=== PATIENT | female | born 1950 | race Caucasian/White ===

== ENCOUNTER 2023-09-23 13:13 | Outpatient (REF) | payer MEDICARE, SELFPAY ==
--- NOTE | ~2023-09-23 | US_ITS ---
EXAMINATION: US EXTRACRANIAL CAROTID DUPLEX, BILATERAL CLINICAL INFORMATION: Dizziness. COMPARISON: None available. TECHNIQUE: Real-time ultrasound and Doppler techniques (integrating B-mode 2-D vascular images, Doppler spectral analysis and color-flow Doppler imaging) were utilized to interrogate the extracranial carotid arteries, the vertebral arteries and proximal subclavian arteries bilaterally. The degree of stenosis is determined by criteria similar to NASCET. FINDINGS: Right Side: 1. There is mild atherosclerotic plaque seen in the bifurcation/proximal ICA region. 2. The common carotid artery PSV proximally is 594 cm/s and distally 7 cm/s. 3. The proximal internal carotid artery velocities are 35 cm/s systolic and 12 cm/s diastolic. 4. The proximal external carotid artery PSV is 71 cm/s. 5. The vertebral artery shows antegrade flow. 6. The subclavian artery waveforms are normal. Left Side: 1. There is mild atherosclerotic plaque seen in the bifurcation/proximal ICA region. 2. The common carotid artery PSV proximally is 57 cm/s and distally 49 cm/s. 3. The proximal internal carotid artery velocities are 36 cm/s systolic and 11 cm/s diastolic. 4. The proximal external carotid artery PSV is 47 cm/s. 5. The vertebral artery shows antegrade flow. 6. The subclavian artery waveforms are normal. US/US carotid duplex BI IMPRESSION: 1. RIGHT: Minimal, non-hemodynamically significant stenosis of the proximal right internal carotid artery corresponding to a 0-49% stenosis by velocity criteria. 2. LEFT: Minimal, non-hemodynamically significant stenosis of the proximal left internal carotid artery corresponding to a 0-49% stenosis by velocity criteria.
== END 2023-09-23 13:14 | disposition home or self-care (01) ==
LOC: HO.US 13:13
PROVIDERS: Visit Provider Psychiatry & Neurology Neurology
DX: R42 Dizziness and giddiness (principal)
CPT/HCPCS: 93880

== ENCOUNTER 2025-05-16 13:17 | Outpatient (AMB) | payer MEDICARE, SELFPAY ==
--- OUTSIDE RECORDS SUMMARY | 2024-12-14 09:00 | XMS_ITS ---
Author Organization [facility] Address [address] [facility] [place] [address] Care Team Providers Care Cleaning Machine Operator Name Role Phone Akil MERCHANT, Mena Primary Care Provider Unavailabl e Black, Thea Unavailable [phone] Medications Medication SIG (Take, Route, Frequency, Duration) Notes Start Date End Date Status hydroCHLOROthiazide Not-Taking Benadryl Not-Taking FLUoxetine HCl Not-T aking Melatonin Not-Taking ZyPREXA Not-Taking [place] Carbonate No t-Taking Flonase 50 MCG/ACT 1 [...] Unknown Encounters [facility] [address] [facility]14[facility] Thea Carr Plan Of Treatment No Information Progress Notes * Sera CHEEKdyanDOB:[birth year] (75 yo F)Acc No.[id number]:12/14/2024 Progress Note Patient: Anita TIAN Provider: Dyan Carr DPM :1950 A ge:74 Y S ex:Female Date:12/14/2024 Address:[address] [place], [place] [id number] Pcp:Monalisa Barnard MD Subjective: * Chief Complaints: [...] Not-Taking/PRN Vraylar , Not-Taking/PRN LaMICtal , Not-Taking/PRN [place] Carbonate , Not-Taking/PRN Xanax 0.25 MG Tablet [...] 0 12/14/2024 Generated for Amelia aguilar/Gerda/Manuel on: 05/16/2025 05:11 PM EDT
--- NOTE | 2025-05-16 13:23 | A.OFFVIS_ITS ---
Intake Visit Reasons: f/u to discuss MRI results Allergies acetaminophen (From Percocet) Allergy (Unknown, Verified 05/16/25 13:48) Unknown oxycodone (From Percocet) Allergy (Unknown, Verified 05/16/25 13:48) Unknown Medication List - Last Reconciled 05/16/25 by Elodia Blackburn CNP adalimumab (Humira Pen) 40 mg subcut QWEEK aspirin 81 mg PO DAILY atorvastatin 20 mg PO DAILY cholecalciferol (vitamin D3) 50 mcg PO DAILY metformin 500 mg PO DAILY methenamine hippurate 1 g PO BID mirtazapine 30 mg PO BEDTIME mirtazapine 7.5 mg PO DAILY qqrfyoch-gxkwlcg-sukw-lutein tabs PO oxybutynin chloride ER 10 mg PO DAILY vortioxetine (Trintellix) 20 mg PO DAILY HPI Comments Details: 75-year-old woman with a long history of psychiatric disorder including depression, anxiety, and bipolar disorder, Crohn's disease, and hyperlipidemia who was initially seen for dizziness and was found to have orthostatic hypotension, with symptoms improving after losartan was stopped. She returns after about 17 months to review MRI results. She reports being admitted to [facility] in [facility] in early 03/2025 where she was found to have UTI after sliding off her recliner chair. She had follow up with her PCP afterward where brain MRI with and without contrast was ordered and completed at [facility]. She was unsure why MRI was ordered, according to report indication was dizziness and memory loss. She reports also being referred to cardiology for MRI results and has appointment next month. She was here alone and denies any problems with memory. She admits to some confusion and fogginess around time of UTI, which improved with treatment of UTI. She was following with urology. She was having some dizziness. She apparently had appointment with ENT a few weeks ago where she was diagnosed with migraine and recommended to start some vitamins which she has not done yet. She denies any significant headaches. She was walking with cane or walker, no recent falls. She was taking mirtazapine 37.5mg, but sleep was still not so good. [facility] Medical History (Updated 05/16/25 @ 14:33 by Elodia Blackburn CNP) Bipolar disorder Hyperlipidemia Crohn's disease Anxiety Depression Family History (Updated 05/16/25 @ 14:34 by Elodia Blackburn CNP) Mother Stroke Review of Systems Const Denies chills, Denies daytime sleepiness, Reports difficulty sleeping, Denies f atigue, Denies fever(s), Denies frequent falls, Denies headache(s), Denies increased appetite, Denies poor appetite, Denies snoring, Denies weakness, Denies weight gain and Denies weight loss Eyes Denies loss of vision ENT Denies vertigo, Reports dizziness, Denies headache(s) and Denies neck pain Card Denies chest pain at rest, Denies chest pain with activity, Denies syncope, Denies leg edema, Denies palpitations, Denies dyspnea and Denies dyspnea on exertion Resp Denies cough, Denies dyspnea, Denies dyspnea on exertion and Denies snoring GI Denies abdominal pain, Denies constipation, Denies heartburn, Denies diarrhea and Denies nausea Denies urinary frequency, Denies urinary incontinence and Denies urinary urgency Musc Denies abnormal gait, Denies back pain, Denies myalgias, Denies arthralgias, Denies neck pain, Denies numbness and Denies tingling Neuro Denies abnormal gait, Denies vertigo, Reports dizziness, Denies syncope, Denies frequent falls, Denies headache(s), Denies lack of coordination, Denies loss of vision, Denies memory loss, Denies numbness, Denies Other visual disturbances, Denies restless legs, Denies seizure-like activity, Denies tingling, Denies paresthesias, Denies tremor(s) and Denies weakness Psych Reports anxiety, Denies depression, Denies auditory hallucinations, Denies memory loss and Denies visual hallucinations Endo Denies fatigue and Denies palpitations Physical Exam Const Other: General Appearance:? normal, in no acute distress. Heart:? S1, S2 normal, no murmurs. Lungs:? clear anteriorly and posteriorly. Musculoskeletal:? normal. Extremities:? no edema. Psych:? alert, oriented, cognitive function intact, cooperative with exam. Neuro Other: Abnormal Neurological Findings:?Walking with cane. ? Mental Status: alert and oriented X 3. Normal attention, orientation, memory, and affect. Cranial Nerves: Pupils are equal, round, and reactive to light. External ocular muscles are intact. Visual marrero are full, no ptosis. Face is symmetrical, no facial weakness or droop. Facial sensations are normal. Tongue protrudes in midline. Palate elevates symmetrically. Shoulder shrugging is normal Motor Examination: Normal muscle tone, bulk and strength. No atrophy or fasciculations. No drift of the extended upper extremities. DTR 2+. Plantars are flexor. Sensory Exam: Normal light touch, temperature, pinprick, vibration, and joint- position sensations. Rhomberg sign is absent. Coordination: No ataxia. No titubation. Zhgvnm-og-tlri, jsnd-eytn-fogy test, and rapid alternating movements were normal. Gait Exam: With cane. Cerebellar Signs: Ksgjwx-bn-ysan and hyba-gq-taec is normal. No dysdia dochokinesia. Extrapyramidal System: No tremor, rigidity with normal facial expressions. No bradykinesia. No bradyphrenia. Normal arm swing and posture. No propulsion or retropulsion. Speech: Normal. No dysphasia or dysarthria. Results Reviewed Results Reviewed: Brain MRI W & WO Contrast at [facility]: 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 No hemorrhage or mass effect upon adjacent structures. No other abnormal intracranial enhancement. Frontal lobe predominant cerebral volume loss, similar comparaed to 202. Moderate chronic small vessel ischemic changes throughout the supratentorial and pontine white matter, similar compared to 2022. (reported). 09/21/23 EEG- WNL 09/23/23 Carotid US: Minimal, non-hemodynamically significant stenosis of the proximal right and left internal carotid artery corresponding to a 0-49% stenosis by velocity criteria. Assessment & Plan Assessment & Plan (1) Cerebral microvascular disease: Code(s): I67.89 - Other cerebrovascular disease Category: Medical Plan: MRI results reviewed. She was referred to cardiology and has appointment next month. 7-day holter monitor ordered. CTA head/neck ordered. Continue low dose aspirin and statin. (2) Dizziness: Code(s): R42 - Dizziness and giddiness Category: Medical (3) History of stroke: Code(s): Z86.73 - Personal history of transient ischemic attack (TIA), and cerebral infarction without residual deficits Category: Medical Plan . Orders: Orders ECG 7 day holter monitor Today I67.89 - Other cerebrovascular disease, R42 - Dizziness and giddiness, Z86.73 - Personal history of transient ischemic attack (TIA), and cerebral infarction without residual deficits CT angio head neck Today I67.89 - Other cerebrovascular disease, R42 - Dizziness and giddiness, Z86.73 - Personal history of transient ischemic attack (TIA), and cerebral infarction without residual deficits Coding Level of Care Code Est Pt Level 4 (81138) Diagnoses Cerebral microvascular disease I67.89 Dizziness R42 History of stroke Z86.73
--- OUTSIDE RECORDS SUMMARY | 2025-05-16 17:12 | XMS_ITS | Patient Health Record ---
Author Organization [facility] Address [address] [place] [address] Care Team Providers Care Search Marketing Analyst Name Role Phone Akil MERCHANT, [facility] Primary Care Provider UnavailThea Mccrary Unavailable [phone] Allergies Allergen (clinical drug ingredient) Drug/Non Drug Allergy documented on EMR Reaction Allergy Type Onset Date Status ibuprofen Advil Unknown Drug Allergy Active Aleve Unknown Drug Allergy Active Motrin Unknown Drug Allergy Active acetaminophen / oxycodone Percocet Unknown Drug Allergy Active lurasidone Latuda Unknown Drug Allergy Active Results Component Value Reference Range Notes HEMOGLOBIN A1C (GLYCOHEMOGLO BIN) Reviewed date:09/23/2024 01:32:29 PM Interpretation: Performing Lab: Notes/Report: HEMOGLOBIN A1C % (HH) 6.0 Reason For Referral No Information Medications Medication SIG (Take, Route, Frequency, Duration) Notes Start Date End Date Status Ziprasidone HCl Not- Taking hydroCHLOROthiazide Not-Taking Ammonium Lactate 12 % 1 application Externally Twice a day; Duration: 30 days Active Benadryl Not-Taking Linzess Not-Taking Ammonium Lactate Not -Taking ALPRAZolam Not-Takin g Doxazosin Mesylate N ot-Taking FLUoxetine HCl Not-T aking Trintellix Active Melatonin Not-Taking ZyPREXA Not-Taking Valsartan-hydroCHLOROthiazi de Not-Taking Cephalexin 500 MG 1 tablet Orally Twic e a day; Duration: 10 day(s) Not-Taking Extra-Depth Diabetic Shoes with 3 Pair Custom heat-molded multi-density innersoles . for 1 year . Dx:dayne 02/23/2015 Unknown Metoprolol Succinate ER Not-Taking Lunesta Unknown metFORMIN HCl Not-Ta jhony Delzicol Not-Taking Simvastatin Unknown Vraylar Not-Taking PROzac Not-Taking oxyBUTYnin Chloride ER 10 MG 1 tablet Orally Once a day Active Brazos Carbonate No t-Taking metFORMIN HCl Active LaMICtal Not-Taking Eszopiclone Not-Taki ng glipiZIDE ER Not-Ramy ing Extra Depth Orthopedic Shoes (1 Pair) with Customized Heat Molded Multidensity Innersoles (3 Pair) as directed Dx: NIDDM/Polyneuropathy (E11.42), Hammertoe Foot Deformity (M20.41,M20.42), Preulcerative Skin Lesion(s) (L85.1 03/11/2016 Active Atorvastatin Calcium 10 MG 1 tablet Oral ly Once a day Active Mirtazapine 30 MG 1 tablet at bedtime Orally Once a day Active Flonase 50 MCG/ACT 1 spray in each nostril Nasally Once a day Not-Taking traZODone HCl 100 MG 1 tablet at bedtime Orally Once a day Active Xanax 0.25 MG 1 tablet Orally Thre e times a day Not-Taking Humira Pen Active lamoTRIgine Not-Taki ng Meclizine HCl Active OLANZapine 2.5 MG 1 tablet Orally Once a day Not-Taking Immunizations Vaccine Route Administration Date Status Comme nts Influenza Unknown 07/18/2016 Administered Influenza Unknown 08/04/2017 Administered Influenza Unknown 07/28/2018 Administered Influenza Unknown 06/30/2019 Administered Influenza Unknown 07/06/2020 Administered Influenza Unknown 08/21/2020 Refused Influenza Unknown 02/18/2022 Refused Influenza Unknown 05/14/2023 Administered COVID-19 Moderna Vaccine Unknown 12/13/2020 Administered 1st vaccine 10/29 04/20 Social History Tobacco use other than smoking: Question Answer Notes Are you an other tobacco user? No AUDIT-C (Standard) Question Answer Notes Did you have a drink containing alcohol in the p ast year? No Points 0 Interpretation Negative Problems Problem Type SNOMED Code ICD Code Onset Dates Problem Status W/U Status Risk Notes Problem Non-pressure chronic ulcer of other part of left foot limited to breakdown of skin (L97.521) Active confirmed Problem Polyneuropathy due to type 2 diabetes mellitus (784625398) Type 2 diabetes mellitus with diabetic polyneuropathy (E11.42) Active confirmed Problem Ulcer of toe of right foot (disorder) (686661634700278 01) Skin ulcer of toe of right foot, limited to breakdown of skin (L97.511) Active confirmed Problem Ulcer of toe of left foot (disorder) (053941517449984 02) Skin ulcer of toe of left foot, limited to breakdown of skin (L97.521) Active confirmed Nonapplicable Vital Signs Blood pressure diastolic 65 mm Hg 09/23/2024 Height 5ft 8in in 09/23/2024 Blood pressure systolic 117 mm Hg 09/23/2024 Weight 185 lbs 09/23/2024 BMI 28.13 kg/m2 09/23/2024 Procedures Procedure Date Ordered Date Performed Result Body Sit e 16965-DVQQFNG NAIL, 6 OR MORE 06/17/2024 N/A 90601-Jzqpywid Plate 06/17/2024 N/A 30918-XOVM SKIN LESIONS, OVER 4 06/17/2024 N/A 45910-OAYNFWE NAIL, 6 OR MORE 09/23/2024 N/A 74165-EVUO SKIN LESIONS, OVER 4 09/23/2024 N/A Encounters Encounter Location Date Provider Diagnosis [address] [address] 06/17/2024 Thea Carr Type 2 diabetes shoshana itus with diabetic polyneuropathy E11.42 ; Onychomycosis B35.1 and Ingrown nail L60.[address] [address] 09/23/2024 Thea Carr Type 2 diabetes shoshana itus with diabetic polyneuropathy E11.42 and Onychomycosis B35.[address] [address] 11/21/2024 Thea Carr [address] [address] 12/14/2024 Thea Carr Assessments Encounter Date Diagnosis (ICD Code) Assessment Notes Treatment Notes Treatment Clinical Notes Section Notes 06/17/2024 Type 2 diabetes mellitus with diabetic polyneuropathy (ICD-10 - E11.42) 09/23/2024 Type 2 diabetes mellitus with diabetic polyneuropathy (ICD-10 - E11.42) 09/23/2024 Onychomycosis (ICD-10 - B35.1) 06/17/2024 Onychomycosis (ICD-10 - B35.1) 06/17/2024 Ingrown nail (ICD-10 - L60.0) Plan Of Treatment Pending Test Test Name Order Date *Wound Culture 03/08/2018 51464-YHGKOIH NAIL, 6 OR MORE 05/26/2023 27132-UGKUHQQ NAIL, 6 OR MORE 09/04/2023 14069-YKRZIVR NAIL, 6 OR MORE 12/04/2023 97980-OTHSWOR NAIL, 6 OR MORE 03/18/2024 15822-LSBXMZF NAIL, 6 OR MORE 06/17/2024 95531-LKTWNMV NAIL, OR MORE 09/23/2024 95394-Eytmxcdl Plate 06/17/2024 22305-Mostqrcb Plate 02/24/2023 48484-Ojvryhnm Plate 06/14/2019 95247-Wpubiset Plate 02/18/2022 92869-Ymjvxxrp Plate 03/08/2018 90415-Cqunfpky Plate 01/21/2017 59788-Pcijasdz Plate 09/30/2017 16739-Yegiddnr Plate 04/27/2015 78423-Moqjbwap Plate 07/29/2016 64048-Uvscyzns Plate 05/05/2013 26853-Rlpbkslz Plate 07/19/2013 42654-Vaatpjjy Plate 09/27/2013 66861-Seosihkf Plate 12/06/2013 75144-Omecbijf Plate 03/16/2014 70117-Qpibqqmw Plate 05/23/2014 10007-Esumesos Plate 08/08/2014 27703-Vzuoetxz Plate 12/15/2014 81228-Beujslzp Plate 02/23/2015 54726-Xwtavroh Plate Each Additional 62169-Vrnntgoa Plate Each Additional 15062-Qrppxtgy Plate Each Additional 05/2014 45066-Dzeaqqks Plate Each Additional 52135-Gwcpsmxn Plate Each Additional 28219-Frewvzjj Plate Each Additional 58537-Bzidiqjy Plate Each Additional 18604-Iimlhlyl Plate Each Additional 31152- Debride <25 sq cm 12/04/2023 22277- Debride <25 sq cm 04/29/2017 21628- Debride <25 sq cm 03/31/2018 15254- Debride <25 sq cm 04/28/2018 28150- Debride <25 sq cm 07/09/2018 64771 I&D ABSCESS- SIMPLE,SINGLE 023 74470 I&D ABSCESS- SIMPLE,SINGLE 018 67869-EUIZ SKIN LESIONS, OVER 4 09/17/19 19 70309-MTBP SKIN LESIONS, OVER 4 12/11/19 31418-QUFU SKIN LESIONS, OVER 4 03/15/20 78447-SWHF SKIN LESIONS, OVER 4 10/26/19 54839-EANS SKIN LESIONS, OVER 4 06/14/20 53715-MGWH SKIN LESIONS, OVER 4 02/17/20 84351-ZPAT SKIN LESIONS, OVER 4 05/22/20 03189-TSAE SKIN LESIONS, OVER 4 05/20/20 96206-AYHB SKIN LESIONS, OVER 4 08/19/20 64593-FCIO SKIN LESIONS, OVER 4 11/16/19 57972-HHEQ SKIN LESIONS, OVER 4 02/19/20 57834-PCSL SKIN LESIONS, OVER 4 08/21/20 19768-FNKR SKIN LESIONS, OVER 4 12/20/19 91821-OSAU SKIN LESIONS, OVER 4 03/26/20 21 43588-KYTJ SKIN LESIONS, OVER 4 08/02/20 41832-EWEG SKIN LESIONS, OVER 4 11/26/19 23 15348-NMYK SKIN LESIONS, OVER 4 02/25/20 70408-BEAM SKIN LESIONS, OVER 4 09/04/19 24 97427-HOAV SKIN LESIONS, OVER 4 12/04/19 24 67247-ZZNO SKIN LESIONS, OVER 4 03/18/20 24 60465-DJYS SKIN LESIONS, OVER 4 09/23/19 25 97146-TLCV SKIN LESIONS, OVER 4 06/17/20 76905-WVPK SKIN LESIONS, OVER 4 05/26/20 23 62510-FBPF SKIN LESIONS, OVER 4 07/09/20 18 92023-SWXC SKIN LESIONS, OVER 4 03/31/20 18 83525-BDJO SKIN LESIONS, OVER 4 07/21/20 05711-USNM SKIN LESIONS, OVER 4 04/29/20 22367-CAYE SKIN LESIONS, OVER 4 12/31/19 18 12665-JDJR SKIN LESIONS, OVER 4 09/30/19 18 02311-FPBD SKIN LESIONS, OVER 4 04/27/20 15 66138-GGFS SKIN LESIONS, OVER 4 08/02/20 15 32402-BWAI SKIN LESIONS, OVER 4 11/01/19 16 18746-VNXH SKIN LESIONS, OVER 4 01/22/20 17 41495-CQNR SKIN LESIONS, OVER 4 07/29/20 16 12809-GIEZ SKIN LESIONS, OVER 4 03/11/20 16 15970-JBLG SKIN LESIONS, OVER 4 05/20/20 16 05420-TFLU SKIN LESIONS, OVER 4 09/27/19 14 08538-CWLO SKIN LESIONS, OVER 4 03/16/20 14 20400-MWSF SKIN LESIONS, OVER 4 12/07/19 14 72346-YUGY SKIN LESIONS, OVER 4 07/19/20 13 38137-ABXR SKIN LESIONS, OVER 4 05/23/20 14 97651-ARUS SKIN LESIONS, OVER 4 08/08/20 14 63131-BYDL SKIN LESIONS, OVER 4 12/16/19 15 81786-VNHU SKIN LESIONS, OVER 4 02/24/20 15 34970-FNMS SKIN LESIONS, 2 TO 4 05/05/20 13 K6003-ZZHFOEZY DYSTROPHIC NAILS ANY # O6673-EHUJEJMC DYSTROPHIC NAILS ANY # H8143-DCQRUKTO DYSTROPHIC NAILS ANY # Q7730-VPEBDYHC DYSTROPHIC NAILS ANY # K1629-KMSBUWNF DYSTROPHIC NAILS ANY # E3726-MNSDCNQF DYSTROPHIC NAILS ANY # A2763-BRDBVLNC DYSTROPHIC NAILS ANY # C4832-CVKLFMTB DYSTROPHIC NAILS ANY # W9508-GWCRIAEE DYSTROPHIC NAILS ANY # S3630-LAZIXZIR DYSTROPHIC NAILS ANY # V9239-IMGTBUPF DYSTROPHIC NAILS ANY # Y9227-GKHBITFR DYSTROPHIC NAILS ANY # F9352-SAVAOSGP DYSTROPHIC NAILS ANY # C0076-HXNQXCCD DYSTROPHIC NAILS ANY # J9357-YKQNEHUF DYSTROPHIC NAILS ANY # T3212-VCXFMDQW DYSTROPHIC NAILS ANY # X8826-HLVAXOEJ DYSTROPHIC NAILS ANY # A3716-KMEYDSYN DYSTROPHIC NAILS ANY # O4423-JMYAATIC DYSTROPHIC NAILS ANY # I0905-WRKGRCJJ DYSTROPHIC NAILS ANY # U0335-RTDPRGES DYSTROPHIC NAILS ANY # N9933-LQYLOPYQ DYSTROPHIC NAILS ANY # I1797-JRNTJIWN DYSTROPHIC NAILS ANY # H7646-MBNPNHTS DYSTROPHIC NAILS ANY # C4494-NDUFTFJK DYSTROPHIC NAILS ANY # Q9427-WAGZESPJ DYSTROPHIC NAILS ANY # H4403-WEOZUYOR DYSTROPHIC NAILS ANY # H8664-JHPBWPFI DYSTROPHIC NAILS ANY # P0037-IUXPUEXG DYSTROPHIC NAILS ANY # Q7796-LYHVJRKT DYSTROPHIC NAILS ANY # H4839-GPBRZEEB DYSTROPHIC NAILS ANY # N9580-CQINMGML DYSTROPHIC NAILS ANY # B2173-GSDMMGWN DYSTROPHIC NAILS ANY # O3168-XXQSOISD DYSTROPHIC NAILS ANY # L3031-KWQQCVJF DYSTROPHIC NAILS ANY # Z5396-SVXWIVHH DYSTROPHIC NAILS ANY # T1482-JUWJDZRC DYSTROPHIC NAILS ANY # W4149-YJMUFXYE DYSTROPHIC NAILS ANY # Z6997-WAWQDXMN DYSTROPHIC NAILS ANY # Insurance Providers Payer Name Payer Address Payer Phone Subscriber Number Group Number Insured Name Patient Relationship to Insured Coverage Start Date Coverage End Date [employer] [place] Medicare Advantage [address] [facility] [place] [id number] Anita Cheek Self - patient is the insured Medical (General) History Medical History History ICD Code cholesterol crohns disease depression type II diabetes diverticulosis high blood pressure measles mumps chicken pox Surgical History Surgery Date(Month/Year) gall bladder adrenalectomy Disk L4-5 S1 hysterectomy 2020 face surgery for cancer 08/16/2024
--- OUTSIDE RECORDS SUMMARY | 2025-05-16 17:12 | XMS_ITS ---
Author Name [facility] Organization [facility] Care Team Organization Name Specialty Phone Email Start Date End Da te [facility] 03/17/2024 04/06/2024 [facility] 09/08/2022 04/18/2024
--- OUTSIDE RECORDS SUMMARY | 2025-05-16 17:12 | XMS_ITS | Patient Health Record ---
Author Organization [facility] Address [address] [place] [address] Care Team Providers Care Broadcast Designer Name Role Phone Pino MERCHANT, Hetal Primary Care Provider Ravi pérez Reason For Referral No Information Plan Of Treatment No Information Insurance Providers Payer Name Payer Address Payer Phone Subscriber Number Group Number Insured Name Patient Relationship to Insured Coverage Start Date Coverage End Date [employer] MEDICARE ADVANTAGE [address] [facility] [address] [place] [address] [phone] CLINT TRAVIS Self - patient is the insured
--- OUTSIDE RECORDS SUMMARY | 2025-05-16 17:12 | XMS_ITS | Encounter Summary ---
Author Organization [facility] Address [address] [place] [address] Care Team Providers Care Marine Engineering Professor Name Role Phone Errol Moody SANTIAGO Primary Care Provider [phone] Encounter Details Date Type Department Care Team (Late Contact Info) Description 02/10/2025 Lab Requisition [facility] - Main Lab [address] [facility] [place] [phone] Ankita Hoover MD [address] [facility] [address] [place] [address] Urinary tract infection, site not specified Social History Tobacco Use Types Packs/Day Years Used Date Smoking Tobacco: Former Smokeless Tobacco: Never Alcohol Use Standard Drinks/Week Comments Not Currently 0 (1 standard drink = 0.6 oz pur e alcohol) Comments Unknown Sex and Gender Information Value Date Recorded Sex Assigned at Female 03/16/2025 11:39 AM EDT Legal Sex Female 11:33 PM EST Gender Identity Female 03/16/2025 11:39 AM EDT Sexual Orientation Straight 03/16/2025 11 :41 AM EDT documented as of this encounter Plan of Treatment Upcoming Encounters Date Type Department Care Team (Late st Contact Info) Description 06/05/2025 2:00 PM EDT Office Visit [facility] [address] [place] [phone] Terry Vincent MD [address] [place] [address] [address] [place] [phone] documented as of this encounter Procedures Procedure Name Priority Date/Time Associated Diagnosis Comments BACTERIAL IDENTIFICATION AND SUSCEPTIBILITY, AEROBIC Routine 02/09/2025 12:00 AM EDT Urinary tract infection, site not specified documented in this encounter Results * Bacterial identification and susceptibility, aerobic (02/09/2025 12:00 AM EDT) Culture, Bacterial ID and Sensitivity Light Normal Urogenital ibrahima. 02/11/2025 9:32 AM EDT [facility] Other Urine specimen from urethra / Unknown 02/09/2025 02/10/2025 10:23 AM EDT us Ankita Hoover MD LAB MICROBIOLOGY - G ENERAL ORDERABLES Final Result [facility] [address] [place] [address], documented in this encounter Visit Diagnoses Diagnosis Urinary tract infection, site not specified documented in this encounter Care Teams Marine Engineering Professor Relationship Specialty Start Date End Date Moody Norton PA [address] [place] [address] PCP - General Physician Director Career Services 03/27/25 documented as of this encounter
--- OUTSIDE RECORDS SUMMARY | 2025-05-16 17:12 | XMS_ITS | Clinical Summary ---
Author Organization [facility] [address] [facility] Address [address] [place] [address] Phone Care Team Providers Care Validation Software Facilitator Name Role Phone Moody Norton Primary Care Provider [phone] Allergies Active Allergy Reactions Criticality Noted Date Comments Lisinopril 01/12/2025 Other Reaction(s): cough/sinus inflamation cough Lurasidone 01/12/2025 Other Reaction(s): high anxiety Oxycodone-Acetaminophen 09/21/2024 Medications ALPRAZolam (XANAX) 0.5 mg tablet Take 1 Tablet by mouth 3 times daily as needed. Active UNABLE TO FIND Apoaequorin 10 MG Cap Take 1 Capsule by mouth daily Active aspirin 81 mg EC tablet Take 1 Tablet by mouth daily. Active atorvastatin (LIPITOR) 10 mg tablet Take 1 Tablet by mouth daily. Active cholecalciferol (VITAMIN D-3) 50 mcg (2,000 unit) tablet Take 1 Tablet by mouth daily. Active ketoconazole (NIZORAL) 2 % shampoo Apply topically every other day. Active meclizine (ANTIVERT) 12.5 mg tablet Take 1 Tablet by mouth every 12 hours as needed. Active oxyBUTYnin XL (DITROPAN-XL) 10 mg 24 hr tablet Take 1 Tablet by mouth daily. Active traZODone (DESYREL) 50 mg tablet Take 1 Tablet by mouth at bedtime. Active multivit-min/iro n/FA/vit K/lut (CENTRUM SILVER WOMEN ORAL) Multiple Vitamins-Minera ls (Centrum Silver 50+Women) Tab Take 1 Tablet by mouth daily Active metFORMIN (GLUCOPHAGE) 500 mg tablet TAKE 1 TABLET BY MOUTH EVERY DAY WITH A MEAL FOR 90 DAYS 4 Active mirtazapine (REMERON) 30 mg tablet Take 1 tablet (30 mg total) by mouth at bedtime. 4 Active mirtazapine (REMERON) 7.5 mg tablet Take 1 tablet (7.5 mg total) by mouth 1 (one) time each day. 5 Active hydrOXYzine HCL (ATARAX) 50 mg tablet 1 tablet (50 mg total) 2 (two) times a day. 5 Active adalimumab (Humira,CF,) 40 mg/0.4 mL syringeIndicatio ns:Crohn's disease of colon without complication ([facility] V24, [facility] V28) Inject 0.4 mL (40 mg total) under the skin every 7 (seven) days. 12 each 3 5 09/26/19 26 Active vortioxetine (Trintellix) 10 mg tablet Take 1 tablet (10 mg total) by mouth. 1 Active fluticasone propionate (FLONASE) 50 mcg/actuation nasal spray Administer 1 spray into each nostril 1 (one) time each day. 4 Active amLODIPine (NORVASC) 5 mg tablet Take 1 tablet (5 mg total) by mouth. 5 Active Active Problems Problem Noted Date Diagnosed Date Adnexal mass 01/05/2025 Allergic rhinitis 01/05/2025 Migraine headache 01/05/2025 Obesity 01/05/2025 Basal cell carcinoma (BCC) of skin of face 09/21 ADD (attention deficit disorder) without hyperac tivity 09/21/2024 Asthma, well controlled 09/21/2024 Bipolar disorder ([facility] V24, [facility] V28) 09/01 Overview (09/21/2024): psych Dr Morrison Cataract 09/21/2024 Cervical dysplasia 09/21/2024 Crohn's disease ([facility] V24, [facility] V28) 09/21 Overview (09/21/2024): GI Dr Alford Diabetes mellitus, type 2 ([facility] V24, [facility] V28) 09/21/2024 Hyperlipidemia 09/21/2024 Hypertension 09/21/2024 Nephrolithiasis 09/21/2024 Osteopenia 09/21/2024 Dizziness 03/30/2023 Overview (09/15/2024): Last Assessment & Plan: Patient is still having dizziness however she is not orthostatic. Blood pressure today is quite reasonable with a reading of 124/80. She has had tilt table testing in the past no abnormalities. She continues on meclizine as needed for dizziness.No further testing at this time Aortic dilatation ([facility] V24) 03/30/2023 Overview (09/15/2024): Last Assessment & Plan: Patient's echocardiogram did not reveal any changes to her ascending aorta. Will continue to monitor this with periodic echocardiograms. Heart murmur 10/04/2013 Overview (01/05/2025): echo-. Ascending aorta is very mildly dilated. Normal is up to 3.7. ( her 3.8) Suggest repeat echo in 2-3 years. Pheochromocytoma 07/07/2004 Overview (01/05/2025): path unclear- cortical adenoma vs pheo lap right adrenalectomy Encounters Date Type Department Care Team Description 04/29/2025 10:52 AM EDT - 04/29/2025 11:59 PM EDT Hospital Encounter [address] [address] Dizziness; Memory loss Discharge Disposition: Home or Self Care 03/27/2025 2:51 PM EDT - 03/27/2025 11:59 PM EDT Hospital Encounter [facility] [address] [phone] Screening for malignant neoplasm of skin Discharge Disposition: Home or Self Care from Last 3 Months Surgical History Surgery Date Site/Laterality Comments CHOLECYSTECTOMY COLONOSCOPY 02/14/2022 recall 01/2025 COLONOSCOPY 02/10/2018 COLONOSCOPY 11/02/2014 Family History Medical History Relation Name Comments Colon cancer Neg Hx Social History Tobacco Use Types Packs/Day Years Used Date Smoking Tobacco: Former Smokeless Tobacco: Never Alcohol Use Standard Drinks/Week Comments Not Currently 0 (1 standard drink = 0.6 oz pur e alcohol) Comments No Sex and Gender Information Value Date Recorded Sex Assigned at Female 03/16/2025 11:39 AM EDT Legal Sex Female 11:33 PM EST Gender Identity Female 03/16/2025 11:39 AM EDT Sexual Orientation Straight 03/16/2025 11 :41 AM EDT Obstetrics History Last Filed Vital Signs Vital Sign Reading Time Taken Comments Blood Pressure 124/80 05/31/2024 2:28 PM EDT Sit ting L Arm Pulse 90 05/31/2024 2:28 PM EDT Temperature 36.6 C (97.9 F) 01/12/2025 10:06 AM EDT Respiratory Rate - - Oxygen Saturation - - Inhaled Oxygen Concentration - - Weight 95.3 kg (210 lb) 03/27/2025 3:07 PM EDT Height 172.7 cm (5' 8 ) 03/27/2025 3:07 PM EDT Body Mass Index 31.93 03/27/2025 3:07 PM EDT Plan of Treatment Upcoming Encounters Date Type Department Care Team (Late st Contact Info) Description 06/05/2025 2:00 PM EDT Office Visit [facility] [address] [place] [address] Dr Rodriguez [address] [place] [phone] Terry Vincent MD [address] [place] [address] Dr Baker [address] [place] [phone] Health Maintenance Due Date Last Done Comments Diabetes: Annual Foot Exam 1961 Diabetes: Annual Retina Eye Exam 1961 Zoster Vaccines (1 of 2) 1970 RSV Immunization Adult Patients (1 - Risk 60-74 years 1-dose series) 2011 DTaP,Tdap,and Td Vaccines (2 - Td or Tdap) 09/10/2016 09/10/2006 Cholesterol Screening (Lipid Panel) 08/03/2022 Falls Risk Assessment 08/03/2022 Hepatitis C Screening 08/03/2022 Medicare Annual Wellness Visit 08/03/2022 Osteoporosis Screening (Bone Density Screening) 08/03/2022 Social Influencers of Health Screening 08/03/2022 Pneumococcal Vaccine: 50+ Years (2 of 2 - PCV) 06/26/2023 06/26/2022 Depression Screening 08/31/2024 Diabetes: Annual Urine Albumin-Creatinine Ratio (uACR) 09/21/2024 Diabetes: Blood Sugar Control Test (HGBA1C) 09/21/2024 COVID-19 Vaccine ( season) 2025 05/29/2022, 07/22/2021, 12/13/2020, Additional history exists Influenza Vaccine (#1) 2025 , 07/26/2013, 09/03/2012 Diabetes: Annual GFR (Glomerular Filtration Rate) 09/21/2025 09/21/2024 Hypertension/CHF/CAD Annual BMP Blood Test 09/21/2025 09/21/2024 Breast Cancer Screening 03/27/2027 03/27/2025 Colorectal Cancer Screening: Colonoscopy 09/23/2034 09/23/2024 HIB Vaccines Aged Out No longer eligi ble based on patient's age to complete this topic HPV Vaccines Aged Out No longer eligi ble based on patient's age to complete this topic Hepatitis A Vaccines Aged Out No long er eligible based on patient's age to complete this topic Hepatitis B Vaccines Aged Out No long er eligible based on patient's age to complete this topic IPV Vaccines Aged Out No longer eligi ble based on patient's age to complete this topic MMR Vaccines Aged Out No longer eligi ble based on patient's age to complete this topic Meningococcal ACWY Vaccine Aged Out N o longer eligible based on patient's age to complete this topic Meningococcal B Vaccine Aged Out No l onger eligible based on patient's age to complete this topic RSV Immunization Patients Under 20 months Aged Out No longer eligible based on patient's age to complete this topic Varicella Vaccines Aged Out No longer eligible based on patient's age to complete this topic Procedures Procedure Name Priority Date/Time Associated Diagnosis Comments MR BRAIN WO AND W CONTRAST Routine 04/29/2025 11:56 AM EDT Dizziness Memory loss MG MAMMO DIGITAL SCREENING W NOLAN BILAT Routine 03/27/2025 3:20 PM EDT Screening for malignant neoplasm of skin COLONOSCOPY Routine 09/23/2024 10:06 AM EST COMPREHENSIVE METABOLIC PANEL Routine 09/21/2024 3:26 PM EST Crohn's disease of colon without complication (CMS/HCC V24, CMS/HCC V28) from Last 3 Months or Most Recently Relevant to Health Maintenance Results * MR Brain wo and w Contrast (04/29/2025 11:56 AM EDT) Anatomical Region Laterality Modality Head and Neck Magnetic Resonan ce 05/02/2025 8:38 PM EDT Impressions 05/02/2025 8:53 PM EDT 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 No hemorrhage or mass effect upon adjacent structures. No other abnormal intracranial enhancement. Frontal lobe predominant cerebral volume loss, similar compared to 2022. Moderate chronic small vessel ischemic changes throughout the supratentorial and pontine white matter, similar compared to 2022. -------- FINAL REPORT -------- Dictated By: AMI SERRANO Dictated Date: 05/02/2025 20:38 ET Assigned Physician: AMI SERRANO Reviewed and Electronically Signed By: AMI SERRANO Signed Date: 05/02/2025 20:53 ET Workstation ID: [id number] Transcribed By: Self Edit Transcribed Date: 05/02/2025 20:38 ET Narrative 05/02/2025 8:53 PM EDT PROCEDURE: Brain MRI INDICATION: Dizziness, memory loss TECHNIQUE: Multiplanar, multisequence MRI of the brain without and with contrast. 20 mL Dotarem injected intravenously without complication from a 20 mL vial. COMPARISON: 11/26/2022. FINDINGS: Several small cortical and subcortical foci of increased diffusion-weighted signal throughout the left frontal and parietal lobes do not have a low ADC signal correlate and demonstrate enhancement. There is associated T2 hyperintensity. No mass effect upon adjacent structures or hemorrhage. No other abnormal intracranial enhancement. Moderate chronic small vessel ischemic change seen throughout the supratentorial and pontine white matter. Diffuse cerebral volume loss with frontal lobe predominance. No hydrocephalus. Sella and foramen magnum are within normal limits. Pituitary gland is within normal limits. Major intracranial arterial flow voids are within normal limits. Major dural venous sinuses enhance normally with contrast. Atelectatic left maxillary sinus. Scattered mucosal thickening seen throughout the sinuses. Mastoid air cells are clear. Bilateral lens implants. Orbits and skull base soft tissues are normal. Calvarium is normal. Procedure Note Ami Serrano MD - 05/02/2025 PROCEDURE: Brain MRI INDICATION: Dizziness, memory loss TECHNIQUE: Multiplanar, multisequence MRI of the brain without and withcontrast. 20 mL Dotarem injected intravenously without complication froma 20 mL vial. COMPARISON: 11/26/2022. FINDINGS: Several small cortical and subcortical foci of increaseddiffusion-weighted signal throughout the left frontal and parietal lobesdo not have a low ADC signal correlate and demonstrate enhancement. Thereis associated T2 hyperintensity. No mass effect upon adjacent structuresor hemorrhage. No other abnormal intracranial enhancement. Moderate chronic small vesselischemic change seen throughout the supratentorial and pontine whitematter. Diffuse cerebral volume loss with frontal lobe predominance. Nohydrocephalus. Sella and foramen magnum are within normal limits. Pituitary gland iswithin normal limits. Major intracranial arterial flow voids are within normal limits. Majordural venous sinuses enhance normally with contrast. Atelectatic left maxillary sinus. Scattered mucosal thickening seenthroughout the sinuses. Mastoid air cells are clear. Bilateral lens implants. Orbits and skull base soft tissues are normal. Calvarium is normal. IMPRESSION: Multiple small late subacute infarcts with postinfarct enhancementthroughout the left frontal and parietal lobes. No hemorrhage or masseffect upon adjacent structures. No other abnormal intracranial enhancement. Frontal lobe predominant cerebral volume loss, similar compared to 2022. Moderate chronic small vessel ischemic changes throughout thesupratentorial and pontine white matter, similar compared to 2022. -------- FINAL REPORT -------- Dictated By: AMI SERRANO Dictated Date: 05/02/2025 20:38 ET Assigned Physician: AMI SERRANO Reviewed and Electronically Signed By: AMI SERRANO Signed Date: 05/02/2025 20:53 ET Workstation ID: [id number] Transcribed By: Self Edit Transcribed Date: 05/02/2025 20:38 ET Moody SANTIAGO IMG MRI PROCEDURES Final R esult * MG Mammo Digital Screening w Nolan bilat (03/27/2025 3:20 PM EDT) Anatomical Region Laterality Modality Breast Bilateral Mammography 03/30/2025 8:59 AM EDT Impressions 03/30/2025 9:06 AM EDT No mammographic evidence of malignancy. No suspicious interval change. A negative mammogram in the presence of a clinically suspicious palpable abnormality does not preclude the possibility of malignancy or alter the indications for biopsy. ASSESSMENT: BI-RADS 1: NEGATIVE RECOMMENDATION(S): 1: Routine screening mammogram BILATERAL in 1 year. [facility]amm[facility] location: [facility] [address], [address] -------- FINAL REPORT -------- Dictated By: Kristian Baez Dictated Date: 03/30/2025 08:59 ET Assigned Physician: Kristian Baez Reviewed and Electronically Signed By: Kristian Baez Signed Date: 03/30/2025 09:06 ET Workstation ID: [id number] Transcribed By: Self Edit Transcribed Date: 03/30/2025 08:59 ET Narrative 03/30/2025 9:06 AM EDT EXAM: SCREENING MAMMOGRAPHY, BILATERAL HISTORY: SCREENING. No additional history. COMPARISON: 10/01/17 TECHNIQUE: Synthesized CC and MLO projections of each breast. Tomosynthesis of each breast in the CC and MLO projections. ADDITIONAL IMAGING: None Computer-aided detection was employed with the [employer] AI 3-D. TISSUE DENSITY: The breasts are almost entirely fatty. (BI-RADS Category A) FINDINGS: RIGHT BREAST: No suspicious mass. No suspicious calcification. No distortion. No additional suspicious right breast findings LEFT BREAST: No suspicious mass. No suspicious calcification. No distortion. No additional suspicious left breast findings Procedure Note Kristian Baez MD - 03/30/2025 EXAM: SCREENING MAMMOGRAPHY, BILATERAL HISTORY: SCREENING. No additional history. COMPARISON: 10/01/17 TECHNIQUE: Synthesized CC and MLO projections of each breast.Tomosynthesis of each breast in the CC and MLO projections. ADDITIONAL IMAGING: None Computer-aided detection was employed with the [employer] AI 3-D. TISSUE DENSITY: The breasts are almost entirely fatty. (BI-RADS CategoryA) FINDINGS: RIGHT BREAST: No suspicious mass. No suspicious calcification. No distortion. Noadditional suspicious right breast findings LEFT BREAST: No suspicious mass. No suspicious calcification. No distortion. Noadditional suspicious left breast findings IMPRESSION: No mammographic evidence of malignancy. No suspicious interval change. A negative mammogram in the presence of a clinically suspicious palpableabnormality does not preclude the possibility of malignancy or alter theindications for biopsy. ASSESSMENT: BI-RADS 1: NEGATIVE RECOMMENDATION(S): 1: Routine screening mammogram BILATERAL in 1 year. [facility]amm[facility] location: [facility] at [address], [address] -------- FINAL REPORT -------- Dictated By: Kristian Baez Dictated Date: 03/30/2025 08:59 ET Assigned Physician: Kristian Baez Reviewed and Electronically Signed By: Kristian Baez Signed Date: 03/30/2025 09:06 ET Workstation ID: [id number] Transcribed By: Self Edit Transcribed Date: 03/30/2025 08:59 ET Moody SANTIAGO IMG BI PROCEDURES Final Re sult * COLONOSCOPY (09/23/2024 10:06 AM EST) Anatomical Region Laterality Modality Endoscopy Historical Provider GI~PROCEDURE ORDERABLES F inal Result * (ABNORMAL) Comprehensive metabolic panel (09/21/2024 3:26 PM EST) Sodium 140 133 - 145 mmol/L LAB CHEMISTRY METHOD 09/21/2024 6:02 PM EST [facility] Potassium 4.3 3.5 - 5.5 mmol/L LAB CHEMISTRY METHOD 09/21/2024 6:02 PM EST [facility] Chloride 109 96 - 110 mmol/L LAB CHEMISTRY METHOD 09/21/2024 6:02 PM [facility] CO2 26 21 - 32 mmol/L LAB CHEMISTRY METHOD 09/21/2024 6:02 PM [facility] Anion Gap 5 3 - 11 LAB CHEMISTRY METHOD 09/21/2024 6:02 PM [facility] Glucose 132(H) 70 - 100 mg/dL LAB CHEMISTRY METHOD 09/21/2024 6:02 PM [facility] BUN 10 5 - 25 mg/dL LAB CHEMISTRY METHOD 09/21/2024 6:02 PM [facility] Creatinine 0.85 0.50 - 1.10 mg/dL LAB CHEMISTRY METHOD 09/21/2024 6:02 PM [facility] eGFR 72 >=60 mL/min/1. 73m2 LAB CHEMISTRY METHOD 09/21/2024 6:02 PM [facility] Comment:Calculation based on the Chronic Kidney Disease Epidemiology Collaboration (CKD-EPI) equation refit without adjustment for race. BUN/Creatinine Ratio 11.8 LAB CHEMISTRY METHOD 09/21/2024 6:02 PM [facility] Calcium 9.9 8.5 - 10.5 mg/dL LAB CHEMISTRY METHOD 09/21/2024 6:02 PM [facility] AST (SGOT) 21 10 - 42 unit/L LAB CHEMISTRY METHOD 09/21/2024 6:02 PM [facility] ALT (SGPT) 15 10 - 60 unit/L LAB CHEMISTRY METHOD 09/21/2024 6:02 PM [facility] Alkaline Phosphatase 108 42 - 121 unit/L LAB CHEMISTRY METHOD 09/21/2024 6:02 PM [facility] Total Protein 7.7 6.0 - 8.0 g/dL LAB CHEMISTRY METHOD 09/21/2024 6:02 PM [facility] Albumin 3.7 3.2 - 5.0 g/dL LAB CHEMISTRY METHOD 09/21/2024 6:02 PM [facility] Total Bilirubin 0.8 0.0 - 1.4 mg/dL LAB CHEMISTRY METHOD 09/21/2024 6:02 PM EST [facility] Blood Venous blood specimen / Unknown Venipuncture / Unknown 09/21/2024 3:26 PM EST 09/21/2024 4:05 PM EST us Jenny SANTIAGO LAB BLOOD ORDERABLES Final Resu lt [facility] [address] [place] [address], from Last 3 Months or Most Recently Relevant to Health Maintenance Insurance [employer] Care Teams Validation Software Facilitator Relationship Specialty Start Date End Date Moody Norton PA [address] [place] [id number] PCP - General Physician [employer] Associate 03/27/25
--- OUTSIDE RECORDS SUMMARY | 2025-05-16 17:13 | XMS_ITS | Patient Health Record ---
[facility] [address] Address [address] [place] [address] Care Team Providers Care Beam Doffer Name Role Phone KURTIS SHIELDS Unavailable [phone] SARITHAKILEY Garcia Unavailable [phone] Svrcek Chelsi Unavailable [phone] SAJI GÓMEZ Unavailable [phone] Normoyle, Chikis Unavailable [phone] Allergies No Known Allergies Results Component Value Reference Range Notes PPC Urine Dip Reviewed date:02/01/2025 01:53:58 PM Interpretation:Abnormal Performing Lab: Notes/Report: Abnormal MR BRAIN WO AND W CONTRAST Reviewed date:05/03/2025 04:19:42 PM Interpretation: Performing Lab: Notes/Report: Note See Note [facility], a member of [employer] Patient Name: CLINT CHEEK Date of : 1950 Reason for Exam: Dizziness, memory loss Exam Date: 04/29/2025 [id number] EST Report Status: Final Ordering Provider: KURTIS SHIELDS PCP: KURTIS SHIELDS PROCEDURE: Brain MRI INDICATION: Dizzines s, memory loss TECHNIQUE: Multiplan ar, multisequence MRI of the brain without and with contrast. 20 mL Dotarem injected intravenously without complication from a 20 mL vial. COMPARISON: 11/26/2022. FINDINGS: Several small cortic al and subcortical foci of increased diffusion-weighted signal throughout the left frontal and parietal lobes do not have a low ADC signal correlate and demonstrate enhancement. There is associated T2 hyperintensity. No mass effect upon adjacent structures or hemorrhage. No other abnormal intracranial enhancement. Moderate chronic small vessel ischemic change seen throughout the supratentorial and pontine white matter. Diffuse cerebral vol ume loss with frontal lobe predominance. No hydrocephalus. [...] loss, similar compared to 2022. Moderate chronic sma ll vessel ischemic changes throughout the supratentorial and pontine white matter, similar compared to 2022. -------- FINAL REPOR T -------- Dictated By: AMI SERRANO Dictated Date: 05/02/2025 20:38 ET Assigned Physician: AMI SERRANO Reviewed and Electronically Signed By: AMI SERRANO Signed Date: 025 20:53 ET Workstation ID: [id number] Transcribed By: Self Edit Transcribed Date: 05/02/2025 20:38 ET EXTRA URINE SPECIMEN Reviewed date:01/19/2025 12:41:12 PM Interpretation: Performing Lab:NL2, [employer] [facility] [id number] Blas Marcos Notes/Report: FASTING: UNKNOWN COMMENT AN EXTRA SPECIMEN WAS RECEIVED WITH NO TEST REQUESTED. THE SPECIMEN WILL BE MAINTAINED IN STORAGE IN CASE ADDITIONAL TESTING IS NEEDED. PLEASE CALL THE CLIENT SERVICE DEPARTMENT FOR FURTHER ASSISTANCE. UA/M w/rflx Culture, Routine -[id number] Reviewed date:08/11/2024 08:02:40 AM Interpretation: Performing Lab:[facility], [address] [facility], [place], Phone - [phone], Director - Carlos Alberto Notes/Report: Specific Wellington 1.025 1.005-1.030 pH 5.5 5.0-7.5 Urine-Color Yellow Yellow Appearance Turbid Clear WBC Esterase 2+ Negative Protein 3+ Negative/Trace Glucose Negative Negative Ketones Negative Negative Occult Blood 2+ Negative Bilirubin Negative Negative Urobilinogen,Semi-Qn 0.2 0.2-1.0 mg/dL Nitrite, Urine Negative Negative Microscopic Examination See below: Micr oscopic was indicated and was performed. Urinalysis Reflex This speci men has reflexed to a Urine Culture. WBC >30 0 - 5 /hpf RBC >30 0 - 2 /hpf Epithelial Cells (non renal) 0-10 0 - 10 /hpf Casts Present None seen /lpf Cast Type Hyaline casts N/A Bacteria None seen None seen/Few Urine Culture, Routine Final report Result 1 Mixed urogenital ibrahima 50,000-100,000 colony forming units per mL VITAMIN D 1,25 DIHYDROXY Reviewed date:09/30/2024 08:56:16 AM Interpretation: Performing Lab: Notes/Report: Vitamin D, 1, 25-Dihydroxy 46 20-79 pg/mL Vitamin D 1, 25 dihydroxy levels should be primarily used to assess Vitamin D status in patients with renal disease and hypercalcemia. Vitamin D 1,25-dihydroxy levels are generally less than 5 pg/mL in end stage renal disease patients. The preferred initial test for assessing Vitamin D status in the general population is Vitamin D 25-hydroxy (VITD). Test performed at [facility], [facility] [place] [address] Cortney Rodriguez MD, PhD - Pneumatic Tube Fitter Basic Metabolic Panel ([id number] Reviewed date:03/15/2025 09:20:22 AM Interpretation: Performing Lab:[facility], [address] [place] [address], Phone - [phone], Director - Carlos Alberto Notes/Report: Glucose 139 70-99 mg/dL BUN 13 8-27 mg/dL Creatinine 0.59 0.57-1.00 mg/dL eGFR 95 >59 mL/min/1.73 BUN/Creatinine Ratio 22 12-28 Sodium 140 134-144 mmol/L Potassium 4.8 3.5-5.2 mmol/L Chloride 101 96-106 mmol/L Carbon Dioxide, Total 22 20-29 mmol/L Calcium 9.5 8.7-10.3 mg/dL Comp. Metabolic Panel (14)-3 [id number] Reviewed date:08/08/2024 11:42:08 AM Interpretation: Performing Lab:[facility], [address] [facility], Phone - [phone], Director - Carlos Alberto Notes/Report: Glucose 125 70-99 mg/dL BUN 16 8-27 mg/dL Creatinine 0.75 0.57-1.00 mg/dL eGFR 84 >59 mL/min/1.73 BUN/Creatinine Ratio 21 12-28 Sodium 140 134-144 mmol/L Potassium 4.4 3.5-5.2 mmol/L Chloride 99 96-106 mmol/L Carbon Dioxide, Total 23 20-29 mmol/L Calcium 9.6 8.7-10.3 mg/dL Protein, Total 7.3 6.0-8.5 g/dL Albumin 4.0 3.8-4.8 g/dL Globulin, Total 3.3 1.5-4.5 g/dL Bilirubin, Total 0.8 0.0-1.2 mg/dL Alkaline Phosphatase 135 44-121 IU/L AST (SGOT) 16 0-40 IU/L ALT (SGPT) 8 0-32 IU/L Lipid Panel-[id number] Reviewed date:08/08/2024 07:56:08 AM Interpretation: Performing Lab:[facility], [address] [facility], Phone - [phone], Director - Carlos Alberto Notes/Report: Cholesterol, Total 144 100-199 mg/dL Triglycerides 85 0-149 mg/dL HDL Cholesterol 72 >39 mg/dL VLDL Cholesterol Tate 16 5-40 mg/dL LDL Chol Calc (NIH) 56 0-99 mg/dL Vitamin D, [id number] Reviewed date:08/08/2024 07:56:08 AM Interpretation: Performing Lab:[facility], [address] [facility], [place], Phone - [phone], Director - Carlos Alberto Notes/Report: Vitamin D, 25-Hydroxy 41.6 30.0-100.0 ng/mL Vitamin D deficiency has been defined by the [place] of Medicine and an Endocrine Society practice guideline as a level of serum 25-OH vitamin D less than 20 ng/mL (1,2). The Endocrine Society went on to further define vitamin D insufficiency as a level between 21 and 29 ng/mL (2). 1. IOM ([place] of Medicine). 2010. Dietary reference intakes for calcium and D. [place]: The National Academies Press. 2. Angel MF, Rohith NC, Moriah BEE, et al. Evaluation, treatment, and prevention of vitamin D deficiency: an Endocrine Society clinical practice guideline. JCEM. 2010; 96(7):1911-30. CBC With Differential/Platel et-[id number] Reviewed date:08/08/2024 11:42:16 AM Interpretation: Performing Lab:[facility], [address] [place] [address], Phone - [phone], Director - MDMilagrodry Notes/Report: WBC 7.6 3.4-10.8 x10E3/uL RBC 4.52 3.77-5.28 x10E6/uL Hemoglobin 14.0 11.1-15.9 g/dL Hematocrit 42.7 34.0-46.6 % MCV 95 79-97 fL MCH 31.0 26.6-33.0 pg MCHC 32.8 31.5-35.7 g/dL RDW 11.6 11.7-15.4 % Platelets 276 150-450 x10E3/uL Neutrophils 56 Not Estab. % Lymphs 34 Not Estab. % Monocytes 7 Not Estab. % Eos 3 Not Estab. % Basos 0 Not Estab. % Neutrophils (Absolute) 4.2 1.4-7.0 x10E3/uL Lymphs (Absolute) 2.6 0.7-3.1 x10E3/uL Monocytes(Absolute) 0.5 0.1-0.9 x10E3/uL Eos (Absolute) 0.2 0.0-0.4 x10E3/uL Baso (Absolute) 0.0 0.0-0.2 x10E3/uL Immature Granulocytes 0 Not Estab. % Immature Grans (Abs) 0.0 0.0-0.1 x10E3/uL TSH-[id number] Reviewed date:08/08/2024 07:56:08 AM Interpretation: Performing Lab:[facility] [address], Phone - [phone], Director - Crisdry Notes/Report: TSH 1.100 0.450-4.500 uIU/mL Urinalysis, Complete-[id number] Reviewed date:08/08/2024 11:42:00 AM Interpretation: Performing Lab:[facility] [address], Phone - [phone], Director - Jodry Notes/Report: Specific [place] 1.028 1.005-1.030 pH 5.5 5.0-7.5 Urine-Color Yellow Yellow Appearance Clear Clear WBC Esterase 1+ Negative Protein 2+ Negative/Trace Glucose Negative Negative Ketones Negative Negative Occult Blood 3+ Negative Bilirubin Negative Negative Urobilinogen,Semi-Qn 0.2 0.2-1.0 mg/dL Nitrite, Urine Positive Negative Microscopic Examination See below: Micr oscopic was indicated and was performed. WBC >30 0 - 5 /hpf RBC 11-30 0 - 2 /hpf Epithelial Cells (non renal) >10 0 - 10 /hpf Casts None seen None seen /lpf Bacteria Few None seen/Few Hemoglobin [id number] Reviewed date:08/08/2024 11:41:54 AM Interpretation: Performing Lab:[facility] [place], [address] [place] [address] Avenue, [place], Phone - [phone], Director - Carlos Alberto Notes/Report: Hemoglobin A1c 6.1 4.8-5.6 % . Prediabetes: 5.7 - 6.4 Diabetes: >6.4 Glycemic control for adults with diabetes: <7.0 CULTURE, URINE, ROUTINE Reviewed date:01/19/2025 12:41:07 PM Interpretation: Performing Lab:NL2, [facility] [id number] [facility] Blas Marcos Notes/Report: FASTING: UNKNOWN CULTURE, URINE, ROUTINE SEE NOTE CULTURE, URINE, ROUTINE Micro Number: [id number] Test Status: Final Specimen Source: Urine Specimen Quality: Inadequate Result: Test not performed. Submitted urine tube is incorrectly filled. MG MAMMO DIGITAL SCREENING W JAVIER BILAT Reviewed date:03/30/2025 10:29:23 AM Interpretation: Performing Lab: Notes/Report: Note See Note [facility], a member of [employer] Patient Name: CLINT CHEEK Date of : 1950 Reason for Exam: screening mammogram Exam Date: 03/27/2025 [id number] EST Report Status: Final Ordering Provider: KURTIS SHIELDS PCP: KURTIS SHIELDS EXAM: SCREENING MAMMOGRAPHY, BILATERAL HISTORY: SCREENING. No additional history. COMPARISON: 10/01/17 TECHNIQUE: Synthesiz ed CC and MLO projections of each breast. Tomosynthesis of each breast in the CC and MLO projections. ADDITIONAL IMAGING: None Computer-aided detection was employed with the [employer] AI 3-D. TISSUE DENSITY: The breasts are almost entirely fatty. (BI-RADS Category A) FINDINGS: RIGHT BREAST: No suspicious mass. No suspicious calcification. No distortion. No additional suspicious right breast findings LEFT BREAST: No suspicious mass. No suspicious calcification. No distortion. No additional suspicious left breast findings IMPRESSION: No mammographic evidence of malignancy. No suspicious interv al change. A negative mammogram in the presence of a clinically suspicious palpable abnormality does not preclude the possibility of malignancy or alter the indications for biopsy. ASSESSMENT: BI-RADS 1: NEGATIVE RECOMMENDATION(S): 1: Routine screening mammogram BILATERAL in 1 year. [facility] [address], [address] -------- FINAL REPOR T -------- Dictated By: Kritsian Wright Dictated Date: 03/30/2025 08:59 ET Assigned Physician: Kristian Baez Reviewed and Electronically Signed By: Kristian Baez Signed Date: 025 09:06 ET Workstation ID: [id number] Transcribed By: Self Edit Transcribed Date: 03/30/2025 08:59 ET VITAMIN B12 AND FOLATE Reviewed date:09/30/2024 08:56:16 AM Interpretation: Performing Lab: Notes/Report: Vitamin B-12 672 250-900 pcg/mL Folate 5.2 2.8-17.0 ng/ml BACTERIAL IDENTIFICATION AND SUSCEPTIBILITY, AEROBIC Reviewed date:02/14/2025 08:47:47 AM Interpretation: Performing Lab: Notes/Report: Culture, Bacterial ID and Sensitivity Light Normal Urogenital ibrahima. C-REACTIVE PROTEIN Reviewed date:09/30/2024 08:56:16 AM Interpretation: Performing Lab: Notes/Report: C-Reactive Protein <0.29 <=0.50 mg/dL COMPREHENSIVE METABOLIC PANE L Reviewed date:10/07/2024 08:31:25 AM Interpretation: Performing Lab: Notes/Report: Sodium 140 133-145 mmol/L Potassium 4.3 3.5-5.5 mmol/L Chloride 109 96-110 mmol/L CO2 26 21-32 mmol/L Anion Gap 5 3-11 Glucose 132 70-100 mg/dL BUN 10 5-25 mg/dL Creatinine 0.85 0.50-1.10 mg/dL eGFR 72 >=60 mL/min/1.73m2 Calculati on based on the?Chronic Kidney Disease Epidemiology Collaboration (CKD-EPI) equation refit?without adjustment for race. BUN/Creatinine Ratio 11.8 Calcium 9.9 8.5-10.5 mg/dL AST (SGOT) 21 10-42 unit/L ALT (SGPT) 15 10-60 unit/L Alkaline Phosphatase 108 42-121 unit/L Total Protein 7.7 6.0-8.0 g/dL Albumin 3.7 3.2-5.0 g/dL Total Bilirubin 0.8 0.0-1.4 mg/dL CBC WITH AUTO DIFFERENTIAL Reviewed date:09/30/2024 09:24:30 AM Interpretation: Performing Lab: Notes/Report: WBC 6.3 4.8-10.8 K/mcL RBC 4.90 3.80-4.80 M/mcL Hemoglobin 14.1 11.5-16.0 g/dL Hematocrit 45.1 35.0-47.0 % MCV 91.3 79.0-98.0 FL MCH 28.5 27.0-32.0 pcg MCHC 31.3 32.0-37.0 g/dL RDW 12.4 11.0-15.0 % Platelets 308 130-400 K/mcL MPV 10.6 7.0-11.0 FL NRBC 0.0 <1.0 % NRBC Absolute 0.00 <0.10 K/mcL Neutrophils Relative 43.8 Lymphocytes Relative 44.7 Monocytes Relative 7.6 Eosinophils Relative 3.3 Basophils Relative 0.3 Immature Granulocytes Relative 0.3 Neutrophils Absolute 2.77 1.50-7.00 K/mcL Lymphocytes Absolute 2.83 1.00-5.00 K/mcL Monocytes Absolute 0.48 0.20-1.00 K/mcL Eosinophils Absolute 0.21 0.00-0.50 K/mcL Basophils Absolute 0.02 0.00-0.20 K/mcL Immature Granulocytes Absolute 0.02 0.00-0.03 K/mcL Comp. Metabolic Panel ([id number] Reviewed date:10/28/2024 10:48:43 AM Interpretation: Performing Lab:[facility], [address], [place], Phone - [phone], Director - Carlos Alberto Notes/Report: Glucose 139 70-99 mg/dL BUN 13 8-27 mg/dL Creatinine 0.61 0.57-1.00 mg/dL eGFR 94 >59 mL/min/1.73 BUN/Creatinine Ratio 21 12-28 Sodium 140 134-144 mmol/L Potassium 4.6 3.5-5.2 mmol/L Chloride 101 96-106 mmol/L Carbon Dioxide, Total 20 20-29 mmol/L Calcium 9.5 8.7-10.3 mg/dL Protein, Total 7.1 6.0-8.5 g/dL Albumin 4.0 3.8-4.8 g/dL Globulin, Total 3.1 1.5-4.5 g/dL Bilirubin, Total 0.7 0.0-1.2 mg/dL Alkaline Phosphatase 115 44-121 IU/L AST (SGOT) 15 0-40 IU/L ALT (SGPT) 7 0-32 IU/L CBC With Differential/Platel et-[id number] Reviewed date:10/28/2024 10:48:52 AM Interpretation: Performing Lab:[facility], [address] [place] [address], [place], Phone - [phone], Director - Carlos Alberto Notes/Report: WBC 7.2 3.4-10.8 x10E3/uL RBC 4.50 3.77-5.28 x10E6/uL Hemoglobin 13.1 11.1-15.9 g/dL Hematocrit 41.7 34.0-46.6 % MCV 93 79-97 fL MCH 29.1 26.6-33.0 pg MCHC 31.4 31.5-35.7 g/dL RDW 13.1 11.7-15.4 % Platelets 314 150-450 x10E3/uL Neutrophils 36 Not Estab. % Lymphs 51 Not Estab. % Monocytes 7 Not Estab. % Eos 6 Not Estab. % Basos 0 Not Estab. % Neutrophils (Absolute) 2.6 1.4-7.0 x10E3/uL Lymphs (Absolute) 3.7 0.7-3.1 x10E3/uL Monocytes(Absolute) 0.5 0.1-0.9 x10E3/uL Eos (Absolute) 0.4 0.0-0.4 x10E3/uL Baso (Absolute) 0.0 0.0-0.2 x10E3/uL Immature Granulocytes 0 Not Estab. % Immature Grans (Abs) 0.0 0.0-0.1 x10E3/uL Hemoglobin [id number]-[id number] Reviewed date:10/28/2024 10:48:17 AM Interpretation: Performing Lab:[facility], [address], [place], Phone - [phone], Director - Carlos Alberto Notes/Report: Hemoglobin A1c 5.8 4.8-5.6 % . Prediabetes: 5.7 - 6.4 Diabetes: >6.4 Glycemic control for adults with diabetes: <7.0 Reason For Referral Reason s/p hospitalization sepsis from UTI. evaluate & treat Diagnosis 1 Chronic UTI (N39.0) Referral Organization [facility] Referring Provider First Name GÓMEZ Referring Provider Last Name SAJI Referring Provider Speciality Internal edicine Referred Provider Specialty Urology Clinical Notes Tonie Messina 12/30 04:26:06 PM > faxed pt info to [facility]rology of [facility]. p) [phone] f) [phone], Jose Alberto Sotelo 02/09/2025 02:20:59 PM > Spoke with Tonya, was seen today February 09 Referral Priority Routine Reason Evaluate & Treat Diagnosis 1 Anxiety (F41.9) Diagnosis 2 Bipolar disorder wit h depression (F31.9) Diagnosis 3 Polypharmacy (Z79.89 9) Referral Organization [facility] Referring Provider First Name KURTIS Referring Provider Last Name ALYSON Referring Provider [facility] Referred Provider Specialty Psychiatry General Notes Angeli Car 2024 01:47:14 PM > Family care con, [phone], [phone] Clinical Notes Angeli Car 2024 03:10:39 PM > patient has packet will call us if referral is needed Referral Priority Routine Medications Medication SIG (Take, Route, Frequency, Duration) Notes Start Date End Date Status traZODone HCl 100 MG TAKE 1 TABLET BY MOUTH EVERY DAY AT BEDTIME NEEDED FOR 30 DAYS 90 DAYS; Duration: 90 Active Meclizine HCl 12.5 MG TAKE 1 TABLET BY MOUTH EVERY 12 HOURS NEEDED; Duration: 30 Active Trintellix 20 MG TAKE 1 TABLET BY MOUTH EVERY DAY FOR 90 DAYS; Duration: 90 Active Methenamine Hippurate 1 GM TAKE 1 TABLET BY MOUTH TWICE A DAY TAKE WITH VITAMIN C OR CRANBERRY PILL Oral; Duration: 90 Days Active Ciprofloxacin HCl 250 MG 1 tablet Orally every 12 hrs; Duration: 5 days 01/17/2025 Not-Taking oxyBUTYnin Chloride ER 10 MG 1 tablet Orally Once a day Active Pyridium 100 MG one tab Orally Three times a day; Duration: 2 days 01/17/2025 Not-Taking Humira 40 mg SC Active Macrobid 100 MG 1 capsule with food Orally every 12 hrs; Duration: 5 days 01/18/2025 Not-Taking Acetaminophen 500 MG 1 capsule as needed Orally every 6 hrs prn Active Mirtazapine 30 MG TAKE 1 TABLET BY MOUTH EVERY NIGHT AT BEDTIME.; Duration: Active metFORMIN HCl 500 MG TAKE 1 TABLET BY MOUTH EVERY DAY WITH A MEAL FOR 90 DAYS; Duration: Active amLODIPine Besylate 5 MG TAKE 1 TABLET B Y MOUTH EVERY DAY; Duration: 90 Active Atorvastatin Calcium 20 MG 1 tablet Orally Once a day; Duration: 90 days Active Social History Tobacco Use: Social History Observation Description Date Details (start date - stop date) Former Smoker NA - NA Tobacco Use/Smoking Question Answer Notes Are you a former smoker Alcohol Screen (Audit-C) Question Answer Notes Did you have a drink containing alcohol in the p ast year? 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 HPI quit smoking 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 quit smoking 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 quit smoking 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 quit smoking 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 quit smoking 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 see HPI ETOH Use: declines Tob Use: declines Drug Use: declines Caffeine Use: coffee Smoke detectors in home: Yes Seatbelt use: Yes quit smoking 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 quit smoking 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 quit smoking 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 quit smoking 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 Problems Problem Type SNOMED Code ICD Code Onset Dates Problem Status W/U Status Risk Notes Problem Vitamin D deficiency (79700167) Vitamin D deficiency, unspecified (E55.9) Active confirmed Problem Metabolic encephalopathy (03192918) Metabolic encephalopathy (G93.41) Active confirmed Problem Essential hypertension (09838005) Essential (primary) hypertension (I10) Active confirmed Problem Shortness of breath (217103121) Shortness of breath (R06.02) Active confirmed Problem Dysuria (65521056) Dysuria (R30.0) Active confirmed Problem Transient alteration of awareness (6506725373) Transient alteration of awareness (R40.4) Active confirmed Problem Diabetes mellitus screening (548818355) Encounter for screening for diabetes mellitus (Z13.1) Active confirmed Problem Lipid screening (197547380) Encounter for screening for lipoid disorders (Z13.220) Active confirmed Problem Endocrine/metabol ic screening (064555981) Encounter for screening for other suspected endocrine disorder (Z13.29) Active confirmed Problem Prediabetes (850839070) Prediabetes (R73.03) Active confirmed Problem Unsteady gait (10997676) Unsteady gait (R26.81) Active confirmed Problem Acquired hypothyroidism (082251284) Acquired hypothyroidism (E03.9) Active confirmed Problem Anxiety (15409207) Anxiety (F41.9) Active confirmed Problem Adult health examination (223991572) Adult general medical exam (Z00.00) Active confirmed Problem Dizziness (956490253) Dizziness (R42) Active confirmed Problem Annual health maintenance examination (17012530) Annual physical exam (Z00.00) Active confirmed Problem Vitamin D deficiency (54567920) Vitamin D deficiency (E55.9) Active confirmed Problem Chronic sinusitis (90480054) Chronic sinusitis, unspecified location (J32.9) Active confirmed Problem Alkaline phosphatase raised (203183617) Elevated alkaline phosphatase level (R74.8) Active confirmed Problem Body mass index 30.00 to 34.99 (111006538512088) BMI 34.0-34.9,adult (Z68.34) Active confirmed Problem Basal cell carcinoma of face (605732122) Basal cell carcinoma (BCC) of skin of other part of face (C44.319) Active confirmed Problem Deviated nasal septum (176727142) Deviated septum (J34.2) Active confirmed Problem Chronic cough (73951613) Chronic cough (R05.3) Active confirmed Problem Abnormal gait (93742492) Balance disorder (R26.89) Active confirmed Problem Bipolar disorder (74918980) Bipolar disorder with depression (F31.9) Active confirmed Problem Amnesia (90669069) Memory changes (R41.3) Active confirmed Problem MRI Scan Abnormal (039494796) Abnormal MRI (R93.89) Active confirmed Problem Dilatation of Aorta (67679969) Aortic dilatation (I77.819) Active confirmed Problem Lesion of skin of face (125926905667) Lesion of skin of face (L98.9) Active confirmed Problem Word finding difficulty (973571825) Word finding difficulty (R47.89) Active confirmed Problem Urinary tract infectious disease (17205649) Chronic UTI (N39.0) Active confirmed Problem Ectasia of thoracic aorta (019058603073482) Aortic root dilation (I77.810) Active confirmed Problem Chronic insomnia (839227923) Chronic insomnia (F51.04) Active confirmed Vital Signs Heart Rate 88 /min 03/15/2025 Temperature 98.6 degrees Fahrenheit 01/17/2025 Oximetry 96 % 03/15/2025 Blood pressure diastolic 82 mm Hg 03/15/2025 Height 67 in 03/15/2025 Blood pressure systolic 124 mm Hg 03/15/2025 Weight 221 lbs 03/15/2025 BMI 34.61 kg/m2 03/15/2025 Encounters Encounter Location Date Provider Diagnosis [facility] [address] [place] [address] 06/09/2024 KURTIS ALVAREZNER Anxiety F41.9 ; Basa l cell carcinoma (BCC) of skin of other part of face C44.319 ; Aortic root dilation I77.810 ; Seborrhea capitis L21.0 and Sinus congestion R09.[address] [place] [address] 08/09/2024 KURTIS SHIELDS Anxiety F41.9 ; Basa l cell carcinoma (BCC) of skin of other part of face C44.319 ; Aortic root dilation I77.810 ; Seborrhea capitis L21.0 ; Sinus congestion R09.81 ; Dysuria R30.0 ; Prediabetes R73.03 and Elevated alkaline phosphatase level R74.8 [facility] [address] [place] [address] 11/02/2024 KURTIS SHIELDS Anxiety F41.9 ; Basa l cell carcinoma (BCC) of skin of other part of face C44.319 ; Aortic root dilation I77.810 ; Seborrhea capitis L21.0 ; Sinus congestion R09.81 ; Dysuria R30.0 ; Prediabetes R73.03 and Elevated alkaline phosphatase level R74.8 [facility] [address] [place] [address] 01/11/2025 KURTIS SHIELDS Basal cell carcinoma (BCC) of skin of other part of face C44.319 ; Metabolic encephalopathy G93.41 ; Anxiety F41.9 ; Aortic root dilation I77.810 ; Seborrhea capitis L21.0 ; Sinus congestion R09.81 ; Dysuria R30.0 ; Prediabetes R73.03 ; Elevated alkaline phosphatase level R74.8 and Encounter for examination of blood pressure without abnormal findings Z01.30 [facility] [address] [place], [place] 01/17/2025 GÓMEZ SAJI Urinary frequency R3 5.0 ; Chills R68.83 ; Acute UTI N39.0 and Encounter for examination of blood pressure without abnormal findings Z01.[address] 02/01/2025 Chikis Normoyle Incontinence in fema le R32 ; Recurrent UTI (urinary tract infection) N39.0 ; Encounter for examination of blood pressure without abnormal findings Z01.30 and Chronic insomnia F51.04 [facility] [address] [place] [address] 03/15/2025 KURTIS SHIELDS Basal cell carcinoma (BCC) of skin of other part of face C44.319 ; Adult general medical exam Z00.00 ; Aortic root dilation I77.810 ; Encounter for examination of blood pressure without abnormal findings Z01.30 ; Encounter for screening for depression Z13.31 ; Encounter for screening for other disorder Z13.89 ; Other specified counseling Z71.89 ; Dizziness R42 ; Memory changes R41.3 and BMI 34.0-34.9,adult Z68.34 [facility] [address] [place] [address] 07/06/2024 KURTIS SHIELDS [facility] [address] [place] [address] 08/12/2024 KURTIS SHIELDS [facility] [address] [place] [address] 01/05/2025 KURTIS SHIELDS [facility] [address] [place] [address] 01/10/2025 KURTIS SHIELDS [facility] [address] [place] [address] 01/16/2025 KURTIS SHIELDS [facility] [address] [place] [address] 01/17/2025 GÓMEZ SAJI Dysuria R30.[address] [place] [address] 01/17/2025 KURTIS SHIELDS Dysuria R30.[address] [place] [address] 01/18/2025 GÓMEZ SAJI [facility] [address] [place] [address] 01/31/2025 UKRTIS SHIELDS [facility] [address] [place] [address] 02/02/2025 Chikis Normoyle [facility] [address] [facility] [address] [place] [address] 02/03/2025 KURTIS SHIELDS [facility] [address] [place] [address] 02/13/2025 KURTIS SHIELDS [facility] [address] [place] [address] 02/21/2025 KURTIS SHIELDS [facility] [address] [place] [address] 03/08/2025 KURTIS SHIELDS [facility] [address] [place] [address] 03/23/2025 Chelsi Svrcek [facility] [address] [place] [address] 03/23/2025 KURTIS SHIELDS [facility] [address] [place] [address] 03/30/2025 KURTIS SHIELDS [facility] [address] [place] [address] 04/11/2025 KURTIS SHIELDS [facility] [address] [place] [address] 04/27/2025 KURTIS SHIELDS [facility] [address] [place] [address] 05/03/2025 KURTIS SHIELDS [facility] [address] [place] [address] 08/12/2024 KILEY MELARA Assessments Encounter Date Diagnosis (ICD Code) Assessment Notes Treatment Notes Treatment Clinical Notes Section Notes 06/09/2024 Anxiety (ICD-10 - F41.9) # Patient was under dermatology for lesion on face, tested positive for basal cell carcinoma. Getting surgery on September 28October 12, and final surgery not scheduled get with plastic surgeon Dr. Barrios. # Chronic cough/Chronic congestion: Obtained chest x-ray, within normal limits overall. Failed Augmentin, and doxycycline, continue Flonase. Still having chronic congestion as well. Use albuterol as needed,Continuing Trelegy with improvement. CT of the maxillofacial sinuses without contrast showing mucosal thickening. Sending to ENT, referral still pending. Patient does have deviated septum.Patient has a follow-up with ENT on November 17, 2024. # Dizziness: Much better since discontinuing losartan/Benzodiazep ine. Blood pressure stable. Heart murmur heard on exam. Previous echocardiogram showed normal output with some dilation of the aortic root. MRI 10/2022 demonstrated small vessel ischemia, patient currently on statin therpay and aspirin. Has tried vestibular therapy, however no longer following. Meclizine does not provide adequate releif per patient. Reported she liked physical therapy for gait instability, however has not been going. Has been using cane, feels steady. Declines recent falls. Educated on the importance of hydration. Discussed at home safety to include getting up slowing from a lying/seated postion and using a shower chair. Saw cardiology 04/06/23, Reviewed note, they discontinue losartan and dizziness has improved. Work with new psychiatrist, and working with neurologist as well. Cardiology states that echocardiogram results are unchanged. # Sees neurology every 4 months.. Most recent MRI showing small vessel ischemia, and moderate diffuse brain atrophy and T2 hyperintensity in the white matter. Patient does have some difficulty word finding, and has some silent spells. Had EEG which was negative, following with neurology , Declines any recent falls. Dizziness has improved. # Heart murmur: Echocardiogram demonstrates dilation of the aortic root, otherwise normal output. Lower extremities are without edema or rubor. Recent echocardiogram 2023 showing unchanged results. 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 Blood pressure stable. # Bipolar: Recently seen by DO China Kaiser at [facility]. Increase mirtazapine to 30 mg. Patient was currently taking 50 mg +7.5 mg tablets. Discontinued alprazolam. Discussed psychotherapy.Trial increasing trazodone for sleep to 100 mg but patient did not tolerate well. Will discontinue trazodone and trial hydroxyzine. Avoid alprazolam secondary to beers list. # Anxiety: Patient suffers from agoraphobia. Rx for alprazolam PRN provided by Dr. Сергей Morrison,Provider retired, , Medication has been discontinued secondary to it being on the beers list, and risk outweighing benefit. Patient has been last fatigued, and memory has been better.Continue mirtazapine # Hx of DM II: Reports went away with weight loss. Hemoglobin A-1 C without concern.Repeating values prior to next visit. Follow-up in 2 months for repeat blood work, sooner as needed, Also assess efficacy/compliance of hydroxyzine All quetsions answered to patients satisfaction. Patient verbalized understanding of diagnosis and treatments explained. To call sooner prior to next visit it any questions/concerns arise. Case discussed with collaborating physician Tiffanie Barnard who reviewed the assessment and plan. Chart, medications, labs, vital signs reviewed. Dictation was accomplished with the use of [employer] voice recognition software, prone to medical misidentifications and grammatical errors. This is unintentional and the practitioner does try to identify and correct these, but some could still be present. Please do not hesitate to contact practitioner for clarification. 06/09/2024 Basal cell carcinoma (BCC) of skin of other part of face (ICD-10 - C44.319) # Patient was under dermatology for lesion on face, tested positive for basal cell carcinoma. Getting surgery on September 28, October 12, and final surgery not scheduled get with plastic surgeon Dr. Barrios. # Chronic cough/Chronic congestion: Obtained chest x-ray, within normal limits overall. Failed Augmentin, and doxycycline, continue Flonase. Still having chronic congestion as well. Use albuterol as needed,Continuing Trelegy with improvement. CT of the maxillofacial sinuses without contrast showing mucosal thickening. Sending to ENT, referral still pending. Patient does have deviated septum.Patient has a follow-up with ENT on November 17, 2024. # Dizziness: Much better since discontinuing losartan/Benzodiazep ine. Blood pressure stable. Heart murmur heard on exam. Previous echocardiogram showed normal output with some dilation of the aortic root. MRI 10/2022 demonstrated small vessel ischemia, patient currently on statin therpay and aspirin. Has tried vestibular therapy, however no longer following. Meclizine does not provide adequate releif per patient. Reported she liked physical therapy for gait instability, however has not been going. Has been using cane, feels steady. Declines recent falls. Educated on the importance of hydration. Discussed at home safety to include getting up slowing from a lying/seated postion and using a shower chair. Saw cardiology 04/06/23, Reviewed note, they discontinue losartan and dizziness has improved. Work with new psychiatrist, and working with neurologist as well. Cardiology states that echocardiogram results are unchanged. # Sees neurology every 4 months.. Most recent MRI showing small vessel ischemia, and moderate diffuse brain atrophy and T2 hyperintensity in the white matter. Patient does have some difficulty word finding, and has some silent spells. Had EEG which was negative, following with neurology , Declines any recent falls. Dizziness has improved. # Heart murmur: Echocardiogram demonstrates dilation of the aortic root, otherwise normal output. Lower extremities are without edema or rubor. Recent echocardiogram 2023 showing unchanged results. 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 Blood pressure stable. # Bipolar: Recently seen by DO China Kaiser at [facility]. Increase mirtazapine to 30 mg. Patient was currently taking 50 mg +7.5 mg tablets. Discontinued alprazolam. Discussed psychotherapy.Trial increasing trazodone for sleep to 100 mg but patient did not tolerate well. Will discontinue trazodone and trial hydroxyzine. Avoid alprazolam secondary to beers list. # Anxiety: Patient suffers from agoraphobia. Rx for alprazolam PRN provided by Dr. Сергей Morrison,Provider retired, , Medication has been discontinued secondary to it being on the beers list, and risk outweighing benefit. Patient has been last fatigued, and memory has been better.Continue mirtazapine # Hx of DM II: Reports went away with weight loss. Hemoglobin A-1 C without concern.Repeating values prior to next visit. Follow-up in 2 months for repeat blood work, sooner as needed, Also assess efficacy/compliance of hydroxyzine All quetsions answered to patients satisfaction. Patient verbalized understanding of diagnosis and treatments explained. To call sooner prior to next visit it any questions/concerns arise. Case discussed with collaborating physician Tiffanie Barnard who reviewed the assessment and plan. Chart, medications, labs, vital signs reviewed. Dictation was accomplished with the use of [employer] voice recognition software, prone to medical misidentifications and grammatical errors. This is unintentional and the practitioner does try to identify and correct these, but some could still be present. Please do not hesitate to contact practitioner for clarification. 08/09/2024 Anxiety (ICD-10 - F41.9) # Abnormal urine. Patient states that she does have occasional burning. Will repeat urine plus culture and treat accordingly.Edgardo the importance of hydration. # Prediabetes: Hemoglobin A1c 6.1. Based on patient's age, will treat conservatively with lifestyle, , And metformin 500 mg daily. Patient has taken this in the past and tolerated fine. # Alkaline phosphatase mildly elevated at 135. Previous CMP alkaline phosphatase within normal limits. Could be secondary to inflammation relation to basal cell carcinoma. Liver enzymes reassuring, otherwise CBC reassuring.Repeat value in 3 months # Patient was under dermatology for lesion on face, tested positive for basal cell carcinoma. Scheduled for surgery August 15, with plastic surgery August 16. Also having 2 Mohs procedures 1 September 28, and the second in October. Discontinued Humira for 2 weeks prior to the surgery, and 2 weeks after. Also discontinuing aspirin prior to the surgery. Following with Dr. Barrios. # Chronic cough/Chronic congestion: Obtained chest x-ray, within normal limits overall. Failed Augmentin, and doxycycline, continue Flonase. Still having chronic congestion as well. Use albuterol as needed,Continuing Trelegy with improvement. CT of the maxillofacial sinuses without contrast showing mucosal thickening. Sending to ENT, referral still pending. Patient does have deviated septum.Patient has a follow-up with ENT on November 17, 2024. # Dizziness: Much better since discontinuing losartan/Benzodiazep ine. Blood pressure stable. Heart murmur heard on exam. Previous echocardiogram showed normal output with some dilation of the aortic root. MRI 10/2022 demonstrated small vessel ischemia, patient currently on statin therpay and aspirin. Has tried vestibular therapy, however no longer following. Meclizine does not provide adequate releif per patient. Reported she liked physical therapy for gait instability, however has not been going. Has been using cane, feels steady. Declines recent falls. Educated on the importance of hydration. Discussed at home safety to include getting up slowing from a lying/seated postion and using a shower chair. Saw cardiology 04/06/23, Reviewed note, they discontinue losartan and dizziness has improved. Work with new psychiatrist, and working with neurologist as well. Cardiology states that echocardiogram results are unchanged. # Sees neurology every 4 months.. Most recent MRI showing small vessel ischemia, and moderate diffuse brain atrophy and T2 hyperintensity in the white matter. Patient does have some difficulty word finding, and has some silent spells. Had EEG which was negative, following with neurology , Declines any recent falls. Dizziness has improved. # Heart murmur: Echocardiogram demonstrates dilation of the aortic root, otherwise normal output. Lower extremities are without edema or rubor. Recent echocardiogram 2023 showing unchanged results. 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 Blood pressure stable. # Bipolar: Recently seen by DO China Kaiser at [facility]. Going to increase mirtazapine to 30 mg +7.5 mg tablets for a total of 37.5 mg. Discontinued alprazolam. Discussed psychotherapy.Trial increasing trazodone for sleep to 100 mg but patient did not tolerate well. Will discontinue trazodone and Trialed hydroxyzine 50 mg with some improvement, will increase to 50 to 100 mg as needed.. Avoid alprazolam secondary to beers list.Refer to psychiatrist at [facility]. Provided with phone number. # Anxiety: Patient suffers from agoraphobia. Rx for alprazolam PRN provided by Dr. Сергей Morrison,Provider retired, , Medication has been discontinued secondary to it being on the beers list, and risk outweighing benefit. Patient has been last fatigued, and memory has been better.Continue mirtazapine, Increase to 37.5 mg Follow-up in 2 to 3 months for repeat blood work, follow-up with dermatology/plastic surgery in the meantime. All quetsions answered to patients satisfaction. Patient verbalized understanding of diagnosis and treatments explained. To call sooner prior to next visit it any questions/concerns arise. Case discussed with collaborating physician Tiffanie Barnard who reviewed the assessment and plan. Chart, medications, labs, vital signs reviewed. Dictation was accomplished with the use of [employer] voice recognition software, prone to medical misidentifications and grammatical errors. This is unintentional and the practitioner does try to identify and correct these, but some could still be present. Please do not hesitate to contact practitioner for clarification. 11/02/2024 Anxiety (ICD-10 - F41.9) # Abnormal urine. Patient states that she does have occasional burning. Culture in July which did not grow any bacteria. Discussed hydration. Offered urogynecology referral, patient declines. Offered to repeat urine, patient declines # Prediabetes: Hemoglobin A1c 6.1. Based on patient's age, will treat conservatively with lifestyle, Continue metformin 500 mg daily. A1c has improved November 17-5.8, glucose 138 # Alkaline phosphatase mildly elevated at 135. Previous CMP alkaline phosphatase within normal limits. Could be secondary to inflammation relation to basal cell carcinoma. Liver enzymes reassuring, otherwise CBC reassuring. Repeat CBC within normal limits October 2024 aside from mildly elevated glucose # Patient was under dermatology for lesion on face, tested positive for basal cell carcinoma. Scheduled for surgery August 15, with plastic surgery August 16. Also having 2 Mohs procedures 1 September 28, and the second in October. Discontinued Humira for 2 weeks prior to the surgery, and 2 weeks after. Also discontinuing aspirin prior to the surgery. Following with Dr. Barrios.Doing well per surgery, pleased with progress # Chronic cough/Chronic congestion: Obtained chest x-ray, within normal limits overall. Failed Augmentin, and doxycycline, continue Flonase. Still having chronic congestion as well. Use albuterol as needed,Continuing Trelegy with improvement. CT of the maxillofacial sinuses without contrast showing mucosal thickening. Sending to ENT, referral still pending. Patient does have deviated septum.Patient has a follow-up with ENT on November 17, 2024.But this was just rescheduled to March. Going to contact office as this referral was sent in December 2023. Patient expresses frustration # Dizziness: Much better since discontinuing losartan/Benzodiazep ine. Blood pressure stable. Heart murmur heard on exam. Previous echocardiogram showed normal output with some dilation of the aortic root. MRI 10/2022 demonstrated small vessel ischemia, patient currently on statin therpay and aspirin. Has tried vestibular therapy, however no longer following. Meclizine does not provide adequate releif per patient. Reported she liked physical therapy for gait instability, however has not been going. Has been using cane, feels steady. Declines recent falls. Educated on the importance of hydration. Discussed at home safety to include getting up slowing from a lying/seated postion and using a shower chair. Saw cardiology 04/06/23, Reviewed note, they discontinue losartan and dizziness has improved. Work with new psychiatrist, and working with neurologist as well. Cardiology states that echocardiogram results are unchanged. # Sees neurology every 4 months.. Most recent MRI showing small vessel ischemia, and moderate diffuse brain atrophy and T2 hyperintensity in the white matter. Patient does have some difficulty word finding, and has some silent spells. Had EEG which was negative, following with neurology , Declines any recent falls. Dizziness has improved. # Heart murmur: Echocardiogram demonstrates dilation of the aortic root, otherwise normal output. Lower extremities are without edema or rubor. Recent echocardiogram 2023 showing unchanged results. 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 Blood pressure stable. # Bipolar: Recently seen by DO China Kaiser at [facility]. Going to increase mirtazapine to 30 mg +7.5 mg tablets for a total of 37.5 mg. Discontinued alprazolam. Discussed psychotherapy.Trial increasing trazodone for sleep to 100 mg but patient did not tolerate well. Will discontinue trazodone and Trialed hydroxyzine 50 mg with some improvement, will increase to 50 to 100 mg as needed.. Avoid alprazolam secondary to beers list.Refer to psychiatrist at [facility]. Provided with phone number.Patient states that she will call. # Anxiety: Patient suffers from agoraphobia. Rx for alprazolam PRN provided by Dr. Сергей Morrison,Provider retired, , Medication has been discontinued secondary to it being on the beers list, and risk outweighing benefit. Patient has been last fatigued, and memory has been better.Continue mirtazapine 37.5, Patient is going to contact psychiatry and therapy. # Weight gain: Focusing on nutrition, and exercise. Also admits to some leg pain, but she just got a bicycle for her lower extremities, and thinks exercise will be helpful. Will call the office with worsening symptoms. Follow-up in 3 months, sooner as needed. Contact ENT in the meantime. Patient to follow-up with psychiatry in the meantime. Call if she changes her mind in regards to lower extremity pain workup, or dysuria workup Discussed emergency department criteria/criteria to call the office All quetsions answered to patients satisfaction. Patient verbalized understanding of diagnosis and treatments explained. To call sooner prior to next visit it any questions/concerns arise. Case discussed with collaborating physician Tiffanie Barnard who reviewed the assessment and plan. Chart, medications, labs, vital signs reviewed. Dictation was accomplished with the use of [employer] voice recognition software, prone to medical misidentifications and grammatical errors. This is unintentional and the practitioner does try to identify and correct these, but some could still be present. Please do not hesitate to contact practitioner for clarification. 01/11/2025 Metabolic encephalopathy (ICD-10 - G93.41) # Hospitalized at [facility] in [place] January 01, 2025 discharged January 05, 2025. This was secondary to sepsis secondary to UTI, and acute metabolic encephalopathy. Patient was initially treated with ceftriaxone, and discharged on cefpodoxime 200 mg twice daily for 5 days, patient states that symptoms have completely resolved, and cognition is back to baseline. She states she does not remember the incident, but has been doing well since. Encouraged to continue with water intake. Encephalopathy resolved with UTI treatment. # Incidental finding of hypertension, systolic 170. Started on amlodipine 5 mg daily, blood pressure stable today 126/84 therefore we will continue amlodipine 5 mg at this time. Does have a blood pressure machine at home for which she checks regularly # Prediabetes: Repeat A1c in hospital December 2024 A1c 5.8. Patient pleased. Continue metformin 500 mg once daily # Alkaline phosphatase mildly elevated at 135. Previous CMP alkaline phosphatase within normal limits. Could be secondary to inflammation relation to basal cell carcinoma. Liver enzymes reassuring, otherwise CBC reassuring. Repeat CBC within normal limits October 2024 aside from mildly elevated glucose # Patient was under dermatology for lesion on face, tested positive for basal cell carcinoma. Scheduled for surgery August 15, with plastic surgery August 16. Also having 2 Mohs procedures 1 September 28, and the second in October. Discontinued Humira for 2 weeks prior to the surgery, and 2 weeks after. Also discontinuing aspirin prior to the surgery. Following with Dr. Barrios.Doing well per surgery, pleased with progress, Healing well # Chronic cough/Chronic congestion: Obtained chest x-ray, within normal limits overall. Failed Augmentin, and doxycycline, continue Flonase. Still having chronic congestion as well. Use albuterol as needed,Continuing Trelegy with improvement. CT of the maxillofacial sinuses without contrast showing mucosal thickening. Sending to ENT, referral still pending. Patient does have deviated septum.Patient has a follow-up with ENT on November 17, 2024.But this was just rescheduled to March. Tried contacting office, but they have no sooner availability. # Dizziness: Much better since discontinuing losartan/Benzodiazep ine. Blood pressure stable. Heart murmur heard on exam. Previous echocardiogram showed normal output with some dilation of the aortic root. MRI 10/2022 demonstrated small vessel ischemia, patient currently on statin therpay and aspirin. Has tried vestibular therapy, however no longer following. Meclizine does not provide adequate releif per patient. Patient was discharged with [facility] home PT[facility]OT, and [facility], and home health aide. Continuing to use a cane. Feels steady. Educated on the importance of hydration. Discussed at home safety to include getting up slowing from a lying/seated postion and using a shower chair. Saw cardiology 04/06/23, Reviewed note, they discontinue losartan and dizziness has improved. Work with new psychiatrist, and working with neurologist as well. Cardiology states that echocardiogram results are unchanged.Incidental finding of elevated blood pressure in the hospital for which amlodipine 5 mg was started. Patient will monitor blood pressure if blood pressure declines, will discontinue medication. # Sees neurology every 4 months.. Most recent MRI showing small vessel ischemia, and moderate diffuse brain atrophy and T2 hyperintensity in the white matter. Patient does have some difficulty word finding, and has some silent spells. Had EEG which was negative, following with neurology , Declines any recent falls. Dizziness has improved.Patient is going to contact neurology to get back on their schedule. # Heart murmur: Echocardiogram demonstrates dilation of the aortic root, otherwise normal output. Lower extremities are without edema or rubor. Recent echocardiogram 2023 showing unchanged results. # Bipolar: Recently seen by DO China Kaiser at [facility]. Going to increase mirtazapine to 30 mg +7.5 mg tablets for a total of 37.5 mg. Discontinued alprazolam. Discussed psychotherapy.Trial increasing trazodone for sleep to 100 mg but patient did not tolerate well. Will discontinue trazodone and Trialed hydroxyzine 50 mg with some improvement, will increase to 50 to 100 mg as needed.. Avoid alprazolam secondary to beers list.Refer to psychiatrist at [facility]. Provided with phone number.Patient states that she will call. # Anxiety: Patient suffers from agoraphobia. Rx for alprazolam PRN provided by Dr. Сергей Morrison,Provider retired, , Medication has been discontinued secondary to it being on the beers list, and risk outweighing benefit. Patient has been last fatigued, and memory has been better.Continue mirtazapine 30, Patient is going to contact psychiatry and therapy. # Weight gain: Focusing on nutrition, and exercise. Also admits to some leg pain, but she just got a bicycle for her lower extremities, and thinks exercise will be helpful. Will call the office with worsening symptoms. Follow-up in 2 to 3 months for Medicare wellness visit. Follow-up with neurology and psychiatry in the meantime. Discussed emergency department criteria/criteria to call the office. All quetsions answered to patients satisfaction. Patient verbalized understanding of diagnosis and treatments explained. To call sooner prior to next visit it any questions/concerns arise. Case discussed with collaborating physician Tiffanie Barnard who reviewed the assessment and plan. Chart, medications, labs, vital signs reviewed. Dictation was accomplished with the use of [employer] voice recognition software, prone to medical misidentifications and grammatical errors. This is unintentional and the practitioner does try to identify and correct these, but some could still be present. Please do not hesitate to contact practitioner for clarification. 01/11/2025 Basal cell carcinoma (BCC) of skin of other part of face (ICD-10 - C44.319) # Hospitalized at [facility] in [place] January 01, 2025 discharged January 05, 2025. This was secondary to sepsis secondary to UTI, and acute metabolic encephalopathy. Patient was initially treated with ceftriaxone, and discharged on cefpodoxime 200 mg twice daily for 5 days, patient states that symptoms have completely resolved, and cognition is back to baseline. She states she does not remember the incident, but has been doing well since. Encouraged to continue with water intake. Encephalopathy resolved with UTI treatment. # Incidental finding of hypertension, systolic 170. Started on amlodipine 5 mg daily, blood pressure stable today 126/84 therefore we will continue amlodipine 5 mg at this time. Does have a blood pressure machine at home for which she checks regularly # Prediabetes: Repeat A1c in hospital December 2024 A1c 5.8. Patient pleased. Continue metformin 500 mg once daily # Alkaline phosphatase mildly elevated at 135. Previous CMP alkaline phosphatase within normal limits. Could be secondary to inflammation relation to basal cell carcinoma. Liver enzymes reassuring, otherwise CBC reassuring. Repeat CBC within normal limits October 2024 aside from mildly elevated glucose # Patient was under dermatology for lesion on face, tested positive for basal cell carcinoma. Scheduled for surgery August 15, with plastic surgery August 16. Also having 2 Mohs procedures 1 September 28, and the second in October. Discontinued Humira for 2 weeks prior to the surgery, and 2 weeks after. Also discontinuing aspirin prior to the surgery. Following with Dr. Barrios.Doing well per surgery, pleased with progress, Healing well # Chronic cough/Chronic congestion: Obtained chest x-ray, within normal limits overall. Failed Augmentin, and doxycycline, continue Flonase. Still having chronic congestion as well. Use albuterol as needed,Continuing Trelegy with improvement. CT of the maxillofacial sinuses without contrast showing mucosal thickening. Sending to ENT, referral still pending. Patient does have deviated septum.Patient has a follow-up with ENT on November 17, 2024.But this was just rescheduled to March. Tried contacting office, but they have no sooner availability. # Dizziness: Much better since discontinuing losartan/Benzodiazep ine. Blood pressure stable. Heart murmur heard on exam. Previous echocardiogram showed normal output with some dilation of the aortic root. MRI 10/2022 demonstrated small vessel ischemia, patient currently on statin therpay and aspirin. Has tried vestibular therapy, however no longer following. Meclizine does not provide adequate releif per patient. Patient was discharged with at home PT/OT, and [facility], and home health aide. Continuing to use a cane. Feels steady. Educated on the importance of hydration. Discussed at home safety to include getting up slowing from a lying/seated postion and using a shower chair. Saw cardiology 04/06/23, Reviewed note, they discontinue losartan and dizziness has improved. Work with new psychiatrist, and working with neurologist as well. Cardiology states that echocardiogram results are unchanged.Incidental finding of elevated blood pressure in the hospital for which amlodipine 5 mg was started. Patient will monitor blood pressure if blood pressure declines, will discontinue medication. # Sees neurology every 4 months.. Most recent MRI showing small vessel ischemia, and moderate diffuse brain atrophy and T2 hyperintensity in the white matter. Patient does have some difficulty word finding, and has some silent spells. Had EEG which was negative, following with neurology , Declines any recent falls. Dizziness has improved.Patient is going to contact neurology to get back on their schedule. # Heart murmur: Echocardiogram demonstrates dilation of the aortic root, otherwise normal output. Lower extremities are without edema or rubor. Recent echocardiogram 2023 showing unchanged results. # Bipolar: Recently seen by DO China Kaiser at [facility]. Going to increase mirtazapine to 30 mg +7.5 mg tablets for a total of 37.5 mg. Discontinued alprazolam. Discussed psychotherapy.Trial increasing trazodone for sleep to 100 mg but patient did not tolerate well. Will discontinue trazodone and Trialed hydroxyzine 50 mg with some improvement, will increase to 50 to 100 mg as needed.. Avoid alprazolam secondary to beers list.Refer to psychiatrist at [facility]. Provided with phone number.Patient states that she will call. # Anxiety: Patient suffers from agoraphobia. Rx for alprazolam PRN provided by Dr. Сергей Morrison,Provider retired, , Medication has been discontinued secondary to it being on the beers list, and risk outweighing benefit. Patient has been last fatigued, and memory has been better.Continue mirtazapine 30, Patient is going to contact psychiatry and therapy. # Weight gain: Focusing on nutrition, and exercise. Also admits to some leg pain, but she just got a bicycle for her lower extremities, and thinks exercise will be helpful. Will call the office with worsening symptoms. Follow-up in 2 to 3 months for Medicare wellness visit. Follow-up with neurology and psychiatry in the meantime. Discussed emergency department criteria/criteria to call the office. All quetsions answered to patients satisfaction. Patient verbalized understanding of diagnosis and treatments explained. To call sooner prior to next visit it any questions/concerns arise. Case discussed with collaborating physician Tiffanie Barnard who reviewed the assessment and plan. Chart, medications, labs, vital signs reviewed. Dictation was accomplished with the use of [employer] voice recognition software, prone to medical misidentifications and grammatical errors. This is unintentional and the practitioner does try to identify and correct these, but some could still be present. Please do not hesitate to contact practitioner for clarification. 01/17/2025 Urinary frequency (ICD-10 - R35.0) Clint is a 74-year-old female with a complex past medical history who presents to the office today for an urgent visit. Patient states that she has been having mild abdominal pain, constant burning, frequent urination. Patient recently was admitted to [facility] for concern of sepsis secondary to UTI, acute metabolic encephalopathy. She was admitted from January 01 to January 05. Patient finished her entire course of cefpodoxime 200 mg twice daily x 5 days, and she is still experiencing symptoms. At this time patient's urine dip in office is notable for UTI. She has protein, nitrates and moderate blood in the urine. Will be treating with ciprofloxacin and Pyridium. Placing urology referral for further evaluation. At first patient was hesitant, however is now compliant with this plan at this time. Patient educated that Pyridium may make her urine orange, she is to drink plenty of fluids to hydrate her urinary tract at this time. All questions have been answered to patient's satisfaction. Patient verbalized understanding of diagnosis and treatments explained. Advised to call sooner prior to next visit it any questions/concerns arise. Case discussed with Caryl MERCHANT who reviewed the assessment and plan. Chart, medications, labs, vital signs reviewed. Dictation was accomplished with the use of [employer] voice recognition software, which is prone to medical misidentifications and grammatical errors. This are unintentional and the practitioner does try to identify and correct these, but some could still be present. Please do not hesitate to contact practitioner for clarification. 01/17/2025 Chills (ICD-10 - R68.83) Clint is a 74-year-old female with a complex past medical history who presents to the office today for an urgent visit. Patient states that she has been having mild abdominal pain, constant burning, frequent urination. Patient recently was admitted to [facility] for concern of sepsis secondary to UTI, acute metabolic encephalopathy. She was admitted from January 01 to January 05. Patient finished her entire course of cefpodoxime 200 mg twice daily x 5 days, and she is still experiencing symptoms. At this time patient's urine dip in office is notable for UTI. She has protein, nitrates and moderate blood in the urine. Will be treating with ciprofloxacin and Pyridium. Placing urology referral for further evaluation. At first patient was hesitant, however is now compliant with this plan at this time. Patient educated that Pyridium may make her urine orange, she is to drink plenty of fluids to hydrate her urinary tract at this time. All questions have been answered to patient's satisfaction. Patient verbalized understanding of diagnosis and treatments explained. Advised to call sooner prior to next visit it any questions/concerns arise. Case discussed with Caryl MERCHANT who reviewed the assessment and plan. Chart, medications, labs, vital signs reviewed. Dictation was accomplished with the use of [employer] voice recognition software, which is prone to medical misidentifications and grammatical errors. This are unintentional and the practitioner does try to identify and correct these, but some could still be present. Please do not hesitate to contact practitioner for clarification. 02/01/2025 Incontinence in female (ICD-10 - R32) Kristin is a 74-year-old female who presents due to ongoing urinary symptoms. #Urinary tract infection: Urine dipstick today shows leukocytes 3+, nitrates positive, blood 3+. Urine culture previously sent from prior visit unable to be evaluated due to inadequate sample. She initially was seen in the hospital 01/01/2025 to 01/05/2025 for sepsis secondary to UTI and was treated with ceftriaxone followed by cefpodoxime 200 mg twice daily for 5 days. On 01/17/2025, she was evaluated here due to ongoing symptoms and was given Macrobid and Pyridium. Today, patient reports ongoing symptoms. Negative CVA tenderness. Urine culture sent today. BMP sent today to evaluate for any kidney involvement. Bladder and renal ultrasound ordered today. Urology appointment scheduled February 09. Plan for Augmentin 875 mg BID x10 days. Plan for Pyridium for symptomatic relief. Patient educated on side effects of both medications including GI upset, diarrhea, orange urine. #Insomnia: Current regimen is trazodone 100 mg at bedtime, mirtazapine 30 mg at bedtime, hydroxyzine 50 mg at bedtime. Patient reports despite these medications, she is having no relief in his reporting difficulty sleeping. Patient encouraged to trial melatonin and magnesium. She reports understanding. All questions have been answered to patient's satisfaction. Patient verbalized understanding of diagnosis and treatments explained. Advised to call sooner prior to next visit it any questions/concerns arise. Case discussed with collaborating physician Tiffanie Barnard who reviewed the assessment and plan. Chart, medications, labs, vital signs reviewed. Dictation was accomplished with the use of [employer] voice recognition software, which is prone to medical misidentifications and grammatical errors. This are unintentional and the practitioner does try to identify and correct these, but some could still be present. Please do not hesitate to contact practitioner for clarification. 02/01/2025 Recurrent UTI (urinary tract infection) (ICD-10 - N39.0) Kristin is a 74-year-old female who presents due to ongoing urinary symptoms. #Urinary tract infection: Urine dipstick today shows leukocytes 3+, nitrates positive, blood 3+. Urine culture previously sent from prior visit unable to be evaluated due to inadequate sample. She initially was seen in the hospital 01/01/2025 to 01/05/2025 for sepsis secondary to UTI and was treated with ceftriaxone followed by cefpodoxime 200 mg twice daily for 5 days. On 01/17/2025, she was evaluated here due to ongoing symptoms and was given Macrobid and Pyridium. Today, patient reports ongoing symptoms. Negative CVA tenderness. Urine culture sent today. BMP sent today to evaluate for any kidney involvement. Bladder and renal ultrasound ordered today. Urology appointment scheduled February 09. Plan for Augmentin 875 mg BID x10 days. Plan for Pyridium for symptomatic relief. Patient educated on side effects of both medications including GI upset, diarrhea, orange urine. #Insomnia: Current regimen is trazodone 100 mg at bedtime, mirtazapine 30 mg at bedtime, hydroxyzine 50 mg at bedtime. Patient reports despite these medications, she is having no relief in his reporting difficulty sleeping. Patient encouraged to trial melatonin and magnesium. She reports understanding. All questions have been answered to patient's satisfaction. Patient verbalized understanding of diagnosis and treatments explained. Advised to call sooner prior to next visit it any questions/concerns arise. Case discussed with collaborating physician Tiffanie Barnard who reviewed the assessment and plan. Chart, medications, labs, vital signs reviewed. Dictation was accomplished with the use of [employer] voice recognition software, which is prone to medical misidentifications and grammatical errors. This are unintentional and the practitioner does try to identify and correct these, but some could still be present. Please do not hesitate to contact practitioner for clarification. 01/17/2025 Dysuria (ICD-10 - R30.0) 01/17/2025 Dysuria (ICD-10 - R30.0) 03/15/2025 Adult general medical exam (ICD-10 - Z00.00) # Hospitalized at [facility] in [place] January 01, 2025 discharged January 05, 2025. This was secondary to sepsis secondary to UTI, and acute metabolic encephalopathy. Patient was initially treated with ceftriaxone, and discharged on cefpodoxime 200 mg twice daily for 5 days, patient states that symptoms have completely resolved, and cognition is back to baseline. She states she does not remember the incident, but has been doing well since. Encouraged to continue with water intake. Encephalopathy resolved with UTI treatment. # Medicare wellness paperwork reviewed. # PHQ-9 with a total score of 5, going to try to establish with psychiatry. Medications discussed # Audit negative # Discussed healthcare proxy and MOLST form. # Experiencing frequent UTIs so went to neurology, they started patient on methenamine, and patient has been doing really well with complete resolution of symptoms. # Follows with Dr. Adams for gastroenterology, will obtain colonoscopy record # Due for mammogram ordered today March 15, 2025 # Declined all other routine screenings and vaccines # Using a cane/walker at home, discussed fall prevention. # Hypertension: Stable on amlodipine 5 mg # Prediabetes: Repeat A1c in hospital December 2024 A1c 5.8. Patient pleased. Continue metformin 500 mg once daily, Recheck A1c at next visit in 2 to 3 months. # Alkaline phosphatase mildly elevated at 135. Previous CMP alkaline phosphatase within normal limits. Could be secondary to inflammation relation to basal cell carcinoma. Liver enzymes reassuring, otherwise CBC reassuring. Repeat CBC within normal limits October 2024 aside from mildly elevated glucose. Rechecking visit in 2 to 3 months. # Patient was under dermatology for lesion on face, tested positive for basal cell carcinoma. Scheduled for surgery August 15, with plastic surgery August 16. Also having 2 Mohs procedures 1 September 28, and the second in October. Discontinued Humira for 2 weeks prior to the surgery, and 2 weeks after. Also discontinuing aspirin prior to the surgery. Following with Dr. Barrios.Doing well per surgery, pleased with progress, Healing wellPatient has been doing really well. # Chronic cough/Chronic congestion: Obtained chest x-ray, within normal limits overall. Failed Augmentin, and doxycycline, continue Flonase. Still having chronic congestion as well. Use albuterol as needed,Continuing Trelegy with improvement. CT of the maxillofacial sinuses without contrast showing mucosal thickening.As of March 15, 2025, patient states that symptoms have overall resolved, but she does have a visit with ENT in March. # Dizziness: Much better since discontinuing losartan/Benzodiazep ine. Blood pressure stable. Heart murmur heard on exam. Previous echocardiogram showed normal output with some dilation of the aortic root. MRI 10/2022 demonstrated small vessel ischemia, patient currently on statin therpay and aspirin. Has tried vestibular therapy, however no longer following. Meclizine does not provide adequate releif per patient. Patient was discharged with at home PT/OT, and [facility], and home health aide. Continuing to use a cane. . Educated on the importance of hydration. Discussed at home safety to include getting up slowing from a lying/seated postion and using a shower chair. Saw cardiology 04/06/23, Reviewed note, they discontinue losartan and dizziness has improved. Work with new psychiatrist, and working with neurologist as well. Cardiology states that echocardiogram results are unchanged.Admit to a dizziness episode yesterday. Blood pressure stable on amlodipine 5 mg. Ordering MRI with and without contrast of the head secondary to fatigue, dizziness, occasional difficulty with word finding. # Sees neurology every 4 months.. History of MRI showing small vessel ischemia, and moderate diffuse brain atrophy and T2 hyperintensity in the white matter. No recent MRI of note. Patient does have some difficulty word finding, and has some silent spells. Had EEG which was negative, following with neurology , Declines any recent falls. Patient is going to contact neurology to get back on their schedule. # Heart murmur: Echocardiogram demonstrates dilation of the aortic root, otherwise normal output. Lower extremities are without edema or rubor. Recent echocardiogram 2023 showing unchanged results. # Bipolar: Recently seen by DO China Kaiser at [facility]. Going to increase mirtazapine to 30 mg +7.5 mg tablets for a total of 37.5 mg. Discontinued alprazolam. Discussed psychotherapy.Trial increasing trazodone for sleep to 100 mg but patient did not tolerate well. Will discontinue trazodone and Trialed hydroxyzine 50 mg with some improvement, will increase to 50 to 100 mg as needed.. Avoid alprazolam secondary to beers list.Refer to psychiatrist at [facility]. Provided with phone number.Patient states that she will call.Referral to psych today. # Anxiety: Patient suffers from agoraphobia. Rx for alprazolam PRN provided by Dr. Сергей Morrison,Provider retired, , Medication has been discontinued secondary to it being on the beers list, and risk outweighing benefit. Patient has been last fatigued, and memory has been better.Continue mirtazapine 30, Patient is going to contact psychiatry and therapy. # Weight gain: Focusing on nutrition, and exercise. Also admits to some leg pain, but she just got a bicycle for her lower extremities, and thinks exercise will be helpful. Will call the office with worsening symptoms.Discussed senior center, patient declines. Follow-up in 2 to 3 months, labs prior. Psych evaluation prior, and MRI of the brain.Also ordering mammogram. Patient seen and examined. Comprehensive discussion was done on the following. 1. Nutrition: It is important to follow a healthy diet based on lots of vegetables and legumes and good fat. Avoid processed food and processed carbohydrates. Prepare your own meals. Read labels and avoid high fructose corn syrup, processed chemicals added to increase shelf life and preprepared meals. Avoid fast foods. Eat slowly and plan meals for a week. Try to count calories and be mindful off daily calorie intake. Get into the habit of keeping an eye on your weight by using an appropriate scale. Learn to log exercise and discussed fitness Apps like [employer] which can help keep log off calories taken versus calories burned. Local food should be preferred. Discussed Dirty Dozen Versus Clean Fifteen. Discussed healthy supplements like fish oil, Tumeric, Curcumin, Melatonin, Resveratrol, Probiotics, Vitamin-D, Alpha-Lipoic acid, Vitamin-D and coconut oil. 2. It is important to exercise regularly. Is a good habit to walk at least 30 minutes a day. Gentle weightlifting with standard precautions to protect the back. Finding activity like cycling or hiking and get into the habit of engaging in it. Stretching before and after the exercises important. It is also important to contact me if there are any problems like shortness of breath, chest pain, back pain and joint or muscle pain associated with the exercise. 3. Discussed age appropriate screening guidelines. Colonoscopy needs to start at age 50 with stool for occult blood as appropriate. There is a new test that can test for genetic abnormalities in the stool sample, Cologuard. This would not replace a colonoscopy but could be used as a screening tool for patients who do not want a colonoscopy. We discussed the importance of early detection of colon cancer. 4. Discussed current guidelines with respect to breast examination, mammogram and pap smear for early detection of breast and cervical cancer. Patient advised to follow up with these appointments. 5. Discussed safe driving and no use of smart phone while driving 6. Age-appropriate immunizations were discussed. A tetanus booster is needed every 10 years. Flu vaccine is recommended every year just before the start of the flu season. Shingles vaccine is recommended after age 50 but not all insurances cover it. Pneumonia vaccine is given after age 65 unless there are certain comorbidities for which it is started earlier. 7. Diagnostic labs were discussed. These could include/not limited to CBC CMP and lipids with fasting blood glucose and insulin levels. Vitamin D and hemoglobin A1c testing might be appropriate. All quetsions answered to patients satisfaction. Patient verbalized understanding of diagnosis and treatments explained. To call sooner prior to next visit it any questions/concerns arise. Case discussed with collaborating physician Tiffanie Barnard who reviewed the assessment and plan. Chart, medications, labs, vital signs reviewed. Dictation was accomplished with the use of [employer] voice recognition software, prone to medical misidentifications and grammatical errors. This is unintentional and the practitioner does try to identify and correct these, but some could still be present. Please do not hesitate to contact practitioner for clarification. 03/15/2025 Basal cell carcinoma (BCC) of skin of other part of face (ICD-10 - C44.319) # Hospitalized at [facility] in [place] January 01, 2025 discharged January 05, 2025. This was secondary to sepsis secondary to UTI, and acute metabolic encephalopathy. Patient was initially treated with ceftriaxone, and discharged on cefpodoxime 200 mg twice daily for 5 days, patient states that symptoms have completely resolved, and cognition is back to baseline. She states she does not remember the incident, but has been doing well since. Encouraged to continue with water intake. Encephalopathy resolved with UTI treatment. # Medicare wellness paperwork reviewed. # PHQ-9 with a total score of 5, going to try to establish with psychiatry. Medications discussed # Audit negative # Discussed healthcare proxy and MOLST form. # Experiencing frequent UTIs so went to neurology, they started patient on methenamine, and patient has been doing really well with complete resolution of symptoms. # Follows with Dr. Adams for gastroenterology, will obtain colonoscopy record # Due for mammogram ordered today March 15, 2025 # Declined all other routine screenings and vaccines # Using a cane/walker at home, discussed fall prevention. # Hypertension: Stable on amlodipine 5 mg # Prediabetes: Repeat A1c in hospital December 2024 A1c 5.8. Patient pleased. Continue metformin 500 mg once daily, Recheck A1c at next visit in 2 to 3 months. # Alkaline phosphatase mildly elevated at 135. Previous CMP alkaline phosphatase within normal limits. Could be secondary to inflammation relation to basal cell carcinoma. Liver enzymes reassuring, otherwise CBC reassuring. Repeat CBC within normal limits October 2024 aside from mildly elevated glucose. Rechecking visit in 2 to 3 months. # Patient was under dermatology for lesion on face, tested positive for basal cell carcinoma. Scheduled for surgery August 15, with plastic surgery August 16. Also having 2 Mohs procedures 1 September 28, and the second in October. Discontinued Humira for 2 weeks prior to the surgery, and 2 weeks after. Also discontinuing aspirin prior to the surgery. Following with Dr. Barrios.Doing well per surgery, pleased with progress, Healing wellPatient has been doing really well. # Chronic cough/Chronic congestion: Obtained chest x-ray, within normal limits overall. Failed Augmentin, and doxycycline, continue Flonase. Still having chronic congestion as well. Use albuterol as needed,Continuing Trelegy with improvement. CT of the maxillofacial sinuses without contrast showing mucosal thickening.As of March 15, 2025, patient states that symptoms have overall resolved, but she does have a visit with ENT in March. # Dizziness: Much better since discontinuing losartan/Benzodiazep ine. Blood pressure stable. Heart murmur heard on exam. Previous echocardiogram showed normal output with some dilation of the aortic root. MRI 10/2022 demonstrated small vessel ischemia, patient currently on statin therpay and aspirin. Has tried vestibular therapy, however no longer following. Meclizine does not provide adequate releif per patient. Patient was discharged with at home PT/OT, and [facility], and home health aide. Continuing to use a cane. . Educated on the importance of hydration. Discussed at home safety to include getting up slowing from a lying/seated postion and using a shower chair. Saw cardiology 04/06/23, Reviewed note, they discontinue losartan and dizziness has improved. Work with new psychiatrist, and working with neurologist as well. Cardiology states that echocardiogram results are unchanged.Admit to a dizziness episode yesterday. Blood pressure stable on amlodipine 5 mg. Ordering MRI with and without contrast of the head secondary to fatigue, dizziness, occasional difficulty with word finding. # Sees neurology every 4 months.. History of MRI showing small vessel ischemia, and moderate diffuse brain atrophy and T2 hyperintensity in the white matter. No recent MRI of note. Patient does have some difficulty word finding, and has some silent spells. Had EEG which was negative, following with neurology , Declines any recent falls. Patient is going to contact neurology to get back on their schedule. # Heart murmur: Echocardiogram demonstrates dilation of the aortic root, otherwise normal output. Lower extremities are without edema or rubor. Recent echocardiogram 2023 showing unchanged results. # Bipolar: Recently seen by DO China Kaiser at [facility]. Going to increase mirtazapine to 30 mg +7.5 mg tablets for a total of 37.5 mg. Discontinued alprazolam. Discussed psychotherapy.Trial increasing trazodone for sleep to 100 mg but patient did not tolerate well. Will discontinue trazodone and Trialed hydroxyzine 50 mg with some improvement, will increase to 50 to 100 mg as needed.. Avoid alprazolam secondary to beers list.Refer to psychiatrist at [facility]. Provided with phone number.Patient states that she will call.Referral to psych today. # Anxiety: Patient suffers from agoraphobia. Rx for alprazolam PRN provided by Dr. Сергей Morrison,Provider retired, , Medication has been discontinued secondary to it being on the beers list, and risk outweighing benefit. Patient has been last fatigued, and memory has been better.Continue mirtazapine 30, Patient is going to contact psychiatry and therapy. # Weight gain: Focusing on nutrition, and exercise. Also admits to some leg pain, but she just got a bicycle for her lower extremities, and thinks exercise will be helpful. Will call the office with worsening symptoms.Discussed senior center, patient declines. Follow-up in 2 to 3 months, labs prior. Psych evaluation prior, and MRI of the brain.Also ordering mammogram. Patient seen and examined. Comprehensive discussion was done on the following. 1. Nutrition: It is important to follow a healthy diet based on lots of vegetables and legumes and good fat. Avoid processed food and processed carbohydrates. Prepare your own meals. Read labels and avoid high fructose corn syrup, processed chemicals added to increase shelf life and preprepared meals. Avoid fast foods. Eat slowly and plan meals for a week. Try to count calories and be mindful off daily calorie intake. Get into the habit of keeping an eye on your weight by using an appropriate scale. Learn to log exercise and discussed fitness Apps like [employer] which can help keep log off calories taken versus calories burned. Local food should be preferred. Discussed [employer] Fifteen. Discussed healthy supplements like fish oil, Tumeric, Curcumin, Melatonin, Resveratrol, Probiotics, Vitamin-D, Alpha-Lipoic acid, Vitamin-D and coconut oil. 2. It is important to exercise regularly. Is a good habit to walk at least 30 minutes a day. Gentle weightlifting with standard precautions to protect the back. Finding activity like cycling or hiking and get into the habit of engaging in it. Stretching before and after the exercises important. It is also important to contact me if there are any problems like shortness of breath, chest pain, back pain and joint or muscle pain associated with the exercise. 3. Discussed age appropriate screening guidelines. Colonoscopy needs to start at age 50 with stool for occult blood as appropriate. There is a new test that can test for genetic abnormalities in the stool sample, Cologuard. This would not replace a colonoscopy but could be used as a screening tool for patients who do not want a colonoscopy. We discussed the importance of early detection of colon cancer. 4. Discussed current guidelines with respect to breast examination, mammogram and pap smear for early detection of breast and cervical cancer. Patient advised to follow up with these appointments. 5. Discussed safe driving and no use of smart phone while driving 6. Age-appropriate immunizations were discussed. A tetanus booster is needed every 10 years. Flu vaccine is recommended every year just before the start of the flu season. Shingles vaccine is recommended after age 50 but not all insurances cover it. Pneumonia vaccine is given after age 65 unless there are certain comorbidities for which it is started earlier. 7. Diagnostic labs were discussed. These could include/not limited to CBC CMP and lipids with fasting blood glucose and insulin levels. Vitamin D and hemoglobin A1c testing might be appropriate. All quetsions answered to patients satisfaction. Patient verbalized understanding of diagnosis and treatments explained. To call sooner prior to next visit it any questions/concerns arise. Case discussed with collaborating physician Tiffanie Barnard who reviewed the assessment and plan. Chart, medications, labs, vital signs reviewed. Dictation was accomplished with the use of [employer] voice recognition software, prone to medical misidentifications and grammatical errors. This is unintentional and the practitioner does try to identify and correct these, but some could still be present. Please do not hesitate to contact practitioner for clarification. 03/15/2025 Aortic root dilation (ICD-10 - I77.810) # Hospitalized at [facility] in [place] January 01, 2025 discharged January 05, 2025. This was secondary to sepsis secondary to UTI, and acute metabolic encephalopathy. Patient was initially treated with ceftriaxone, and discharged on cefpodoxime 200 mg twice daily for 5 days, patient states that symptoms have completely resolved, and cognition is back to baseline. She states she does not remember the incident, but has been doing well since. Encouraged to continue with water intake. Encephalopathy resolved with UTI treatment. # Medicare wellness paperwork reviewed. # PHQ-9 with a total score of 5, going to try to establish with psychiatry. Medications discussed # Audit negative # Discussed healthcare proxy and MOLST form. # Experiencing frequent UTIs so went to neurology, they started patient on methenamine, and patient has been doing really well with complete resolution of symptoms. # Follows with Dr. Adams for gastroenterology, will obtain colonoscopy record # Due for mammogram ordered today March 15, 2025 # Declined all other routine screenings and vaccines # Using a cane/walker at home, discussed fall prevention. # Hypertension: Stable on amlodipine 5 mg # Prediabetes: Repeat A1c in hospital December 2024 A1c 5.8. Patient pleased. Continue metformin 500 mg once daily, Recheck A1c at next visit in 2 to 3 months. # Alkaline phosphatase mildly elevated at 135. Previous CMP alkaline phosphatase within normal limits. Could be secondary to inflammation relation to basal cell carcinoma. Liver enzymes reassuring, otherwise CBC reassuring. Repeat CBC within normal limits October 2024 aside from mildly elevated glucose. Rechecking visit in 2 to 3 months. # Patient was under dermatology for lesion on face, tested positive for basal cell carcinoma. Scheduled for surgery August 15, with plastic surgery August 16. Also having 2 Mohs procedures 1 September 28, and the second in October. Discontinued Humira for 2 weeks prior to the surgery, and 2 weeks after. Also discontinuing aspirin prior to the surgery. Following with Dr. Barrios.Doing well per surgery, pleased with progress, Healing wellPatient has been doing really well. # Chronic cough/Chronic congestion: Obtained chest x-ray, within normal limits overall. Failed Augmentin, and doxycycline, continue Flonase. Still having chronic congestion as well. Use albuterol as needed,Continuing Trelegy with improvement. CT of the maxillofacial sinuses without contrast showing mucosal thickening.As of March 15, 2025, patient states that symptoms have overall resolved, but she does have a visit with ENT in March. # Dizziness: Much better since discontinuing losartan/Benzodiazep ine. Blood pressure stable. Heart murmur heard on exam. Previous echocardiogram showed normal output with some dilation of the aortic root. MRI 10/2022 demonstrated small vessel ischemia, patient currently on statin therpay and aspirin. Has tried vestibular therapy, however no longer following. Meclizine does not provide adequate releif per patient. Patient was discharged with at home PT/OT, and [facility], and home health aide. Continuing to use a cane. . Educated on the importance of hydration. Discussed at home safety to include getting up slowing from a lying/seated postion and using a shower chair. Saw cardiology 04/06/23, Reviewed note, they discontinue losartan and dizziness has improved. Work with new psychiatrist, and working with neurologist as well. Cardiology states that echocardiogram results are unchanged.Admit to a dizziness episode yesterday. Blood pressure stable on amlodipine 5 mg. Ordering MRI with and without contrast of the head secondary to fatigue, dizziness, occasional difficulty with word finding. # Sees neurology every 4 months.. History of MRI showing small vessel ischemia, and moderate diffuse brain atrophy and T2 hyperintensity in the white matter. No recent MRI of note. Patient does have some difficulty word finding, and has some silent spells. Had EEG which was negative, following with neurology , Declines any recent falls. Patient is going to contact neurology to get back on their schedule. # Heart murmur: Echocardiogram demonstrates dilation of the aortic root, otherwise normal output. Lower extremities are without edema or rubor. Recent echocardiogram 2023 showing unchanged results. # Bipolar: Recently seen by DO China Kaiser at [facility]. Going to increase mirtazapine to 30 mg +7.5 mg tablets for a total of 37.5 mg. Discontinued alprazolam. Discussed psychotherapy.Trial increasing trazodone for sleep to 100 mg but patient did not tolerate well. Will discontinue trazodone and Trialed hydroxyzine 50 mg with some improvement, will increase to 50 to 100 mg as needed.. Avoid alprazolam secondary to beers list.Refer to psychiatrist at [facility]. Provided with phone number.Patient states that she will call.Referral to psych today. # Anxiety: Patient suffers from agoraphobia. Rx for alprazolam PRN provided by Dr. Сергей Morrison,Provider retired, , Medication has been discontinued secondary to it being on the beers list, and risk outweighing benefit. Patient has been last fatigued, and memory has been better.Continue mirtazapine 30, Patient is going to contact psychiatry and therapy. # Weight gain: Focusing on nutrition, and exercise. Also admits to some leg pain, but she just got a bicycle for her lower extremities, and thinks exercise will be helpful. Will call the office with worsening symptoms.Discussed senior center, patient declines. Follow-up in 2 to 3 months, labs prior. Psych evaluation prior, and MRI of the brain.Also ordering mammogram. Patient seen and examined. Comprehensive discussion was done on the following. 1. Nutrition: It is important to follow a healthy diet based on lots of vegetables and legumes and good fat. Avoid processed food and processed carbohydrates. Prepare your own meals. Read labels and avoid high fructose corn syrup, processed chemicals added to increase shelf life and preprepared meals. Avoid fast foods. Eat slowly and plan meals for a week. Try to count calories and be mindful off daily calorie intake. Get into the habit of keeping an eye on your weight by using an appropriate scale. Learn to log exercise and discussed fitness Apps like [employer] which can help keep log off calories taken versus calories burned. Local food should be preferred. Discussed [employer] Vers[employer]. Discussed healthy supplements like fish oil, Tumeric, Curcumin, Melatonin, Resveratrol, Probiotics, Vitamin-D, Alpha-Lipoic acid, Vitamin-D and coconut oil. 2. It is important to exercise regularly. Is a good habit to walk at least 30 minutes a day. Gentle weightlifting with standard precautions to protect the back. Finding activity like cycling or hiking and get into the habit of engaging in it. Stretching before and after the exercises important. It is also important to contact me if there are any problems like shortness of breath, chest pain, back pain and joint or muscle pain associated with the exercise. 3. Discussed age appropriate screening guidelines. Colonoscopy needs to start at age 50 with stool for occult blood as appropriate. There is a new test that can test for genetic abnormalities in the stool sample, Cologuard. This would not replace a colonoscopy but could be used as a screening tool for patients who do not want a colonoscopy. We discussed the importance of early detection of colon cancer. 4. Discussed current guidelines with respect to breast examination, mammogram and pap smear for early detection of breast and cervical cancer. Patient advised to follow up with these appointments. 5. Discussed safe driving and no use of smart phone while driving 6. Age-appropriate immunizations were discussed. A tetanus booster is needed every 10 years. Flu vaccine is recommended every year just before the start of the flu season. Shingles vaccine is recommended after age 50 but not all insurances cover it. Pneumonia vaccine is given after age 65 unless there are certain comorbidities for which it is started earlier. 7. Diagnostic labs were discussed. These could include/not limited to CBC CMP and lipids with fasting blood glucose and insulin levels. Vitamin D and hemoglobin A1c testing might be appropriate. All quetsions answered to patients satisfaction. Patient verbalized understanding of diagnosis and treatments explained. To call sooner prior to next visit it any questions/concerns arise. Case discussed with collaborating physician Tiffanie Barnard who reviewed the assessment and plan. Chart, medications, labs, vital signs reviewed. Dictation was accomplished with the use of [employer] voice recognition software, prone to medical misidentifications and grammatical errors. This is unintentional and the practitioner does try to identify and correct these, but some could still be present. Please do not hesitate to contact practitioner for clarification. 02/01/2025 Encounter for examination of blood pressure without abnormal findings (ICD-10 - Z01.30) Kristin is a 74-year-old female who presents due to ongoing urinary symptoms. #Urinary tract infection: Urine dipstick today shows leukocytes 3+, nitrates positive, blood 3+. Urine culture previously sent from prior visit unable to be evaluated due to inadequate sample. She initially was seen in the hospital 01/01/2025 to 01/05/2025 for sepsis secondary to UTI and was treated with ceftriaxone followed by cefpodoxime 200 mg twice daily for 5 days. On 01/17/2025, she was evaluated here due to ongoing symptoms and was given Macrobid and Pyridium. Today, patient reports ongoing symptoms. Negative CVA tenderness. Urine culture sent today. BMP sent today to evaluate for any kidney involvement. Bladder and renal ultrasound ordered today. Urology appointment scheduled February 09. Plan for Augmentin 875 mg BID x10 days. Plan for Pyridium for symptomatic relief. Patient educated on side effects of both medications including GI upset, diarrhea, orange urine. #Insomnia: Current regimen is trazodone 100 mg at bedtime, mirtazapine 30 mg at bedtime, hydroxyzine 50 mg at bedtime. Patient reports despite these medications, she is having no relief in his reporting difficulty sleeping. Patient encouraged to trial melatonin and magnesium. She reports understanding. All questions have been answered to patient's satisfaction. Patient verbalized understanding of diagnosis and treatments explained. Advised to call sooner prior to next visit it any questions/concerns arise. Case discussed with collaborating physician Tiffanie Barnard who reviewed the assessment and plan. Chart, medications, labs, vital signs reviewed. Dictation was accomplished with the use of [employer] voice recognition software, which is prone to medical misidentifications and grammatical errors. This are unintentional and the practitioner does try to identify and correct these, but some could still be present. Please do not hesitate to contact practitioner for clarification. 01/17/2025 Acute UTI (ICD-10 - N39.0) Clint is a 74-year-old female with a complex past medical history who presents to the office today for an urgent visit. Patient states that she has been having mild abdominal pain, constant burning, frequent urination. Patient recently was admitted to [facility] for concern of sepsis secondary to UTI, acute metabolic encephalopathy. She was admitted from January 01 to January 05. Patient finished her entire course of cefpodoxime 200 mg twice daily x 5 days, and she is still experiencing symptoms. At this time patient's urine dip in office is notable for UTI. She has protein, nitrates and moderate blood in the urine. Will be treating with ciprofloxacin and Pyridium. Placing urology referral for further evaluation. At first patient was hesitant, however is now compliant with this plan at this time. Patient educated that Pyridium may make her urine orange, she is to drink plenty of fluids to hydrate her urinary tract at this time. All questions have been answered to patient's satisfaction. Patient verbalized understanding of diagnosis and treatments explained. Advised to call sooner prior to next visit it any questions/concerns arise. Case discussed with Caryl MERCHANT who reviewed the assessment and plan. Chart, medications, labs, vital signs reviewed. Dictation was accomplished with the use of [employer] voice recognition software, which is prone to medical misidentifications and grammatical errors. This are unintentional and the practitioner does try to identify and correct these, but some could still be present. Please do not hesitate to contact practitioner for clarification. 01/11/2025 Anxiety (ICD-10 - F41.9) # Hospitalized at [facility] in [place] January 01, 2025 discharged January 05, 2025. This was secondary to sepsis secondary to UTI, and acute metabolic encephalopathy. Patient was initially treated with ceftriaxone, and discharged on cefpodoxime 200 mg twice daily for 5 days, patient states that symptoms have completely resolved, and cognition is back to baseline. She states she does not remember the incident, but has been doing well since. Encouraged to continue with water intake. Encephalopathy resolved with UTI treatment. # Incidental finding of hypertension, systolic 170. Started on amlodipine 5 mg daily, blood pressure stable today 126/84 therefore we will continue amlodipine 5 mg at this time. Does have a blood pressure machine at home for which she checks regularly # Prediabetes: Repeat A1c in hospital December 2024 A1c 5.8. Patient pleased. Continue metformin 500 mg once daily # Alkaline phosphatase mildly elevated at 135. Previous CMP alkaline phosphatase within normal limits. Could be secondary to inflammation relation to basal cell carcinoma. Liver enzymes reassuring, otherwise CBC reassuring. Repeat CBC within normal limits October 2024 aside from mildly elevated glucose # Patient was under dermatology for lesion on face, tested positive for basal cell carcinoma. Scheduled for surgery August 15, with plastic surgery August 16. Also having 2 Mohs procedures 1 September 28, and the second in October. Discontinued Humira for 2 weeks prior to the surgery, and 2 weeks after. Also discontinuing aspirin prior to the surgery. Following with Dr. Barrios.Doing well per surgery, pleased with progress, Healing well # Chronic cough/Chronic congestion: Obtained chest x-ray, within normal limits overall. Failed Augmentin, and doxycycline, continue Flonase. Still having chronic congestion as well. Use albuterol as needed,Continuing Trelegy with improvement. CT of the maxillofacial sinuses without contrast showing mucosal thickening. Sending to ENT, referral still pending. Patient does have deviated septum.Patient has a follow-up with ENT on November 17, 2024.But this was just rescheduled to March. Tried contacting office, but they have no sooner availability. # Dizziness: Much better since discontinuing losartan/Benzodiazep ine. Blood pressure stable. Heart murmur heard on exam. Previous echocardiogram showed normal output with some dilation of the aortic root. MRI 10/2022 demonstrated small vessel ischemia, patient currently on statin therpay and aspirin. Has tried vestibular therapy, however no longer following. Meclizine does not provide adequate releif per patient. Patient was discharged with at home PT/OT, and [facility], and home health aide. Continuing to use a cane. Feels steady. Educated on the importance of hydration. Discussed at home safety to include getting up slowing from a lying/seated postion and using a shower chair. Saw cardiology 04/06/23, Reviewed note, they discontinue losartan and dizziness has improved. Work with new psychiatrist, and working with neurologist as well. Cardiology states that echocardiogram results are unchanged.Incidental finding of elevated blood pressure in the hospital for which amlodipine 5 mg was started. Patient will monitor blood pressure if blood pressure declines, will discontinue medication. # Sees neurology every 4 months.. Most recent MRI showing small vessel ischemia, and moderate diffuse brain atrophy and T2 hyperintensity in the white matter. Patient does have some difficulty word finding, and has some silent spells. Had EEG which was negative, following with neurology , Declines any recent falls. Dizziness has improved.Patient is going to contact neurology to get back on their schedule. # Heart murmur: Echocardiogram demonstrates dilation of the aortic root, otherwise normal output. Lower extremities are without edema or rubor. Recent echocardiogram 2023 showing unchanged results. # Bipolar: Recently seen by DO China Kaiser at [facility]. Going to increase mirtazapine to 30 mg +7.5 mg tablets for a total of 37.5 mg. Discontinued alprazolam. Discussed psychotherapy.Trial increasing trazodone for sleep to 100 mg but patient did not tolerate well. Will discontinue trazodone and Trialed hydroxyzine 50 mg with some improvement, will increase to 50 to 100 mg as needed.. Avoid alprazolam secondary to beers list.Refer to psychiatrist at [facility] counseling [facility]. Provided with phone number.Patient states that she will call. # Anxiety: Patient suffers from agoraphobia. Rx for alprazolam PRN provided by Dr. Сергей Morrison,Provider retired, , Medication has been discontinued secondary to it being on the beers list, and risk outweighing benefit. Patient has been last fatigued, and memory has been better.Continue mirtazapine 30, Patient is going to contact psychiatry and therapy. # Weight gain: Focusing on nutrition, and exercise. Also admits to some leg pain, but she just got a bicycle for her lower extremities, and thinks exercise will be helpful. Will call the office with worsening symptoms. Follow-up in 2 to 3 months for Medicare wellness visit. Follow-up with neurology and psychiatry in the meantime. Discussed emergency department criteria/criteria to call the office. All quetsions answered to patients satisfaction. Patient verbalized understanding of diagnosis and treatments explained. To call sooner prior to next visit it any questions/concerns arise. Case discussed with collaborating physician Tiffanie Barnard who reviewed the assessment and plan. Chart, medications, labs, vital signs reviewed. Dictation was accomplished with the use of [employer] voice recognition software, prone to medical misidentifications and grammatical errors. This is unintentional and the practitioner does try to identify and correct these, but some could still be present. Please do not hesitate to contact practitioner for clarification. 11/02/2024 Basal cell carcinoma (BCC) of skin of other part of face (ICD-10 - C44.319) # Abnormal urine. Patient states that she does have occasional burning. Culture in July which did not grow any bacteria. Discussed hydration. Offered urogynecology referral, patient declines. Offered to repeat urine, patient declines # Prediabetes: Hemoglobin A1c 6.1. Based on patient's age, will treat conservatively with lifestyle, Continue metformin 500 mg daily. A1c has improved November 17-5.8, glucose 138 # Alkaline phosphatase mildly elevated at 135. Previous CMP alkaline phosphatase within normal limits. Could be secondary to inflammation relation to basal cell carcinoma. Liver enzymes reassuring, otherwise CBC reassuring. Repeat CBC within normal limits October 2024 aside from mildly elevated glucose # Patient was under dermatology for lesion on face, tested positive for basal cell carcinoma. Scheduled for surgery August 15, with plastic surgery August 16. Also having 2 Mohs procedures 1 September 28, and the second in October. Discontinued Humira for 2 weeks prior to the surgery, and 2 weeks after. Also discontinuing aspirin prior to the surgery. Following with Dr. Barrios.Doing well per surgery, pleased with progress # Chronic cough/Chronic congestion: Obtained chest x-ray, within normal limits overall. Failed Augmentin, and doxycycline, continue Flonase. Still having chronic congestion as well. Use albuterol as needed,Continuing Trelegy with improvement. CT of the maxillofacial sinuses without contrast showing mucosal thickening. Sending to ENT, referral still pending. Patient does have deviated septum.Patient has a follow-up with ENT on November 17, 2024.But this was just rescheduled to March. Going to contact office as this referral was sent in December 2023. Patient expresses frustration # Dizziness: Much better since discontinuing losartan/Benzodiazep ine. Blood pressure stable. Heart murmur heard on exam. Previous echocardiogram showed normal output with some dilation of the aortic root. MRI 10/2022 demonstrated small vessel ischemia, patient currently on statin therpay and aspirin. Has tried vestibular therapy, however no longer following. Meclizine does not provide adequate releif per patient. Reported she liked physical therapy for gait instability, however has not been going. Has been using cane, feels steady. Declines recent falls. Educated on the importance of hydration. Discussed at home safety to include getting up slowing from a lying/seated postion and using a shower chair. Saw cardiology 04/06/23, Reviewed note, they discontinue losartan and dizziness has improved. Work with new psychiatrist, and working with neurologist as well. Cardiology states that echocardiogram results are unchanged. # Sees neurology every 4 months.. Most recent MRI showing small vessel ischemia, and moderate diffuse brain atrophy and T2 hyperintensity in the white matter. Patient does have some difficulty word finding, and has some silent spells. Had EEG which was negative, following with neurology , Declines any recent falls. Dizziness has improved. # Heart murmur: Echocardiogram demonstrates dilation of the aortic root, otherwise normal output. Lower extremities are without edema or rubor. Recent echocardiogram 2023 showing unchanged results. 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 Blood pressure stable. # Bipolar: Recently seen by DO China Kaiser at [facility]. Going to increase mirtazapine to 30 mg +7.5 mg tablets for a total of 37.5 mg. Discontinued alprazolam. Discussed psychotherapy.Trial increasing trazodone for sleep to 100 mg but patient did not tolerate well. Will discontinue trazodone and Trialed hydroxyzine 50 mg with some improvement, will increase to 50 to 100 mg as needed.. Avoid alprazolam secondary to beers list.Refer to psychiatrist at [facility]. Provided with phone number.Patient states that she will call. # Anxiety: Patient suffers from agoraphobia. Rx for alprazolam PRN provided by Dr. Сергей Morrison,Provider retired, , Medication has been discontinued secondary to it being on the beers list, and risk outweighing benefit. Patient has been last fatigued, and memory has been better.Continue mirtazapine 37.5, Patient is going to contact psychiatry and therapy. # Weight gain: Focusing on nutrition, and exercise. Also admits to some leg pain, but she just got a bicycle for her lower extremities, and thinks exercise will be helpful. Will call the office with worsening symptoms. Follow-up in 3 months, sooner as needed. Contact ENT in the meantime. Patient to follow-up with psychiatry in the meantime. Call if she changes her mind in regards to lower extremity pain workup, or dysuria workup Discussed emergency department criteria/criteria to call the office All quetsions answered to patients satisfaction. Patient verbalized understanding of diagnosis and treatments explained. To call sooner prior to next visit it any questions/concerns arise. Case discussed with collaborating physician Tiffanie Barnard who reviewed the assessment and plan. Chart, medications, labs, vital signs reviewed. Dictation was accomplished with the use of [employer] voice recognition software, prone to medical misidentifications and grammatical errors. This is unintentional and the practitioner does try to identify and correct these, but some could still be present. Please do not hesitate to contact practitioner for clarification. 08/09/2024 Basal cell carcinoma (BCC) of skin of other part of face (ICD-10 - C44.319) # Abnormal urine. Patient states that she does have occasional burning. Will repeat urine plus culture and treat accordingly.Edgardo the importance of hydration. # Prediabetes: Hemoglobin A1c 6.1. Based on patient's age, will treat conservatively with lifestyle, , And metformin 500 mg daily. Patient has taken this in the past and tolerated fine. # Alkaline phosphatase mildly elevated at 135. Previous CMP alkaline phosphatase within normal limits. Could be secondary to inflammation relation to basal cell carcinoma. Liver enzymes reassuring, otherwise CBC reassuring.Repeat value in 3 months # Patient was under dermatology for lesion on face, tested positive for basal cell carcinoma. Scheduled for surgery August 15, with plastic surgery August 16. Also having 2 Mohs procedures 1 September 28, and the second in October. Discontinued Humira for 2 weeks prior to the surgery, and 2 weeks after. Also discontinuing aspirin prior to the surgery. Following with Dr. Barrios. # Chronic cough/Chronic congestion: Obtained chest x-ray, within normal limits overall. Failed Augmentin, and doxycycline, continue Flonase. Still having chronic congestion as well. Use albuterol as needed,Continuing Trelegy with improvement. CT of the maxillofacial sinuses without contrast showing mucosal thickening. Sending to ENT, referral still pending. Patient does have deviated septum.Patient has a follow-up with ENT on November 17, 2024. # Dizziness: Much better since discontinuing losartan/Benzodiazep ine. Blood pressure stable. Heart murmur heard on exam. Previous echocardiogram showed normal output with some dilation of the aortic root. MRI 10/2022 demonstrated small vessel ischemia, patient currently on statin therpay and aspirin. Has tried vestibular therapy, however no longer following. Meclizine does not provide adequate releif per patient. Reported she liked physical therapy for gait instability, however has not been going. Has been using cane, feels steady. Declines recent falls. Educated on the importance of hydration. Discussed at home safety to include getting up slowing from a lying/seated postion and using a shower chair. Saw cardiology 04/06/23, Reviewed note, they discontinue losartan and dizziness has improved. Work with new psychiatrist, and working with neurologist as well. Cardiology states that echocardiogram results are unchanged. # Sees neurology every 4 months.. Most recent MRI showing small vessel ischemia, and moderate diffuse brain atrophy and T2 hyperintensity in the white matter. Patient does have some difficulty word finding, and has some silent spells. Had EEG which was negative, following with neurology , Declines any recent falls. Dizziness has improved. # Heart murmur: Echocardiogram demonstrates dilation of the aortic root, otherwise normal output. Lower extremities are without edema or rubor. Recent echocardiogram 2023 showing unchanged results. 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 Blood pressure stable. # Bipolar: Recently seen by DO China Kaiser at [facility]. Going to increase mirtazapine to 30 mg +7.5 mg tablets for a total of 37.5 mg. Discontinued alprazolam. Discussed psychotherapy.Trial increasing trazodone for sleep to 100 mg but patient did not tolerate well. Will discontinue trazodone and Trialed hydroxyzine 50 mg with some improvement, will increase to 50 to 100 mg as needed.. Avoid alprazolam secondary to beers list.Refer to psychiatrist at [facility]. Provided with phone number. # Anxiety: Patient suffers from agoraphobia. Rx for alprazolam PRN provided by Dr. Сергей Morrison,Provider retired, , Medication has been discontinued secondary to it being on the beers list, and risk outweighing benefit. Patient has been last fatigued, and memory has been better.Continue mirtazapine, Increase to 37.5 mg Follow-up in 2 to 3 months for repeat blood work, follow-up with dermatology/plastic surgery in the meantime. All quetsions answered to patients satisfaction. Patient verbalized understanding of diagnosis and treatments explained. To call sooner prior to next visit it any questions/concerns arise. Case discussed with collaborating physician Tiffanie Barnard who reviewed the assessment and plan. Chart, medications, labs, vital signs reviewed. Dictation was accomplished with the use of [employer] voice recognition software, prone to medical misidentifications and grammatical errors. This is unintentional and the practitioner does try to identify and correct these, but some could still be present. Please do not hesitate to contact practitioner for clarification. 08/09/2024 Aortic root dilation (ICD-10 - I77.810) # Abnormal urine. Patient states that she does have occasional burning. Will repeat urine plus culture and treat accordingly.Edgardo the importance of hydration. # Prediabetes: Hemoglobin A1c 6.1. Based on patient's age, will treat conservatively with lifestyle, , And metformin 500 mg daily. Patient has taken this in the past and tolerated fine. # Alkaline phosphatase mildly elevated at 135. Previous CMP alkaline phosphatase within normal limits. Could be secondary to inflammation relation to basal cell carcinoma. Liver enzymes reassuring, otherwise CBC reassuring.Repeat value in 3 months # Patient was under dermatology for lesion on face, tested positive for basal cell carcinoma. Scheduled for surgery August 15, with plastic surgery August 16. Also having 2 Mohs procedures 1 September 28, and the second in October. Discontinued Humira for 2 weeks prior to the surgery, and 2 weeks after. Also discontinuing aspirin prior to the surgery. Following with Dr. Barrios. # Chronic cough/Chronic congestion: Obtained chest x-ray, within normal limits overall. Failed Augmentin, and doxycycline, continue Flonase. Still having chronic congestion as well. Use albuterol as needed,Continuing Trelegy with improvement. CT of the maxillofacial sinuses without contrast showing mucosal thickening. Sending to ENT, referral still pending. Patient does have deviated septum.Patient has a follow-up with ENT on November 17, 2024. # Dizziness: Much better since discontinuing losartan/Benzodiazep ine. Blood pressure stable. Heart murmur heard on exam. Previous echocardiogram showed normal output with some dilation of the aortic root. MRI 10/2022 demonstrated small vessel ischemia, patient currently on statin therpay and aspirin. Has tried vestibular therapy, however no longer following. Meclizine does not provide adequate releif per patient. Reported she liked physical therapy for gait instability, however has not been going. Has been using cane, feels steady. Declines recent falls. Educated on the importance of hydration. Discussed at home safety to include getting up slowing from a lying/seated postion and using a shower chair. Saw cardiology 04/06/23, Reviewed note, they discontinue losartan and dizziness has improved. Work with new psychiatrist, and working with neurologist as well. Cardiology states that echocardiogram results are unchanged. # Sees neurology every 4 months.. Most recent MRI showing small vessel ischemia, and moderate diffuse brain atrophy and T2 hyperintensity in the white matter. Patient does have some difficulty word finding, and has some silent spells. Had EEG which was negative, following with neurology , Declines any recent falls. Dizziness has improved. # Heart murmur: Echocardiogram demonstrates dilation of the aortic root, otherwise normal output. Lower extremities are without edema or rubor. Recent echocardiogram 2023 showing unchanged results. 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 Blood pressure stable. # Bipolar: Recently seen by DO China Kaiser at [facility]. Going to increase mirtazapine to 30 mg +7.5 mg tablets for a total of 37.5 mg. Discontinued alprazolam. Discussed psychotherapy.Trial increasing trazodone for sleep to 100 mg but patient did not tolerate well. Will discontinue trazodone and Trialed hydroxyzine 50 mg with some improvement, will increase to 50 to 100 mg as needed.. Avoid alprazolam secondary to beers list.Refer to psychiatrist at [facility]. Provided with phone number. # Anxiety: Patient suffers from agoraphobia. Rx for alprazolam PRN provided by Dr. Сергей Morrison,Provider retired, , Medication has been discontinued secondary to it being on the beers list, and risk outweighing benefit. Patient has been last fatigued, and memory has been better.Continue mirtazapine, Increase to 37.5 mg Follow-up in 2 to 3 months for repeat blood work, follow-up with dermatology/plastic surgery in the meantime. All quetsions answered to patients satisfaction. Patient verbalized understanding of diagnosis and treatments explained. To call sooner prior to next visit it any questions/concerns arise. Case discussed with collaborating physician Tiffanie Barnard who reviewed the assessment and plan. Chart, medications, labs, vital signs reviewed. Dictation was accomplished with the use of [employer] voice recognition software, prone to medical misidentifications and grammatical errors. This is unintentional and the practitioner does try to identify and correct these, but some could still be present. Please do not hesitate to contact practitioner for clarification. 06/09/2024 Aortic root dilation (ICD-10 - I77.810) # Patient was under dermatology for lesion on face, tested positive for basal cell carcinoma. Getting surgery on September 28October 12, and final surgery not scheduled get with plastic surgeon Dr. Barrios. # Chronic cough/Chronic congestion: Obtained chest x-ray, within normal limits overall. Failed Augmentin, and doxycycline, continue Flonase. Still having chronic congestion as well. Use albuterol as needed,Continuing Trelegy with improvement. CT of the maxillofacial sinuses without contrast showing mucosal thickening. Sending to ENT, referral still pending. Patient does have deviated septum.Patient has a follow-up with ENT on November 17, 2024. # Dizziness: Much better since discontinuing losartan/Benzodiazep ine. Blood pressure stable. Heart murmur heard on exam. Previous echocardiogram showed normal output with some dilation of the aortic root. MRI 10/2022 demonstrated small vessel ischemia, patient currently on statin therpay and aspirin. Has tried vestibular therapy, however no longer following. Meclizine does not provide adequate releif per patient. Reported she liked physical therapy for gait instability, however has not been going. Has been using cane, feels steady. Declines recent falls. Educated on the importance of hydration. Discussed at home safety to include getting up slowing from a lying/seated postion and using a shower chair. Saw cardiology 04/06/23, Reviewed note, they discontinue losartan and dizziness has improved. Work with new psychiatrist, and working with neurologist as well. Cardiology states that echocardiogram results are unchanged. # Sees neurology every 4 months.. Most recent MRI showing small vessel ischemia, and moderate diffuse brain atrophy and T2 hyperintensity in the white matter. Patient does have some difficulty word finding, and has some silent spells. Had EEG which was negative, following with neurology , Declines any recent falls. Dizziness has improved. # Heart murmur: Echocardiogram demonstrates dilation of the aortic root, otherwise normal output. Lower extremities are without edema or rubor. Recent echocardiogram 2023 showing unchanged results. 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 Blood pressure stable. # Bipolar: Recently seen by DO China Kaiser at [facility]. Increase mirtazapine to 30 mg. Patient was currently taking 50 mg +7.5 mg tablets. Discontinued alprazolam. Discussed psychotherapy.Trial increasing trazodone for sleep to 100 mg but patient did not tolerate well. Will discontinue trazodone and trial hydroxyzine. Avoid alprazolam secondary to beers list. # Anxiety: Patient suffers from agoraphobia. Rx for alprazolam PRN provided by Dr. Сергей Morrison,Provider retired, , Medication has been discontinued secondary to it being on the beers list, and risk outweighing benefit. Patient has been last fatigued, and memory has been better.Continue mirtazapine # Hx of DM II: Reports went away with weight loss. Hemoglobin A-1 C without concern.Repeating values prior to next visit. Follow-up in 2 months for repeat blood work, sooner as needed, Also assess efficacy/compliance of hydroxyzine All quetsions answered to patients satisfaction. Patient verbalized understanding of diagnosis and treatments explained. To call sooner prior to next visit it any questions/concerns arise. Case discussed with collaborating physician Tiffanie Barnard who reviewed the assessment and plan. Chart, medications, labs, vital signs reviewed. Dictation was accomplished with the use of [employer] voice recognition software, prone to medical misidentifications and grammatical errors. This is unintentional and the practitioner does try to identify and correct these, but some could still be present. Please do not hesitate to contact practitioner for clarification. 06/09/2024 Seborrhea capitis (ICD-10 - L21.0) # Patient was under dermatology for lesion on face, tested positive for basal cell carcinoma. Getting surgery on September 28October 12, and final surgery not scheduled get with plastic surgeon Dr. Barrios. # Chronic cough/Chronic congestion: Obtained chest x-ray, within normal limits overall. Failed Augmentin, and doxycycline, continue Flonase. Still having chronic congestion as well. Use albuterol as needed,Continuing Trelegy with improvement. CT of the maxillofacial sinuses without contrast showing mucosal thickening. Sending to ENT, referral still pending. Patient does have deviated septum.Patient has a follow-up with ENT on November 17, 2024. # Dizziness: Much better since discontinuing losartan/Benzodiazep ine. Blood pressure stable. Heart murmur heard on exam. Previous echocardiogram showed normal output with some dilation of the aortic root. MRI 10/2022 demonstrated small vessel ischemia, patient currently on statin therpay and aspirin. Has tried vestibular therapy, however no longer following. Meclizine does not provide adequate releif per patient. Reported she liked physical therapy for gait instability, however has not been going. Has been using cane, feels steady. Declines recent falls. Educated on the importance of hydration. Discussed at home safety to include getting up slowing from a lying/seated postion and using a shower chair. Saw cardiology 04/06/23, Reviewed note, they discontinue losartan and dizziness has improved. Work with new psychiatrist, and working with neurologist as well. Cardiology states that echocardiogram results are unchanged. # Sees neurology every 4 months.. Most recent MRI showing small vessel ischemia, and moderate diffuse brain atrophy and T2 hyperintensity in the white matter. Patient does have some difficulty word finding, and has some silent spells. Had EEG which was negative, following with neurology , Declines any recent falls. Dizziness has improved. # Heart murmur: Echocardiogram demonstrates dilation of the aortic root, otherwise normal output. Lower extremities are without edema or rubor. Recent echocardiogram 2023 showing unchanged results. 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 Blood pressure stable. # Bipolar: Recently seen by DO China Kaiser at [facility]. Increase mirtazapine to 30 mg. Patient was currently taking 50 mg +7.5 mg tablets. Discontinued alprazolam. Discussed psychotherapy.Trial increasing trazodone for sleep to 100 mg but patient did not tolerate well. Will discontinue trazodone and trial hydroxyzine. Avoid alprazolam secondary to beers list. # Anxiety: Patient suffers from agoraphobia. Rx for alprazolam PRN provided by Dr. Сергей Morrison,Provider retired, , Medication has been discontinued secondary to it being on the beers list, and risk outweighing benefit. Patient has been last fatigued, and memory has been better.Continue mirtazapine # Hx of DM II: Reports went away with weight loss. Hemoglobin A-1 C without concern.Repeating values prior to next visit. Follow-up in 2 months for repeat blood work, sooner as needed, Also assess efficacy/compliance of hydroxyzine All quetsions answered to patients satisfaction. Patient verbalized understanding of diagnosis and treatments explained. To call sooner prior to next visit it any questions/concerns arise. Case discussed with collaborating physician Tiffanie Barnard who reviewed the assessment and plan. Chart, medications, labs, vital signs reviewed. Dictation was accomplished with the use of [employer] voice recognition software, prone to medical misidentifications and grammatical errors. This is unintentional and the practitioner does try to identify and correct these, but some could still be present. Please do not hesitate to contact practitioner for clarification. 08/09/2024 Seborrhea capitis (ICD-10 - L21.0) # Abnormal urine. Patient states that she does have occasional burning. Will repeat urine plus culture and treat accordingly.Edgardo the importance of hydration. # Prediabetes: Hemoglobin A1c 6.1. Based on patient's age, will treat conservatively with lifestyle, , And metformin 500 mg daily. Patient has taken this in the past and tolerated fine. # Alkaline phosphatase mildly elevated at 135. Previous CMP alkaline phosphatase within normal limits. Could be secondary to inflammation relation to basal cell carcinoma. Liver enzymes reassuring, otherwise CBC reassuring.Repeat value in 3 months # Patient was under dermatology for lesion on face, tested positive for basal cell carcinoma. Scheduled for surgery August 15, with plastic surgery August 16. Also having 2 Mohs procedures 1 September 28, and the second in October. Discontinued Humira for 2 weeks prior to the surgery, and 2 weeks after. Also discontinuing aspirin prior to the surgery. Following with Dr. Barrios. # Chronic cough/Chronic congestion: Obtained chest x-ray, within normal limits overall. Failed Augmentin, and doxycycline, continue Flonase. Still having chronic congestion as well. Use albuterol as needed,Continuing Trelegy with improvement. CT of the maxillofacial sinuses without contrast showing mucosal thickening. Sending to ENT, referral still pending. Patient does have deviated septum.Patient has a follow-up with ENT on November 17, 2024. # Dizziness: Much better since discontinuing losartan/Benzodiazep ine. Blood pressure stable. Heart murmur heard on exam. Previous echocardiogram showed normal output with some dilation of the aortic root. MRI 10/2022 demonstrated small vessel ischemia, patient currently on statin therpay and aspirin. Has tried vestibular therapy, however no longer following. Meclizine does not provide adequate releif per patient. Reported she liked physical therapy for gait instability, however has not been going. Has been using cane, feels steady. Declines recent falls. Educated on the importance of hydration. Discussed at home safety to include getting up slowing from a lying/seated postion and using a shower chair. Saw cardiology 04/06/23, Reviewed note, they discontinue losartan and dizziness has improved. Work with new psychiatrist, and working with neurologist as well. Cardiology states that echocardiogram results are unchanged. # Sees neurology every 4 months.. Most recent MRI showing small vessel ischemia, and moderate diffuse brain atrophy and T2 hyperintensity in the white matter. Patient does have some difficulty word finding, and has some silent spells. Had EEG which was negative, following with neurology , Declines any recent falls. Dizziness has improved. # Heart murmur: Echocardiogram demonstrates dilation of the aortic root, otherwise normal output. Lower extremities are without edema or rubor. Recent echocardiogram 2023 showing unchanged results. 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 Blood pressure stable. # Bipolar: Recently seen by DO China Kaiser at [facility]. Going to increase mirtazapine to 30 mg +7.5 mg tablets for a total of 37.5 mg. Discontinued alprazolam. Discussed psychotherapy.Trial increasing trazodone for sleep to 100 mg but patient did not tolerate well. Will discontinue trazodone and Trialed hydroxyzine 50 mg with some improvement, will increase to 50 to 100 mg as needed.. Avoid alprazolam secondary to beers list.Refer to psychiatrist at [facility]. Provided with phone number. # Anxiety: Patient suffers from agoraphobia. Rx for alprazolam PRN provided by Dr. Сергей Morrison,Provider retired, , Medication has been discontinued secondary to it being on the beers list, and risk outweighing benefit. Patient has been last fatigued, and memory has been better.Continue mirtazapine, Increase to 37.5 mg Follow-up in 2 to 3 months for repeat blood work, follow-up with dermatology/plastic surgery in the meantime. All quetsions answered to patients satisfaction. Patient verbalized understanding of diagnosis and treatments explained. To call sooner prior to next visit it any questions/concerns arise. Case discussed with collaborating physician Tiffanie Barnard who reviewed the assessment and plan. Chart, medications, labs, vital signs reviewed. Dictation was accomplished with the use of [employer] voice recognition software, prone to medical misidentifications and grammatical errors. This is unintentional and the practitioner does try to identify and correct these, but some could still be present. Please do not hesitate to contact practitioner for clarification. 11/02/2024 Aortic root dilation (ICD-10 - I77.810) # Abnormal urine. Patient states that she does have occasional burning. Culture in July which did not grow any bacteria. Discussed hydration. Offered urogynecology referral, patient declines. Offered to repeat urine, patient declines # Prediabetes: Hemoglobin A1c 6.1. Based on patient's age, will treat conservatively with lifestyle, Continue metformin 500 mg daily. A1c has improved November 17-5.8, glucose 138 # Alkaline phosphatase mildly elevated at 135. Previous CMP alkaline phosphatase within normal limits. Could be secondary to inflammation relation to basal cell carcinoma. Liver enzymes reassuring, otherwise CBC reassuring. Repeat CBC within normal limits October 2024 aside from mildly elevated glucose # Patient was under dermatology for lesion on face, tested positive for basal cell carcinoma. Scheduled for surgery August 15, with plastic surgery August 16. Also having 2 Mohs procedures 1 September 28, and the second in October. Discontinued Humira for 2 weeks prior to the surgery, and 2 weeks after. Also discontinuing aspirin prior to the surgery. Following with Dr. Barrios.Doing well per surgery, pleased with progress # Chronic cough/Chronic congestion: Obtained chest x-ray, within normal limits overall. Failed Augmentin, and doxycycline, continue Flonase. Still having chronic congestion as well. Use albuterol as needed,Continuing Trelegy with improvement. CT of the maxillofacial sinuses without contrast showing mucosal thickening. Sending to ENT, referral still pending. Patient does have deviated septum.Patient has a follow-up with ENT on November 17, 2024.But this was just rescheduled to March. Going to contact office as this referral was sent in December 2023. Patient expresses frustration # Dizziness: Much better since discontinuing losartan/Benzodiazep ine. Blood pressure stable. Heart murmur heard on exam. Previous echocardiogram showed normal output with some dilation of the aortic root. MRI 10/2022 demonstrated small vessel ischemia, patient currently on statin therpay and aspirin. Has tried vestibular therapy, however no longer following. Meclizine does not provide adequate releif per patient. Reported she liked physical therapy for gait instability, however has not been going. Has been using cane, feels steady. Declines recent falls. Educated on the importance of hydration. Discussed at home safety to include getting up slowing from a lying/seated postion and using a shower chair. Saw cardiology 04/06/23, Reviewed note, they discontinue losartan and dizziness has improved. Work with new psychiatrist, and working with neurologist as well. Cardiology states that echocardiogram results are unchanged. # Sees neurology every 4 months.. Most recent MRI showing small vessel ischemia, and moderate diffuse brain atrophy and T2 hyperintensity in the white matter. Patient does have some difficulty word finding, and has some silent spells. Had EEG which was negative, following with neurology , Declines any recent falls. Dizziness has improved. # Heart murmur: Echocardiogram demonstrates dilation of the aortic root, otherwise normal output. Lower extremities are without edema or rubor. Recent echocardiogram 2023 showing unchanged results. 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 Blood pressure stable. # Bipolar: Recently seen by DO China Kaiser at [facility]. Going to increase mirtazapine to 30 mg +7.5 mg tablets for a total of 37.5 mg. Discontinued alprazolam. Discussed psychotherapy.Trial increasing trazodone for sleep to 100 mg but patient did not tolerate well. Will discontinue trazodone and Trialed hydroxyzine 50 mg with some improvement, will increase to 50 to 100 mg as needed.. Avoid alprazolam secondary to beers list.Refer to psychiatrist at [facility]. Provided with phone number.Patient states that she will call. # Anxiety: Patient suffers from agoraphobia. Rx for alprazolam PRN provided by Dr. Сергей Morrison,Provider retired, , Medication has been discontinued secondary to it being on the beers list, and risk outweighing benefit. Patient has been last fatigued, and memory has been better.Continue mirtazapine 37.5, Patient is going to contact psychiatry and therapy. # Weight gain: Focusing on nutrition, and exercise. Also admits to some leg pain, but she just got a bicycle for her lower extremities, and thinks exercise will be helpful. Will call the office with worsening symptoms. Follow-up in 3 months, sooner as needed. Contact ENT in the meantime. Patient to follow-up with psychiatry in the meantime. Call if she changes her mind in regards to lower extremity pain workup, or dysuria workup Discussed emergency department criteria/criteria to call the office All quetsions answered to patients satisfaction. Patient verbalized understanding of diagnosis and treatments explained. To call sooner prior to next visit it any questions/concerns arise. Case discussed with collaborating physician Tiffanie Barnard who reviewed the assessment and plan. Chart, medications, labs, vital signs reviewed. Dictation was accomplished with the use of [employer] voice recognition software, prone to medical misidentifications and grammatical errors. This is unintentional and the practitioner does try to identify and correct these, but some could still be present. Please do not hesitate to contact practitioner for clarification. 01/11/2025 Aortic root dilation (ICD-10 - I77.810) # Hospitalized at [facility] in [place] January 01, 2025 discharged January 05, 2025. This was secondary to sepsis secondary to UTI, and acute metabolic encephalopathy. Patient was initially treated with ceftriaxone, and discharged on cefpodoxime 200 mg twice daily for 5 days, patient states that symptoms have completely resolved, and cognition is back to baseline. She states she does not remember the incident, but has been doing well since. Encouraged to continue with water intake. Encephalopathy resolved with UTI treatment. # Incidental finding of hypertension, systolic 170. Started on amlodipine 5 mg daily, blood pressure stable today 126/84 therefore we will continue amlodipine 5 mg at this time. Does have a blood pressure machine at home for which she checks regularly # Prediabetes: Repeat A1c in hospital December 2024 A1c 5.8. Patient pleased. Continue metformin 500 mg once daily # Alkaline phosphatase mildly elevated at 135. Previous CMP alkaline phosphatase within normal limits. Could be secondary to inflammation relation to basal cell carcinoma. Liver enzymes reassuring, otherwise CBC reassuring. Repeat CBC within normal limits October 2024 aside from mildly elevated glucose # Patient was under dermatology for lesion on face, tested positive for basal cell carcinoma. Scheduled for surgery August 15, with plastic surgery August 16. Also having 2 Mohs procedures 1 September 28, and the second in October. Discontinued Humira for 2 weeks prior to the surgery, and 2 weeks after. Also discontinuing aspirin prior to the surgery. Following with Dr. Barrios.Doing well per surgery, pleased with progress, Healing well # Chronic cough/Chronic congestion: Obtained chest x-ray, within normal limits overall. Failed Augmentin, and doxycycline, continue Flonase. Still having chronic congestion as well. Use albuterol as needed,Continuing Trelegy with improvement. CT of the maxillofacial sinuses without contrast showing mucosal thickening. Sending to ENT, referral still pending. Patient does have deviated septum.Patient has a follow-up with ENT on November 17, 2024.But this was just rescheduled to March. Tried contacting office, but they have no sooner availability. # Dizziness: Much better since discontinuing losartan/Benzodiazep ine. Blood pressure stable. Heart murmur heard on exam. Previous echocardiogram showed normal output with some dilation of the aortic root. MRI 10/2022 demonstrated small vessel ischemia, patient currently on statin therpay and aspirin. Has tried vestibular therapy, however no longer following. Meclizine does not provide adequate releif per patient. Patient was discharged with at home PT/OT, and [facility], and home health aide. Continuing to use a cane. Feels steady. Educated on the importance of hydration. Discussed at home safety to include getting up slowing from a lying/seated postion and using a shower chair. Saw cardiology 04/06/23, Reviewed note, they discontinue losartan and dizziness has improved. Work with new psychiatrist, and working with neurologist as well. Cardiology states that echocardiogram results are unchanged.Incidental finding of elevated blood pressure in the hospital for which amlodipine 5 mg was started. Patient will monitor blood pressure if blood pressure declines, will discontinue medication. # Sees neurology every 4 months.. Most recent MRI showing small vessel ischemia, and moderate diffuse brain atrophy and T2 hyperintensity in the white matter. Patient does have some difficulty word finding, and has some silent spells. Had EEG which was negative, following with neurology , Declines any recent falls. Dizziness has improved.Patient is going to contact neurology to get back on their schedule. # Heart murmur: Echocardiogram demonstrates dilation of the aortic root, otherwise normal output. Lower extremities are without edema or rubor. Recent echocardiogram 2023 showing unchanged results. # Bipolar: Recently seen by DO China Kaiser at [facility]. Going to increase mirtazapine to 30 mg +7.5 mg tablets for a total of 37.5 mg. Discontinued alprazolam. Discussed psychotherapy.Trial increasing trazodone for sleep to 100 mg but patient did not tolerate well. Will discontinue trazodone and Trialed hydroxyzine 50 mg with some improvement, will increase to 50 to 100 mg as needed.. Avoid alprazolam secondary to beers list.Refer to psychiatrist at [facility]. Provided with phone number.Patient states that she will call. # Anxiety: Patient suffers from agoraphobia. Rx for alprazolam PRN provided by Dr. Сергей Morrison,Provider retired, , Medication has been discontinued secondary to it being on the beers list, and risk outweighing benefit. Patient has been last fatigued, and memory has been better.Continue mirtazapine 30, Patient is going to contact psychiatry and therapy. # Weight gain: Focusing on nutrition, and exercise. Also admits to some leg pain, but she just got a bicycle for her lower extremities, and thinks exercise will be helpful. Will call the office with worsening symptoms. Follow-up in 2 to 3 months for Medicare wellness visit. Follow-up with neurology and psychiatry in the meantime. Discussed emergency department criteria/criteria to call the office. All quetsions answered to patients satisfaction. Patient verbalized understanding of diagnosis and treatments explained. To call sooner prior to next visit it any questions/concerns arise. Case discussed with collaborating physician Tiffanie Barnard who reviewed the assessment and plan. Chart, medications, labs, vital signs reviewed. Dictation was accomplished with the use of [employer] voice recognition software, prone to medical misidentifications and grammatical errors. This is unintentional and the practitioner does try to identify and correct these, but some could still be present. Please do not hesitate to contact practitioner for clarification. 01/17/2025 Encounter for examination of blood pressure without abnormal findings (ICD-10 - Z01.30) Clint is a 74-year-old female with a complex past medical history who presents to the office today for an urgent visit. Patient states that she has been having mild abdominal pain, constant burning, frequent urination. Patient recently was admitted to [facility] for concern of sepsis secondary to UTI, acute metabolic encephalopathy. She was admitted from January 01 to January 05. Patient finished her entire course of cefpodoxime 200 mg twice daily x 5 days, and she is still experiencing symptoms. At this time patient's urine dip in office is notable for UTI. She has protein, nitrates and moderate blood in the urine. Will be treating with ciprofloxacin and Pyridium. Placing urology referral for further evaluation. At first patient was hesitant, however is now compliant with this plan at this time. Patient educated that Pyridium may make her urine orange, she is to drink plenty of fluids to hydrate her urinary tract at this time. All questions have been answered to patient's satisfaction. Patient verbalized understanding of diagnosis and treatments explained. Advised to call sooner prior to next visit it any questions/concerns arise. Case discussed with Caryl MERCHANT who reviewed the assessment and plan. Chart, medications, labs, vital signs reviewed. Dictation was accomplished with the use of [employer] voice recognition software, which is prone to medical misidentifications and grammatical errors. This are unintentional and the practitioner does try to identify and correct these, but some could still be present. Please do not hesitate to contact practitioner for clarification. 02/01/2025 Chronic insomnia (ICD-10 - F51.04) Kristin is a 74-year-old female who presents due to ongoing urinary symptoms. #Urinary tract infection: Urine dipstick today shows leukocytes 3+, nitrates positive, blood 3+. Urine culture previously sent from prior visit unable to be evaluated due to inadequate sample. She initially was seen in the hospital 01/01/2025 to 01/05/2025 for sepsis secondary to UTI and was treated with ceftriaxone followed by cefpodoxime 200 mg twice daily for 5 days. On 01/17/2025, she was evaluated here due to ongoing symptoms and was given Macrobid and Pyridium. Today, patient reports ongoing symptoms. Negative CVA tenderness. Urine culture sent today. BMP sent today to evaluate for any kidney involvement. Bladder and renal ultrasound ordered today. Urology appointment scheduled February 09. Plan for Augmentin 875 mg BID x10 days. Plan for Pyridium for symptomatic relief. Patient educated on side effects of both medications including GI upset, diarrhea, orange urine. #Insomnia: Current regimen is trazodone 100 mg at bedtime, mirtazapine 30 mg at bedtime, hydroxyzine 50 mg at bedtime. Patient reports despite these medications, she is having no relief in his reporting difficulty sleeping. Patient encouraged to trial melatonin and magnesium. She reports understanding. All questions have been answered to patient's satisfaction. Patient verbalized understanding of diagnosis and treatments explained. Advised to call sooner prior to next visit it any questions/concerns arise. Case discussed with collaborating physician Tiffanie Barnard who reviewed the assessment and plan. Chart, medications, labs, vital signs reviewed. Dictation was accomplished with the use of [employer] voice recognition software, which is prone to medical misidentifications and grammatical errors. This are unintentional and the practitioner does try to identify and correct these, but some could still be present. Please do not hesitate to contact practitioner for clarification. 03/15/2025 Encounter for examination of blood pressure without abnormal findings (ICD-10 - Z01.30) # Hospitalized at [facility] in [place] January 01, 2025 discharged January 05, 2025. This was secondary to sepsis secondary to UTI, and acute metabolic encephalopathy. Patient was initially treated with ceftriaxone, and discharged on cefpodoxime 200 mg twice daily for 5 days, patient states that symptoms have completely resolved, and cognition is back to baseline. She states she does not remember the incident, but has been doing well since. Encouraged to continue with water intake. Encephalopathy resolved with UTI treatment. # Medicare wellness paperwork reviewed. # PHQ-9 with a total score of 5, going to try to establish with psychiatry. Medications discussed # Audit negative # Discussed healthcare proxy and MOLST form. # Experiencing frequent UTIs so went to neurology, they started patient on methenamine, and patient has been doing really well with complete resolution of symptoms. # Follows with Dr. Adams for gastroenterology, will obtain colonoscopy record # Due for mammogram ordered today March 15, 2025 # Declined all other routine screenings and vaccines # Using a cane/walker at home, discussed fall prevention. # Hypertension: Stable on amlodipine 5 mg # Prediabetes: Repeat A1c in hospital December 2024 A1c 5.8. Patient pleased. Continue metformin 500 mg once daily, Recheck A1c at next visit in 2 to 3 months. # Alkaline phosphatase mildly elevated at 135. Previous CMP alkaline phosphatase within normal limits. Could be secondary to inflammation relation to basal cell carcinoma. Liver enzymes reassuring, otherwise CBC reassuring. Repeat CBC within normal limits October 2024 aside from mildly elevated glucose. Rechecking visit in 2 to 3 months. # Patient was under dermatology for lesion on face, tested positive for basal cell carcinoma. Scheduled for surgery August 15, with plastic surgery August 16. Also having 2 Mohs procedures 1 September 28, and the second in October. Discontinued Humira for 2 weeks prior to the surgery, and 2 weeks after. Also discontinuing aspirin prior to the surgery. Following with Dr. Barrios.Doing well per surgery, pleased with progress, Healing wellPatient has been doing really well. # Chronic cough/Chronic congestion: Obtained chest x-ray, within normal limits overall. Failed Augmentin, and doxycycline, continue Flonase. Still having chronic congestion as well. Use albuterol as needed,Continuing Trelegy with improvement. CT of the maxillofacial sinuses without contrast showing mucosal thickening.As of March 15, 2025, patient states that symptoms have overall resolved, but she does have a visit with ENT in March. # Dizziness: Much better since discontinuing losartan/Benzodiazep ine. Blood pressure stable. Heart murmur heard on exam. Previous echocardiogram showed normal output with some dilation of the aortic root. MRI 10/2022 demonstrated small vessel ischemia, patient currently on statin therpay and aspirin. Has tried vestibular therapy, however no longer following. Meclizine does not provide adequate releif per patient. Patient was discharged with at home PT/OT, and [facility], and home health aide. Continuing to use a cane. . Educated on the importance of hydration. Discussed at home safety to include getting up slowing from a lying/seated postion and using a shower chair. Saw cardiology 04/06/23, Reviewed note, they discontinue losartan and dizziness has improved. Work with new psychiatrist, and working with neurologist as well. Cardiology states that echocardiogram results are unchanged.Admit to a dizziness episode yesterday. Blood pressure stable on amlodipine 5 mg. Ordering MRI with and without contrast of the head secondary to fatigue, dizziness, occasional difficulty with word finding. # Sees neurology every 4 months.. History of MRI showing small vessel ischemia, and moderate diffuse brain atrophy and T2 hyperintensity in the white matter. No recent MRI of note. Patient does have some difficulty word finding, and has some silent spells. Had EEG which was negative, following with neurology , Declines any recent falls. Patient is going to contact neurology to get back on their schedule. # Heart murmur: Echocardiogram demonstrates dilation of the aortic root, otherwise normal output. Lower extremities are without edema or rubor. Recent echocardiogram 2023 showing unchanged results. # Bipolar: Recently seen by DO China Kaiser at [facility]. Going to increase mirtazapine to 30 mg +7.5 mg tablets for a total of 37.5 mg. Discontinued alprazolam. Discussed psychotherapy.Trial increasing trazodone for sleep to 100 mg but patient did not tolerate well. Will discontinue trazodone and Trialed hydroxyzine 50 mg with some improvement, will increase to 50 to 100 mg as needed.. Avoid alprazolam secondary to beers list.Refer to psychiatrist at [facility]. Provided with phone number.Patient states that she will call.Referral to psych today. # Anxiety: Patient suffers from agoraphobia. Rx for alprazolam PRN provided by Dr. Сергей Morrison,Provider retired, , Medication has been discontinued secondary to it being on the beers list, and risk outweighing benefit. Patient has been last fatigued, and memory has been better.Continue mirtazapine 30, Patient is going to contact psychiatry and therapy. # Weight gain: Focusing on nutrition, and exercise. Also admits to some leg pain, but she just got a bicycle for her lower extremities, and thinks exercise will be helpful. Will call the office with worsening symptoms.Discussed senior center, patient declines. Follow-up in 2 to 3 months, labs prior. Psych evaluation prior, and MRI of the brain.Also ordering mammogram. Patient seen and examined. Comprehensive discussion was done on the following. 1. Nutrition: It is important to follow a healthy diet based on lots of vegetables and legumes and good fat. Avoid processed food and processed carbohydrates. Prepare your own meals. Read labels and avoid high fructose corn syrup, processed chemicals added to increase shelf life and preprepared meals. Avoid fast foods. Eat slowly and plan meals for a week. Try to count calories and be mindful off daily calorie intake. Get into the habit of keeping an eye on your weight by using an appropriate scale. Learn to log exercise and discussed fitness Apps like [employer] which can help keep log off calories taken versus calories burned. Local food should be preferred. Discussed Dirty Dozen Vers[employer] Clean Fifteen. Discussed healthy supplements like fish oil, Tumeric, Curcumin, Melatonin, Resveratrol, Probiotics, Vitamin-D, Alpha-Lipoic acid, Vitamin-D and coconut oil. 2. It is important to exercise regularly. Is a good habit to walk at least 30 minutes a day. Gentle weightlifting with standard precautions to protect the back. Finding activity like cycling or hiking and get into the habit of engaging in it. Stretching before and after the exercises important. It is also important to contact me if there are any problems like shortness of breath, chest pain, back pain and joint or muscle pain associated with the exercise. 3. Discussed age appropriate screening guidelines. Colonoscopy needs to start at age 50 with stool for occult blood as appropriate. There is a new test that can test for genetic abnormalities in the stool sample, Cologuard. This would not replace a colonoscopy but could be used as a screening tool for patients who do not want a colonoscopy. We discussed the importance of early detection of colon cancer. 4. Discussed current guidelines with respect to breast examination, mammogram and pap smear for early detection of breast and cervical cancer. Patient advised to follow up with these appointments. 5. Discussed safe driving and no use of smart phone while driving 6. Age-appropriate immunizations were discussed. A tetanus booster is needed every 10 years. Flu vaccine is recommended every year just before the start of the flu season. Shingles vaccine is recommended after age 50 but not all insurances cover it. Pneumonia vaccine is given after age 65 unless there are certain comorbidities for which it is started earlier. 7. Diagnostic labs were discussed. These could include/not limited to CBC CMP and lipids with fasting blood glucose and insulin levels. Vitamin D and hemoglobin A1c testing might be appropriate. All quetsions answered to patients satisfaction. Patient verbalized understanding of diagnosis and treatments explained. To call sooner prior to next visit it any questions/concerns arise. Case discussed with collaborating physician Tiffanie Barnard who reviewed the assessment and plan. Chart, medications, labs, vital signs reviewed. Dictation was accomplished with the use of [employer] voice recognition software, prone to medical misidentifications and grammatical errors. This is unintentional and the practitioner does try to identify and correct these, but some could still be present. Please do not hesitate to contact practitioner for clarification. 03/15/2025 Encounter for screening for depression (ICD-10 - Z13.31) # Hospitalized at [facility] in [place] January 01, 2025 discharged January 05, 2025. This was secondary to sepsis secondary to UTI, and acute metabolic encephalopathy. Patient was initially treated with ceftriaxone, and discharged on cefpodoxime 200 mg twice daily for 5 days, patient states that symptoms have completely resolved, and cognition is back to baseline. She states she does not remember the incident, but has been doing well since. Encouraged to continue with water intake. Encephalopathy resolved with UTI treatment. # Medicare wellness paperwork reviewed. # PHQ-9 with a total score of 5, going to try to establish with psychiatry. Medications discussed # Audit negative # Discussed healthcare proxy and MOLST form. # Experiencing frequent UTIs so went to neurology, they started patient on methenamine, and patient has been doing really well with complete resolution of symptoms. # Follows with Dr. Adams for gastroenterology, will obtain colonoscopy record # Due for mammogram ordered today March 15, 2025 # Declined all other routine screenings and vaccines # Using a cane/walker at home, discussed fall prevention. # Hypertension: Stable on amlodipine 5 mg # Prediabetes: Repeat A1c in hospital December 2024 A1c 5.8. Patient pleased. Continue metformin 500 mg once daily, Recheck A1c at next visit in 2 to 3 months. # Alkaline phosphatase mildly elevated at 135. Previous CMP alkaline phosphatase within normal limits. Could be secondary to inflammation relation to basal cell carcinoma. Liver enzymes reassuring, otherwise CBC reassuring. Repeat CBC within normal limits October 2024 aside from mildly elevated glucose. Rechecking visit in 2 to 3 months. # Patient was under dermatology for lesion on face, tested positive for basal cell carcinoma. Scheduled for surgery August 15, with plastic surgery August 16. Also having 2 Mohs procedures 1 September 28, and the second in October. Discontinued Humira for 2 weeks prior to the surgery, and 2 weeks after. Also discontinuing aspirin prior to the surgery. Following with Dr. Barrios.Doing well per surgery, pleased with progress, Healing wellPatient has been doing really well. # Chronic cough/Chronic congestion: Obtained chest x-ray, within normal limits overall. Failed Augmentin, and doxycycline, continue Flonase. Still having chronic congestion as well. Use albuterol as needed,Continuing Trelegy with improvement. CT of the maxillofacial sinuses without contrast showing mucosal thickening.As of March 15, 2025, patient states that symptoms have overall resolved, but she does have a visit with ENT in March. # Dizziness: Much better since discontinuing losartan/Benzodiazep ine. Blood pressure stable. Heart murmur heard on exam. Previous echocardiogram showed normal output with some dilation of the aortic root. MRI 10/2022 demonstrated small vessel ischemia, patient currently on statin therpay and aspirin. Has tried vestibular therapy, however no longer following. Meclizine does not provide adequate releif per patient. Patient was discharged with at home PT/OT, and [facility], and home health aide. Continuing to use a cane. . Educated on the importance of hydration. Discussed at home safety to include getting up slowing from a lying/seated postion and using a shower chair. Saw cardiology 04/06/23, Reviewed note, they discontinue losartan and dizziness has improved. Work with new psychiatrist, and working with neurologist as well. Cardiology states that echocardiogram results are unchanged.Admit to a dizziness episode yesterday. Blood pressure stable on amlodipine 5 mg. Ordering MRI with and without contrast of the head secondary to fatigue, dizziness, occasional difficulty with word finding. # Sees neurology every 4 months.. History of MRI showing small vessel ischemia, and moderate diffuse brain atrophy and T2 hyperintensity in the white matter. No recent MRI of note. Patient does have some difficulty word finding, and has some silent spells. Had EEG which was negative, following with neurology , Declines any recent falls. Patient is going to contact neurology to get back on their schedule. # Heart murmur: Echocardiogram demonstrates dilation of the aortic root, otherwise normal output. Lower extremities are without edema or rubor. Recent echocardiogram 2023 showing unchanged results. # Bipolar: Recently seen by DO China Kaiser at [facility]. Going to increase mirtazapine to 30 mg +7.5 mg tablets for a total of 37.5 mg. Discontinued alprazolam. Discussed psychotherapy.Trial increasing trazodone for sleep to 100 mg but patient did not tolerate well. Will discontinue trazodone and Trialed hydroxyzine 50 mg with some improvement, will increase to 50 to 100 mg as needed.. Avoid alprazolam secondary to beers list.Refer to psychiatrist at [facility]. Provided with phone number.Patient states that she will call.Referral to psych today. # Anxiety: Patient suffers from agoraphobia. Rx for alprazolam PRN provided by Dr. Сергей Morrison,Provider retired, , Medication has been discontinued secondary to it being on the beers list, and risk outweighing benefit. Patient has been last fatigued, and memory has been better.Continue mirtazapine 30, Patient is going to contact psychiatry and therapy. # Weight gain: Focusing on nutrition, and exercise. Also admits to some leg pain, but she just got a bicycle for her lower extremities, and thinks exercise will be helpful. Will call the office with worsening symptoms.Discussed senior center, patient declines. Follow-up in 2 to 3 months, labs prior. Psych evaluation prior, and MRI of the brain.Also ordering mammogram. Patient seen and examined. Comprehensive discussion was done on the following. 1. Nutrition: It is important to follow a healthy diet based on lots of vegetables and legumes and good fat. Avoid processed food and processed carbohydrates. Prepare your own meals. Read labels and avoid high fructose corn syrup, processed chemicals added to increase shelf life and preprepared meals. Avoid fast foods. Eat slowly and plan meals for a week. Try to count calories and be mindful off daily calorie intake. Get into the habit of keeping an eye on your weight by using an appropriate scale. Learn to log exercise and discussed fitness Apps like [employer] which can help keep log off calories taken versus calories burned. Local food should be preferred. Discussed [employer] Versus [employer]teen. Discussed healthy supplements like fish oil, Tumeric, Curcumin, Melatonin, Resveratrol, Probiotics, Vitamin-D, Alpha-Lipoic acid, Vitamin-D and coconut oil. 2. It is important to exercise regularly. Is a good habit to walk at least 30 minutes a day. Gentle weightlifting with standard precautions to protect the back. Finding activity like cycling or hiking and get into the habit of engaging in it. Stretching before and after the exercises important. It is also important to contact me if there are any problems like shortness of breath, chest pain, back pain and joint or muscle pain associated with the exercise. 3. Discussed age appropriate screening guidelines. Colonoscopy needs to start at age 50 with stool for occult blood as appropriate. There is a new test that can test for genetic abnormalities in the stool sample, Cologuard. This would not replace a colonoscopy but could be used as a screening tool for patients who do not want a colonoscopy. We discussed the importance of early detection of colon cancer. 4. Discussed current guidelines with respect to breast examination, mammogram and pap smear for early detection of breast and cervical cancer. Patient advised to follow up with these appointments. 5. Discussed safe driving and no use of smart phone while driving 6. Age-appropriate immunizations were discussed. A tetanus booster is needed every 10 years. Flu vaccine is recommended every year just before the start of the flu season. Shingles vaccine is recommended after age 50 but not all insurances cover it. Pneumonia vaccine is given after age 65 unless there are certain comorbidities for which it is started earlier. 7. Diagnostic labs were discussed. These could include/not limited to CBC CMP and lipids with fasting blood glucose and insulin levels. Vitamin D and hemoglobin A1c testing might be appropriate. All quetsions answered to patients satisfaction. Patient verbalized understanding of diagnosis and treatments explained. To call sooner prior to next visit it any questions/concerns arise. Case discussed with collaborating physician Tiffanie Barnard who reviewed the assessment and plan. Chart, medications, labs, vital signs reviewed. Dictation was accomplished with the use of [employer] voice recognition software, prone to medical misidentifications and grammatical errors. This is unintentional and the practitioner does try to identify and correct these, but some could still be present. Please do not hesitate to contact practitioner for clarification. 01/11/2025 Seborrhea capitis (ICD-10 - L21.0) # Hospitalized at [facility] in [place] January 01, 2025 discharged January 05, 2025. This was secondary to sepsis secondary to UTI, and acute metabolic encephalopathy. Patient was initially treated with ceftriaxone, and discharged on cefpodoxime 200 mg twice daily for 5 days, patient states that symptoms have completely resolved, and cognition is back to baseline. She states she does not remember the incident, but has been doing well since. Encouraged to continue with water intake. Encephalopathy resolved with UTI treatment. # Incidental finding of hypertension, systolic 170. Started on amlodipine 5 mg daily, blood pressure stable today 126/84 therefore we will continue amlodipine 5 mg at this time. Does have a blood pressure machine at home for which she checks regularly # Prediabetes: Repeat A1c in hospital December 2024 A1c 5.8. Patient pleased. Continue metformin 500 mg once daily # Alkaline phosphatase mildly elevated at 135. Previous CMP alkaline phosphatase within normal limits. Could be secondary to inflammation relation to basal cell carcinoma. Liver enzymes reassuring, otherwise CBC reassuring. Repeat CBC within normal limits October 2024 aside from mildly elevated glucose # Patient was under dermatology for lesion on face, tested positive for basal cell carcinoma. Scheduled for surgery August 15, with plastic surgery August 16. Also having 2 Mohs procedures 1 September 28, and the second in October. Discontinued Humira for 2 weeks prior to the surgery, and 2 weeks after. Also discontinuing aspirin prior to the surgery. Following with Dr. Barrios.Doing well per surgery, pleased with progress, Healing well # Chronic cough/Chronic congestion: Obtained chest x-ray, within normal limits overall. Failed Augmentin, and doxycycline, continue Flonase. Still having chronic congestion as well. Use albuterol as needed,Continuing Trelegy with improvement. CT of the maxillofacial sinuses without contrast showing mucosal thickening. Sending to ENT, referral still pending. Patient does have deviated septum.Patient has a follow-up with ENT on November 17, 2024.But this was just rescheduled to March. Tried contacting office, but they have no sooner availability. # Dizziness: Much better since discontinuing losartan/Benzodiazep ine. Blood pressure stable. Heart murmur heard on exam. Previous echocardiogram showed normal output with some dilation of the aortic root. MRI 10/2022 demonstrated small vessel ischemia, patient currently on statin therpay and aspirin. Has tried vestibular therapy, however no longer following. Meclizine does not provide adequate releif per patient. Patient was discharged with at home PT/OT, and [facility], and home health aide. Continuing to use a cane. Feels steady. Educated on the importance of hydration. Discussed at home safety to include getting up slowing from a lying/seated postion and using a shower chair. Saw cardiology 04/06/23, Reviewed note, they discontinue losartan and dizziness has improved. Work with new psychiatrist, and working with neurologist as well. Cardiology states that echocardiogram results are unchanged.Incidental finding of elevated blood pressure in the hospital for which amlodipine 5 mg was started. Patient will monitor blood pressure if blood pressure declines, will discontinue medication. # Sees neurology every 4 months.. Most recent MRI showing small vessel ischemia, and moderate diffuse brain atrophy and T2 hyperintensity in the white matter. Patient does have some difficulty word finding, and has some silent spells. Had EEG which was negative, following with neurology , Declines any recent falls. Dizziness has improved.Patient is going to contact neurology to get back on their schedule. # Heart murmur: Echocardiogram demonstrates dilation of the aortic root, otherwise normal output. Lower extremities are without edema or rubor. Recent echocardiogram 2023 showing unchanged results. # Bipolar: Recently seen by DO China Kaiser at [facility]. Going to increase mirtazapine to 30 mg +7.5 mg tablets for a total of 37.5 mg. Discontinued alprazolam. Discussed psychotherapy.Trial increasing trazodone for sleep to 100 mg but patient did not tolerate well. Will discontinue trazodone and Trialed hydroxyzine 50 mg with some improvement, will increase to 50 to 100 mg as needed.. Avoid alprazolam secondary to beers list.Refer to psychiatrist at [facility]. Provided with phone number.Patient states that she will call. # Anxiety: Patient suffers from agoraphobia. Rx for alprazolam PRN provided by Dr. Сергей Morrison,Provider retired, , Medication has been discontinued secondary to it being on the beers list, and risk outweighing benefit. Patient has been last fatigued, and memory has been better.Continue mirtazapine 30, Patient is going to contact psychiatry and therapy. # Weight gain: Focusing on nutrition, and exercise. Also admits to some leg pain, but she just got a bicycle for her lower extremities, and thinks exercise will be helpful. Will call the office with worsening symptoms. Follow-up in 2 to 3 months for Medicare wellness visit. Follow-up with neurology and psychiatry in the meantime. Discussed emergency department criteria/criteria to call the office. All quetsions answered to patients satisfaction. Patient verbalized understanding of diagnosis and treatments explained. To call sooner prior to next visit it any questions/concerns arise. Case discussed with collaborating physician Tiffanie Barnard who reviewed the assessment and plan. Chart, medications, labs, vital signs reviewed. Dictation was accomplished with the use of [employer] voice recognition software, prone to medical misidentifications and grammatical errors. This is unintentional and the practitioner does try to identify and correct these, but some could still be present. Please do not hesitate to contact practitioner for clarification. 06/09/2024 Sinus congestion (ICD-10 - R09.81) # Patient was under dermatology for lesion on face, tested positive for basal cell carcinoma. Getting surgery on September 28October 12, and final surgery not scheduled get with plastic surgeon Dr. Barrios. # Chronic cough/Chronic congestion: Obtained chest x-ray, within normal limits overall. Failed Augmentin, and doxycycline, continue Flonase. Still having chronic congestion as well. Use albuterol as needed,Continuing Trelegy with improvement. CT of the maxillofacial sinuses without contrast showing mucosal thickening. Sending to ENT, referral still pending. Patient does have deviated septum.Patient has a follow-up with ENT on November 17, 2024. # Dizziness: Much better since discontinuing losartan/Benzodiazep ine. Blood pressure stable. Heart murmur heard on exam. Previous echocardiogram showed normal output with some dilation of the aortic root. MRI 10/2022 demonstrated small vessel ischemia, patient currently on statin therpay and aspirin. Has tried vestibular therapy, however no longer following. Meclizine does not provide adequate releif per patient. Reported she liked physical therapy for gait instability, however has not been going. Has been using cane, feels steady. Declines recent falls. Educated on the importance of hydration. Discussed at home safety to include getting up slowing from a lying/seated postion and using a shower chair. Saw cardiology 04/06/23, Reviewed note, they discontinue losartan and dizziness has improved. Work with new psychiatrist, and working with neurologist as well. Cardiology states that echocardiogram results are unchanged. # Sees neurology every 4 months.. Most recent MRI showing small vessel ischemia, and moderate diffuse brain atrophy and T2 hyperintensity in the white matter. Patient does have some difficulty word finding, and has some silent spells. Had EEG which was negative, following with neurology , Declines any recent falls. Dizziness has improved. # Heart murmur: Echocardiogram demonstrates dilation of the aortic root, otherwise normal output. Lower extremities are without edema or rubor. Recent echocardiogram 2023 showing unchanged results. 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 Blood pressure stable. # Bipolar: Recently seen by DO China Kaiser at [facility]. Increase mirtazapine to 30 mg. Patient was currently taking 50 mg +7.5 mg tablets. Discontinued alprazolam. Discussed psychotherapy.Trial increasing trazodone for sleep to 100 mg but patient did not tolerate well. Will discontinue trazodone and trial hydroxyzine. Avoid alprazolam secondary to beers list. # Anxiety: Patient suffers from agoraphobia. Rx for alprazolam PRN provided by Dr. Сергей Morrison,Provider retired, , Medication has been discontinued secondary to it being on the beers list, and risk outweighing benefit. Patient has been last fatigued, and memory has been better.Continue mirtazapine # Hx of DM II: Reports went away with weight loss. Hemoglobin A-1 C without concern.Repeating values prior to next visit. Follow-up in 2 months for repeat blood work, sooner as needed, Also assess efficacy/compliance of hydroxyzine All quetsions answered to patients satisfaction. Patient verbalized understanding of diagnosis and treatments explained. To call sooner prior to next visit it any questions/concerns arise. Case discussed with collaborating physician Tiffanie Barnard who reviewed the assessment and plan. Chart, medications, labs, vital signs reviewed. Dictation was accomplished with the use of [employer] voice recognition software, prone to medical misidentifications and grammatical errors. This is unintentional and the practitioner does try to identify and correct these, but some could still be present. Please do not hesitate to contact practitioner for clarification. 11/02/2024 Seborrhea capitis (ICD-10 - L21.0) # Abnormal urine. Patient states that she does have occasional burning. Culture in July which did not grow any bacteria. Discussed hydration. Offered urogynecology referral, patient declines. Offered to repeat urine, patient declines # Prediabetes: Hemoglobin A1c 6.1. Based on patient's age, will treat conservatively with lifestyle, Continue metformin 500 mg daily. A1c has improved November 17-5.8, glucose 138 # Alkaline phosphatase mildly elevated at 135. Previous CMP alkaline phosphatase within normal limits. Could be secondary to inflammation relation to basal cell carcinoma. Liver enzymes reassuring, otherwise CBC reassuring. Repeat CBC within normal limits October 2024 aside from mildly elevated glucose # Patient was under dermatology for lesion on face, tested positive for basal cell carcinoma. Scheduled for surgery August 15, with plastic surgery August 16. Also having 2 Mohs procedures 1 September 28, and the second in October. Discontinued Humira for 2 weeks prior to the surgery, and 2 weeks after. Also discontinuing aspirin prior to the surgery. Following with Dr. Barrios.Doing well per surgery, pleased with progress # Chronic cough/Chronic congestion: Obtained chest x-ray, within normal limits overall. Failed Augmentin, and doxycycline, continue Flonase. Still having chronic congestion as well. Use albuterol as needed,Continuing Trelegy with improvement. CT of the maxillofacial sinuses without contrast showing mucosal thickening. Sending to ENT, referral still pending. Patient does have deviated septum.Patient has a follow-up with ENT on November 17, 2024.But this was just rescheduled to March. Going to contact office as this referral was sent in December 2023. Patient expresses frustration # Dizziness: Much better since discontinuing losartan/Benzodiazep ine. Blood pressure stable. Heart murmur heard on exam. Previous echocardiogram showed normal output with some dilation of the aortic root. MRI 10/2022 demonstrated small vessel ischemia, patient currently on statin therpay and aspirin. Has tried vestibular therapy, however no longer following. Meclizine does not provide adequate releif per patient. Reported she liked physical therapy for gait instability, however has not been going. Has been using cane, feels steady. Declines recent falls. Educated on the importance of hydration. Discussed at home safety to include getting up slowing from a lying/seated postion and using a shower chair. Saw cardiology 04/06/23, Reviewed note, they discontinue losartan and dizziness has improved. Work with new psychiatrist, and working with neurologist as well. Cardiology states that echocardiogram results are unchanged. # Sees neurology every 4 months.. Most recent MRI showing small vessel ischemia, and moderate diffuse brain atrophy and T2 hyperintensity in the white matter. Patient does have some difficulty word finding, and has some silent spells. Had EEG which was negative, following with neurology , Declines any recent falls. Dizziness has improved. # Heart murmur: Echocardiogram demonstrates dilation of the aortic root, otherwise normal output. Lower extremities are without edema or rubor. Recent echocardiogram 2023 showing unchanged results. 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 Blood pressure stable. # Bipolar: Recently seen by DO China Kaiser at [facility]. Going to increase mirtazapine to 30 mg +7.5 mg tablets for a total of 37.5 mg. Discontinued alprazolam. Discussed psychotherapy.Trial increasing trazodone for sleep to 100 mg but patient did not tolerate well. Will discontinue trazodone and Trialed hydroxyzine 50 mg with some improvement, will increase to 50 to 100 mg as needed.. Avoid alprazolam secondary to beers list.Refer to psychiatrist at [facility]. Provided with phone number.Patient states that she will call. # Anxiety: Patient suffers from agoraphobia. Rx for alprazolam PRN provided by Dr. Сергей Morrison,Provider retired, , Medication has been discontinued secondary to it being on the beers list, and risk outweighing benefit. Patient has been last fatigued, and memory has been better.Continue mirtazapine 37.5, Patient is going to contact psychiatry and therapy. # Weight gain: Focusing on nutrition, and exercise. Also admits to some leg pain, but she just got a bicycle for her lower extremities, and thinks exercise will be helpful. Will call the office with worsening symptoms. Follow-up in 3 months, sooner as needed. Contact ENT in the meantime. Patient to follow-up with psychiatry in the meantime. Call if she changes her mind in regards to lower extremity pain workup, or dysuria workup Discussed emergency department criteria/criteria to call the office All quetsions answered to patients satisfaction. Patient verbalized understanding of diagnosis and treatments explained. To call sooner prior to next visit it any questions/concerns arise. Case discussed with collaborating physician Tiffanie Barnard who reviewed the assessment and plan. Chart, medications, labs, vital signs reviewed. Dictation was accomplished with the use of [employer] voice recognition software, prone to medical misidentifications and grammatical errors. This is unintentional and the practitioner does try to identify and correct these, but some could still be present. Please do not hesitate to contact practitioner for clarification. 08/09/2024 Sinus congestion (ICD-10 - R09.81) # Abnormal urine. Patient states that she does have occasional burning. Will repeat urine plus culture and treat accordingly.Edgardo the importance of hydration. # Prediabetes: Hemoglobin A1c 6.1. Based on patient's age, will treat conservatively with lifestyle, , And metformin 500 mg daily. Patient has taken this in the past and tolerated fine. # Alkaline phosphatase mildly elevated at 135. Previous CMP alkaline phosphatase within normal limits. Could be secondary to inflammation relation to basal cell carcinoma. Liver enzymes reassuring, otherwise CBC reassuring.Repeat value in 3 months # Patient was under dermatology for lesion on face, tested positive for basal cell carcinoma. Scheduled for surgery August 15, with plastic surgery August 16. Also having 2 Mohs procedures 1 September 28, and the second in October. Discontinued Humira for 2 weeks prior to the surgery, and 2 weeks after. Also discontinuing aspirin prior to the surgery. Following with Dr. Barrios. # Chronic cough/Chronic congestion: Obtained chest x-ray, within normal limits overall. Failed Augmentin, and doxycycline, continue Flonase. Still having chronic congestion as well. Use albuterol as needed,Continuing Trelegy with improvement. CT of the maxillofacial sinuses without contrast showing mucosal thickening. Sending to ENT, referral still pending. Patient does have deviated septum.Patient has a follow-up with ENT on November 17, 2024. # Dizziness: Much better since discontinuing losartan/Benzodiazep ine. Blood pressure stable. Heart murmur heard on exam. Previous echocardiogram showed normal output with some dilation of the aortic root. MRI 10/2022 demonstrated small vessel ischemia, patient currently on statin therpay and aspirin. Has tried vestibular therapy, however no longer following. Meclizine does not provide adequate releif per patient. Reported she liked physical therapy for gait instability, however has not been going. Has been using cane, feels steady. Declines recent falls. Educated on the importance of hydration. Discussed at home safety to include getting up slowing from a lying/seated postion and using a shower chair. Saw cardiology 04/06/23, Reviewed note, they discontinue losartan and dizziness has improved. Work with new psychiatrist, and working with neurologist as well. Cardiology states that echocardiogram results are unchanged. # Sees neurology every 4 months.. Most recent MRI showing small vessel ischemia, and moderate diffuse brain atrophy and T2 hyperintensity in the white matter. Patient does have some difficulty word finding, and has some silent spells. Had EEG which was negative, following with neurology , Declines any recent falls. Dizziness has improved. # Heart murmur: Echocardiogram demonstrates dilation of the aortic root, otherwise normal output. Lower extremities are without edema or rubor. Recent echocardiogram 2023 showing unchanged results. 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 Blood pressure stable. # Bipolar: Recently seen by DO China Kaiser at [facility]. Going to increase mirtazapine to 30 mg +7.5 mg tablets for a total of 37.5 mg. Discontinued alprazolam. Discussed psychotherapy.Trial increasing trazodone for sleep to 100 mg but patient did not tolerate well. Will discontinue trazodone and Trialed hydroxyzine 50 mg with some improvement, will increase to 50 to 100 mg as needed.. Avoid alprazolam secondary to beers list.Refer to psychiatrist at [facility]. Provided with phone number. # Anxiety: Patient suffers from agoraphobia. Rx for alprazolam PRN provided by Dr. Сергей Morrison,Provider retired, , Medication has been discontinued secondary to it being on the beers list, and risk outweighing benefit. Patient has been last fatigued, and memory has been better.Continue mirtazapine, Increase to 37.5 mg Follow-up in 2 to 3 months for repeat blood work, follow-up with dermatology/plastic surgery in the meantime. All quetsions answered to patients satisfaction. Patient verbalized understanding of diagnosis and treatments explained. To call sooner prior to next visit it any questions/concerns arise. Case discussed with collaborating physician Tiffanie Barnard who reviewed the assessment and plan. Chart, medications, labs, vital signs reviewed. Dictation was accomplished with the use of [employer] voice recognition software, prone to medical misidentifications and grammatical errors. This is unintentional and the practitioner does try to identify and correct these, but some could still be present. Please do not hesitate to contact practitioner for clarification. 08/09/2024 Dysuria (ICD-10 - R30.0) # Abnormal urine. Patient states that she does have occasional burning. Will repeat urine plus culture and treat accordingly.Edgardo the importance of hydration. # Prediabetes: Hemoglobin A1c 6.1. Based on patient's age, will treat conservatively with lifestyle, , And metformin 500 mg daily. Patient has taken this in the past and tolerated fine. # Alkaline phosphatase mildly elevated at 135. Previous CMP alkaline phosphatase within normal limits. Could be secondary to inflammation relation to basal cell carcinoma. Liver enzymes reassuring, otherwise CBC reassuring.Repeat value in 3 months # Patient was under dermatology for lesion on face, tested positive for basal cell carcinoma. Scheduled for surgery August 15, with plastic surgery August 16. Also having 2 Mohs procedures 1 September 28, and the second in October. Discontinued Humira for 2 weeks prior to the surgery, and 2 weeks after. Also discontinuing aspirin prior to the surgery. Following with Dr. Barrios. # Chronic cough/Chronic congestion: Obtained chest x-ray, within normal limits overall. Failed Augmentin, and doxycycline, continue Flonase. Still having chronic congestion as well. Use albuterol as needed,Continuing Trelegy with improvement. CT of the maxillofacial sinuses without contrast showing mucosal thickening. Sending to ENT, referral still pending. Patient does have deviated septum.Patient has a follow-up with ENT on November 17, 2024. # Dizziness: Much better since discontinuing losartan/Benzodiazep ine. Blood pressure stable. Heart murmur heard on exam. Previous echocardiogram showed normal output with some dilation of the aortic root. MRI 10/2022 demonstrated small vessel ischemia, patient currently on statin therpay and aspirin. Has tried vestibular therapy, however no longer following. Meclizine does not provide adequate releif per patient. Reported she liked physical therapy for gait instability, however has not been going. Has been using cane, feels steady. Declines recent falls. Educated on the importance of hydration. Discussed at home safety to include getting up slowing from a lying/seated postion and using a shower chair. Saw cardiology 04/06/23, Reviewed note, they discontinue losartan and dizziness has improved. Work with new psychiatrist, and working with neurologist as well. Cardiology states that echocardiogram results are unchanged. # Sees neurology every 4 months.. Most recent MRI showing small vessel ischemia, and moderate diffuse brain atrophy and T2 hyperintensity in the white matter. Patient does have some difficulty word finding, and has some silent spells. Had EEG which was negative, following with neurology , Declines any recent falls. Dizziness has improved. # Heart murmur: Echocardiogram demonstrates dilation of the aortic root, otherwise normal output. Lower extremities are without edema or rubor. Recent echocardiogram 2023 showing unchanged results. 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 Blood pressure stable. # Bipolar: Recently seen by DO China Kaiser at [facility]. Going to increase mirtazapine to 30 mg +7.5 mg tablets for a total of 37.5 mg. Discontinued alprazolam. Discussed psychotherapy.Trial increasing trazodone for sleep to 100 mg but patient did not tolerate well. Will discontinue trazodone and Trialed hydroxyzine 50 mg with some improvement, will increase to 50 to 100 mg as needed.. Avoid alprazolam secondary to beers list.Refer to psychiatrist at [facility]. Provided with phone number. # Anxiety: Patient suffers from agoraphobia. Rx for alprazolam PRN provided by Dr. Сергей Morrison,Provider retired, , Medication has been discontinued secondary to it being on the beers list, and risk outweighing benefit. Patient has been last fatigued, and memory has been better.Continue mirtazapine, Increase to 37.5 mg Follow-up in 2 to 3 months for repeat blood work, follow-up with dermatology/plastic surgery in the meantime. All quetsions answered to patients satisfaction. Patient verbalized understanding of diagnosis and treatments explained. To call sooner prior to next visit it any questions/concerns arise. Case discussed with collaborating physician Tiffanie Barnard who reviewed the assessment and plan. Chart, medications, labs, vital signs reviewed. Dictation was accomplished with the use of [employer] voice recognition software, prone to medical misidentifications and grammatical errors. This is unintentional and the practitioner does try to identify and correct these, but some could still be present. Please do not hesitate to contact practitioner for clarification. 11/02/2024 Sinus congestion (ICD-10 - R09.81) # Abnormal urine. Patient states that she does have occasional burning. Culture in July which did not grow any bacteria. Discussed hydration. Offered urogynecology referral, patient declines. Offered to repeat urine, patient declines # Prediabetes: Hemoglobin A1c 6.1. Based on patient's age, will treat conservatively with lifestyle, Continue metformin 500 mg daily. A1c has improved November 17-5.8, glucose 138 # Alkaline phosphatase mildly elevated at 135. Previous CMP alkaline phosphatase within normal limits. Could be secondary to inflammation relation to basal cell carcinoma. Liver enzymes reassuring, otherwise CBC reassuring. Repeat CBC within normal limits October 2024 aside from mildly elevated glucose # Patient was under dermatology for lesion on face, tested positive for basal cell carcinoma. Scheduled for surgery August 15, with plastic surgery August 16. Also having 2 Mohs procedures 1 September 28, and the second in October. Discontinued Humira for 2 weeks prior to the surgery, and 2 weeks after. Also discontinuing aspirin prior to the surgery. Following with Dr. Barrios.Doing well per surgery, pleased with progress # Chronic cough/Chronic congestion: Obtained chest x-ray, within normal limits overall. Failed Augmentin, and doxycycline, continue Flonase. Still having chronic congestion as well. Use albuterol as needed,Continuing Trelegy with improvement. CT of the maxillofacial sinuses without contrast showing mucosal thickening. Sending to ENT, referral still pending. Patient does have deviated septum.Patient has a follow-up with ENT on November 17, 2024.But this was just rescheduled to March. Going to contact office as this referral was sent in December 2023. Patient expresses frustration # Dizziness: Much better since discontinuing losartan/Benzodiazep ine. Blood pressure stable. Heart murmur heard on exam. Previous echocardiogram showed normal output with some dilation of the aortic root. MRI 10/2022 demonstrated small vessel ischemia, patient currently on statin therpay and aspirin. Has tried vestibular therapy, however no longer following. Meclizine does not provide adequate releif per patient. Reported she liked physical therapy for gait instability, however has not been going. Has been using cane, feels steady. Declines recent falls. Educated on the importance of hydration. Discussed at home safety to include getting up slowing from a lying/seated postion and using a shower chair. Saw cardiology 04/06/23, Reviewed note, they discontinue losartan and dizziness has improved. Work with new psychiatrist, and working with neurologist as well. Cardiology states that echocardiogram results are unchanged. # Sees neurology every 4 months.. Most recent MRI showing small vessel ischemia, and moderate diffuse brain atrophy and T2 hyperintensity in the white matter. Patient does have some difficulty word finding, and has some silent spells. Had EEG which was negative, following with neurology , Declines any recent falls. Dizziness has improved. # Heart murmur: Echocardiogram demonstrates dilation of the aortic root, otherwise normal output. Lower extremities are without edema or rubor. Recent echocardiogram 2023 showing unchanged results. 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 Blood pressure stable. # Bipolar: Recently seen by DO China Kaiser at [facility]. Going to increase mirtazapine to 30 mg +7.5 mg tablets for a total of 37.5 mg. Discontinued alprazolam. Discussed psychotherapy.Trial increasing trazodone for sleep to 100 mg but patient did not tolerate well. Will discontinue trazodone and Trialed hydroxyzine 50 mg with some improvement, will increase to 50 to 100 mg as needed.. Avoid alprazolam secondary to beers list.Refer to psychiatrist at [facility]. Provided with phone number.Patient states that she will call. # Anxiety: Patient suffers from agoraphobia. Rx for alprazolam PRN provided by Dr. Сергей Morrison,Provider retired, , Medication has been discontinued secondary to it being on the beers list, and risk outweighing benefit. Patient has been last fatigued, and memory has been better.Continue mirtazapine 37.5, Patient is going to contact psychiatry and therapy. # Weight gain: Focusing on nutrition, and exercise. Also admits to some leg pain, but she just got a bicycle for her lower extremities, and thinks exercise will be helpful. Will call the office with worsening symptoms. Follow-up in 3 months, sooner as needed. Contact ENT in the meantime. Patient to follow-up with psychiatry in the meantime. Call if she changes her mind in regards to lower extremity pain workup, or dysuria workup Discussed emergency department criteria/criteria to call the office All quetsions answered to patients satisfaction. Patient verbalized understanding of diagnosis and treatments explained. To call sooner prior to next visit it any questions/concerns arise. Case discussed with collaborating physician Tiffanie Barnard who reviewed the assessment and plan. Chart, medications, labs, vital signs reviewed. Dictation was accomplished with the use of [employer] voice recognition software, prone to medical misidentifications and grammatical errors. This is unintentional and the practitioner does try to identify and correct these, but some could still be present. Please do not hesitate to contact practitioner for clarification. 01/11/2025 Sinus congestion (ICD-10 - R09.81) # Hospitalized at [facility] in [place] January 01, 2025 discharged January 05, 2025. This was secondary to sepsis secondary to UTI, and acute metabolic encephalopathy. Patient was initially treated with ceftriaxone, and discharged on cefpodoxime 200 mg twice daily for 5 days, patient states that symptoms have completely resolved, and cognition is back to baseline. She states she does not remember the incident, but has been doing well since. Encouraged to continue with water intake. Encephalopathy resolved with UTI treatment. # Incidental finding of hypertension, systolic 170. Started on amlodipine 5 mg daily, blood pressure stable today 126/84 therefore we will continue amlodipine 5 mg at this time. Does have a blood pressure machine at home for which she checks regularly # Prediabetes: Repeat A1c in hospital December 2024 A1c 5.8. Patient pleased. Continue metformin 500 mg once daily # Alkaline phosphatase mildly elevated at 135. Previous CMP alkaline phosphatase within normal limits. Could be secondary to inflammation relation to basal cell carcinoma. Liver enzymes reassuring, otherwise CBC reassuring. Repeat CBC within normal limits October 2024 aside from mildly elevated glucose # Patient was under dermatology for lesion on face, tested positive for basal cell carcinoma. Scheduled for surgery August 15, with plastic surgery August 16. Also having 2 Mohs procedures 1 September 28, and the second in October. Discontinued Humira for 2 weeks prior to the surgery, and 2 weeks after. Also discontinuing aspirin prior to the surgery. Following with Dr. Barrios.Doing well per surgery, pleased with progress, Healing well # Chronic cough/Chronic congestion: Obtained chest x-ray, within normal limits overall. Failed Augmentin, and doxycycline, continue Flonase. Still having chronic congestion as well. Use albuterol as needed,Continuing Trelegy with improvement. CT of the maxillofacial sinuses without contrast showing mucosal thickening. Sending to ENT, referral still pending. Patient does have deviated septum.Patient has a follow-up with ENT on November 17, 2024.But this was just rescheduled to March. Tried contacting office, but they have no sooner availability. # Dizziness: Much better since discontinuing losartan/Benzodiazep ine. Blood pressure stable. Heart murmur heard on exam. Previous echocardiogram showed normal output with some dilation of the aortic root. MRI 10/2022 demonstrated small vessel ischemia, patient currently on statin therpay and aspirin. Has tried vestibular therapy, however no longer following. Meclizine does not provide adequate releif per patient. Patient was discharged with [facility] PT[facility]OT, and [facility], and home health aide. Continuing to use a cane. Feels steady. Educated on the importance of hydration. Discussed at home safety to include getting up slowing from a lying/seated postion and using a shower chair. Saw cardiology 04/06/23, Reviewed note, they discontinue losartan and dizziness has improved. Work with new psychiatrist, and working with neurologist as well. Cardiology states that echocardiogram results are unchanged.Incidental finding of elevated blood pressure in the hospital for which amlodipine 5 mg was started. Patient will monitor blood pressure if blood pressure declines, will discontinue medication. # Sees neurology every 4 months.. Most recent MRI showing small vessel ischemia, and moderate diffuse brain atrophy and T2 hyperintensity in the white matter. Patient does have some difficulty word finding, and has some silent spells. Had EEG which was negative, following with neurology , Declines any recent falls. Dizziness has improved.Patient is going to contact neurology to get back on their schedule. # Heart murmur: Echocardiogram demonstrates dilation of the aortic root, otherwise normal output. Lower extremities are without edema or rubor. Recent echocardiogram 2023 showing unchanged results. # Bipolar: Recently seen by DO China Kaiser at [facility]. Going to increase mirtazapine to 30 mg +7.5 mg tablets for a total of 37.5 mg. Discontinued alprazolam. Discussed psychotherapy.Trial increasing trazodone for sleep to 100 mg but patient did not tolerate well. Will discontinue trazodone and Trialed hydroxyzine 50 mg with some improvement, will increase to 50 to 100 mg as needed.. Avoid alprazolam secondary to beers list.Refer to psychiatrist at [facility]. Provided with phone number.Patient states that she will call. # Anxiety: Patient suffers from agoraphobia. Rx for alprazolam PRN provided by Dr. Сергей Morrison,Provider retired, , Medication has been discontinued secondary to it being on the beers list, and risk outweighing benefit. Patient has been last fatigued, and memory has been better.Continue mirtazapine 30, Patient is going to contact psychiatry and therapy. # Weight gain: Focusing on nutrition, and exercise. Also admits to some leg pain, but she just got a bicycle for her lower extremities, and thinks exercise will be helpful. Will call the office with worsening symptoms. Follow-up in 2 to 3 months for Medicare wellness visit. Follow-up with neurology and psychiatry in the meantime. Discussed emergency department criteria/criteria to call the office. All quetsions answered to patients satisfaction. Patient verbalized understanding of diagnosis and treatments explained. To call sooner prior to next visit it any questions/concerns arise. Case discussed with collaborating physician Tiffanie Barnard who reviewed the assessment and plan. Chart, medications, labs, vital signs reviewed. Dictation was accomplished with the use of [employer] voice recognition software, prone to medical misidentifications and grammatical errors. This is unintentional and the practitioner does try to identify and correct these, but some could still be present. Please do not hesitate to contact practitioner for clarification. 03/15/2025 Encounter for screening for other disorder (ICD-10 - Z13.89) # Hospitalized at [facility] in [place] January 01, 2025 discharged January 05, 2025. This was secondary to sepsis secondary to UTI, and acute metabolic encephalopathy. Patient was initially treated with ceftriaxone, and discharged on cefpodoxime 200 mg twice daily for 5 days, patient states that symptoms have completely resolved, and cognition is back to baseline. She states she does not remember the incident, but has been doing well since. Encouraged to continue with water intake. Encephalopathy resolved with UTI treatment. # Medicare wellness paperwork reviewed. # PHQ-9 with a total score of 5, going to try to establish with psychiatry. Medications discussed # Audit negative # Discussed healthcare proxy and MOLST form. # Experiencing frequent UTIs so went to neurology, they started patient on methenamine, and patient has been doing really well with complete resolution of symptoms. # Follows with Dr. Adams for gastroenterology, will obtain colonoscopy record # Due for mammogram ordered today March 15, 2025 # Declined all other routine screenings and vaccines # Using a cane/walker at home, discussed fall prevention. # Hypertension: Stable on amlodipine 5 mg # Prediabetes: Repeat A1c in hospital December 2024 A1c 5.8. Patient pleased. Continue metformin 500 mg once daily, Recheck A1c at next visit in 2 to 3 months. # Alkaline phosphatase mildly elevated at 135. Previous CMP alkaline phosphatase within normal limits. Could be secondary to inflammation relation to basal cell carcinoma. Liver enzymes reassuring, otherwise CBC reassuring. Repeat CBC within normal limits October 2024 aside from mildly elevated glucose. Rechecking visit in 2 to 3 months. # Patient was under dermatology for lesion on face, tested positive for basal cell carcinoma. Scheduled for surgery August 15, with plastic surgery August 16. Also having 2 Mohs procedures 1 September 28, and the second in October. Discontinued Humira for 2 weeks prior to the surgery, and 2 weeks after. Also discontinuing aspirin prior to the surgery. Following with Dr. Barrios.Doing well per surgery, pleased with progress, Healing wellPatient has been doing really well. # Chronic cough/Chronic congestion: Obtained chest x-ray, within normal limits overall. Failed Augmentin, and doxycycline, continue Flonase. Still having chronic congestion as well. Use albuterol as needed,Continuing Trelegy with improvement. CT of the maxillofacial sinuses without contrast showing mucosal thickening.As of March 15, 2025, patient states that symptoms have overall resolved, but she does have a visit with ENT in March. # Dizziness: Much better since discontinuing losartan/Benzodiazep ine. Blood pressure stable. Heart murmur heard on exam. Previous echocardiogram showed normal output with some dilation of the aortic root. MRI 10/2022 demonstrated small vessel ischemia, patient currently on statin therpay and aspirin. Has tried vestibular therapy, however no longer following. Meclizine does not provide adequate releif per patient. Patient was discharged with at home PT/OT, and [facility], and home health aide. Continuing to use a cane. . Educated on the importance of hydration. Discussed at home safety to include getting up slowing from a lying/seated postion and using a shower chair. Saw cardiology 04/06/23, Reviewed note, they discontinue losartan and dizziness has improved. Work with new psychiatrist, and working with neurologist as well. Cardiology states that echocardiogram results are unchanged.Admit to a dizziness episode yesterday. Blood pressure stable on amlodipine 5 mg. Ordering MRI with and without contrast of the head secondary to fatigue, dizziness, occasional difficulty with word finding. # Sees neurology every 4 months.. History of MRI showing small vessel ischemia, and moderate diffuse brain atrophy and T2 hyperintensity in the white matter. No recent MRI of note. Patient does have some difficulty word finding, and has some silent spells. Had EEG which was negative, following with neurology , Declines any recent falls. Patient is going to contact neurology to get back on their schedule. # Heart murmur: Echocardiogram demonstrates dilation of the aortic root, otherwise normal output. Lower extremities are without edema or rubor. Recent echocardiogram 2023 showing unchanged results. # Bipolar: Recently seen by DO China Kaiser at [facility]. Going to increase mirtazapine to 30 mg +7.5 mg tablets for a total of 37.5 mg. Discontinued alprazolam. Discussed psychotherapy.Trial increasing trazodone for sleep to 100 mg but patient did not tolerate well. Will discontinue trazodone and Trialed hydroxyzine 50 mg with some improvement, will increase to 50 to 100 mg as needed.. Avoid alprazolam secondary to beers list.Refer to psychiatrist at [facility]. Provided with phone number.Patient states that she will call.Referral to psych today. # Anxiety: Patient suffers from agoraphobia. Rx for alprazolam PRN provided by Dr. Сергей Morrison,Provider retired, , Medication has been discontinued secondary to it being on the beers list, and risk outweighing benefit. Patient has been last fatigued, and memory has been better.Continue mirtazapine 30, Patient is going to contact psychiatry and therapy. # Weight gain: Focusing on nutrition, and exercise. Also admits to some leg pain, but she just got a bicycle for her lower extremities, and thinks exercise will be helpful. Will call the office with worsening symptoms.Discussed senior center, patient declines. Follow-up in 2 to 3 months, labs prior. Psych evaluation prior, and MRI of the brain.Also ordering mammogram. Patient seen and examined. Comprehensive discussion was done on the following. 1. Nutrition: It is important to follow a healthy diet based on lots of vegetables and legumes and good fat. Avoid processed food and processed carbohydrates. Prepare your own meals. Read labels and avoid high fructose corn syrup, processed chemicals added to increase shelf life and preprepared meals. Avoid fast foods. Eat slowly and plan meals for a week. Try to count calories and be mindful off daily calorie intake. Get into the habit of keeping an eye on your weight by using an appropriate scale. Learn to log exercise and discussed fitness Apps like [employer] which can help keep log off calories taken versus calories burned. Local food should be preferred. Discussed [employer] Fifteen. Discussed healthy supplements like fish oil, Tumeric, Curcumin, Melatonin, Resveratrol, Probiotics, Vitamin-D, Alpha-Lipoic acid, Vitamin-D and coconut oil. 2. It is important to exercise regularly. Is a good habit to walk at least 30 minutes a day. Gentle weightlifting with standard precautions to protect the back. Finding activity like cycling or hiking and get into the habit of engaging in it. Stretching before and after the exercises important. It is also important to contact me if there are any problems like shortness of breath, chest pain, back pain and joint or muscle pain associated with the exercise. 3. Discussed age appropriate screening guidelines. Colonoscopy needs to start at age 50 with stool for occult blood as appropriate. There is a new test that can test for genetic abnormalities in the stool sample, Cologuard. This would not replace a colonoscopy but could be used as a screening tool for patients who do not want a colonoscopy. We discussed the importance of early detection of colon cancer. 4. Discussed current guidelines with respect to breast examination, mammogram and pap smear for early detection of breast and cervical cancer. Patient advised to follow up with these appointments. 5. Discussed safe driving and no use of smart phone while driving 6. Age-appropriate immunizations were discussed. A tetanus booster is needed every 10 years. Flu vaccine is recommended every year just before the start of the flu season. Shingles vaccine is recommended after age 50 but not all insurances cover it. Pneumonia vaccine is given after age 65 unless there are certain comorbidities for which it is started earlier. 7. Diagnostic labs were discussed. These could include/not limited to CBC CMP and lipids with fasting blood glucose and insulin levels. Vitamin D and hemoglobin A1c testing might be appropriate. All quetsions answered to patients satisfaction. Patient verbalized understanding of diagnosis and treatments explained. To call sooner prior to next visit it any questions/concerns arise. Case discussed with collaborating physician Tiffanie Barnard who reviewed the assessment and plan. Chart, medications, labs, vital signs reviewed. Dictation was accomplished with the use of [employer] voice recognition software, prone to medical misidentifications and grammatical errors. This is unintentional and the practitioner does try to identify and correct these, but some could still be present. Please do not hesitate to contact practitioner for clarification. 03/15/2025 Other specified counseling (ICD-10 - Z71.89) # Hospitalized at [facility] in [place] January 01, 2025 discharged January 05, 2025. This was secondary to sepsis secondary to UTI, and acute metabolic encephalopathy. Patient was initially treated with ceftriaxone, and discharged on cefpodoxime 200 mg twice daily for 5 days, patient states that symptoms have completely resolved, and cognition is back to baseline. She states she does not remember the incident, but has been doing well since. Encouraged to continue with water intake. Encephalopathy resolved with UTI treatment. # Medicare wellness paperwork reviewed. # PHQ-9 with a total score of 5, going to try to establish with psychiatry. Medications discussed # Audit negative # Discussed healthcare proxy and MOLST form. # Experiencing frequent UTIs so went to neurology, they started patient on methenamine, and patient has been doing really well with complete resolution of symptoms. # Follows with Dr. Adams for gastroenterology, will obtain colonoscopy record # Due for mammogram ordered today March 15, 2025 # Declined all other routine screenings and vaccines # Using a cane/walker at home, discussed fall prevention. # Hypertension: Stable on amlodipine 5 mg # Prediabetes: Repeat A1c in hospital December 2024 A1c 5.8. Patient pleased. Continue metformin 500 mg once daily, Recheck A1c at next visit in 2 to 3 months. # Alkaline phosphatase mildly elevated at 135. Previous CMP alkaline phosphatase within normal limits. Could be secondary to inflammation relation to basal cell carcinoma. Liver enzymes reassuring, otherwise CBC reassuring. Repeat CBC within normal limits October 2024 aside from mildly elevated glucose. Rechecking visit in 2 to 3 months. # Patient was under dermatology for lesion on face, tested positive for basal cell carcinoma. Scheduled for surgery August 15, with plastic surgery August 16. Also having 2 Mohs procedures 1 September 28, and the second in October. Discontinued Humira for 2 weeks prior to the surgery, and 2 weeks after. Also discontinuing aspirin prior to the surgery. Following with Dr. Barrios.Doing well per surgery, pleased with progress, Healing wellPatient has been doing really well. # Chronic cough/Chronic congestion: Obtained chest x-ray, within normal limits overall. Failed Augmentin, and doxycycline, continue Flonase. Still having chronic congestion as well. Use albuterol as needed,Continuing Trelegy with improvement. CT of the maxillofacial sinuses without contrast showing mucosal thickening.As of March 15, 2025, patient states that symptoms have overall resolved, but she does have a visit with ENT in March. # Dizziness: Much better since discontinuing losartan/Benzodiazep ine. Blood pressure stable. Heart murmur heard on exam. Previous echocardiogram showed normal output with some dilation of the aortic root. MRI 10/2022 demonstrated small vessel ischemia, patient currently on statin therpay and aspirin. Has tried vestibular therapy, however no longer following. Meclizine does not provide adequate releif per patient. Patient was discharged with at home PT/OT, and [place] nursing twice weekly, and home health aide. Continuing to use a cane. . Educated on the importance of hydration. Discussed at home safety to include getting up slowing from a lying/seated postion and using a shower chair. Saw cardiology 04/06/23, Reviewed note, they discontinue losartan and dizziness has improved. Work with new psychiatrist, and working with neurologist as well. Cardiology states that echocardiogram results are unchanged.Admit to a dizziness episode yesterday. Blood pressure stable on amlodipine 5 mg. Ordering MRI with and without contrast of the head secondary to fatigue, dizziness, occasional difficulty with word finding. # Sees neurology every 4 months.. History of MRI showing small vessel ischemia, and moderate diffuse brain atrophy and T2 hyperintensity in the white matter. No recent MRI of note. Patient does have some difficulty word finding, and has some silent spells. Had EEG which was negative, following with neurology , Declines any recent falls. Patient is going to contact neurology to get back on their schedule. # Heart murmur: Echocardiogram demonstrates dilation of the aortic root, otherwise normal output. Lower extremities are without edema or rubor. Recent echocardiogram 2023 showing unchanged results. # Bipolar: Recently seen by DO China Kaiser at [facility]. Going to increase mirtazapine to 30 mg +7.5 mg tablets for a total of 37.5 mg. Discontinued alprazolam. Discussed psychotherapy.Trial increasing trazodone for sleep to 100 mg but patient did not tolerate well. Will discontinue trazodone and Trialed hydroxyzine 50 mg with some improvement, will increase to 50 to 100 mg as needed.. Avoid alprazolam secondary to beers list.Refer to psychiatrist at [facility]. Provided with phone number.Patient states that she will call.Referral to psych today. # Anxiety: Patient suffers from agoraphobia. Rx for alprazolam PRN provided by Dr. Сергей Morrison,Provider retired, , Medication has been discontinued secondary to it being on the beers list, and risk outweighing benefit. Patient has been last fatigued, and memory has been better.Continue mirtazapine 30, Patient is going to contact psychiatry and therapy. # Weight gain: Focusing on nutrition, and exercise. Also admits to some leg pain, but she just got a bicycle for her lower extremities, and thinks exercise will be helpful. Will call the office with worsening symptoms.Discussed senior center, patient declines. Follow-up in 2 to 3 months, labs prior. Psych evaluation prior, and MRI of the brain.Also ordering mammogram. Patient seen and examined. Comprehensive discussion was done on the following. 1. Nutrition: It is important to follow a healthy diet based on lots of vegetables and legumes and good fat. Avoid processed food and processed carbohydrates. Prepare your own meals. Read labels and avoid high fructose corn syrup, processed chemicals added to increase shelf life and preprepared meals. Avoid fast foods. Eat slowly and plan meals for a week. Try to count calories and be mindful off daily calorie intake. Get into the habit of keeping an eye on your weight by using an appropriate scale. Learn to log exercise and discussed fitness Apps like [employer] which can help keep log off calories taken versus calories burned. Local food should be preferred. Discussed [employer] Vers[employer]. Discussed healthy supplements like fish oil, Tumeric, Curcumin, Melatonin, Resveratrol, Probiotics, Vitamin-D, Alpha-Lipoic acid, Vitamin-D and coconut oil. 2. It is important to exercise regularly. Is a good habit to walk at least 30 minutes a day. Gentle weightlifting with standard precautions to protect the back. Finding activity like cycling or hiking and get into the habit of engaging in it. Stretching before and after the exercises important. It is also important to contact me if there are any problems like shortness of breath, chest pain, back pain and joint or muscle pain associated with the exercise. 3. Discussed age appropriate screening guidelines. Colonoscopy needs to start at age 50 with stool for occult blood as appropriate. There is a new test that can test for genetic abnormalities in the stool sample, Cologuard. This would not replace a colonoscopy but could be used as a screening tool for patients who do not want a colonoscopy. We discussed the importance of early detection of colon cancer. 4. Discussed current guidelines with respect to breast examination, mammogram and pap smear for early detection of breast and cervical cancer. Patient advised to follow up with these appointments. 5. Discussed safe driving and no use of smart phone while driving 6. Age-appropriate immunizations were discussed. A tetanus booster is needed every 10 years. Flu vaccine is recommended every year just before the start of the flu season. Shingles vaccine is recommended after age 50 but not all insurances cover it. Pneumonia vaccine is given after age 65 unless there are certain comorbidities for which it is started earlier. 7. Diagnostic labs were discussed. These could include/not limited to CBC CMP and lipids with fasting blood glucose and insulin levels. Vitamin D and hemoglobin A1c testing might be appropriate. All quetsions answered to patients satisfaction. Patient verbalized understanding of diagnosis and treatments explained. To call sooner prior to next visit it any questions/concerns arise. Case discussed with collaborating physician Tiffanie Barnard who reviewed the assessment and plan. Chart, medications, labs, vital signs reviewed. Dictation was accomplished with the use of [employer] voice recognition software, prone to medical misidentifications and grammatical errors. This is unintentional and the practitioner does try to identify and correct these, but some could still be present. Please do not hesitate to contact practitioner for clarification. 01/11/2025 Dysuria (ICD-10 - R30.0) # Hospitalized at [facility] in [place] January 01, 2025 discharged January 05, 2025. This was secondary to sepsis secondary to UTI, and acute metabolic encephalopathy. Patient was initially treated with ceftriaxone, and discharged on cefpodoxime 200 mg twice daily for 5 days, patient states that symptoms have completely resolved, and cognition is back to baseline. She states she does not remember the incident, but has been doing well since. Encouraged to continue with water intake. Encephalopathy resolved with UTI treatment. # Incidental finding of hypertension, systolic 170. Started on amlodipine 5 mg daily, blood pressure stable today 126/84 therefore we will continue amlodipine 5 mg at this time. Does have a blood pressure machine at home for which she checks regularly # Prediabetes: Repeat A1c in hospital December 2024 A1c 5.8. Patient pleased. Continue metformin 500 mg once daily # Alkaline phosphatase mildly elevated at 135. Previous CMP alkaline phosphatase within normal limits. Could be secondary to inflammation relation to basal cell carcinoma. Liver enzymes reassuring, otherwise CBC reassuring. Repeat CBC within normal limits October 2024 aside from mildly elevated glucose # Patient was under dermatology for lesion on face, tested positive for basal cell carcinoma. Scheduled for surgery August 15, with plastic surgery August 16. Also having 2 Mohs procedures 1 September 28, and the second in October. Discontinued Humira for 2 weeks prior to the surgery, and 2 weeks after. Also discontinuing aspirin prior to the surgery. Following with Dr. Barrios.Doing well per surgery, pleased with progress, Healing well # Chronic cough/Chronic congestion: Obtained chest x-ray, within normal limits overall. Failed Augmentin, and doxycycline, continue Flonase. Still having chronic congestion as well. Use albuterol as needed,Continuing Trelegy with improvement. CT of the maxillofacial sinuses without contrast showing mucosal thickening. Sending to ENT, referral still pending. Patient does have deviated septum.Patient has a follow-up with ENT on November 17, 2024.But this was just rescheduled to March. Tried contacting office, but they have no sooner availability. # Dizziness: Much better since discontinuing losartan/Benzodiazep ine. Blood pressure stable. Heart murmur heard on exam. Previous echocardiogram showed normal output with some dilation of the aortic root. MRI 10/2022 demonstrated small vessel ischemia, patient currently on statin therpay and aspirin. Has tried vestibular therapy, however no longer following. Meclizine does not provide adequate releif per patient. Patient was discharged with at home PT/OT, and [facility], and home health aide. Continuing to use a cane. Feels steady. Educated on the importance of hydration. Discussed at home safety to include getting up slowing from a lying/seated postion and using a shower chair. Saw cardiology 04/06/23, Reviewed note, they discontinue losartan and dizziness has improved. Work with new psychiatrist, and working with neurologist as well. Cardiology states that echocardiogram results are unchanged.Incidental finding of elevated blood pressure in the hospital for which amlodipine 5 mg was started. Patient will monitor blood pressure if blood pressure declines, will discontinue medication. # Sees neurology every 4 months.. Most recent MRI showing small vessel ischemia, and moderate diffuse brain atrophy and T2 hyperintensity in the white matter. Patient does have some difficulty word finding, and has some silent spells. Had EEG which was negative, following with neurology , Declines any recent falls. Dizziness has improved.Patient is going to contact neurology to get back on their schedule. # Heart murmur: Echocardiogram demonstrates dilation of the aortic root, otherwise normal output. Lower extremities are without edema or rubor. Recent echocardiogram 2023 showing unchanged results. # Bipolar: Recently seen by DO China Kaiser at [facility]. Going to increase mirtazapine to 30 mg +7.5 mg tablets for a total of 37.5 mg. Discontinued alprazolam. Discussed psychotherapy.Trial increasing trazodone for sleep to 100 mg but patient did not tolerate well. Will discontinue trazodone and Trialed hydroxyzine 50 mg with some improvement, will increase to 50 to 100 mg as needed.. Avoid alprazolam secondary to beers list.Refer to psychiatrist at [facility]. Provided with phone number.Patient states that she will call. # Anxiety: Patient suffers from agoraphobia. Rx for alprazolam PRN provided by Dr. Сергей Morrison,Provider retired, , Medication has been discontinued secondary to it being on the beers list, and risk outweighing benefit. Patient has been last fatigued, and memory has been better.Continue mirtazapine 30, Patient is going to contact psychiatry and therapy. # Weight gain: Focusing on nutrition, and exercise. Also admits to some leg pain, but she just got a bicycle for her lower extremities, and thinks exercise will be helpful. Will call the office with worsening symptoms. Follow-up in 2 to 3 months for Medicare wellness visit. Follow-up with neurology and psychiatry in the meantime. Discussed emergency department criteria/criteria to call the office. All quetsions answered to patients satisfaction. Patient verbalized understanding of diagnosis and treatments explained. To call sooner prior to next visit it any questions/concerns arise. Case discussed with collaborating physician Tiffanie Barnard who reviewed the assessment and plan. Chart, medications, labs, vital signs reviewed. Dictation was accomplished with the use of [employer] voice recognition software, prone to medical misidentifications and grammatical errors. This is unintentional and the practitioner does try to identify and correct these, but some could still be present. Please do not hesitate to contact practitioner for clarification. 08/09/2024 Prediabetes (ICD-10 - R73.03) # Abnormal urine. Patient states that she does have occasional burning. Will repeat urine plus culture and treat accordingly.Edgardo the importance of hydration. # Prediabetes: Hemoglobin A1c 6.1. Based on patient's age, will treat conservatively with lifestyle, , And metformin 500 mg daily. Patient has taken this in the past and tolerated fine. # Alkaline phosphatase mildly elevated at 135. Previous CMP alkaline phosphatase within normal limits. Could be secondary to inflammation relation to basal cell carcinoma. Liver enzymes reassuring, otherwise CBC reassuring.Repeat value in 3 months # Patient was under dermatology for lesion on face, tested positive for basal cell carcinoma. Scheduled for surgery August 15, with plastic surgery August 16. Also having 2 Mohs procedures 1 September 28, and the second in October. Discontinued Humira for 2 weeks prior to the surgery, and 2 weeks after. Also discontinuing aspirin prior to the surgery. Following with Dr. Barrios. # Chronic cough/Chronic congestion: Obtained chest x-ray, within normal limits overall. Failed Augmentin, and doxycycline, continue Flonase. Still having chronic congestion as well. Use albuterol as needed,Continuing Trelegy with improvement. CT of the maxillofacial sinuses without contrast showing mucosal thickening. Sending to ENT, referral still pending. Patient does have deviated septum.Patient has a follow-up with ENT on November 17, 2024. # Dizziness: Much better since discontinuing losartan/Benzodiazep ine. Blood pressure stable. Heart murmur heard on exam. Previous echocardiogram showed normal output with some dilation of the aortic root. MRI 10/2022 demonstrated small vessel ischemia, patient currently on statin therpay and aspirin. Has tried vestibular therapy, however no longer following. Meclizine does not provide adequate releif per patient. Reported she liked physical therapy for gait instability, however has not been going. Has been using cane, feels steady. Declines recent falls. Educated on the importance of hydration. Discussed at home safety to include getting up slowing from a lying/seated postion and using a shower chair. Saw cardiology 04/06/23, Reviewed note, they discontinue losartan and dizziness has improved. Work with new psychiatrist, and working with neurologist as well. Cardiology states that echocardiogram results are unchanged. # Sees neurology every 4 months.. Most recent MRI showing small vessel ischemia, and moderate diffuse brain atrophy and T2 hyperintensity in the white matter. Patient does have some difficulty word finding, and has some silent spells. Had EEG which was negative, following with neurology , Declines any recent falls. Dizziness has improved. # Heart murmur: Echocardiogram demonstrates dilation of the aortic root, otherwise normal output. Lower extremities are without edema or rubor. Recent echocardiogram 2023 showing unchanged results. 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 Blood pressure stable. # Bipolar: Recently seen by DO China Kaiser at [facility]. Going to increase mirtazapine to 30 mg +7.5 mg tablets for a total of 37.5 mg. Discontinued alprazolam. Discussed psychotherapy.Trial increasing trazodone for sleep to 100 mg but patient did not tolerate well. Will discontinue trazodone and Trialed hydroxyzine 50 mg with some improvement, will increase to 50 to 100 mg as needed.. Avoid alprazolam secondary to beers list.Refer to psychiatrist at [facility]. Provided with phone number. # Anxiety: Patient suffers from agoraphobia. Rx for alprazolam PRN provided by Dr. Сергей Morrison,Provider retired, , Medication has been discontinued secondary to it being on the beers list, and risk outweighing benefit. Patient has been last fatigued, and memory has been better.Continue mirtazapine, Increase to 37.5 mg Follow-up in 2 to 3 months for repeat blood work, follow-up with dermatology/plastic surgery in the meantime. All quetsions answered to patients satisfaction. Patient verbalized understanding of diagnosis and treatments explained. To call sooner prior to next visit it any questions/concerns arise. Case discussed with collaborating physician Tiffanie Barnard who reviewed the assessment and plan. Chart, medications, labs, vital signs reviewed. Dictation was accomplished with the use of [employer] voice recognition software, prone to medical misidentifications and grammatical errors. This is unintentional and the practitioner does try to identify and correct these, but some could still be present. Please do not hesitate to contact practitioner for clarification. 11/02/2024 Dysuria (ICD-10 - R30.0) # Abnormal urine. Patient states that she does have occasional burning. Culture in July which did not grow any bacteria. Discussed hydration. Offered urogynecology referral, patient declines. Offered to repeat urine, patient declines # Prediabetes: Hemoglobin A1c 6.1. Based on patient's age, will treat conservatively with lifestyle, Continue metformin 500 mg daily. A1c has improved November 17-5.8, glucose 138 # Alkaline phosphatase mildly elevated at 135. Previous CMP alkaline phosphatase within normal limits. Could be secondary to inflammation relation to basal cell carcinoma. Liver enzymes reassuring, otherwise CBC reassuring. Repeat CBC within normal limits October 2024 aside from mildly elevated glucose # Patient was under dermatology for lesion on face, tested positive for basal cell carcinoma. Scheduled for surgery August 15, with plastic surgery August 16. Also having 2 Mohs procedures 1 September 28, and the second in October. Discontinued Humira for 2 weeks prior to the surgery, and 2 weeks after. Also discontinuing aspirin prior to the surgery. Following with Dr. Barrios.Doing well per surgery, pleased with progress # Chronic cough/Chronic congestion: Obtained chest x-ray, within normal limits overall. Failed Augmentin, and doxycycline, continue Flonase. Still having chronic congestion as well. Use albuterol as needed,Continuing Trelegy with improvement. CT of the maxillofacial sinuses without contrast showing mucosal thickening. Sending to ENT, referral still pending. Patient does have deviated septum.Patient has a follow-up with ENT on November 17, 2024.But this was just rescheduled to March. Going to contact office as this referral was sent in December 2023. Patient expresses frustration # Dizziness: Much better since discontinuing losartan/Benzodiazep ine. Blood pressure stable. Heart murmur heard on exam. Previous echocardiogram showed normal output with some dilation of the aortic root. MRI 10/2022 demonstrated small vessel ischemia, patient currently on statin therpay and aspirin. Has tried vestibular therapy, however no longer following. Meclizine does not provide adequate releif per patient. Reported she liked physical therapy for gait instability, however has not been going. Has been using cane, feels steady. Declines recent falls. Educated on the importance of hydration. Discussed at home safety to include getting up slowing from a lying/seated postion and using a shower chair. Saw cardiology 04/06/23, Reviewed note, they discontinue losartan and dizziness has improved. Work with new psychiatrist, and working with neurologist as well. Cardiology states that echocardiogram results are unchanged. # Sees neurology every 4 months.. Most recent MRI showing small vessel ischemia, and moderate diffuse brain atrophy and T2 hyperintensity in the white matter. Patient does have some difficulty word finding, and has some silent spells. Had EEG which was negative, following with neurology , Declines any recent falls. Dizziness has improved. # Heart murmur: Echocardiogram demonstrates dilation of the aortic root, otherwise normal output. Lower extremities are without edema or rubor. Recent echocardiogram 2023 showing unchanged results. 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 Blood pressure stable. # Bipolar: Recently seen by DO China Kaiser at [facility]. Going to increase mirtazapine to 30 mg +7.5 mg tablets for a total of 37.5 mg. Discontinued alprazolam. Discussed psychotherapy.Trial increasing trazodone for sleep to 100 mg but patient did not tolerate well. Will discontinue trazodone and Trialed hydroxyzine 50 mg with some improvement, will increase to 50 to 100 mg as needed.. Avoid alprazolam secondary to beers list.Refer to psychiatrist at [facility]. Provided with phone number.Patient states that she will call. # Anxiety: Patient suffers from agoraphobia. Rx for alprazolam PRN provided by Dr. Сергей Morrison,Provider retired, , Medication has been discontinued secondary to it being on the beers list, and risk outweighing benefit. Patient has been last fatigued, and memory has been better.Continue mirtazapine 37.5, Patient is going to contact psychiatry and therapy. # Weight gain: Focusing on nutrition, and exercise. Also admits to some leg pain, but she just got a bicycle for her lower extremities, and thinks exercise will be helpful. Will call the office with worsening symptoms. Follow-up in 3 months, sooner as needed. Contact ENT in the meantime. Patient to follow-up with psychiatry in the meantime. Call if she changes her mind in regards to lower extremity pain workup, or dysuria workup Discussed emergency department criteria/criteria to call the office All quetsions answered to patients satisfaction. Patient verbalized understanding of diagnosis and treatments explained. To call sooner prior to next visit it any questions/concerns arise. Case discussed with collaborating physician Tiffanie Barnard who reviewed the assessment and plan. Chart, medications, labs, vital signs reviewed. Dictation was accomplished with the use of [employer] voice recognition software, prone to medical misidentifications and grammatical errors. This is unintentional and the practitioner does try to identify and correct these, but some could still be present. Please do not hesitate to contact practitioner for clarification. 11/02/2024 Prediabetes (ICD-10 - R73.03) # Abnormal urine. Patient states that she does have occasional burning. Culture in July which did not grow any bacteria. Discussed hydration. Offered urogynecology referral, patient declines. Offered to repeat urine, patient declines # Prediabetes: Hemoglobin A1c 6.1. Based on patient's age, will treat conservatively with lifestyle, Continue metformin 500 mg daily. A1c has improved November 17-5.8, glucose 138 # Alkaline phosphatase mildly elevated at 135. Previous CMP alkaline phosphatase within normal limits. Could be secondary to inflammation relation to basal cell carcinoma. Liver enzymes reassuring, otherwise CBC reassuring. Repeat CBC within normal limits October 2024 aside from mildly elevated glucose # Patient was under dermatology for lesion on face, tested positive for basal cell carcinoma. Scheduled for surgery August 15, with plastic surgery August 16. Also having 2 Mohs procedures 1 September 28, and the second in October. Discontinued Humira for 2 weeks prior to the surgery, and 2 weeks after. Also discontinuing aspirin prior to the surgery. Following with Dr. Barrios.Doing well per surgery, pleased with progress # Chronic cough/Chronic congestion: Obtained chest x-ray, within normal limits overall. Failed Augmentin, and doxycycline, continue Flonase. Still having chronic congestion as well. Use albuterol as needed,Continuing Trelegy with improvement. CT of the maxillofacial sinuses without contrast showing mucosal thickening. Sending to ENT, referral still pending. Patient does have deviated septum.Patient has a follow-up with ENT on November 17, 2024.But this was just rescheduled to March. Going to contact office as this referral was sent in December 2023. Patient expresses frustration # Dizziness: Much better since discontinuing losartan/Benzodiazep ine. Blood pressure stable. Heart murmur heard on exam. Previous echocardiogram showed normal output with some dilation of the aortic root. MRI 10/2022 demonstrated small vessel ischemia, patient currently on statin therpay and aspirin. Has tried vestibular therapy, however no longer following. Meclizine does not provide adequate releif per patient. Reported she liked physical therapy for gait instability, however has not been going. Has been using cane, feels steady. Declines recent falls. Educated on the importance of hydration. Discussed at home safety to include getting up slowing from a lying/seated postion and using a shower chair. Saw cardiology 04/06/23, Reviewed note, they discontinue losartan and dizziness has improved. Work with new psychiatrist, and working with neurologist as well. Cardiology states that echocardiogram results are unchanged. # Sees neurology every 4 months.. Most recent MRI showing small vessel ischemia, and moderate diffuse brain atrophy and T2 hyperintensity in the white matter. Patient does have some difficulty word finding, and has some silent spells. Had EEG which was negative, following with neurology , Declines any recent falls. Dizziness has improved. # Heart murmur: Echocardiogram demonstrates dilation of the aortic root, otherwise normal output. Lower extremities are without edema or rubor. Recent echocardiogram 2023 showing unchanged results. 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 Blood pressure stable. # Bipolar: Recently seen by DO China Kaiser at [facility]. Going to increase mirtazapine to 30 mg +7.5 mg tablets for a total of 37.5 mg. Discontinued alprazolam. Discussed psychotherapy.Trial increasing trazodone for sleep to 100 mg but patient did not tolerate well. Will discontinue trazodone and Trialed hydroxyzine 50 mg with some improvement, will increase to 50 to 100 mg as needed.. Avoid alprazolam secondary to beers list.Refer to psychiatrist at [facility]. Provided with phone number.Patient states that she will call. # Anxiety: Patient suffers from agoraphobia. Rx for alprazolam PRN provided by Dr. Сергей Morrison,Provider retired, , Medication has been discontinued secondary to it being on the beers list, and risk outweighing benefit. Patient has been last fatigued, and memory has been better.Continue mirtazapine 37.5, Patient is going to contact psychiatry and therapy. # Weight gain: Focusing on nutrition, and exercise. Also admits to some leg pain, but she just got a bicycle for her lower extremities, and thinks exercise will be helpful. Will call the office with worsening symptoms. Follow-up in 3 months, sooner as needed. Contact ENT in the meantime. Patient to follow-up with psychiatry in the meantime. Call if she changes her mind in regards to lower extremity pain workup, or dysuria workup Discussed emergency department criteria/criteria to call the office All quetsions answered to patients satisfaction. Patient verbalized understanding of diagnosis and treatments explained. To call sooner prior to next visit it any questions/concerns arise. Case discussed with collaborating physician Tiffanie Barnard who reviewed the assessment and plan. Chart, medications, labs, vital signs reviewed. Dictation was accomplished with the use of [employer] voice recognition software, prone to medical misidentifications and grammatical errors. This is unintentional and the practitioner does try to identify and correct these, but some could still be present. Please do not hesitate to contact practitioner for clarification. 08/09/2024 Elevated alkaline phosphatase level (ICD-10 - R74.8) # Abnormal urine. Patient states that she does have occasional burning. Will repeat urine plus culture and treat accordingly.Edgardo the importance of hydration. # Prediabetes: Hemoglobin A1c 6.1. Based on patient's age, will treat conservatively with lifestyle, , And metformin 500 mg daily. Patient has taken this in the past and tolerated fine. # Alkaline phosphatase mildly elevated at 135. Previous CMP alkaline phosphatase within normal limits. Could be secondary to inflammation relation to basal cell carcinoma. Liver enzymes reassuring, otherwise CBC reassuring.Repeat value in 3 months # Patient was under dermatology for lesion on face, tested positive for basal cell carcinoma. Scheduled for surgery August 15, with plastic surgery August 16. Also having 2 Mohs procedures 1 September 28, and the second in October. Discontinued Humira for 2 weeks prior to the surgery, and 2 weeks after. Also discontinuing aspirin prior to the surgery. Following with Dr. Barrios. # Chronic cough/Chronic congestion: Obtained chest x-ray, within normal limits overall. Failed Augmentin, and doxycycline, continue Flonase. Still having chronic congestion as well. Use albuterol as needed,Continuing Trelegy with improvement. CT of the maxillofacial sinuses without contrast showing mucosal thickening. Sending to ENT, referral still pending. Patient does have deviated septum.Patient has a follow-up with ENT on November 17, 2024. # Dizziness: Much better since discontinuing losartan/Benzodiazep ine. Blood pressure stable. Heart murmur heard on exam. Previous echocardiogram showed normal output with some dilation of the aortic root. MRI 10/2022 demonstrated small vessel ischemia, patient currently on statin therpay and aspirin. Has tried vestibular therapy, however no longer following. Meclizine does not provide adequate releif per patient. Reported she liked physical therapy for gait instability, however has not been going. Has been using cane, feels steady. Declines recent falls. Educated on the importance of hydration. Discussed at home safety to include getting up slowing from a lying/seated postion and using a shower chair. Saw cardiology 04/06/23, Reviewed note, they discontinue losartan and dizziness has improved. Work with new psychiatrist, and working with neurologist as well. Cardiology states that echocardiogram results are unchanged. # Sees neurology every 4 months.. Most recent MRI showing small vessel ischemia, and moderate diffuse brain atrophy and T2 hyperintensity in the white matter. Patient does have some difficulty word finding, and has some silent spells. Had EEG which was negative, following with neurology , Declines any recent falls. Dizziness has improved. # Heart murmur: Echocardiogram demonstrates dilation of the aortic root, otherwise normal output. Lower extremities are without edema or rubor. Recent echocardiogram 2023 showing unchanged results. 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 Blood pressure stable. # Bipolar: Recently seen by DO China Kaiser at [facility]. Going to increase mirtazapine to 30 mg +7.5 mg tablets for a total of 37.5 mg. Discontinued alprazolam. Discussed psychotherapy.Trial increasing trazodone for sleep to 100 mg but patient did not tolerate well. Will discontinue trazodone and Trialed hydroxyzine 50 mg with some improvement, will increase to 50 to 100 mg as needed.. Avoid alprazolam secondary to beers list.Refer to psychiatrist at [facility]. Provided with phone number. # Anxiety: Patient suffers from agoraphobia. Rx for alprazolam PRN provided by Dr. Сергей Morrison,Provider retired, , Medication has been discontinued secondary to it being on the beers list, and risk outweighing benefit. Patient has been last fatigued, and memory has been better.Continue mirtazapine, Increase to 37.5 mg Follow-up in 2 to 3 months for repeat blood work, follow-up with dermatology/plastic surgery in the meantime. All quetsions answered to patients satisfaction. Patient verbalized understanding of diagnosis and treatments explained. To call sooner prior to next visit it any questions/concerns arise. Case discussed with collaborating physician Tiffanie Barnard who reviewed the assessment and plan. Chart, medications, labs, vital signs reviewed. Dictation was accomplished with the use of [employer] voice recognition software, prone to medical misidentifications and grammatical errors. This is unintentional and the practitioner does try to identify and correct these, but some could still be present. Please do not hesitate to contact practitioner for clarification. 03/15/2025 Dizziness (ICD-10 - R42) # Hospitalized at [facility] in [place] January 01, 2025 discharged January 05, 2025. This was secondary to sepsis secondary to UTI, and acute metabolic encephalopathy. Patient was initially treated with ceftriaxone, and discharged on cefpodoxime 200 mg twice daily for 5 days, patient states that symptoms have completely resolved, and cognition is back to baseline. She states she does not remember the incident, but has been doing well since. Encouraged to continue with water intake. Encephalopathy resolved with UTI treatment. # Medicare wellness paperwork reviewed. # PHQ-9 with a total score of 5, going to try to establish with psychiatry. Medications discussed # Audit negative # Discussed healthcare proxy and MOLST form. # Experiencing frequent UTIs so went to neurology, they started patient on methenamine, and patient has been doing really well with complete resolution of symptoms. # Follows with Dr. Adams for gastroenterology, will obtain colonoscopy record # Due for mammogram ordered today March 15, 2025 # Declined all other routine screenings and vaccines # Using a cane/walker at home, discussed fall prevention. # Hypertension: Stable on amlodipine 5 mg # Prediabetes: Repeat A1c in hospital December 2024 A1c 5.8. Patient pleased. Continue metformin 500 mg once daily, Recheck A1c at next visit in 2 to 3 months. # Alkaline phosphatase mildly elevated at 135. Previous CMP alkaline phosphatase within normal limits. Could be secondary to inflammation relation to basal cell carcinoma. Liver enzymes reassuring, otherwise CBC reassuring. Repeat CBC within normal limits October 2024 aside from mildly elevated glucose. Rechecking visit in 2 to 3 months. # Patient was under dermatology for lesion on face, tested positive for basal cell carcinoma. Scheduled for surgery August 15, with plastic surgery August 16. Also having 2 Mohs procedures 1 September 28, and the second in October. Discontinued Humira for 2 weeks prior to the surgery, and 2 weeks after. Also discontinuing aspirin prior to the surgery. Following with Dr. Barrios.Doing well per surgery, pleased with progress, Healing wellPatient has been doing really well. # Chronic cough/Chronic congestion: Obtained chest x-ray, within normal limits overall. Failed Augmentin, and doxycycline, continue Flonase. Still having chronic congestion as well. Use albuterol as needed,Continuing Trelegy with improvement. CT of the maxillofacial sinuses without contrast showing mucosal thickening.As of March 15, 2025, patient states that symptoms have overall resolved, but she does have a visit with ENT in March. # Dizziness: Much better since discontinuing losartan/Benzodiazep ine. Blood pressure stable. Heart murmur heard on exam. Previous echocardiogram showed normal output with some dilation of the aortic root. MRI 10/2022 demonstrated small vessel ischemia, patient currently on statin therpay and aspirin. Has tried vestibular therapy, however no longer following. Meclizine does not provide adequate releif per patient. Patient was discharged with at home PT[facility]OT, and [facility], and home health aide. Continuing to use a cane. . Educated on the importance of hydration. Discussed at home safety to include getting up slowing from a lying/seated postion and using a shower chair. Saw cardiology 04/06/23, Reviewed note, they discontinue losartan and dizziness has improved. Work with new psychiatrist, and working with neurologist as well. Cardiology states that echocardiogram results are unchanged.Admit to a dizziness episode yesterday. Blood pressure stable on amlodipine 5 mg. Ordering MRI with and without contrast of the head secondary to fatigue, dizziness, occasional difficulty with word finding. # Sees neurology every 4 months.. History of MRI showing small vessel ischemia, and moderate diffuse brain atrophy and T2 hyperintensity in the white matter. No recent MRI of note. Patient does have some difficulty word finding, and has some silent spells. Had EEG which was negative, following with neurology , Declines any recent falls. Patient is going to contact neurology to get back on their schedule. # Heart murmur: Echocardiogram demonstrates dilation of the aortic root, otherwise normal output. Lower extremities are without edema or rubor. Recent echocardiogram 2023 showing unchanged results. # Bipolar: Recently seen by DO China Kaiser at [facility]. Going to increase mirtazapine to 30 mg +7.5 mg tablets for a total of 37.5 mg. Discontinued alprazolam. Discussed psychotherapy.Trial increasing trazodone for sleep to 100 mg but patient did not tolerate well. Will discontinue trazodone and Trialed hydroxyzine 50 mg with some improvement, will increase to 50 to 100 mg as needed.. Avoid alprazolam secondary to beers list.Refer to psychiatrist at [facility]. Provided with phone number.Patient states that she will call.Referral to psych today. # Anxiety: Patient suffers from agoraphobia. Rx for alprazolam PRN provided by Dr. Сергей Morrison,Provider retired, , Medication has been discontinued secondary to it being on the beers list, and risk outweighing benefit. Patient has been last fatigued, and memory has been better.Continue mirtazapine 30, Patient is going to contact psychiatry and therapy. # Weight gain: Focusing on nutrition, and exercise. Also admits to some leg pain, but she just got a bicycle for her lower extremities, and thinks exercise will be helpful. Will call the office with worsening symptoms.Discussed senior center, patient declines. Follow-up in 2 to 3 months, labs prior. Psych evaluation prior, and MRI of the brain.Also ordering mammogram. Patient seen and examined. Comprehensive discussion was done on the following. 1. Nutrition: It is important to follow a healthy diet based on lots of vegetables and legumes and good fat. Avoid processed food and processed carbohydrates. Prepare your own meals. Read labels and avoid high fructose corn syrup, processed chemicals added to increase shelf life and preprepared meals. Avoid fast foods. Eat slowly and plan meals for a week. Try to count calories and be mindful off daily calorie intake. Get into the habit of keeping an eye on your weight by using an appropriate scale. Learn to log exercise and discussed fitness Apps like [employer] which can help keep log off calories taken versus calories burned. Local food should be preferred. Discussed Dirty Dozen Versus Clean Fifteen. Discussed healthy supplements like fish oil, Tumeric, Curcumin, Melatonin, Resveratrol, Probiotics, Vitamin-D, Alpha-Lipoic acid, Vitamin-D and coconut oil. 2. It is important to exercise regularly. Is a good habit to walk at least 30 minutes a day. Gentle weightlifting with standard precautions to protect the back. Finding activity like cycling or hiking and get into the habit of engaging in it. Stretching before and after the exercises important. It is also important to contact me if there are any problems like shortness of breath, chest pain, back pain and joint or muscle pain associated with the exercise. 3. Discussed age appropriate screening guidelines. Colonoscopy needs to start at age 50 with stool for occult blood as appropriate. There is a new test that can test for genetic abnormalities in the stool sample, Cologuard. This would not replace a colonoscopy but could be used as a screening tool for patients who do not want a colonoscopy. We discussed the importance of early detection of colon cancer. 4. Discussed current guidelines with respect to breast examination, mammogram and pap smear for early detection of breast and cervical cancer. Patient advised to follow up with these appointments. 5. Discussed safe driving and no use of smart phone while driving 6. Age-appropriate immunizations were discussed. A tetanus booster is needed every 10 years. Flu vaccine is recommended every year just before the start of the flu season. Shingles vaccine is recommended after age 50 but not all insurances cover it. Pneumonia vaccine is given after age 65 unless there are certain comorbidities for which it is started earlier. 7. Diagnostic labs were discussed. These could include/not limited to CBC CMP and lipids with fasting blood glucose and insulin levels. Vitamin D and hemoglobin A1c testing might be appropriate. All quetsions answered to patients satisfaction. Patient verbalized understanding of diagnosis and treatments explained. To call sooner prior to next visit it any questions/concerns arise. Case discussed with collaborating physician Tiffanie Barnard who reviewed the assessment and plan. Chart, medications, labs, vital signs reviewed. Dictation was accomplished with the use of [employer] voice recognition software, prone to medical misidentifications and grammatical errors. This is unintentional and the practitioner does try to identify and correct these, but some could still be present. Please do not hesitate to contact practitioner for clarification. 01/11/2025 Prediabetes (ICD-10 - R73.03) # Hospitalized at [facility] in [place] January 01, 2025 discharged January 05, 2025. This was secondary to sepsis secondary to UTI, and acute metabolic encephalopathy. Patient was initially treated with ceftriaxone, and discharged on cefpodoxime 200 mg twice daily for 5 days, patient states that symptoms have completely resolved, and cognition is back to baseline. She states she does not remember the incident, but has been doing well since. Encouraged to continue with water intake. Encephalopathy resolved with UTI treatment. # Incidental finding of hypertension, systolic 170. Started on amlodipine 5 mg daily, blood pressure stable today 126/84 therefore we will continue amlodipine 5 mg at this time. Does have a blood pressure machine at home for which she checks regularly # Prediabetes: Repeat A1c in hospital December 2024 A1c 5.8. Patient pleased. Continue metformin 500 mg once daily # Alkaline phosphatase mildly elevated at 135. Previous CMP alkaline phosphatase within normal limits. Could be secondary to inflammation relation to basal cell carcinoma. Liver enzymes reassuring, otherwise CBC reassuring. Repeat CBC within normal limits October 2024 aside from mildly elevated glucose # Patient was under dermatology for lesion on face, tested positive for basal cell carcinoma. Scheduled for surgery August 15, with plastic surgery August 16. Also having 2 Mohs procedures 1 September 28, and the second in October. Discontinued Humira for 2 weeks prior to the surgery, and 2 weeks after. Also discontinuing aspirin prior to the surgery. Following with Dr. Barrios.Doing well per surgery, pleased with progress, Healing well # Chronic cough/Chronic congestion: Obtained chest x-ray, within normal limits overall. Failed Augmentin, and doxycycline, continue Flonase. Still having chronic congestion as well. Use albuterol as needed,Continuing Trelegy with improvement. CT of the maxillofacial sinuses without contrast showing mucosal thickening. Sending to ENT, referral still pending. Patient does have deviated septum.Patient has a follow-up with ENT on November 17, 2024.But this was just rescheduled to March. Tried contacting office, but they have no sooner availability. # Dizziness: Much better since discontinuing losartan/Benzodiazep ine. Blood pressure stable. Heart murmur heard on exam. Previous echocardiogram showed normal output with some dilation of the aortic root. MRI 10/2022 demonstrated small vessel ischemia, patient currently on statin therpay and aspirin. Has tried vestibular therapy, however no longer following. Meclizine does not provide adequate releif per patient. Patient was discharged with at home PT/OT, and [facility], and home health aide. Continuing to use a cane. Feels steady. Educated on the importance of hydration. Discussed at home safety to include getting up slowing from a lying/seated postion and using a shower chair. Saw cardiology 04/06/23, Reviewed note, they discontinue losartan and dizziness has improved. Work with new psychiatrist, and working with neurologist as well. Cardiology states that echocardiogram results are unchanged.Incidental finding of elevated blood pressure in the hospital for which amlodipine 5 mg was started. Patient will monitor blood pressure if blood pressure declines, will discontinue medication. # Sees neurology every 4 months.. Most recent MRI showing small vessel ischemia, and moderate diffuse brain atrophy and T2 hyperintensity in the white matter. Patient does have some difficulty word finding, and has some silent spells. Had EEG which was negative, following with neurology , Declines any recent falls. Dizziness has improved.Patient is going to contact neurology to get back on their schedule. # Heart murmur: Echocardiogram demonstrates dilation of the aortic root, otherwise normal output. Lower extremities are without edema or rubor. Recent echocardiogram 2023 showing unchanged results. # Bipolar: Recently seen by DO China Kaiser at [facility]. Going to increase mirtazapine to 30 mg +7.5 mg tablets for a total of 37.5 mg. Discontinued alprazolam. Discussed psychotherapy.Trial increasing trazodone for sleep to 100 mg but patient did not tolerate well. Will discontinue trazodone and Trialed hydroxyzine 50 mg with some improvement, will increase to 50 to 100 mg as needed.. Avoid alprazolam secondary to beers list.Refer to psychiatrist at [facility]. Provided with phone number.Patient states that she will call. # Anxiety: Patient suffers from agoraphobia. Rx for alprazolam PRN provided by Dr. Сергей Morrison,Provider retired, , Medication has been discontinued secondary to it being on the beers list, and risk outweighing benefit. Patient has been last fatigued, and memory has been better.Continue mirtazapine 30, Patient is going to contact psychiatry and therapy. # Weight gain: Focusing on nutrition, and exercise. Also admits to some leg pain, but she just got a bicycle for her lower extremities, and thinks exercise will be helpful. Will call the office with worsening symptoms. Follow-up in 2 to 3 months for Medicare wellness visit. Follow-up with neurology and psychiatry in the meantime. Discussed emergency department criteria/criteria to call the office. All quetsions answered to patients satisfaction. Patient verbalized understanding of diagnosis and treatments explained. To call sooner prior to next visit it any questions/concerns arise. Case discussed with collaborating physician Tiffanie Barnard who reviewed the assessment and plan. Chart, medications, labs, vital signs reviewed. Dictation was accomplished with the use of [employer] voice recognition software, prone to medical misidentifications and grammatical errors. This is unintentional and the practitioner does try to identify and correct these, but some could still be present. Please do not hesitate to contact practitioner for clarification. 03/15/2025 Memory changes (ICD-10 - R41.3) # Hospitalized at [facility] in [place] January 01, 2025 discharged January 05, 2025. This was secondary to sepsis secondary to UTI, and acute metabolic encephalopathy. Patient was initially treated with ceftriaxone, and discharged on cefpodoxime 200 mg twice daily for 5 days, patient states that symptoms have completely resolved, and cognition is back to baseline. She states she does not remember the incident, but has been doing well since. Encouraged to continue with water intake. Encephalopathy resolved with UTI treatment. # Medicare wellness paperwork reviewed. # PHQ-9 with a total score of 5, going to try to establish with psychiatry. Medications discussed # Audit negative # Discussed healthcare proxy and MOLST form. # Experiencing frequent UTIs so went to neurology, they started patient on methenamine, and patient has been doing really well with complete resolution of symptoms. # Follows with Dr. Adams for gastroenterology, will obtain colonoscopy record # Due for mammogram ordered today March 15, 2025 # Declined all other routine screenings and vaccines # Using a cane/walker at home, discussed fall prevention. # Hypertension: Stable on amlodipine 5 mg # Prediabetes: Repeat A1c in hospital December 2024 A1c 5.8. Patient pleased. Continue metformin 500 mg once daily, Recheck A1c at next visit in 2 to 3 months. # Alkaline phosphatase mildly elevated at 135. Previous CMP alkaline phosphatase within normal limits. Could be secondary to inflammation relation to basal cell carcinoma. Liver enzymes reassuring, otherwise CBC reassuring. Repeat CBC within normal limits October 2024 aside from mildly elevated glucose. Rechecking visit in 2 to 3 months. # Patient was under dermatology for lesion on face, tested positive for basal cell carcinoma. Scheduled for surgery August 15, with plastic surgery August 16. Also having 2 Mohs procedures 1 September 28, and the second in October. Discontinued Humira for 2 weeks prior to the surgery, and 2 weeks after. Also discontinuing aspirin prior to the surgery. Following with Dr. Barrios.Doing well per surgery, pleased with progress, Healing wellPatient has been doing really well. # Chronic cough/Chronic congestion: Obtained chest x-ray, within normal limits overall. Failed Augmentin, and doxycycline, continue Flonase. Still having chronic congestion as well. Use albuterol as needed,Continuing Trelegy with improvement. CT of the maxillofacial sinuses without contrast showing mucosal thickening.As of March 15, 2025, patient states that symptoms have overall resolved, but she does have a visit with ENT in March. # Dizziness: Much better since discontinuing losartan/Benzodiazep ine. Blood pressure stable. Heart murmur heard on exam. Previous echocardiogram showed normal output with some dilation of the aortic root. MRI 10/2022 demonstrated small vessel ischemia, patient currently on statin therpay and aspirin. Has tried vestibular therapy, however no longer following. Meclizine does not provide adequate releif per patient. Patient was discharged with at home PT/OT, and [facility], and home health aide. Continuing to use a cane. . Educated on the importance of hydration. Discussed at home safety to include getting up slowing from a lying/seated postion and using a shower chair. Saw cardiology 04/06/23, Reviewed note, they discontinue losartan and dizziness has improved. Work with new psychiatrist, and working with neurologist as well. Cardiology states that echocardiogram results are unchanged.Admit to a dizziness episode yesterday. Blood pressure stable on amlodipine 5 mg. Ordering MRI with and without contrast of the head secondary to fatigue, dizziness, occasional difficulty with word finding. # Sees neurology every 4 months.. History of MRI showing small vessel ischemia, and moderate diffuse brain atrophy and T2 hyperintensity in the white matter. No recent MRI of note. Patient does have some difficulty word finding, and has some silent spells. Had EEG which was negative, following with neurology , Declines any recent falls. Patient is going to contact neurology to get back on their schedule. # Heart murmur: Echocardiogram demonstrates dilation of the aortic root, otherwise normal output. Lower extremities are without edema or rubor. Recent echocardiogram 2023 showing unchanged results. # Bipolar: Recently seen by DO China Kaiser at [facility]. Going to increase mirtazapine to 30 mg +7.5 mg tablets for a total of 37.5 mg. Discontinued alprazolam. Discussed psychotherapy.Trial increasing trazodone for sleep to 100 mg but patient did not tolerate well. Will discontinue trazodone and Trialed hydroxyzine 50 mg with some improvement, will increase to 50 to 100 mg as needed.. Avoid alprazolam secondary to beers list.Refer to psychiatrist at [facility]. Provided with phone number.Patient states that she will call.Referral to psych today. # Anxiety: Patient suffers from agoraphobia. Rx for alprazolam PRN provided by Dr. Сергей Morrison,Provider retired, , Medication has been discontinued secondary to it being on the beers list, and risk outweighing benefit. Patient has been last fatigued, and memory has been better.Continue mirtazapine 30, Patient is going to contact psychiatry and therapy. # Weight gain: Focusing on nutrition, and exercise. Also admits to some leg pain, but she just got a bicycle for her lower extremities, and thinks exercise will be helpful. Will call the office with worsening symptoms.Discussed senior center, patient declines. Follow-up in 2 to 3 months, labs prior. Psych evaluation prior, and MRI of the brain.Also ordering mammogram. Patient seen and examined. Comprehensive discussion was done on the following. 1. Nutrition: It is important to follow a healthy diet based on lots of vegetables and legumes and good fat. Avoid processed food and processed carbohydrates. Prepare your own meals. Read labels and avoid high fructose corn syrup, processed chemicals added to increase shelf life and preprepared meals. Avoid fast foods. Eat slowly and plan meals for a week. Try to count calories and be mindful off daily calorie intake. Get into the habit of keeping an eye on your weight by using an appropriate scale. Learn to log exercise and discussed fitness Apps like [employer] which can help keep log off calories taken versus calories burned. Local food should be preferred. Discussed [employer]. Discussed healthy supplements like fish oil, Tumeric, Curcumin, Melatonin, Resveratrol, Probiotics, Vitamin-D, Alpha-Lipoic acid, Vitamin-D and coconut oil. 2. It is important to exercise regularly. Is a good habit to walk at least 30 minutes a day. Gentle weightlifting with standard precautions to protect the back. Finding activity like cycling or hiking and get into the habit of engaging in it. Stretching before and after the exercises important. It is also important to contact me if there are any problems like shortness of breath, chest pain, back pain and joint or muscle pain associated with the exercise. 3. Discussed age appropriate screening guidelines. Colonoscopy needs to start at age 50 with stool for occult blood as appropriate. There is a new test that can test for genetic abnormalities in the stool sample, Cologuard. This would not replace a colonoscopy but could be used as a screening tool for patients who do not want a colonoscopy. We discussed the importance of early detection of colon cancer. 4. Discussed current guidelines with respect to breast examination, mammogram and pap smear for early detection of breast and cervical cancer. Patient advised to follow up with these appointments. 5. Discussed safe driving and no use of smart phone while driving 6. Age-appropriate immunizations were discussed. A tetanus booster is needed every 10 years. Flu vaccine is recommended every year just before the start of the flu season. Shingles vaccine is recommended after age 50 but not all insurances cover it. Pneumonia vaccine is given after age 65 unless there are certain comorbidities for which it is started earlier. 7. Diagnostic labs were discussed. These could include/not limited to CBC CMP and lipids with fasting blood glucose and insulin levels. Vitamin D and hemoglobin A1c testing might be appropriate. All quetsions answered to patients satisfaction. Patient verbalized understanding of diagnosis and treatments explained. To call sooner prior to next visit it any questions/concerns arise. Case discussed with collaborating physician Tiffanie Barnard who reviewed the assessment and plan. Chart, medications, labs, vital signs reviewed. Dictation was accomplished with the use of [employer] voice recognition software, prone to medical misidentifications and grammatical errors. This is unintentional and the practitioner does try to identify and correct these, but some could still be present. Please do not hesitate to contact practitioner for clarification. 01/11/2025 Elevated alkaline phosphatase level (ICD-10 - R74.8) # Hospitalized at [facility] in [place] January 01, 2025 discharged January 05, 2025. This was secondary to sepsis secondary to UTI, and acute metabolic encephalopathy. Patient was initially treated with ceftriaxone, and discharged on cefpodoxime 200 mg twice daily for 5 days, patient states that symptoms have completely resolved, and cognition is back to baseline. She states she does not remember the incident, but has been doing well since. Encouraged to continue with water intake. Encephalopathy resolved with UTI treatment. # Incidental finding of hypertension, systolic 170. Started on amlodipine 5 mg daily, blood pressure stable today 126/84 therefore we will continue amlodipine 5 mg at this time. Does have a blood pressure machine at home for which she checks regularly # Prediabetes: Repeat A1c in hospital December 2024 A1c 5.8. Patient pleased. Continue metformin 500 mg once daily # Alkaline phosphatase mildly elevated at 135. Previous CMP alkaline phosphatase within normal limits. Could be secondary to inflammation relation to basal cell carcinoma. Liver enzymes reassuring, otherwise CBC reassuring. Repeat CBC within normal limits October 2024 aside from mildly elevated glucose # Patient was under dermatology for lesion on face, tested positive for basal cell carcinoma. Scheduled for surgery August 15, with plastic surgery August 16. Also having 2 Mohs procedures 1 September 28, and the second in October. Discontinued Humira for 2 weeks prior to the surgery, and 2 weeks after. Also discontinuing aspirin prior to the surgery. Following with Dr. Barrios.Doing well per surgery, pleased with progress, Healing well # Chronic cough/Chronic congestion: Obtained chest x-ray, within normal limits overall. Failed Augmentin, and doxycycline, continue Flonase. Still having chronic congestion as well. Use albuterol as needed,Continuing Trelegy with improvement. CT of the maxillofacial sinuses without contrast showing mucosal thickening. Sending to ENT, referral still pending. Patient does have deviated septum.Patient has a follow-up with ENT on November 17, 2024.But this was just rescheduled to March. Tried contacting office, but they have no sooner availability. # Dizziness: Much better since discontinuing losartan/Benzodiazep ine. Blood pressure stable. Heart murmur heard on exam. Previous echocardiogram showed normal output with some dilation of the aortic root. MRI 10/2022 demonstrated small vessel ischemia, patient currently on statin therpay and aspirin. Has tried vestibular therapy, however no longer following. Meclizine does not provide adequate releif per patient. Patient was discharged with at home PT[facility]OT, and [facility], and home health aide. Continuing to use a cane. Feels steady. Educated on the importance of hydration. Discussed at home safety to include getting up slowing from a lying/seated postion and using a shower chair. Saw cardiology 04/06/23, Reviewed note, they discontinue losartan and dizziness has improved. Work with new psychiatrist, and working with neurologist as well. Cardiology states that echocardiogram results are unchanged.Incidental finding of elevated blood pressure in the hospital for which amlodipine 5 mg was started. Patient will monitor blood pressure if blood pressure declines, will discontinue medication. # Sees neurology every 4 months.. Most recent MRI showing small vessel ischemia, and moderate diffuse brain atrophy and T2 hyperintensity in the white matter. Patient does have some difficulty word finding, and has some silent spells. Had EEG which was negative, following with neurology , Declines any recent falls. Dizziness has improved.Patient is going to contact neurology to get back on their schedule. # Heart murmur: Echocardiogram demonstrates dilation of the aortic root, otherwise normal output. Lower extremities are without edema or rubor. Recent echocardiogram 2023 showing unchanged results. # Bipolar: Recently seen by DO China Kaiser at [facility]. Going to increase mirtazapine to 30 mg +7.5 mg tablets for a total of 37.5 mg. Discontinued alprazolam. Discussed psychotherapy.Trial increasing trazodone for sleep to 100 mg but patient did not tolerate well. Will discontinue trazodone and Trialed hydroxyzine 50 mg with some improvement, will increase to 50 to 100 mg as needed.. Avoid alprazolam secondary to beers list.Refer to psychiatrist at [facility]. Provided with phone number.Patient states that she will call. # Anxiety: Patient suffers from agoraphobia. Rx for alprazolam PRN provided by Dr. Сергей Morrison,Provider retired, , Medication has been discontinued secondary to it being on the beers list, and risk outweighing benefit. Patient has been last fatigued, and memory has been better.Continue mirtazapine 30, Patient is going to contact psychiatry and therapy. # Weight gain: Focusing on nutrition, and exercise. Also admits to some leg pain, but she just got a bicycle for her lower extremities, and thinks exercise will be helpful. Will call the office with worsening symptoms. Follow-up in 2 to 3 months for Medicare wellness visit. Follow-up with neurology and psychiatry in the meantime. Discussed emergency department criteria/criteria to call the office. All quetsions answered to patients satisfaction. Patient verbalized understanding of diagnosis and treatments explained. To call sooner prior to next visit it any questions/concerns arise. Case discussed with collaborating physician Tiffanie Barnard who reviewed the assessment and plan. Chart, medications, labs, vital signs reviewed. Dictation was accomplished with the use of [employer] voice recognition software, prone to medical misidentifications and grammatical errors. This is unintentional and the practitioner does try to identify and correct these, but some could still be present. Please do not hesitate to contact practitioner for clarification. 11/02/2024 Elevated alkaline phosphatase level (ICD-10 - R74.8) # Abnormal urine. Patient states that she does have occasional burning. Culture in July which did not grow any bacteria. Discussed hydration. Offered urogynecology referral, patient declines. Offered to repeat urine, patient declines # Prediabetes: Hemoglobin A1c 6.1. Based on patient's age, will treat conservatively with lifestyle, Continue metformin 500 mg daily. A1c has improved November 17-5.8, glucose 138 # Alkaline phosphatase mildly elevated at 135. Previous CMP alkaline phosphatase within normal limits. Could be secondary to inflammation relation to basal cell carcinoma. Liver enzymes reassuring, otherwise CBC reassuring. Repeat CBC within normal limits October 2024 aside from mildly elevated glucose # Patient was under dermatology for lesion on face, tested positive for basal cell carcinoma. Scheduled for surgery August 15, with plastic surgery August 16. Also having 2 Mohs procedures 1 September 28, and the second in October. Discontinued Humira for 2 weeks prior to the surgery, and 2 weeks after. Also discontinuing aspirin prior to the surgery. Following with Dr. Barrios.Doing well per surgery, pleased with progress # Chronic cough/Chronic congestion: Obtained chest x-ray, within normal limits overall. Failed Augmentin, and doxycycline, continue Flonase. Still having chronic congestion as well. Use albuterol as needed,Continuing Trelegy with improvement. CT of the maxillofacial sinuses without contrast showing mucosal thickening. Sending to ENT, referral still pending. Patient does have deviated septum.Patient has a follow-up with ENT on November 17, 2024.But this was just rescheduled to March. Going to contact office as this referral was sent in December 2023. Patient expresses frustration # Dizziness: Much better since discontinuing losartan/Benzodiazep ine. Blood pressure stable. Heart murmur heard on exam. Previous echocardiogram showed normal output with some dilation of the aortic root. MRI 10/2022 demonstrated small vessel ischemia, patient currently on statin therpay and aspirin. Has tried vestibular therapy, however no longer following. Meclizine does not provide adequate releif per patient. Reported she liked physical therapy for gait instability, however has not been going. Has been using cane, feels steady. Declines recent falls. Educated on the importance of hydration. Discussed at home safety to include getting up slowing from a lying/seated postion and using a shower chair. Saw cardiology 04/06/23, Reviewed note, they discontinue losartan and dizziness has improved. Work with new psychiatrist, and working with neurologist as well. Cardiology states that echocardiogram results are unchanged. # Sees neurology every 4 months.. Most recent MRI showing small vessel ischemia, and moderate diffuse brain atrophy and T2 hyperintensity in the white matter. Patient does have some difficulty word finding, and has some silent spells. Had EEG which was negative, following with neurology , Declines any recent falls. Dizziness has improved. # Heart murmur: Echocardiogram demonstrates dilation of the aortic root, otherwise normal output. Lower extremities are without edema or rubor. Recent echocardiogram 2023 showing unchanged results. 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 Blood pressure stable. # Bipolar: Recently seen by DO China Kaiser at [facility]. Going to increase mirtazapine to 30 mg +7.5 mg tablets for a total of 37.5 mg. Discontinued alprazolam. Discussed psychotherapy.Trial increasing trazodone for sleep to 100 mg but patient did not tolerate well. Will discontinue trazodone and Trialed hydroxyzine 50 mg with some improvement, will increase to 50 to 100 mg as needed.. Avoid alprazolam secondary to beers list.Refer to psychiatrist at [facility]. Provided with phone number.Patient states that she will call. # Anxiety: Patient suffers from agoraphobia. Rx for alprazolam PRN provided by Dr. Сергей Morrison,Provider retired, , Medication has been discontinued secondary to it being on the beers list, and risk outweighing benefit. Patient has been last fatigued, and memory has been better.Continue mirtazapine 37.5, Patient is going to contact psychiatry and therapy. # Weight gain: Focusing on nutrition, and exercise. Also admits to some leg pain, but she just got a bicycle for her lower extremities, and thinks exercise will be helpful. Will call the office with worsening symptoms. Follow-up in 3 months, sooner as needed. Contact ENT in the meantime. Patient to follow-up with psychiatry in the meantime. Call if she changes her mind in regards to lower extremity pain workup, or dysuria workup Discussed emergency department criteria/criteria to call the office All quetsions answered to patients satisfaction. Patient verbalized understanding of diagnosis and treatments explained. To call sooner prior to next visit it any questions/concerns arise. Case discussed with collaborating physician Tiffanie Barnard who reviewed the assessment and plan. Chart, medications, labs, vital signs reviewed. Dictation was accomplished with the use of [employer] voice recognition software, prone to medical misidentifications and grammatical errors. This is unintentional and the practitioner does try to identify and correct these, but some could still be present. Please do not hesitate to contact practitioner for clarification. 01/11/2025 Encounter for examination of blood pressure without abnormal findings (ICD-10 - Z01.30) # Hospitalized at [facility] in [place] January 01, 2025 discharged January 05, 2025. This was secondary to sepsis secondary to UTI, and acute metabolic encephalopathy. Patient was initially treated with ceftriaxone, and discharged on cefpodoxime 200 mg twice daily for 5 days, patient states that symptoms have completely resolved, and cognition is back to baseline. She states she does not remember the incident, but has been doing well since. Encouraged to continue with water intake. Encephalopathy resolved with UTI treatment. # Incidental finding of hypertension, systolic 170. Started on amlodipine 5 mg daily, blood pressure stable today 126/84 therefore we will continue amlodipine 5 mg at this time. Does have a blood pressure machine at home for which she checks regularly # Prediabetes: Repeat A1c in hospital December 2024 A1c 5.8. Patient pleased. Continue metformin 500 mg once daily # Alkaline phosphatase mildly elevated at 135. Previous CMP alkaline phosphatase within normal limits. Could be secondary to inflammation relation to basal cell carcinoma. Liver enzymes reassuring, otherwise CBC reassuring. Repeat CBC within normal limits October 2024 aside from mildly elevated glucose # Patient was under dermatology for lesion on face, tested positive for basal cell carcinoma. Scheduled for surgery August 15, with plastic surgery August 16. Also having 2 Mohs procedures 1 September 28, and the second in October. Discontinued Humira for 2 weeks prior to the surgery, and 2 weeks after. Also discontinuing aspirin prior to the surgery. Following with Dr. Barrios.Doing well per surgery, pleased with progress, Healing well # Chronic cough/Chronic congestion: Obtained chest x-ray, within normal limits overall. Failed Augmentin, and doxycycline, continue Flonase. Still having chronic congestion as well. Use albuterol as needed,Continuing Trelegy with improvement. CT of the maxillofacial sinuses without contrast showing mucosal thickening. Sending to ENT, referral still pending. Patient does have deviated septum.Patient has a follow-up with ENT on November 17, 2024.But this was just rescheduled to March. Tried contacting office, but they have no sooner availability. # Dizziness: Much better since discontinuing losartan/Benzodiazep ine. Blood pressure stable. Heart murmur heard on exam. Previous echocardiogram showed normal output with some dilation of the aortic root. MRI 10/2022 demonstrated small vessel ischemia, patient currently on statin therpay and aspirin. Has tried vestibular therapy, however no longer following. Meclizine does not provide adequate releif per patient. Patient was discharged with at home PT/OT, and [facility], and home health aide. Continuing to use a cane. Feels steady. Educated on the importance of hydration. Discussed at home safety to include getting up slowing from a lying/seated postion and using a shower chair. Saw cardiology 04/06/23, Reviewed note, they discontinue losartan and dizziness has improved. Work with new psychiatrist, and working with neurologist as well. Cardiology states that echocardiogram results are unchanged.Incidental finding of elevated blood pressure in the hospital for which amlodipine 5 mg was started. Patient will monitor blood pressure if blood pressure declines, will discontinue medication. # Sees neurology every 4 months.. Most recent MRI showing small vessel ischemia, and moderate diffuse brain atrophy and T2 hyperintensity in the white matter. Patient does have some difficulty word finding, and has some silent spells. Had EEG which was negative, following with neurology , Declines any recent falls. Dizziness has improved.Patient is going to contact neurology to get back on their schedule. # Heart murmur: Echocardiogram demonstrates dilation of the aortic root, otherwise normal output. Lower extremities are without edema or rubor. Recent echocardiogram 2023 showing unchanged results. # Bipolar: Recently seen by DO China Kaiser at [facility]. Going to increase mirtazapine to 30 mg +7.5 mg tablets for a total of 37.5 mg. Discontinued alprazolam. Discussed psychotherapy.Trial increasing trazodone for sleep to 100 mg but patient did not tolerate well. Will discontinue trazodone and Trialed hydroxyzine 50 mg with some improvement, will increase to 50 to 100 mg as needed.. Avoid alprazolam secondary to beers list.Refer to psychiatrist at [facility]. Provided with phone number.Patient states that she will call. # Anxiety: Patient suffers from agoraphobia. Rx for alprazolam PRN provided by Dr. Сергей Morrison,Provider retired, , Medication has been discontinued secondary to it being on the beers list, and risk outweighing benefit. Patient has been last fatigued, and memory has been better.Continue mirtazapine 30, Patient is going to contact psychiatry and therapy. # Weight gain: Focusing on nutrition, and exercise. Also admits to some leg pain, but she just got a bicycle for her lower extremities, and thinks exercise will be helpful. Will call the office with worsening symptoms. Follow-up in 2 to 3 months for Medicare wellness visit. Follow-up with neurology and psychiatry in the meantime. Discussed emergency department criteria/criteria to call the office. All quetsions answered to patients satisfaction. Patient verbalized understanding of diagnosis and treatments explained. To call sooner prior to next visit it any questions/concerns arise. Case discussed with collaborating physician Tiffanie Barnard who reviewed the assessment and plan. Chart, medications, labs, vital signs reviewed. Dictation was accomplished with the use of [employer] voice recognition software, prone to medical misidentifications and grammatical errors. This is unintentional and the practitioner does try to identify and correct these, but some could still be present. Please do not hesitate to contact practitioner for clarification. 03/15/2025 BMI 34.0-34.9,adult (ICD-10 - Z68.34) # Hospitalized at [facility] in [place] January 01, 2025 discharged January 05, 2025. This was secondary to sepsis secondary to UTI, and acute metabolic encephalopathy. Patient was initially treated with ceftriaxone, and discharged on cefpodoxime 200 mg twice daily for 5 days, patient states that symptoms have completely resolved, and cognition is back to baseline. She states she does not remember the incident, but has been doing well since. Encouraged to continue with water intake. Encephalopathy resolved with UTI treatment. # Medicare wellness paperwork reviewed. # PHQ-9 with a total score of 5, going to try to establish with psychiatry. Medications discussed # Audit negative # Discussed healthcare proxy and MOLST form. # Experiencing frequent UTIs so went to neurology, they started patient on methenamine, and patient has been doing really well with complete resolution of symptoms. # Follows with Dr. Adams for gastroenterology, will obtain colonoscopy record # Due for mammogram ordered today March 15, 2025 # Declined all other routine screenings and vaccines # Using a cane/walker at home, discussed fall prevention. # Hypertension: Stable on amlodipine 5 mg # Prediabetes: Repeat A1c in hospital December 2024 A1c 5.8. Patient pleased. Continue metformin 500 mg once daily, Recheck A1c at next visit in 2 to 3 months. # Alkaline phosphatase mildly elevated at 135. Previous CMP alkaline phosphatase within normal limits. Could be secondary to inflammation relation to basal cell carcinoma. Liver enzymes reassuring, otherwise CBC reassuring. Repeat CBC within normal limits October 2024 aside from mildly elevated glucose. Rechecking visit in 2 to 3 months. # Patient was under dermatology for lesion on face, tested positive for basal cell carcinoma. Scheduled for surgery August 15, with plastic surgery August 16. Also having 2 Mohs procedures 1 September 28, and the second in October. Discontinued Humira for 2 weeks prior to the surgery, and 2 weeks after. Also discontinuing aspirin prior to the surgery. Following with Dr. Barrios.Doing well per surgery, pleased with progress, Healing wellPatient has been doing really well. # Chronic cough/Chronic congestion: Obtained chest x-ray, within normal limits overall. Failed Augmentin, and doxycycline, continue Flonase. Still having chronic congestion as well. Use albuterol as needed,Continuing Trelegy with improvement. CT of the maxillofacial sinuses without contrast showing mucosal thickening.As of March 15, 2025, patient states that symptoms have overall resolved, but she does have a visit with ENT in March. # Dizziness: Much better since discontinuing losartan/Benzodiazep ine. Blood pressure stable. Heart murmur heard on exam. Previous echocardiogram showed normal output with some dilation of the aortic root. MRI 10/2022 demonstrated small vessel ischemia, patient currently on statin therpay and aspirin. Has tried vestibular therapy, however no longer following. Meclizine does not provide adequate releif per patient. Patient was discharged with at home PT/OT, and [place] nursing twice weekly, and home health aide. Continuing to use a cane. . Educated on the importance of hydration. Discussed at home safety to include getting up slowing from a lying/seated postion and using a shower chair. Saw cardiology 04/06/23, Reviewed note, they discontinue losartan and dizziness has improved. Work with new psychiatrist, and working with neurologist as well. Cardiology states that echocardiogram results are unchanged.Admit to a dizziness episode yesterday. Blood pressure stable on amlodipine 5 mg. Ordering MRI with and without contrast of the head secondary to fatigue, dizziness, occasional difficulty with word finding. # Sees neurology every 4 months.. History of MRI showing small vessel ischemia, and moderate diffuse brain atrophy and T2 hyperintensity in the white matter. No recent MRI of note. Patient does have some difficulty word finding, and has some silent spells. Had EEG which was negative, following with neurology , Declines any recent falls. Patient is going to contact neurology to get back on their schedule. # Heart murmur: Echocardiogram demonstrates dilation of the aortic root, otherwise normal output. Lower extremities are without edema or rubor. Recent echocardiogram 2023 showing unchanged results. # Bipolar: Recently seen by DO China Kaiser at [facility]. Going to increase mirtazapine to 30 mg +7.5 mg tablets for a total of 37.5 mg. Discontinued alprazolam. Discussed psychotherapy.Trial increasing trazodone for sleep to 100 mg but patient did not tolerate well. Will discontinue trazodone and Trialed hydroxyzine 50 mg with some improvement, will increase to 50 to 100 mg as needed.. Avoid alprazolam secondary to beers list.Refer to psychiatrist at [facility]. Provided with phone number.Patient states that she will call.Referral to psych today. # Anxiety: Patient suffers from agoraphobia. Rx for alprazolam PRN provided by Dr. Сергей Morrison,Provider retired, , Medication has been discontinued secondary to it being on the beers list, and risk outweighing benefit. Patient has been last fatigued, and memory has been better.Continue mirtazapine 30, Patient is going to contact psychiatry and therapy. # Weight gain: Focusing on nutrition, and exercise. Also admits to some leg pain, but she just got a bicycle for her lower extremities, and thinks exercise will be helpful. Will call the office with worsening symptoms.[facility]iscussed [facility], patient declines. Follow-up in 2 to 3 months, labs prior. Psych evaluation prior, and MRI of the brain.Also ordering mammogram. Patient seen and examined. Comprehensive discussion was done on the following. 1. Nutrition: It is important to follow a healthy diet based on lots of vegetables and legumes and good fat. Avoid processed food and processed carbohydrates. Prepare your own meals. Read labels and avoid high fructose corn syrup, processed chemicals added to increase shelf life and preprepared meals. Avoid fast foods. Eat slowly and plan meals for a week. Try to count calories and be mindful off daily calorie intake. Get into the habit of keeping an eye on your weight by using an appropriate scale. Learn to log exercise and discussed fitness Apps like [employer] which can help keep log off calories taken versus calories burned. Local food should be preferred. Discussed Dirty Dozen Versus Clean Fifteen. Discussed healthy supplements like fish oil, Tumeric, Curcumin, Melatonin, Resveratrol, Probiotics, Vitamin-D, Alpha-Lipoic acid, Vitamin-D and coconut oil. 2. It is important to exercise regularly. Is a good habit to walk at least 30 minutes a day. Gentle weightlifting with standard precautions to protect the back. Finding activity like cycling or hiking and get into the habit of engaging in it. Stretching before and after the exercises important. It is also important to contact me if there are any problems like shortness of breath, chest pain, back pain and joint or muscle pain associated with the exercise. 3. Discussed age appropriate screening guidelines. Colonoscopy needs to start at age 50 with stool for occult blood as appropriate. There is a new test that can test for genetic abnormalities in the stool sample, Cologuard. This would not replace a colonoscopy but could be used as a screening tool for patients who do not want a colonoscopy. We discussed the importance of early detection of colon cancer. 4. Discussed current guidelines with respect to breast examination, mammogram and pap smear for early detection of breast and cervical cancer. Patient advised to follow up with these appointments. 5. Discussed safe driving and no use of smart phone while driving 6. Age-appropriate immunizations were discussed. A tetanus booster is needed every 10 years. Flu vaccine is recommended every year just before the start of the flu season. Shingles vaccine is recommended after age 50 but not all insurances cover it. Pneumonia vaccine is given after age 65 unless there are certain comorbidities for which it is started earlier. 7. Diagnostic labs were discussed. These could include/not limited to CBC CMP and lipids with fasting blood glucose and insulin levels. Vitamin D and hemoglobin A1c testing might be appropriate. All quetsions answered to patients satisfaction. Patient verbalized understanding of diagnosis and treatments explained. To call sooner prior to next visit it any questions/concerns arise. Case discussed with collaborating physician Tiffanie Barnard who reviewed the assessment and plan. Chart, medications, labs, vital signs reviewed. Dictation was accomplished with the use of [employer] voice recognition software, prone to medical misidentifications and grammatical errors. This is unintentional and the practitioner does try to identify and correct these, but some could still be present. Please do not hesitate to contact practitioner for clarification. Plan Of Treatment Pending Test Test Name Order Date Echocardiogram 08/14/2022 MRI : Brain 11/03/2022 X ray : Chest with 2 views 12/17/2023 MRI : Head 03/15/2025 MAMMOGRAM, SCREENING 03/15/2025 EKG 08/21/2022 CT Maxillofacial w/o Contrast 12/30/2023 LIPID PANEL, STANDARD 06/09/2024 LIPID PANEL, STANDARD 08/05/2022 LIPID PANEL, STANDARD 10/27/2023 LIPID PANEL, STANDARD 03/15/2025 COMPREHENSIVE METABOLIC PANEL 03/15/2025 COMPREHENSIVE METABOLIC PANEL 10/27/2023 COMPREHENSIVE METABOLIC PANEL 08/05/2022 COMPREHENSIVE METABOLIC PANEL 06/09/2024 COMPREHENSIVE METABOLIC PANEL 08/09/2024 BASIC METABOLIC PANEL 02/01/2025 CBC (INCLUDES DIFF/PLT) 08/09/2024 CBC (INCLUDES DIFF/PLT) 06/09/2024 CBC (INCLUDES DIFF/PLT) 08/05/2022 CBC (INCLUDES DIFF/PLT) 10/27/2023 CBC (INCLUDES DIFF/PLT) 03/15/2025 URINALYSIS, COMPLETE 08/05/2022 URINALYSIS, COMPLETE 03/15/2025 URINALYSIS, COMPLETE 10/27/2023 URINALYSIS, COMPLETE 06/09/2024 URINALYSIS, COMPLETE W/REFLEX TO CULTURE 08/09/2024 URINALYSIS, COMPLETE W/REFLEX TO CULTURE 01/17/2025 HEMOGLOBIN A1c 03/15/2025 HEMOGLOBIN A1c 08/05/2022 HEMOGLOBIN A1c 08/09/2024 HEMOGLOBIN A1c 06/09/2024 T4, FREE 08/05/2022 TSH 08/05/2022 TSH 03/15/2025 TSH 06/09/2024 VITAMIN D,25-OH,TOTAL,IA 08/05/2022 VITAMIN D,25-OH,TOTAL,IA 06/09/2024 US Renal and Bladder 02/01/2025 Vitamin D, [id number] 03/15/2025 Next Appt Details Provider Name:KURTIS ALVAREZNER, 06/14/2025 01:00:00 PM, [address], [place], [address], Insurance Providers Payer Name Payer Address Payer Phone Subscriber Number Group Number Insured Name Patient Relationship to Insured Coverage Start Date Coverage End Date [employer] [address] [place] [phone] [id number] Clint Cheek Self - patient is the insured Medical (General) History Medical History History ICD Code Essential hypertension I10 Hyperlipidemia, unspecified E78.5 Hemorrhoids without complication K64.9 Constipation, unspecified K59.00 Kidney stones N20.0 Depression, unspecified F32.A Anxiety disorder, unspecified F41.9 Crohn's disease, unspecified, without co mplications K50.90 Weight gain R63.5 Vitamin D deficiency E55.9 Insomnia, unspecified G47.00 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
== END 2025-05-16 14:18 | disposition home or self-care (01) ==
LOC: HO.HSM 13:17
PROVIDERS: Visit Provider Registered Nurse
DX: I67.89 Other cerebrovascular disease (principal); R42 Dizziness and giddiness; Z86.73 Personal history of transient ischemic attack (TIA), and cerebral infarction without residual deficits
CPT/HCPCS: 99214

== ENCOUNTER → 2025-05-16 13:17 | Outpatient (BNVA) | payer MEDICARE, SELFPAY | PROVIDERS: Visit Provider Registered Nurse | DX: Z71.2 Person consulting for explanation of examination or test findings (principal); R42 Dizziness and giddiness; I67.89 Other cerebrovascular disease; Z86.73 Personal history of transient ischemic attack (TIA), and cerebral infarction without residual deficits | CPT/HCPCS: 99212 ==

== ENCOUNTER 2025-06-16 13:26 | Outpatient (REF) | payer MEDICARE, SELFPAY ==
--- OUTSIDE RECORDS SUMMARY | 2024-10-20 09:00 | XMS_ITS ---
Author Organization [facility] Address [address] [place] [address] Care Team Providers Care Bench Assembler Operator Name Role Phone SHIELDSKURTIS ARRIOLA Unavailable [phone] REASON FOR VISIT 2 month f/u Encounters Encounter Location Date Provider Diagnosis [facility] [address] [place] [address] 10/20/2024 KURTIS SHIELDS Plan Of Treatment Next Appt Details Provider Name:KURTIS SHIELDS, 08/15/2025 01:00:00 PM, [address], [place], [address], Progress Notes * Anita CHEEKDOB:[birth year] (75 yo F)Acc No.[id number]:10/20/2024 Progress Notes Patient: Anita TIAN Provider: Jose BARKER PA-C :1950 A ge:74 Y S ex:Female Date:10/20/2024 Address:[address] [place], [place] [id number] Subjective: * Chief Complaints: * 1 . 2 month f/u. * Medical History: Objective: * Vitals: Assessment: Plan: * Treatment: * Images: Billing Information: * Visit Code: * Procedure Codes: Care Plan Details* * Electronic signature of RJ SHIELDS PA-C on 06/16/2025 at 04:05 PM EDT Sign off status: Pending * Provider: Jose BARKER PA-C Date: 0 10/20/2024 Generated for Goi lauren/Gerda/eTransmitting on: 1 04:05 PM EDT
--- OUTSIDE RECORDS SUMMARY | 2024-12-14 09:00 | XMS_ITS ---
Author Organization [facility] Address [address] [facility] [place] [address] Care Team Providers Care Clock Repair Technician Name Role Phone Akil MERCHANT, Mena Primary Care Provider Unavailabl e Black, Thea Unavailable [phone] Medications Medication SIG (Take, Route, Frequency, Duration) Notes Start Date End Date Status hydroCHLOROthiazide Not-Taking Benadryl Not-Taking FLUoxetine HCl Not-T aking Melatonin Not-Taking ZyPREXA Not-Taking [place] Carbonate No t-Taking Flonase 50 MCG/ACT 1 spray in each nostril Nasally Once a day Not-Taking Xanax 0.25 MG 1 tablet Orally Thre e times a day Not-Taking lamoTRIgine Not-Taki ng OLANZapine 2.5 MG 1 tablet Orally Once a day Not-Taking Vraylar Not-Taking PROzac Not-Taking LaMICtal Not-Taking Eszopiclone Not-Taki ng glipiZIDE ER Not-Ramy ing Valsartan-hydroCHLOROthiazi de Not-Taking Cephalexin 500 MG 1 tablet Orally Twic e a day; Duration: 10 day(s) Not-Taking Metoprolol Succinate ER Not-Taking metFORMIN HCl Not-Ta jhony Delzicol Not-Taking Ziprasidone HCl Not- Taking Ammonium Lactate 12 % 1 application Externally Twice a day; Duration: 30 days Active Linzess Not-Taking ALPRAZolam Not-Takin g Trintellix Active Extra Depth Orthopedic Shoes (1 Pair) with Customized Heat Molded Multidensity Innersoles (3 Pair) as directed Dx: NIDDM/Polyneuropathy (E11.42), Hammertoe Foot Deformity (M20.41,M20.42), Preulcerative Skin Lesion(s) (L85.1 03/11/2016 Active Atorvastatin Calcium 10 MG 1 tablet Oral ly Once a day Active Mirtazapine 30 MG 1 tablet at bedtime Orally Once a day Active Humira Pen Active Meclizine HCl Active oxyBUTYnin Chloride ER 10 MG 1 tablet Orally Once a day Active metFORMIN HCl Active Extra-Depth Diabetic Shoes with 3 Pair Custom heat-molded multi-density innersoles . for 1 year . Dx:hammertoes 02/23/2015 Unknown traZODone HCl 100 MG 1 tablet at bedtime Orally Once a day Active Simvastatin Unknown Ammonium Lactate Not -Taking Doxazosin Mesylate N ot-Taking Lunesta Unknown Encounters En[facility] [address] [facility] Thea Carr Plan Of Treatment No Information Progress Notes * Sera CHEEKdyanDOB:[birth year] (75 yo F)Acc No.[id number]:12/14/2024 Progress Note Patient: Anita TIAN Provider: Dyan Carr DPM :1950 A ge:74 Y S ex:Female Date:12/14/2024 Address:[address] [place], [place] [id number] Pcp:Monalisa Barnard MD Subjective: * Chief Complaints: * * Medical History: * Medications: T aking metFORMIN HCl , Taking oxyBUTYnin Chloride ER 10 MG Tablet Extended Release 24 Hour 1 tablet Orally Once a day , Taking traZODone HCl 100 MG Tablet 1 tablet at bedtime Orally Once a day , Taking Mirtazapine 30 MG Tablet 1 tablet at bedtime Orally Once a day , Taking Meclizine HCl , Taking Humira Pen , Taking Atorvastatin Calcium 10 MG Tablet 1 tablet Orally Once a day , Taking Extra Depth Orthopedic Shoes (1 Pair) with Customized Heat Molded Multidensity Innersoles (3 Pair) as directed Dx: NIDDM/Polyneuropathy (E11.42), Hammertoe Foot Deformity (M20.41,M20.42), Preulcerative Skin Lesion(s) (L85.1 , Taking Trintellix , Taking Ammonium Lactate 12 % Cream 1 application Externally Twice a day , Not-Taking/PRN Ziprasidone HCl , Not-Taking/PRN ALPRAZolam , Not-Taking/PRN Linzess , Not-Taking/PRN Metoprolol Succinate ER , Not-Taking/PRN Cephalexin 500 MG Tablet 1 tablet Orally Twice a day , Not-Taking/PRN Delzicol , Not-Taking/PRN metFORMIN HCl , Not-Taking/PRN Valsartan-hydroCHLOROthiazide , Not-Taking/PRN glipiZIDE ER , Not-Taking/PRN Eszopiclone , Not-Taking/PRN PROzac , Not-Taking/PRN Vraylar , Not-Taking/PRN LaMICtal , Not-Taking/PRN [place] Carbonate , Not-Taking/PRN Xanax 0.25 MG Tablet 1 tablet Orally Three times a day , Not-Taking/PRN Flonase 50 MCG/ACT Suspension 1 spray in each nostril Nasally Once a day , Not-Taking/PRN OLANZapine 2.5 MG Tablet 1 tablet Orally Once a day , Not-Taking/PRN lamoTRIgine , Not-Taking/PRN FLUoxetine HCl , Not-Taking/PRN ZyPREXA , Not-Taking/PRN Melatonin , Not-Taking/PRN Benadryl , Not-Taking/PRN hydroCHLOROthiazide , Not-Taking/PRN Doxazosin Mesylate , Not-Taking/PRN Ammonium Lactate , Unknown Lunesta , Unknown Extra-Depth Diabetic Shoes with 3 Pair Custom heat-molded multi-density innersoles . . for 1 year . Dx:dayne , Unknown Simvastatin Objective: * Vitals: Assessment: Plan: * Treatment: * Images: * The named appointment provid er may or may not be the originator of this progress note, and it is not deemed complete until electronically signed by the appointment provider. Sign off status: Pending * Provider: Dyan Carr DPM Date: 0 12/14/2024 Generated for Amelia aguilar/Gerda/Manuel on: 1 04:05 PM EDT
--- OUTSIDE RECORDS SUMMARY | 2025-06-04 14:08 | XMS_ITS ---
Author Organization [facility] Address [address] [place] [address] Care Team Providers Care Broom Bundler Name Role Phone Akil MERCHANT, Monalisa Primary Care Provider Unavailabl e Black, Thea Unavailable [phone] Encounters Encounter Location Date Provider Diagnosis [facility] [address] [place] [address] 06/04/2025 Thea Black Plan Of Treatment No Information Progress Notes * Anita CHEEKDOB:[birth year] (75 yo F)Acc No.[id number]:06/04/2025 Patient: Anita TIAN :1950 A ge:75 Y S ex:Female Address:[address] [place] [id number] Subjective: * Chief Complaints: * * Medical History: * Surgical History: * Hospitalization/Major Diagno stic Procedure: * Medications: Objective: * Vitals: * Physical Examination: Assessment: Plan: * Treatment: * Procedure Codes: * * Date:
--- OUTSIDE RECORDS SUMMARY | 2025-06-15 09:00 | XMS_ITS ---
Author Organization [facility] [address] Address [address] [place] [address] Care Team Providers Care Environmental Director Name Role Phone KURTIS SHIELDS Unavailable [phone] Allergies No Known Allergies REASON FOR VISIT Pt is here for a follow up Medications Medication SIG (Take, Route, Frequency, Duration) Notes Start Date End Date Status Gabapentin 100 MG 1 capsule at bedtime Orally Once a day; Duration: 30 days 06/15/2025 Active Nitrofurantoin Monohyd Macro 100 MG TAKE 1 CAPSULE BY MOUTH TWICE A DAY Oral; Duration: 7 Days Active Mirtazapine 30 MG TAKE 1 TABLET BY GUERO TH EVERY NIGHT AT BEDTIME.; Duration: 90 Active Atorvastatin Calcium 20 MG 1 tablet Oral ly Once a day; Duration: 90 days Active metFORMIN HCl 500 MG TAKE 1 TABLET BY MO UTH EVERY DAY WITH A MEAL FOR 90 DAYS; Duration: 90 Active amLODIPine Besylate 5 MG TAKE 1 TABLET B Y MOUTH EVERY DAY; Duration: 90 Active Trintellix 20 MG TAKE 1 TABLET BY GUERO TH EVERY DAY; Duration: 30 Active Humira 40 mg SC Active Meclizine HCl 12.5 MG TAKE 1 TABLET BY M OUTH EVERY 12 HOURS NEEDED; Duration: 30 Active Acetaminophen 500 MG 1 capsule as needed Orally every 6 hrs prn Active traZODone HCl 100 MG TAKE 1 TABLET BY MO UTH EVERY DAY AT BEDTIME NEEDED FOR 30 DAYS 90 DAYS; Duration: 90 Active Methenamine Hippurate 1 GM TAKE 1 TABLET BY MOUTH TWICE A DAY TAKE WITH VITAMIN C OR CRANBERRY PILL Oral; Duration: 90 Days Active oxyBUTYnin Chloride ER 10 MG 1 tablet Orally Once a day Active Social History Tobacco Use: Social History Observation Description Date Details (start date - stop date) Former Smoker NA - NA Tobacco Use/Smoking Question Answer Notes Are you a former smoker Section Notes: ETOH Use: declines Tob Use: declines Drug Use: declines Caffeine Use: coffee Smoke detectors in home: Yes Seatbelt use: Yes Problems Problem Type SNOMED Code ICD Code Onset Dates Problem Status W/U Status Risk Notes Problem Obese class I ([id number]) BMI 33.0-33.9,a dult (Z68.33) Active confirmed Vital Signs Heart Rate 89 /min 06/15/2025 Blood pressure systolic 124 mm Hg 06/15/20 25 Blood pressure diastolic 82 mm Hg 025 Weight 216.3 lbs 06/15/2025 BMI 33.87 kg/m2 06/15/2025 Height 67 in 06/15/2025 Oximetry 97 % 06/15/2025 Encounters Encounter Location Date Provider Diagnosis [facility] [address] [place] [address] 06/15/2025 KURTIS SHIELDS Basal cell carcinoma (BCC) of skin of other part of face C44.319 ; Memory changes R41.3 ; Aortic root dilation I77.810 ; Dizziness R42 ; Encounter for examination of blood pressure without abnormal findings Z01.30 ; Family hx-stroke Z82.3 ; BMI 33.0-33.9,adult Z68.33 and Right shoulder pain, unspecified chronicity M25.511 Assessments Encounter Date Diagnosis (ICD Code) Assessment Notes Treatment Notes Treatment Clinical Notes Section Notes 06/15/2025 Basal cell carcinoma (BCC) of skin of other part of face (ICD-10 - C44.319) # Patient having right shoulder pain, taking Tylenol, avoiding NSAIDs secondary to kidney stones. States it is worse when she sleeps. Limited range of motion especially with overhead movements, and external rotation. States that sometimes the pain travels down her right arm. Prescribed gabapentin 100 mg at night to help with sleep secondary to the nerve discomfort, and order x-ray. Holding off on PT at this time, but low threshold for MRI to rule out rotator cuff etiology/referral to orthopedics for potential cortisone injection # Recurrent UTIs, currently being treated with nitrofurantoin from urology, as well as methenamine for prophylaxis. Did have an ultrasound of her bladder January 2025 showing a small stone, following with urology for this # Prediabetes A1c 6.5. Taking metformin 500 mg once daily, it is not interested in increasing dose but is inquiring about GLP-1's. She would like to establish with our weight loss program secondary to a BMI greater than 30, and can consider trialing GLP-1 such as Ozempic/Mounjaro secondary to elevated glucose and A1c values. Will establish at next availability # Mammogram February 2025, within normal limits due February 2026 # Patient did have an MRI of her brain on May 02, 2025 with concerns for small vessel ischemic changes and history of CVA. Following with neurology at [facility], getting scans of her brain vasculature tomorrow. Did discuss potential need for blood thinners, especially as her mother passed from a stroke. She is going to contact neurology and inquire about this # Follow with cardiology Dr. Blanton, scheduled for echocardiogram and Holter monitor to rule out atrial fibrillation. Patient is not driving. Next visit in 1 month, note scanned to chart and reviewed. # PHQ-9 with a total score of 5, going to try to establish with psychiatry. Medications discussed # Audit negative # Discussed healthcare proxy and MOLST form. # Follows with Dr. Adams for gastroenterology, will obtain colonoscopy record # Declined all other routine screenings and vaccines # Using a cane/walker at home, discussed fall prevention. # Hypertension: Stable on amlodipine 5 mg # Prediabetes: Repeat A1c in hospital December 2024 A1c 5.8. A1c increased to 6.5. Continue metformin 500 mg once daily, Not interested in increasing metformin, but inquiring about Mounjaro/Ozempic. Will establish for weight management consultation and consider secondary to elevated glucose as well at 144. This could also be in relation to her increased urinary frequency as well.To get on body composition scan before starting GLP-1. Discussed lifestyle. # Patient was under dermatology for lesion [...] 2025, patient states that symptoms have overall resolved,Follow-up with ENT March 2025. # Dizziness: Much better since discontinuing losartan/Benzodiazepi ne. Blood pressure stable. Heart murmur heard on [...] Blood pressure stable on amlodipine 5 mg. Ordered MRI of the brain May 02, 2025 showing microvascular changes. Following with neurology. # Sees neurology every 4 months.. History of MRI showing small vessel ischemia, and moderate diffuse brain atrophy and T2 hyperintensity in the white matter. No recent MRI of note. Patient does have some difficulty word finding, and has some silent spells. Had EEG which was negative, Patient following with neurology, has imaging scheduled for tomorrow. Considering potential blood thinners patient is going to discuss with cardiology/neurology. # Heart murmur: Echocardiogram demonstrates dilation of the aortic root, otherwise normal output. Lower extremities are without edema or rubor. Recent echocardiogram 2023 showing unchanged results.Cardiology ordered echocardiogram May 2025 # Bipolar: Recently seen by DO China Kaiesr at [facility]. Going to increase mirtazapine to 30 mg +7.5 mg tablets for a total of 37.5 mg. Discontinued alprazolam. Discussed psychotherapy.Trial increasing trazodone for sleep to 100 mg but patient did not tolerate well. Will discontinue trazodone and Trialed hydroxyzine 50 mg with some improvement, will increase to 50 to 100 mg as needed.. Avoid alprazolam secondary to beers list.Refer to psychiatrist at [facility]. Provided with phone number.Patient states that she will call.Referral to psych Placed last visit. # Anxiety: Patient suffers from agoraphobia. Rx for alprazolam PRN provided by Dr. Сергей Morrison,Provider retired, , Medication has been discontinued secondary to it being on the beers list, and risk outweighing benefit. Patient has been last fatigued, and memory has been better.Continue mirtazapine 30, Patient is going to contact psychiatry and therapy. Follow-up in 2 months for primary care, obtain x-ray of the right shoulder in the meantime, follow with urology, neurology, and cardiology. Also going to establish for weight consultation. Discussed emergency department criteria/criteria to call the office. Time, patient 60 minutes or greater than 50% on patient education and care coordination All quetsions answered to patients satisfaction. Patient verbalized understanding of diagnosis and treatments explained. To call sooner prior to next visit it any questions/concerns arise. Case discussed with collaborating physician Tiffanie Barnard who reviewed the assessment and plan. Chart, medications, labs, vital signs reviewed. Dictation was accomplished with the use of [employer] voice recognition software, prone to medical misidentifications and grammatical errors. This is unintentional and the practitioner does try to identify and correct these, but some could still be present. Please do not hesitate to contact practitioner for clarification. 06/15/2025 Memory changes (ICD-10 - R41.3) # Patient having right shoulder pain, taking Tylenol, avoiding NSAIDs secondary to kidney stones. States it is worse when she sleeps. Limited range of motion especially with overhead movements, and external rotation. States that sometimes the pain travels down her right arm. Prescribed gabapentin 100 mg at night to help with sleep secondary to the nerve discomfort, and order x-ray. Holding off on PT at this time, but low threshold for MRI to rule out rotator cuff etiology/referral to orthopedics for potential cortisone injection # Recurrent UTIs, currently being treated with nitrofurantoin from urology, as well as methenamine for prophylaxis. Did have an ultrasound of her bladder January 2025 showing a small stone, following with urology for this # Prediabetes A1c 6.5. Taking metformin 500 mg once daily, it is not interested in increasing dose but is inquiring about GLP-1's. She would like to establish with our weight loss program secondary to a BMI greater than 30, and can consider trialing GLP-1 such as Ozempic/Mounjaro secondary to elevated glucose and A1c values. Will establish at next availability # Mammogram February 2025, within normal limits due February 2026 # Patient did have an MRI of her brain on May 02, 2025 with concerns for small vessel ischemic changes and history of CVA. Following with neurology at [facility], getting scans of her brain vasculature tomorrow. Did discuss potential need for blood thinners, especially as her mother passed from a stroke. She is going to contact neurology and inquire about this # Follow with cardiology Dr. Blanton, scheduled for echocardiogram and Holter monitor to rule out atrial fibrillation. Patient is not driving. Next visit in 1 month, note scanned to chart and reviewed. # PHQ-9 with a total score of 5, going to try to establish with psychiatry. Medications discussed # Audit negative # Discussed healthcare proxy and MOLST form. # Follows with Dr. Adams for gastroenterology, will obtain colonoscopy record # Declined all other routine screenings and vaccines # Using a cane/walker at home, discussed fall prevention. # Hypertension: Stable on amlodipine 5 mg # Prediabetes: Repeat A1c in hospital December 2024 A1c 5.8. A1c increased to 6.5. Continue metformin 500 mg once daily, Not interested in increasing metformin, but inquiring about Mounjaro/Ozempic. Will establish for weight management consultation and consider secondary to elevated glucose as well at 144. This could also be in relation to her increased urinary frequency as well.To get on body composition scan before starting GLP-1. Discussed lifestyle. # Patient was under dermatology for lesion [...] 2025, patient states that symptoms have overall resolved,Follow-up with ENT March 2025. # Dizziness: Much better since discontinuing losartan/Benzodiazepi ne. Blood pressure stable. Heart murmur heard on [...] Blood pressure stable on amlodipine 5 mg. Ordered MRI of the brain May 02, 2025 showing microvascular changes. Following with neurology. # Sees neurology every 4 months.. History of MRI showing small vessel ischemia, and moderate diffuse brain atrophy and T2 hyperintensity in the white matter. No recent MRI of note. Patient does have some difficulty word finding, and has some silent spells. Had EEG which was negative, Patient following with neurology, has imaging scheduled for tomorrow. Considering potential blood thinners patient is going to discuss with cardiology/neurology. # Heart murmur: Echocardiogram demonstrates dilation of the aortic root, otherwise normal output. Lower extremities are without edema or rubor. Recent echocardiogram 2023 showing unchanged results.Cardiology ordered echocardiogram May 2025 # Bipolar: Recently seen by DO China Kaiser at [facility]. Going to increase mirtazapine to 30 mg +7.5 mg tablets for a total of 37.5 mg. Discontinued alprazolam. Discussed psychotherapy.Trial increasing trazodone for sleep to 100 mg but patient did not tolerate well. Will discontinue trazodone and Trialed hydroxyzine 50 mg with some improvement, will increase to 50 to 100 mg as needed.. Avoid alprazolam secondary to beers list.Refer to psychiatrist at [facility]. Provided with phone number.Patient states that she will call.Referral to psych Placed last visit. # Anxiety: Patient suffers from agoraphobia. Rx for alprazolam PRN provided by Dr. Сергей Morrison,Provider retired, , Medication has been discontinued secondary to it being on the beers list, and risk outweighing benefit. Patient has been last fatigued, and memory has been better.Continue mirtazapine 30, Patient is going to contact psychiatry and therapy. Follow-up in 2 months for primary care, obtain x-ray of the right shoulder in the meantime, follow with urology, neurology, and cardiology. Also going to establish for weight consultation. Discussed emergency department criteria/criteria to call the office. Time, patient 60 minutes or greater than 50% on patient education and care coordination All quetsions answered to patients satisfaction. Patient verbalized understanding of diagnosis and treatments explained. To call sooner prior to next visit it any questions/concerns arise. Case discussed with collaborating physician Tiffanie Barnard who reviewed the assessment and plan. Chart, medications, labs, vital signs reviewed. Dictation was accomplished with the use of [employer] voice recognition software, prone to medical misidentifications and grammatical errors. This is unintentional and the practitioner does try to identify and correct these, but some could still be present. Please do not hesitate to contact practitioner for clarification. 06/15/2025 Aortic root dilation (ICD-10 - I77.810) # Patient having right shoulder pain, taking Tylenol, avoiding NSAIDs secondary to kidney stones. States it is worse when she sleeps. Limited range of motion especially with overhead movements, and external rotation. States that sometimes the pain travels down her right arm. Prescribed gabapentin 100 mg at night to help with sleep secondary to the nerve discomfort, and order x-ray. Holding off on PT at this time, but low threshold for MRI to rule out rotator cuff etiology/referral to orthopedics for potential cortisone injection # Recurrent UTIs, currently being treated with nitrofurantoin from urology, as well as methenamine for prophylaxis. Did have an ultrasound of her bladder January 2025 showing a small stone, following with urology for this # Prediabetes A1c 6.5. Taking metformin 500 mg once daily, it is not interested in increasing dose but is inquiring about GLP-1's. She would like to establish with our weight loss program secondary to a BMI greater than 30, and can consider trialing GLP-1 such as Ozempic/Mounjaro secondary to elevated glucose and A1c values. Will establish at next availability # Mammogram February 2025, within normal limits due February 2026 # Patient did have an MRI of her brain on May 02, 2025 with concerns for small vessel ischemic changes and history of CVA. Following with neurology at [facility], getting scans of her brain vasculature tomorrow. Did discuss potential need for blood thinners, especially as her mother passed from a stroke. She is going to contact neurology and inquire about this # Follow with cardiology Dr. Blanton, scheduled for echocardiogram and Holter monitor to rule out atrial fibrillation. Patient is not driving. Next visit in 1 month, note scanned to chart and reviewed. # PHQ-9 with a total score of 5, going to try to establish with psychiatry. Medications discussed # Audit negative # Discussed healthcare proxy and MOLST form. # Follows with Dr. Adams for gastroenterology, will obtain colonoscopy record # Declined all other routine screenings and vaccines # Using a cane/walker at home, discussed fall prevention. # Hypertension: Stable on amlodipine 5 mg # Prediabetes: Repeat A1c in hospital December 2024 A1c 5.8. A1c increased to 6.5. Continue metformin 500 mg once daily, Not interested in increasing metformin, but inquiring about Mounjaro/Ozempic. Will establish for weight management consultation and consider secondary to elevated glucose as well at 144. This could also be in relation to her increased urinary frequency as well.To get on body composition scan before starting GLP-1. Discussed lifestyle. # Patient was under dermatology for lesion [...] 2025, patient states that symptoms have overall resolved,Follow-up with ENT March 2025. # Dizziness: Much better since discontinuing losartan/Benzodiazepi ne. Blood pressure stable. Heart murmur heard on [...] Blood pressure stable on amlodipine 5 mg. Ordered MRI of the brain May 02, 2025 showing microvascular changes. Following with neurology. # Sees neurology every 4 months.. History of MRI showing small vessel ischemia, and moderate diffuse brain atrophy and T2 hyperintensity in the white matter. No recent MRI of note. Patient does have some difficulty word finding, and has some silent spells. Had EEG which was negative, Patient following with neurology, has imaging scheduled for tomorrow. Considering potential blood thinners patient is going to discuss with cardiology/neurology. # Heart murmur: Echocardiogram demonstrates dilation of the aortic root, otherwise normal output. Lower extremities are without edema or rubor. Recent echocardiogram 2023 showing unchanged results.Cardiology ordered echocardiogram May 2025 # Bipolar: Recently seen by DO China Kaiser at [facility]. Going to increase mirtazapine to 30 mg +7.5 mg tablets for a total of 37.5 mg. Discontinued alprazolam. Discussed psychotherapy.Trial increasing trazodone for sleep to 100 mg but patient did not tolerate well. Will discontinue trazodone and Trialed hydroxyzine 50 mg with some improvement, will increase to 50 to 100 mg as needed.. Avoid alprazolam secondary to beers list.Refer to psychiatrist at [facility]. Provided with phone number.Patient states that she will call.Referral to psych Placed last visit. # Anxiety: Patient suffers from agoraphobia. Rx for alprazolam PRN provided by Dr. Сергей Morrison,Provider retired, , Medication has been discontinued secondary to it being on the beers list, and risk outweighing benefit. Patient has been last fatigued, and memory has been better.Continue mirtazapine 30, Patient is going to contact psychiatry and therapy. Follow-up in 2 months for primary care, obtain x-ray of the right shoulder in the meantime, follow with urology, neurology, and cardiology. Also going to establish for weight consultation. Discussed emergency department criteria/criteria to call the office. Time, patient 60 minutes or greater than 50% on patient education and care coordination All quetsions answered to patients satisfaction. Patient verbalized understanding of diagnosis and treatments explained. To call sooner prior to next visit it any questions/concerns arise. Case discussed with collaborating physician Tiffanie Barnard who reviewed the assessment and plan. Chart, medications, labs, vital signs reviewed. Dictation was accomplished with the use of [employer] voice recognition software, prone to medical misidentifications and grammatical errors. This is unintentional and the practitioner does try to identify and correct these, but some could still be present. Please do not hesitate to contact practitioner for clarification. 06/15/2025 Dizziness (ICD-10 - R42) # Patient having right shoulder pain, taking Tylenol, avoiding NSAIDs secondary to kidney stones. States it is worse when she sleeps. Limited range of motion especially with overhead movements, and external rotation. States that sometimes the pain travels down her right arm. Prescribed gabapentin 100 mg at night to help with sleep secondary to the nerve discomfort, and order x-ray. Holding off on PT at this time, but low threshold for MRI to rule out rotator cuff etiology/referral to orthopedics for potential cortisone injection # Recurrent UTIs, currently being treated with nitrofurantoin from urology, as well as methenamine for prophylaxis. Did have an ultrasound of her bladder January 2025 showing a small stone, following with urology for this # Prediabetes A1c 6.5. Taking metformin 500 mg once daily, it is not interested in increasing dose but is inquiring about GLP-1's. She would like to establish with our weight loss program secondary to a BMI greater than 30, and can consider trialing GLP-1 such as Ozempic/Mounjaro secondary to elevated glucose and A1c values. Will establish at next availability # Mammogram February 2025, within normal limits due February 2026 # Patient did have an MRI of her brain on May 02, 2025 with concerns for small vessel ischemic changes and history of CVA. Following with neurology at [facility], getting scans of her brain vasculature tomorrow. Did discuss potential need for blood thinners, especially as her mother passed from a stroke. She is going to contact neurology and inquire about this # Follow with cardiology Dr. Blanton, scheduled for echocardiogram and Holter monitor to rule out atrial fibrillation. Patient is not driving. Next visit in 1 month, note scanned to chart and reviewed. # PHQ-9 with a total score of 5, going to try to establish with psychiatry. Medications discussed # Audit negative # Discussed healthcare proxy and MOLST form. # Follows with Dr. Adams for gastroenterology, will obtain colonoscopy record # Declined all other routine screenings and vaccines # Using a cane/walker at home, discussed fall prevention. # Hypertension: Stable on amlodipine 5 mg # Prediabetes: Repeat A1c in hospital December 2024 A1c 5.8. A1c increased to 6.5. Continue metformin 500 mg once daily, Not interested in increasing metformin, but inquiring about Mounjaro/Ozempic. Will establish for weight management consultation and consider secondary to elevated glucose as well at 144. This could also be in relation to her increased urinary frequency as well.To get on body composition scan before starting GLP-1. Discussed lifestyle. # Patient was under dermatology for lesion [...] 2025, patient states that symptoms have overall resolved,Follow-up with ENT March 2025. # Dizziness: Much better since discontinuing losartan/Benzodiazepi ne. Blood pressure stable. Heart murmur heard on [...] Blood pressure stable on amlodipine 5 mg. Ordered MRI of the brain May 02, 2025 showing microvascular changes. Following with neurology. # Sees neurology every 4 months.. History of MRI showing small vessel ischemia, and moderate diffuse brain atrophy and T2 hyperintensity in the white matter. No recent MRI of note. Patient does have some difficulty word finding, and has some silent spells. Had EEG which was negative, Patient following with neurology, has imaging scheduled for tomorrow. Considering potential blood thinners patient is going to discuss with cardiology/neurology. # Heart murmur: Echocardiogram demonstrates dilation of the aortic root, otherwise normal output. Lower extremities are without edema or rubor. Recent echocardiogram 2023 showing unchanged results.Cardiology ordered echocardiogram May 2025 # Bipolar: Recently seen by DO China Kaiser at [facility]. Going to increase mirtazapine to 30 mg +7.5 mg tablets for a total of 37.5 mg. Discontinued alprazolam. Discussed psychotherapy.Trial increasing trazodone for sleep to 100 mg but patient did not tolerate well. Will discontinue trazodone and Trialed hydroxyzine 50 mg with some improvement, will increase to 50 to 100 mg as needed.. Avoid alprazolam secondary to beers list.Refer to psychiatrist at [facility]. Provided with phone number.Patient states that she will call.Referral to psych Placed last visit. # Anxiety: Patient suffers from agoraphobia. Rx for alprazolam PRN provided by Dr. Сергей Morrison,Provider retired, , Medication has been discontinued secondary to it being on the beers list, and risk outweighing benefit. Patient has been last fatigued, and memory has been better.Continue mirtazapine 30, Patient is going to contact psychiatry and therapy. Follow-up in 2 months for primary care, obtain x-ray of the right shoulder in the meantime, follow with urology, neurology, and cardiology. Also going to establish for weight consultation. Discussed emergency department criteria/criteria to call the office. Time, patient 60 minutes or greater than 50% on patient education and care coordination All quetsions answered to patients satisfaction. Patient verbalized understanding of diagnosis and treatments explained. To call sooner prior to next visit it any questions/concerns arise. Case discussed with collaborating physician Tiffanie Barnard who reviewed the assessment and plan. Chart, medications, labs, vital signs reviewed. Dictation was accomplished with the use of [employer] voice recognition software, prone to medical misidentifications and grammatical errors. This is unintentional and the practitioner does try to identify and correct these, but some could still be present. Please do not hesitate to contact practitioner for clarification. 06/15/2025 Encounter for examination of blood pressure without abnormal findings (ICD-10 - Z01.30) # Patient having right shoulder pain, taking Tylenol, avoiding NSAIDs secondary to kidney stones. States it is worse when she sleeps. Limited range of motion especially with overhead movements, and external rotation. States that sometimes the pain travels down her right arm. Prescribed gabapentin 100 mg at night to help with sleep secondary to the nerve discomfort, and order x-ray. Holding off on PT at this time, but low threshold for MRI to rule out rotator cuff etiology/referral to orthopedics for potential cortisone injection # Recurrent UTIs, currently being treated with nitrofurantoin from urology, as well as methenamine for prophylaxis. Did have an ultrasound of her bladder January 2025 showing a small stone, following with urology for this # Prediabetes A1c 6.5. Taking metformin 500 mg once daily, it is not interested in increasing dose but is inquiring about GLP-1's. She would like to establish with our weight loss program secondary to a BMI greater than 30, and can consider trialing GLP-1 such as Ozempic/Mounjaro secondary to elevated glucose and A1c values. Will establish at next availability # Mammogram February 2025, within normal limits due February 2026 # Patient did have an MRI of her brain on May 02, 2025 with concerns for small vessel ischemic changes and history of CVA. Following with neurology at [facility], getting scans of her brain vasculature tomorrow. Did discuss potential need for blood thinners, especially as her mother passed from a stroke. She is going to contact neurology and inquire about this # Follow with cardiology Dr. Blanton, scheduled for echocardiogram and Holter monitor to rule out atrial fibrillation. Patient is not driving. Next visit in 1 month, note scanned to chart and reviewed. # PHQ-9 with a total score of 5, going to try to establish with psychiatry. Medications discussed # Audit negative # Discussed healthcare proxy and MOLST form. # Follows with Dr. Adams for gastroenterology, will obtain colonoscopy record # Declined all other routine screenings and vaccines # Using a cane/walker at home, discussed fall prevention. # Hypertension: Stable on amlodipine 5 mg # Prediabetes: Repeat A1c in hospital December 2024 A1c 5.8. A1c increased to 6.5. Continue metformin 500 mg once daily, Not interested in increasing metformin, but inquiring about Mounjaro/Ozempic. Will establish for weight management consultation and consider secondary to elevated glucose as well at 144. This could also be in relation to her increased urinary frequency as well.To get on body composition scan before starting GLP-1. Discussed lifestyle. # Patient was under dermatology for lesion [...] 2025, patient states that symptoms have overall resolved,Follow-up with ENT March 2025. # Dizziness: Much better since discontinuing losartan/Benzodiazepi ne. Blood pressure stable. Heart murmur heard on exam. Previous echocardiogram showed normal output with some dilation of the aortic root. MRI 10/2022 demonstrated small vessel ischemia, patient currently on statin therpay and aspirin. Has tried vestibular therapy, however no longer following. Meclizine does not provide adequate releif per patient. Patient was discharged with at home PT/OT, and MD nursing twice weekly, and home health aide. [...] Blood pressure stable on amlodipine 5 mg. Ordered MRI of the brain May 02, 2025 showing microvascular changes. Following with neurology. # Sees neurology every 4 months.. History of MRI showing small vessel ischemia, and moderate diffuse brain atrophy and T2 hyperintensity in the white matter. No recent MRI of note. Patient does have some difficulty word finding, and has some silent spells. Had EEG which was negative, Patient following with neurology, has imaging scheduled for tomorrow. Considering potential blood thinners patient is going to discuss with cardiology/neurology. # Heart murmur: Echocardiogram demonstrates dilation of the aortic root, otherwise normal output. Lower extremities are without edema or rubor. Recent echocardiogram 2023 showing unchanged results.Cardiology ordered echocardiogram May 2025 # Bipolar: Recently seen by DO China Kaiser at [facility]. Going to increase mirtazapine to 30 mg +7.5 mg tablets for a total of 37.5 mg. Discontinued alprazolam. Discussed psychotherapy.Trial increasing trazodone for sleep to 100 mg but patient did not tolerate well. Will discontinue trazodone and Trialed hydroxyzine 50 mg with some improvement, will increase to 50 to 100 mg as needed.. Avoid alprazolam secondary to beers list.Refer to psychiatrist at [facility]. Provided with phone number.Patient states that she will call.Referral to psych Placed last visit. # Anxiety: Patient suffers from agoraphobia. Rx for alprazolam PRN provided by Dr. Сергей Morrison,Provider retired, , Medication has been discontinued secondary to it being on the beers list, and risk outweighing benefit. Patient has been last fatigued, and memory has been better.Continue mirtazapine 30, Patient is going to contact psychiatry and therapy. Follow-up in 2 months for primary care, obtain x-ray of the right shoulder in the meantime, follow with urology, neurology, and cardiology. Also going to establish for weight consultation. Discussed emergency department criteria/criteria to call the office. Time, patient 60 minutes or greater than 50% on patient education and care coordination All quetsions answered to patients satisfaction. Patient verbalized understanding of diagnosis and treatments explained. To call sooner prior to next visit it any questions/concerns arise. Case discussed with collaborating physician Tiffanie Barnard who reviewed the assessment and plan. Chart, medications, labs, vital signs reviewed. Dictation was accomplished with the use of [employer] voice recognition software, prone to medical misidentifications and grammatical errors. This is unintentional and the practitioner does try to identify and correct these, but some could still be present. Please do not hesitate to contact practitioner for clarification. 06/15/2025 Family hx-stroke (ICD-10 - Z82.3) # Patient having right shoulder pain, taking Tylenol, avoiding NSAIDs secondary to kidney stones. States it is worse when she sleeps. Limited range of motion especially with overhead movements, and external rotation. States that sometimes the pain travels down her right arm. Prescribed gabapentin 100 mg at night to help with sleep secondary to the nerve discomfort, and order x-ray. Holding off on PT at this time, but low threshold for MRI to rule out rotator cuff etiology/referral to orthopedics for potential cortisone injection # Recurrent UTIs, currently being treated with nitrofurantoin from urology, as well as methenamine for prophylaxis. Did have an ultrasound of her bladder January 2025 showing a small stone, following with urology for this # Prediabetes A1c 6.5. Taking metformin 500 mg once daily, it is not interested in increasing dose but is inquiring about GLP-1's. She would like to establish with our weight loss program secondary to a BMI greater than 30, and can consider trialing GLP-1 such as Ozempic/Mounjaro secondary to elevated glucose and A1c values. Will establish at next availability # Mammogram February 2025, within normal limits due February 2026 # Patient did have an MRI of her brain on May 02, 2025 with concerns for small vessel ischemic changes and history of CVA. Following with neurology at [facility], getting scans of her brain vasculature tomorrow. Did discuss potential need for blood thinners, especially as her mother passed from a stroke. She is going to contact neurology and inquire about this # Follow with cardiology Dr. Blanton, scheduled for echocardiogram and Holter monitor to rule out atrial fibrillation. Patient is not driving. Next visit in 1 month, note scanned to chart and reviewed. # PHQ-9 with a total score of 5, going to try to establish with psychiatry. Medications discussed # Audit negative # Discussed healthcare proxy and MOLST form. # Follows with Dr. Adams for gastroenterology, will obtain colonoscopy record # Declined all other routine screenings and vaccines # Using a cane/walker at home, discussed fall prevention. # Hypertension: Stable on amlodipine 5 mg # Prediabetes: Repeat A1c in hospital December 2024 A1c 5.8. A1c increased to 6.5. Continue metformin 500 mg once daily, Not interested in increasing metformin, but inquiring about Mounjaro/Ozempic. Will establish for weight management consultation and consider secondary to elevated glucose as well at 144. This could also be in relation to her increased urinary frequency as well.To get on body composition scan before starting GLP-1. Discussed lifestyle. # Patient was under dermatology for lesion [...] 2025, patient states that symptoms have overall resolved,Follow-up with ENT March 2025. # Dizziness: Much better since discontinuing losartan/Benzodiazepi ne. Blood pressure stable. Heart murmur heard on exam. Previous echocardiogram showed normal output with some dilation of the aortic root. MRI 10/2022 demonstrated small vessel ischemia, patient currently on statin therpay and aspirin. Has tried vestibular therapy, however no longer following. Meclizine does not provide adequate releif per patient. Patient was discharged with at home PT/OT, and [facility] nursing twice weekly, and home health aide. [...] Blood pressure stable on amlodipine 5 mg. Ordered MRI of the brain May 02, 2025 showing microvascular changes. Following with neurology. # Sees neurology every 4 months.. History of MRI showing small vessel ischemia, and moderate diffuse brain atrophy and T2 hyperintensity in the white matter. No recent MRI of note. Patient does have some difficulty word finding, and has some silent spells. Had EEG which was negative, Patient following with neurology, has imaging scheduled for tomorrow. Considering potential blood thinners patient is going to discuss with cardiology/neurology. # Heart murmur: Echocardiogram demonstrates dilation of the aortic root, otherwise normal output. Lower extremities are without edema or rubor. Recent echocardiogram 2023 showing unchanged results.Cardiology ordered echocardiogram May 2025 # Bipolar: Recently seen by DO China Kaiser at [facility]. Going to increase mirtazapine to 30 mg +7.5 mg tablets for a total of 37.5 mg. Discontinued alprazolam. Discussed psychotherapy.Trial increasing trazodone for sleep to 100 mg but patient did not tolerate well. Will discontinue trazodone and Trialed hydroxyzine 50 mg with some improvement, will increase to 50 to 100 mg as needed.. Avoid alprazolam secondary to beers list.Refer to psychiatrist at [facility]. Provided with phone number.Patient states that she will call.Referral to psych Placed last visit. # Anxiety: Patient suffers from agoraphobia. Rx for alprazolam PRN provided by Dr. Сергей Morrison,Provider retired, , Medication has been discontinued secondary to it being on the beers list, and risk outweighing benefit. Patient has been last fatigued, and memory has been better.Continue mirtazapine 30, Patient is going to contact psychiatry and therapy. Follow-up in 2 months for primary care, obtain x-ray of the right shoulder in the meantime, follow with urology, neurology, and cardiology. Also going to establish for weight consultation. Discussed emergency department criteria/criteria to call the office. Time, patient 60 minutes or greater than 50% on patient education and care coordination All quetsions answered to patients satisfaction. Patient verbalized understanding of diagnosis and treatments explained. To call sooner prior to next visit it any questions/concerns arise. Case discussed with collaborating physician Tiffanie Barnard who reviewed the assessment and plan. Chart, medications, labs, vital signs reviewed. Dictation was accomplished with the use of [employer] voice recognition software, prone to medical misidentifications and grammatical errors. This is unintentional and the practitioner does try to identify and correct these, but some could still be present. Please do not hesitate to contact practitioner for clarification. 06/15/2025 BMI 33.0-33.9,adul t (ICD-10 - Z68.33) # Patient having right shoulder pain, taking Tylenol, avoiding NSAIDs secondary to kidney stones. States it is worse when she sleeps. Limited range of motion especially with overhead movements, and external rotation. States that sometimes the pain travels down her right arm. Prescribed gabapentin 100 mg at night to help with sleep secondary to the nerve discomfort, and order x-ray. Holding off on PT at this time, but low threshold for MRI to rule out rotator cuff etiology/referral to orthopedics for potential cortisone injection # Recurrent UTIs, currently being treated with nitrofurantoin from urology, as well as methenamine for prophylaxis. Did have an ultrasound of her bladder January 2025 showing a small stone, following with urology for this # Prediabetes A1c 6.5. Taking metformin 500 mg once daily, it is not interested in increasing dose but is inquiring about GLP-1's. She would like to establish with our weight loss program secondary to a BMI greater than 30, and can consider trialing GLP-1 such as Ozempic/Mounjaro secondary to elevated glucose and A1c values. Will establish at next availability # Mammogram February 2025, within normal limits due February 2026 # Patient did have an MRI of her brain on May 02, 2025 with concerns for small vessel ischemic changes and history of CVA. Following with neurology at [facility], getting scans of her brain vasculature tomorrow. Did discuss potential need for blood thinners, especially as her mother passed from a stroke. She is going to contact neurology and inquire about this # Follow with cardiology Dr. Blanton, scheduled for echocardiogram and Holter monitor to rule out atrial fibrillation. Patient is not driving. Next visit in 1 month, note scanned to chart and reviewed. # PHQ-9 with a total score of 5, going to try to establish with psychiatry. Medications discussed # Audit negative # Discussed healthcare proxy and MOLST form. # Follows with Dr. Adams for gastroenterology, will obtain colonoscopy record # Declined all other routine screenings and vaccines # Using a cane/walker at home, discussed fall prevention. # Hypertension: Stable on amlodipine 5 mg # Prediabetes: Repeat A1c in hospital December 2024 A1c 5.8. A1c increased to 6.5. Continue metformin 500 mg once daily, Not interested in increasing metformin, but inquiring about Mounjaro/Ozempic. Will establish for weight management consultation and consider secondary to elevated glucose as well at 144. This could also be in relation to her increased urinary frequency as well.To get on body composition scan before starting GLP-1. Discussed lifestyle. # Patient was under dermatology for lesion [...] 2025, patient states that symptoms have overall resolved,Follow-up with ENT March 2025. # Dizziness: Much better since discontinuing losartan/Benzodiazepi ne. Blood pressure stable. Heart murmur heard on exam. Previous echocardiogram showed normal output with some dilation of the aortic root. MRI 10/2022 demonstrated small vessel ischemia, patient currently on statin therpay and aspirin. Has tried vestibular therapy, however no longer following. Meclizine does not provide adequate releif per patient. Patient was discharged with at home PT/OT, and MD nursing twice weekly, and home health aide. [...] Blood pressure stable on amlodipine 5 mg. Ordered MRI of the brain May 02, 2025 showing microvascular changes. Following with neurology. # Sees neurology every 4 months.. History of MRI showing small vessel ischemia, and moderate diffuse brain atrophy and T2 hyperintensity in the white matter. No recent MRI of note. Patient does have some difficulty word finding, and has some silent spells. Had EEG which was negative, Patient following with neurology, has imaging scheduled for tomorrow. Considering potential blood thinners patient is going to discuss with cardiology/neurology. # Heart murmur: Echocardiogram demonstrates dilation of the aortic root, otherwise normal output. Lower extremities are without edema or rubor. Recent echocardiogram 2023 showing unchanged results.Cardiology ordered echocardiogram May 2025 # Bipolar: Recently seen by DO China Kaiser at [facility]. Going to increase mirtazapine to 30 mg +7.5 mg tablets for a total of 37.5 mg. Discontinued alprazolam. Discussed psychotherapy.Trial increasing trazodone for sleep to 100 mg but patient did not tolerate well. Will discontinue trazodone and Trialed hydroxyzine 50 mg with some improvement, will increase to 50 to 100 mg as needed.. Avoid alprazolam secondary to beers list.Refer to psychiatrist at [facility]. Provided with phone number.Patient states that she will call.Referral to psych Placed last visit. # Anxiety: Patient suffers from agoraphobia. Rx for alprazolam PRN provided by Dr. Сергей Morrison,Provider retired, , Medication has been discontinued secondary to it being on the beers list, and risk outweighing benefit. Patient has been last fatigued, and memory has been better.Continue mirtazapine 30, Patient is going to contact psychiatry and therapy. Follow-up in 2 months for primary care, obtain x-ray of the right shoulder in the meantime, follow with urology, neurology, and cardiology. Also going to establish for weight consultation. Discussed emergency department criteria/criteria to call the office. Time, patient 60 minutes or greater than 50% on patient education and care coordination All quetsions answered to patients satisfaction. Patient verbalized understanding of diagnosis and treatments explained. To call sooner prior to next visit it any questions/concerns arise. Case discussed with collaborating physician Tiffanie Barnard who reviewed the assessment and plan. Chart, medications, labs, vital signs reviewed. Dictation was accomplished with the use of [employer] voice recognition software, prone to medical misidentifications and grammatical errors. This is unintentional and the practitioner does try to identify and correct these, but some could still be present. Please do not hesitate to contact practitioner for clarification. 06/15/2025 Right shoulder pain, unspecified chronicity (ICD-10 - M25.511) # Patient having right shoulder pain, taking Tylenol, avoiding NSAIDs secondary to kidney stones. States it is worse when she sleeps. Limited range of motion especially with overhead movements, and external rotation. States that sometimes the pain travels down her right arm. Prescribed gabapentin 100 mg at night to help with sleep secondary to the nerve discomfort, and order x-ray. Holding off on PT at this time, but low threshold for MRI to rule out rotator cuff etiology/referral to orthopedics for potential cortisone injection # Recurrent UTIs, currently being treated with nitrofurantoin from urology, as well as methenamine for prophylaxis. Did have an ultrasound of her bladder January 2025 showing a small stone, following with urology for this # Prediabetes A1c 6.5. Taking metformin 500 mg once daily, it is not interested in increasing dose but is inquiring about GLP-1's. She would like to establish with our weight loss program secondary to a BMI greater than 30, and can consider trialing GLP-1 such as Ozempic/Mounjaro secondary to elevated glucose and A1c values. Will establish at next availability # Mammogram February 2025, within normal limits due February 2026 # Patient did have an MRI of her brain on May 02, 2025 with concerns for small vessel ischemic changes and history of CVA. Following with neurology at [facility], getting scans of her brain vasculature tomorrow. Did discuss potential need for blood thinners, especially as her mother passed from a stroke. She is going to contact neurology and inquire about this # Follow with cardiology Dr. Blanton, scheduled for echocardiogram and Holter monitor to rule out atrial fibrillation. Patient is not driving. Next visit in 1 month, note scanned to chart and reviewed. # PHQ-9 with a total score of 5, going to try to establish with psychiatry. Medications discussed # Audit negative # Discussed healthcare proxy and MOLST form. # Follows with Dr. Adams for gastroenterology, will obtain colonoscopy record # Declined all other routine screenings and vaccines # Using a cane/walker at home, discussed fall prevention. # Hypertension: Stable on amlodipine 5 mg # Prediabetes: Repeat A1c in hospital December 2024 A1c 5.8. A1c increased to 6.5. Continue metformin 500 mg once daily, Not interested in increasing metformin, but inquiring about Mounjaro/Ozempic. Will establish for weight management consultation and consider secondary to elevated glucose as well at 144. This could also be in relation to her increased urinary frequency as well.To get on body composition scan before starting GLP-1. Discussed lifestyle. # Patient was under dermatology for lesion [...] 2025, patient states that symptoms have overall resolved,Follow-up with ENT March 2025. # Dizziness: Much better since discontinuing losartan/Benzodiazepi ne. Blood pressure stable. Heart murmur heard on [...] Blood pressure stable on amlodipine 5 mg. Ordered MRI of the brain May 02, 2025 showing microvascular changes. Following with neurology. # Sees neurology every 4 months.. History of MRI showing small vessel ischemia, and moderate diffuse brain atrophy and T2 hyperintensity in the white matter. No recent MRI of note. Patient does have some difficulty word finding, and has some silent spells. Had EEG which was negative, Patient following with neurology, has imaging scheduled for tomorrow. Considering potential blood thinners patient is going to discuss with cardiology/neurology. # Heart murmur: Echocardiogram demonstrates dilation of the aortic root, otherwise normal output. Lower extremities are without edema or rubor. Recent echocardiogram 2023 showing unchanged results.Cardiology ordered echocardiogram May 2025 # Bipolar: Recently seen by DO China Kaiser at [facility]. Going to increase mirtazapine to 30 mg +7.5 mg tablets for a total of 37.5 mg. Discontinued alprazolam. Discussed psychotherapy.Trial increasing trazodone for sleep to 100 mg but patient did not tolerate well. Will discontinue trazodone and Trialed hydroxyzine 50 mg with some improvement, will increase to 50 to 100 mg as needed.. Avoid alprazolam secondary to beers list.Refer to psychiatrist at [facility]. Provided with phone number.Patient states that she will call.Referral to psych Placed last visit. # Anxiety: Patient suffers from agoraphobia. Rx for alprazolam PRN provided by Dr. Сергей Morrison,Provider retired, , Medication has been discontinued secondary to it being on the beers list, and risk outweighing benefit. Patient has been last fatigued, and memory has been better.Continue mirtazapine 30, Patient is going to contact psychiatry and therapy. Follow-up in 2 months for primary care, obtain x-ray of the right shoulder in the meantime, follow with urology, neurology, and cardiology. Also going to establish for weight consultation. Discussed emergency department criteria/criteria to call the office. Time, patient 60 minutes or greater than 50% on patient education and care coordination All quetsions answered to patients satisfaction. Patient verbalized understanding of diagnosis and treatments explained. To call sooner prior to next visit it any questions/concerns arise. Case discussed with collaborating physician Tiffanie Barnard who reviewed the assessment and plan. Chart, medications, labs, vital signs reviewed. Dictation was accomplished with the use of [employer] voice recognition software, prone to medical misidentifications and grammatical errors. This is unintentional and the practitioner does try to identify and correct these, but some could still be present. Please do not hesitate to contact practitioner for clarification. Plan Of Treatment Medication Medication Name Sig Start Date Stop Date Notes Gabapentin 100 MG 1 capsule at bedtime Orally Once a day; Duration: 30 days 06/15/2025 Pending Test Test Name Order Date XR Shoulder 2+ Views RT 06/15/2025 Next Appt Details Provider Name:KURTIS SHIELDS, 08/15/2025 01:00:00 PM, [address], [place], [id number], Progress Notes * Almas TRAVIS:[birth year] (75 yo F)Acc No.[id number]:06/15/2025 Progress Notes Patient: Anita TIAN Provider: Jose BARKER PA-C :1950 A ge:75 Y S ex:Female Date:06/15/2025 Address:[address] [place], [place] [id number] Subjective: * Chief Complaints: * 1 . Pt is here for a follow up. * HPI: C onstitutional: Peg is a pleasant 75-year-old female who presents to the office for a follow-up visit. Past medical history including but not limited to hypertension, hyperlipidemia, hemorrhoids, constipation, kidney stones, depression, anxiety, Crohn's disease, weight gain, vitamin D deficiency, insomnia, pheochromocytoma, left kidney stone. Last seen for Medicare wellness visit March 15, 2025. Here today for follow-up visit. Most recent labs from June 14, 2025. Urinalysis with leukocytes, small blood, red blood cells, white blood cells and epithelial cells. Followed with urology who prescribed her an antibiotic, and 3 days later prescribed her a different antibiotic due to culture growth. Patient still admits to symptoms, but is following with urology, and is still finishing her antibiotic course, in addition to Azo which was recommended by urology. CBC overall without concern, A1c is mildly elevated at 6.5, with glucose at 144, otherwise thyroid values, vitamin D and cholesterol is within normal limits. She is taking metformin 500 mg once daily with compliance, without significant improvement in A1c values. We did order a mammogram for her she completed on March 30, 2025, which recommended bilateral screening February 2026. We also ordered an MRI of her brain with and without contrast which showed multiple small late subacute infarcts with postinfarct enhancement throughout the frontal and parietal lobes. No hemorrhage or mass affect. No other intracranial enhancement. Does have frontal lobe predominant cerebral volume loss compared to 2022 and chronic small ischemic vessel changes for she is following with neurology for. Did follow with [facility] cardiology last visit June 05, 2025 Dr. Terry Bowers. Cardiology notes reviewed. Getting echocardiograms through cardiology ordered a TTE. Dizziness has improved, rarely uses meclizine has had a negative tilt table test. Following with cardiology in 1 month. She is having a heart monitor placed to see if there is any atrial fibrillation. * ROS: C onstitutional: Patient denies any excessive fatigue with exercise, no weight loss, no fever, no night sweats, + changes in sleep. Eyes: No eye discharge, no itching, no redness, no vision changes. Advised the significance of regular eye exams to screen for glaucoma and other eye problems. Ear nose throat: No ear pain, No sore throat, no postnasal drip, no runny nose, no sneezing, no hearing changes Cardiovascular: No chest pain, no dyspnea on exertion, no PND, no orthopnea, no irregular pulse, no palpitations, no claudication, no diaphoresis, no claudication. Respiratory: no chronic cough, no hemoptysis, no sputum, no wheezing, no SOB, no pleuritic pain. GI, No diarrhea, no constipation, no blood in the stools, no pain associated with eating, no indigestion, no difficulty swallowing, no appetite change. Genitourinary: No painful urination, no hesitancy, no blood in the urine, no incontinence, no frequency, no urgency, no abnormal discharge. Musculoskeletal: No back pain, no joint pain, + limitations to walking and running uses cane with improvement, no joint deformity, no joint stiffness, no muscle weakness Integumentary: no new skin rash. +new changes in skin moles, no pruritis, no color change. Neurological: No history of seizures, no memory loss, no language dysfunction, no inability to concentrate, no localized weakness, no sensation loss, no confusion, no dizziness, no tremor, no numbness, no tingling. + dizziness Psychiatric: + anxiety, no depression, no suicidal thoughts, feels safe at home. Endocrine: No polyuria, no polyphagia, no polydipsia. No heat/cold intolerance, no excesss thirst. Hematological: No easy bruising or bleeding, no lymph node swelling. * Medical History: E ssential hypertension, Hyperlipidemia, unspecified, Hemorrhoids without complication, Constipation, unspecified, Kidney stones, Depression, unspecified, Anxiety disorder, unspecified, Crohn's disease, unspecified, without complications, Weight gain, Vitamin D deficiency, Insomnia, unspecified, Presence of dental prosthetic device (complete) (partial), Basal cell carcinoma, Pheochromocytoma, unspecified laterality, 0.8 cm stone in L kidney 01/2025 on US. * Surgical History: g all bladder surgery , catarac surgery , robitic hysterectomy 11/2021, kidney stone surgery , back surgery 2x , Basal cell carcinoma removal On the forehead/chin With plastic surgery October 2024. * Hospitalization/Major Diagno stic Procedure: [facility] December 2024. * Family History: F ather: . M other: . 1 brother(s) . . father passed fromheart attack-41 mother passed from stroke-68 brother has diabetes. * Social History: T obacco Use: T obacco Use/Smoking A re you a f ormer smoker. E ROBERTO Use: declines Tob Use: declines Drug Use: declines Caffeine Use: coffee Smoke detectors in home: Yes Seatbelt use: Yes. * Medications: T aking oxyBUTYnin Chloride ER 10 MG Tablet Extended Release 24 Hour 1 tablet Orally Once a day , Taking Humira , Notes to Pharmacist: 40 mg SC, Taking Acetaminophen 500 MG Capsule 1 capsule as needed Orally every 6 hrs , Notes to Pharmacist: prn, Taking Meclizine HCl 12.5 MG Tablet TAKE 1 TABLET BY MOUTH EVERY 12 HOURS NEEDED , Taking Methenamine Hippurate 1 GM Tablet TAKE 1 TABLET BY MOUTH TWICE A DAY TAKE WITH VITAMIN C OR CRANBERRY PILL Oral , Taking traZODone HCl 100 MG Tablet TAKE 1 TABLET BY MOUTH EVERY DAY AT BEDTIME NEEDED FOR 30 DAYS 90 DAYS , Taking Atorvastatin Calcium 20 MG Tablet 1 tablet Orally Once a day , Taking Mirtazapine 30 MG Tablet TAKE 1 TABLET BY MOUTH EVERY NIGHT AT BEDTIME. , Taking amLODIPine Besylate 5 MG Tablet TAKE 1 TABLET BY MOUTH EVERY DAY , Taking metFORMIN HCl 500 MG Tablet TAKE 1 TABLET BY MOUTH EVERY DAY WITH A MEAL FOR 90 DAYS , Taking Trintellix 20 MG Tablet TAKE 1 TABLET BY MOUTH EVERY DAY , Taking Nitrofurantoin Monohyd Macro 100 MG Capsule TAKE 1 CAPSULE BY MOUTH TWICE A DAY Oral , Discontinued Ciprofloxacin HCl 250 MG Tablet 1 tablet Orally every 12 hrs , Discontinued Pyridium 100 MG Tablet one tab Orally Three times a day , Discontinued Macrobid 100 MG Capsule 1 capsule with food Orally every 12 hrs , Medication List reviewed and reconciled with the patient * Allergies: N .K.D.A. Objective: * Vitals: H R:89/min, BP:124/82mm Hg, Wt:216.3lbs, BMI:33.87Index, Ht: 67 in, Oxygen sat %:97%. * Physical Examination: G eneral: Age appropriate Female, well appearing, no acute distress, speaking in full sentences without respiratory compromise. Well groomed, well developed. Alert, Interactive. Skin: Warm, dry and intact. No lesions/rashes/erythema.Seborrheic keratosis noted on scalp.Healed scarring noted on face secondary to skin cancer removal HEENT: Normocephalic/atraumatic. EOMI intact. PERRLA. Vision intact. No ptosis or lid lag. Nares without discharge or inflammation. Oral cavity free of plaques or exudates. Dentition well maintained. No pharyngeal erythema. Ear canal without cerumen or discharge. Tympanic membrane visualized including bony structures and cone of light. Neck/Thyroid: Supple, with no lymphadenopathy. Full ROM. Thyroid free of nodules and nonenlarged. Lung: Clear to auscultation bilaterally, no wheezes, rales or rhonchi. No barrel chest. Equal chest rise and fall bilaterally. Cardiac: S1 and S2 appreciated. No murmurs/rubs or gallops. DP pulses intact 2+ bilaterally. Capillary refill <2 seconds. Abdomen: Soft, nontender, normoactive bowel sounds. No rebound/guarding. No CVA tenderness. No Masses. Extremities: Bilateral lower extremities with no edema or rubor. No evidence of varicose veins. Equal tone bilaterally. MSK: Bilateral upper and lower extremities 5/5 strength with flexion/extension. Flask Handler strength 5/5. Sensation intact. Neuro: CN II-XI grossly intact. Steady gait with ambulation observed with cane. Symmetric reflexes.? Psych: Stable mood and affect. Assessment: * Assessment: 1. M mahin changes - R41.3 (Primary) 2 . B ambrocio cell carcinoma (BCC) of skin of other part of face - C44.319 3 . A ortic root dilation - I77.810 4 . D izziness - R42 5 . E ncounter for examination of blood pressure without abnormal findings - Z01.30 6 . F amily hx-stroke - Z82.3 ?7. B DC 33.0-33.9,adult - Z68.33 8 . R ight shoulder pain, unspecified chronicity - M25.511 # Patient having right shoul darien pain, taking Tylenol, avoiding NSAIDs secondary to kidney stones. States it is worse when she sleeps. Limited range of motion especially with overhead movements, and external rotation. States that sometimes the pain travels down her right arm. Prescribed gabapentin 100 mg at night to help with sleep secondary to the nerve discomfort, and order x-ray. Holding off on PT at this time, but low threshold for MRI to rule out rotator cuff etiology/referral to orthopedics for potential cortisone injection # Recurrent UTIs, currently being treated with nitrofurantoin from urology, as well as methenamine for prophylaxis. Did have an ultrasound of her bladder January 2025 showing a small stone, following with urology for this # Prediabetes A1c 6.5. Taking metformin 500 mg once daily, it is not interested in increasing dose but is inquiring about GLP-1's. She would like to establish with our weight loss program secondary to a BMI greater than 30, and can consider trialing GLP-1 such as Ozempic/Mounjaro secondary to elevated glucose and A1c values. Will establish at next availability # Mammogram February 2025, within normal limits due February 2026 # Patient did have an MRI of her brain on May 02, 2025 with concerns for small vessel ischemic changes and history of CVA. Following with neurology at [facility], getting scans of her brain vasculature tomorrow. Did discuss potential need for blood thinners, especially as her mother passed from a stroke. She is going to contact neurology and inquire about this # Follow with cardiology Dr. Blanton, scheduled for echocardiogram and Holter monitor to rule out atrial fibrillation. Patient is not driving. Next visit in 1 month, note scanned to chart and reviewed. # PHQ-9 with a total score of 5, going to try to establish with psychiatry. Medications discussed # Audit negative # Discussed healthcare proxy and MOLST form. # Follows with Dr. Adams for gastroenterology, will obtain colonoscopy record # Declined all other routine screenings and vaccines # Using a cane/walker at home, discussed fall prevention. # Hypertension: Stable on amlodipine 5 mg # Prediabetes: Repeat A1c in hospital December 2024 A1c 5.8. A1c increased to 6.5. Continue metformin 500 mg once daily, Not interested in increasing metformin, but inquiring about Mounjaro/Ozempic. Will establish for weight management consultation and consider secondary to elevated glucose as well at 144. This could also be in relation to her increased urinary frequency as well.To get on body composition scan before starting GLP-1. Discussed lifestyle. # Patient was under dermatology for lesion [...] 2025, patient states that symptoms have overall resolved,Follow-up with ENT March 2025. # Dizziness: Much better since discontinuing losartan/Benzodiazepine. Blood pressure stable. Heart murmur heard on [...] Blood pressure stable on amlodipine 5 mg. Ordered MRI of the brain May 02, 2025 showing microvascular changes. Following with neurology. # Sees neurology every 4 months.. History of MRI showing small vessel ischemia, and moderate diffuse brain atrophy and T2 hyperintensity in the white matter. No recent MRI of note. Patient does have some difficulty word finding, and has some silent spells. Had EEG which was negative, Patient following with neurology, has imaging scheduled for tomorrow. Considering potential blood thinners patient is going to discuss with cardiology/neurology. # Heart murmur: Echocardiogram demonstrates dilation of the aortic root, otherwise normal output. Lower extremities are without edema or rubor. Recent echocardiogram 2023 showing unchanged results.Cardiology ordered echocardiogram May 2025 # Bipolar: Recently seen by DO China Kaiser at [facility]. Going to increase mirtazapine to 30 mg +7.5 mg tablets for a total of 37.5 mg. Discontinued alprazolam. Discussed psychotherapy.Trial increasing trazodone for sleep to 100 mg but patient did not tolerate well. Will discontinue trazodone and Trialed hydroxyzine 50 mg with some improvement, will increase to 50 to 100 mg as needed.. Avoid alprazolam secondary to beers list.Refer to psychiatrist at [facility]. Provided with phone number.Patient states that she will call.Referral to psych Placed last visit. # Anxiety: Patient suffers from agoraphobia. Rx for alprazolam PRN provided by Dr. Сергей Morrison,Provider retired, , Medication has been discontinued secondary to it being on the beers list, and risk outweighing benefit. Patient has been last fatigued, and memory has been better.Continue mirtazapine 30, Patient is going to contact psychiatry and therapy. Follow-up in 2 months for primary care, obtain x-ray of the right shoulder in the meantime, follow with urology, neurology, and cardiology. Also going to establish for weight consultation. Discussed emergency department criteria/criteria to call the office. Time, patient 60 minutes or greater than 50% on patient education and care coordination All quetsions answered to patients satisfaction. Patient verbalized understanding of diagnosis and treatments explained. To call sooner prior to next visit it any questions/concerns arise. Case discussed with collaborating physician Tiffanie Barnard who reviewed the assessment and plan. Chart, medications, labs, vital signs reviewed. Dictation was accomplished with the use of [employer] voice recognition software, prone to medical misidentifications and grammatical errors. This is unintentional and the practitioner does try to identify and correct these, but some could still be present. Please do not hesitate to contact practitioner for clarification. Plan: * Treatment: 2. O thers Start Gabapentin Capsule, 100 MG, 1 capsule at bedtime, Orally, Once a day, 30 days, 30 Capsule, Refills 0. * Procedure Codes: 3 074F SYST BP LT 130 MM HG, 3079F DIAST BP 80-89 MM HG, G2211 Complex e/m visit add on * Images: Billing Information: * Visit Code: 97491 Office Visit, Est Pt., Level 5. Modifiers: SA * Procedure Codes: 3074F SYST BP LT 130 MM HG. 3079F DIAST BP 80-89 MM HG. G2211 Complex e/m visit add on. Care Plan Details* * Sign off status: Completed true * Provider: Jose BARKER PA-C Date: Generated for Amelia aguilar/Gerda/Manuel on: 04:05 PM EDT History and Physical Notes * HPI (History of Present Illness) Category Sub-Category Detail Notes Category Not es Constitutional Peg is a pleasant 75-year-old female who presents to the office for a follow-up visit. Past medical history including but not limited to hypertension, hyperlipidemia, hemorrhoids, constipation, kidney stones, depression, anxiety, Crohn's disease, weight gain, vitamin D deficiency, insomnia, pheochromocytoma, left kidney stone. Last seen for Medicare wellness visit March 15, 2025. Here today for follow-up visit. Most recent labs from June 14, 2025. Urinalysis with leukocytes, small blood, red blood cells, white blood cells and epithelial cells. Followed with urology who prescribed her an antibiotic, and 3 days later prescribed her a different antibiotic due to culture growth. Patient still admits to symptoms, but is following with urology, and is still finishing her antibiotic course, in addition to Azo which was recommended by urology. CBC overall without concern, A1c is mildly elevated at 6.5, with glucose at 144, otherwise thyroid values, vitamin D and cholesterol is within normal limits. She is taking metformin 500 mg once daily with compliance, without significant improvement in A1c values. We did order a mammogram for her she completed on March 30, 2025, which recommended bilateral screening February 2026. We also ordered an MRI of her brain with and without contrast which showed multiple small late subacute infarcts with postinfarct enhancement throughout the frontal and parietal lobes. No hemorrhage or mass affect. No other intracranial enhancement. Does have frontal lobe predominant cerebral volume loss compared to 202 and chronic small ischemic vessel changes for she is following with neurology for. Did follow with [facility] cardiology last visit June 05, 2025 Dr. Terry Bowers. Cardiology notes reviewed. Getting echocardiograms through cardiology ordered a TTE. Dizziness has improved, rarely uses meclizine has had a negative tilt table test. Following with cardiology in 1 month. She is having a heart monitor placed to see if there is any atrial fibrillation. Physical Examination Category Sub-Category Detail Notes Section Note s General: Age appropriate Female, well appearing, no acute distress, speaking in full sentences without respiratory compromise. Well groomed, well developed. Alert, Interactive. Skin: Warm, dry and intact. No lesions/rashes/erythema.Seborrheic keratosis noted on scalp.Healed scarring noted on face secondary to skin cancer removal HEENT: Normocephalic/atraumatic. EOMI intact. PERRLA. Vision intact. No ptosis or lid lag. Nares without discharge or inflammation. Oral cavity free of plaques or exudates. Dentition well maintained. No pharyngeal erythema. Ear canal without cerumen or discharge. Tympanic membrane visualized including bony structures and cone of light. Neck/Thyroid: Supple, with no lymphadenopathy. Full ROM. Thyroid free of nodules and nonenlarged. Lung: Clear to auscultation bilaterally, no wheezes, rales or rhonchi. No barrel chest. Equal chest rise and fall bilaterally. Cardiac: S1 and S2 appreciated. No murmurs/rubs or gallops. DP pulses intact 2+ bilaterally. Capillary refill <2 seconds. Abdomen: Soft, nontender, normoactive bowel sounds. No rebound/guarding. No CVA tenderness. No Masses. Extremities: Bilateral lower extremities with no edema or rubor. No evidence of varicose veins. Equal tone bilaterally. MSK: Bilateral upper and lower extremities 5/5 strength with flexion/extension. Flask Handler strength 5/5. Sensation intact. Neuro: CN II-XI grossly intact. Steady gait with ambulation observed with cane. Symmetric reflexes. Psych: Stable mood and affect
--- NOTE | ~2025-06-16 | CT_ITS ---
EXAMINATION: CT ANGIOGRAM HEAD AND NECK CLINICAL INFORMATION: Personal history of TIA. COMPARISON: None available. Correlation made with carotid Doppler examination 09/23/2023. TECHNIQUE: Noncontrast axial imaging of the head was performed. This was followed by test bolus sequences and head and neck intravenous bolus administration 70 mL of Omnipaque 350. Helical imaging was performed in the axial plane from the aortic arch to the skull vertex. The data was processed at the chief nuclear medicine technologist's workstation for generation of MIP sequences. Angled MIPs and volume rendered reformatted images were also generated at an offline 3D workstation. Stenoses are assessed in accordance with NASCET criteria unless otherwise indicated. This CT examination was performed using dose optimization techniques as appropriate, variously including the following: *Automated exposure control *Adjustment of mA and/or kV according to patient size (this includes techniques or standardized protocols for targeted exams where dose is matched to indication/reason for exam; i.e. extremities or head) *Use of iterative reconstruction technique FINDINGS: NONCONTRAST HEAD CT: There is no evidence of intracranial hemorrhage or extra-axial fluid collection. There is no mass effect, or edema. No CT evidence of acute territorial infarct. Ventricles, sulci, and cisterns are diffusely somewhat prominent in keeping with age advanced cerebral and cerebellar volume loss. There is bifrontal atrophy. No hydrocephalus. No midline shift. Mild to moderate supratentorial white matter hypodensities in keeping with small vessel ischemic changes. Old lacunar type infarcts in both anterior gangliocapsular regions. Atheromatous calcification of the bilateral carotid siphons and V4 segments vertebral arteries bilaterally. Globes and orbital contents image normally. No extracranial soft tissue abnormalities. The paranasal sinuses, mastoid air cells, and tympanic cavities are normally aerated. No suspicious bony abnormalities. NECK CTA: -AORTIC ARCH: Normal in caliber. Three-vessel branching pattern. -GREAT VESSEL ORIGINS: Widely patent. Mild atheromatous calcification. No stenosis. -RIGHT COMMON CAROTID ARTERY: Normal in course and caliber to the level of the bifurcation. -CERVICAL RIGHT INTERNAL CAROTID ARTERY: Mild calcific atherosclerotic disease of the carotid bulb and proximal internal carotid artery without flow-limiting stenosis. The distal vessel is mildly tortuous into the skull base but maintains normal caliber. -LEFT COMMON CAROTID ARTERY: Normal in course and caliber to the level of the bifurcation. -CERVICAL LEFT INTERNAL CAROTID ARTERY: Mild calcific atherosclerotic disease of the carotid bulb and proximal internal carotid artery without flow-limiting stenosis. The distal vessel is mildly tortuous into the skull base but maintains normal caliber. -CERVICAL RIGHT VERTEBRAL ARTERY: Nondominant. There appears to be moderate stenosis at the origin. Otherwise normal in course and caliber into the skull base. -CERVICAL LEFT VERTEBRAL ARTERY: Dominant. Normal in origin, course and caliber into the skull base. OTHER, SOFT TISSUES: -No lymphadenopathy or mass. No abnormal fluid collection or soft tissue swelling. -Thyroid is diffusely enlarged with macrocalcifications in keeping with multinodular goiter. -Imaged superior mediastinal structures normal. -Imaged lung apices are somewhat motion degraded, and demonstrate mosaic attenuation most likely on the basis of expiratory changes given the appearance of the trachea. CTA OF THE BRAIN: -INTRACRANIAL INTERNAL CAROTID ARTERIES: Calcific atherosclerotic disease of the intracranial internal carotid arteries without occlusion or flow-limiting stenosis. -RIGHT ANTERIOR CEREBRAL ARTERY: Fenestrated A1 segment. Normal arborization of the distal segments. -LEFT ANTERIOR CEREBRAL ARTERY: Normal A1 segment. Normal arborization of the distal segments. -ANTERIOR COMMUNICATING ARTERY: Normal. -RIGHT MIDDLE CEREBRAL ARTERY: Normal M1 segment of the MCA without focal stenosis or occlusion. Normal bifurcation. Normal arborization of the distal segments. -LEFT MIDDLE CEREBRAL ARTERY: Normal M1 segment of the MCA without focal stenosis or occlusion. Normal bifurcation. Normal arborization of the distal segments. -RIGHT VERTEBRAL ARTERY V4: Normal in course and caliber. There is a right AICA/PICA. -LEFT VERTEBRAL ARTERY V4: Normal in course and caliber. Normal PICA branch. -BASILAR ARTERY: Normal without focal stenosis or occlusion. Normal appearance of the proximal superior cerebellar arteries. Normal basilar tip. -RIGHT POSTERIOR CEREBRAL ARTERY: Normal P1 segment. Normal opacification of the distal [employer] segments. -LEFT POSTERIOR CEREBRAL ARTERY: Normal P1 segment. Normal opacification of the distal [employer] segments. -POSTERIOR COMMUNICATING ARTERIES: Not well seen. Normal opacification of the superior sagittal, straight, transverse, and sigmoid sinuses. No venous thrombosis. CT/CT angio head neck IMPRESSION: NON-CONTRAST HEAD CT: 1. No intracranial hemorrhage or mass effect. No CT evidence of acute territorial infarct. 2. There is age advanced cerebral and cerebellar atrophy, most prominent involving the frontal lobes. 3. There are mild to moderate white matter changes of small vessel ischemia. CTA NECK: 1. There is a moderate grade stenosis at the origin of the right vertebral artery. Vertebral arteries are otherwise patent. 2. There is mild calcific atheromatous disease of both carotid bulbs, without evidence of significant stenosis of either carotid artery. 3. Multinodular goiter. CTA HEAD: 1. There is no evidence of high-grade stenosis, occlusion, dissection, or aneurysm of the major arterial intracranial circulation. 2. There is mild to moderate calcific atheromatous disease of the carotid siphons bilaterally without flow-limiting stenosis. 3. Major cortical and dural venous sinuses are patent. Electronically signed by: Clarence Rothman MD 06/16/2025 03:08 PM EDT
--- NOTE | ~2025-06-16 | XR_ITS ---
EXAMINATION: XR SHOULDER, RIGHT CLINICAL INFORMATION: right shoulder pain COMPARISON: None available. TECHNIQUE: AP view in neutral, internal rotation and Y-view projection of the right shoulder. FINDINGS: Sclerosis along the articular surface of the acromioclavicular joint. Subchondral cyst formation greater tuberosity, right humerus. Mild sclerosis of the glenoid fossa. Subchondral cyst formation in the superior margin of the glenoid foci of right scapula. No acute cortical disruption or malalignment. No soft tissue calcifications. XR/XR shoulder RT min 2V IMPRESSION: Degenerative changes, moderate, right shoulder. Electronically signed by: Chandra Akbar MD 06/16/2025 02:27 PM EDT
[2025-06-16] MEDS: iohexoL 350 MG/ML 100 ML INFUS..BTL IV (14:29)
[2025-06-16 15:21] LABS: Creatinine POC 0.6 mg/dL (0.5-1.4); GFR POC > 60
--- OUTSIDE RECORDS SUMMARY | 2025-06-16 16:04 | XMS_ITS | Clinical Summary ---
Author Organization [facility] [address] [facility] Address [address] [place] [address] Phone Care Team Providers Care Plywood Patcher Name Role Phone Moody Norton Primary Care Provider [phone] Allergies Active Allergy Reactions Criticality Noted Date Comments Lisinopril 01/12/2025 Other Reaction(s): cough/sinus inflamation cough Lurasidone 01/12/2025 Other Reaction(s): high anxiety Oxycodone-Acetaminophen 09/21/2024 Medications aspirin 81 mg EC tablet Take 1 Tablet by mouth daily. Active atorvastatin (LIPITOR) 10 mg tablet Take 1 Tablet by mouth daily. Active cholecalciferol (VITAMIN D-3) 50 mcg (2,000 unit) tablet Take 1 Tablet by mouth daily. Active oxyBUTYnin XL (DITROPAN-XL) 10 mg 24 [...] DAY WITH A MEAL FOR 90 DAYS 08/09/20 24 Active mirtazapine (REMERON) 30 mg tablet Take 1 tablet (30 mg total) by mouth at bedtime. 07/02/20 24 Active mirtazapine (REMERON) 7.5 mg tablet Take 1 tablet (7.5 mg total) by mouth 1 (one) time each day. 09/05/19 25 Active adalimumab (Humira,CF,) 40 mg/0.4 mL syringeIndicatio ns:Crohn's disease of colon without complication ([facility] V24, CMS/[facility] V28) Inject 0.4 mL (40 mg total) under the skin every 7 (seven) days. 12 each 3 09/26/19 25 026 Active vortioxetine (Trintellix) 10 mg tablet Take 1 tablet (10 mg total) by mouth. 11/23/19 21 Active amLODIPine (NORVASC) 5 mg tablet Take 1 tablet (5 mg total) by mouth. 01/06/20 25 Active vortioxetine (TRINTELLIX) 20 mg tablet Take 1 tablet (20 mg total) by mouth 1 (one) time each day. Active atorvastatin (LIPITOR) 20 mg tablet Take 1 tablet (20 mg total) by mouth at bedtime. Active methenamine mandelate (MANDELAMINE) 1 gram tablet Take 1 tablet (1 g total) by mouth 2 (two) times a day. Active CRANBERRY EXTRACT-VITAMIN C ORAL Take 1 tablet by mouth 1 (one) time each day. Active melatonin 3 mg tablet Take 10 mg by mouth at bedtime. Active MAGNESIUM GLYCINATE ORAL Take 200 mg by mouth 1 (one) time each day. Active coenzyme Q-10 (Co Q-10) 100 mg capsule Take 1 capsule (100 mg total) by mouth 1 (one) time each day. Active riboflavin (VITAMIN B2) 100 mg tablet Take 2 tablets (200 mg total) by mouth 1 (one) time each day. Active ALPRAZolam (XANAX) 0.5 mg tablet Take 1 Tablet by mouth 3 times daily as needed. Discontinu ed(Discont inued by another clinician) UNABLE TO FIND Apoaequorin 10 MG Cap Take 1 Capsule by mouth daily Discontinu ed(Dericklica te order) ketoconazole (NIZORAL) 2 % shampoo Apply topically every other day. Discontinu ed(Discont inued by another clinician) meclizine (ANTIVERT) 12.5 mg tablet Take 1 Tablet by mouth every 12 hours as needed. Discontinu ed(Discont inued by another clinician) hydrOXYzine HCL (ATARAX) 50 mg tablet 1 tablet (50 mg total) 2 (two) times a day. 09/05/19 25 025 Discontinu ed(Discont inued by another clinician) fluticasone propionate (FLONASE) 50 mcg/actuation nasal spray Administer 1 spray into each nostril 1 (one) time each day. 02/22/20 24 025 Discontinu ed(Discont inued by another clinician) Active Problems Problem Noted Date Diagnosed Date Cerebral microvascular disease 06/05/2025 Assessment & Plan (06/05/2025 2:49 PM EDT): Patient is having some form of environmental monitoring specialist applied in the next week or 2. Will have her back in a month to reassess the results of that monitor to see if there is any underlying A-fib. Which could also be responsible for some of the fluttering feeling that she has in her chest. She may need a longer monitor not sure whether it is a ROCT monitor or a Holter Adnexal mass 01/05/2025 Allergic rhinitis 01/05/2025 Migraine headache 01/05/2025 Obesity 01/05/2025 Basal cell carcinoma (BCC) of skin of face 09/21 ADD (attention deficit disorder) without hyperac tivity 09/21/2024 Asthma, well controlled 09/21/2024 Bipolar disorder ([facility] V24, [facility] V28) 09/01 Overview (09/21/2024): psych Dr Morrison Cataract 09/21/2024 Cervical dysplasia 09/21/2024 Crohn's disease ([facility] V24, [facility] V28) 09/21 Overview (09/21/2024): GI Dr Alford Diabetes mellitus, type 2 ([facility] V24, [facility] V28) 09/21/2024 Hyperlipidemia 09/21/2024 Hypertension 09/21/2024 Assessment & Plan (06/05/2025 2:49 PM EDT): Blood pressure is fairly well-controlled on present medical therapy Nephrolithiasis 09/21/2024 Osteopenia 09/21/2024 Dizziness 03/30/2023 Overview (09/15/2024): Last Assessment & Plan: Patient is still having dizziness however she is not orthostatic. Blood pressure today is quite reasonable with a reading of 124/80. She has had tilt table testing in the past no abnormalities. She continues on meclizine as needed for dizziness.No further testing at this time Assessment & Plan (06/05/2025 2:49 PM EDT): Patient with occasional dizziness. No evidence of orthostasis in the past. She had tilt table test done in the past that was negative. She rarely uses meclizine. And is occasional complaints of dizziness Aortic dilatation ([facility] V24) 03/30/2023 Overview (09/15/2024): Last Assessment & Plan: Patient's echocardiogram did not reveal any changes to her ascending aorta. Will continue to monitor this with periodic echocardiograms. Assessment & Plan (06/05/2025 2:49 PM EDT): Patient with a aortic dilatation and aortic insufficiency no evidence of heart failure. Patient still getting periodic echocardiography to assess for the significance of the aortic insufficiency though murmur is not identified Orders: Transthoracic echocardiogram (TTE) complete with PRN contrast, bubble, strain, and 3D order panel; Future perflutren lipid microsphere (DEFINITY) 1.3 mL in sodium chloride 0.9% 8.7 mL injection Heart murmur 10/04/2013 Overview (01/05/2025): echo-. Ascending aorta is very mildly dilated. Normal is up to 3.7. ( her 3.8) Suggest repeat echo in 2-3 years. Assessment & Plan (06/05/2025 2:49 PM EDT): Patient with aortic insufficiency. Due to dilatation of the ascending aorta. Will repeat an echocardiogram to assess LV systolic function to look for any evidence of heart failure dilatation of the left ventricle Pheochromocytoma 07/07/2004 Overview (01/05/2025): path unclear- cortical adenoma vs pheo lap right adrenalectomy Encounters Date Type Department Care Team Description 06/07/2025 Lab Requisition [facility] Lab [address] [facility] [place] [phone] Rut Chapman NP Urge incontinence 06/05/2025 2:00 PM EDT Office Visit [facility] [address] [place] [phone] Terry Vincent MD Hyperlipidemia, unspecified hyperlipidemia type (Primary Dx); Aortic dilatation ([facility] V24); Nonrheumatic aortic valve insufficiency; Cerebrovascular accident (CVA) due to other mechanism ([facility] V24, [facility] V28); Dizziness; Primary hypertension; Heart murmur; Cerebral microvascular disease 04/29/2025 10:52 AM EDT - 04/29/2025 11:59 PM EDT Hospital Encounter [facility] MRI [address] [place] [phone] Dizziness; Memory loss Discharge Disposition: Home or Self Care 03/27/2025 2:51 PM EDT - 03/27/2025 11:59 PM EDT Hospital Encounter [facility] at [address] [phone] Screening for malignant neoplasm of skin Discharge Disposition: Home or Self Care from Last 3 Months Surgical History Surgery Date Site/Laterality Comments CHOLECYSTECTOMY COLONOSCOPY 02/14/2022 recall 01/2025 COLONOSCOPY 02/10/2018 COLONOSCOPY 11/02/2014 Family History Medical History Relation Name Comments Colon cancer Neg Hx Social History Tobacco Use Types Packs/Day Years Used Date Smoking Tobacco: Former Cigarettes Smokeless Tobacco: Never Tobacco Cessation:Counseling Given: Not Answered Alcohol Use Standard Drinks/Week Comments Not Currently [...] Sign Reading Time Taken Comments Blood Pressure 136/72 06/05/2025 1:57 PM EDT Pulse 94 06/05/2025 1:57 PM EDT Temperature 36.6 C (97.9 F) 01/12/2025 10:06 AM EDT Respiratory Rate - - Oxygen Saturation 97% 06/05/2025 1:57 PM EDT Inhaled Oxygen Concentration - - Weight 96.7 kg (213 lb 1.6 oz) 06/05/2025 1:57 P M EDT Height 172.7 cm (5' 8 ) 06/05/2025 1:57 PM EDT Body Mass Index 32.4 06/05/2025 1:57 PM EDT Plan of Treatment Upcoming Encounters Date Type Department Care Team (Late st Contact Info) Description 07/12/2025 3:10 PM EST Office Visit [facility] [address] [place] [address] Dr [address] [place] [phone] Radha Hurd NP [address] [place] [address] Dr [address] [place] [phone] 12/08/2025 1:30 PM EDT Ancillary Procedure [facility] [address] [place] [phone] Health Maintenance Due Date Last Done Comments Diabetes: Annual Foot Exam 1961 Diabetes: Annual Retina Eye Exam 1961 Zoster Vaccines (1 of 2) 1970 RSV Immunization Adult Patients (1 - Risk 50-74 years 1-dose series) 2001 DTaP,Tdap,and Td Vaccines (2 - Td or Tdap) 09/10/2016 09/10/2006 Falls Risk Assessment 08/03/2022 Hepatitis C Screening 08/03/2022 Medicare Annual Wellness Visit 08/03/2022 Osteoporosis Screening (Bone Density Screening) 08/03/2022 Social Influencers of Health Screening 08/03/2022 Pneumococcal Vaccine: 50+ Years (2 of 2 - PCV) 06/26/2023 06/26/2022 Depression Screening 08/31/2024 Diabetes: Annual Urine Albumin-Creatinine Ratio (uACR) 09/21/2024 COVID-19 Vaccine ( season) 2025 05/29/2022, 07/22/2021, 12/13/2020, Additional history exists Influenza Vaccine (#1) 2025 2, 07/26/2013, 09/03/2012 Diabetes: Blood Sugar Control Test (HGBA1C) 12/13/2025 06/14/2025 Diabetes: Annual GFR (Glomerular Filtration Rate) 06/14/2026 06/14/2025, 09/21/2024 Hypertension/CHF/CAD Annual BMP Blood Test 06/14/2026 06/14/2025, 09/21/2024 Breast Cancer Screening 03/27/2027 03/27/2025 Cholesterol Screening (Lipid Panel) 06/14/2030 06/14/2025 Colorectal Cancer Screening: Colonoscopy 09/23/2034 09/23/2024 HIB [...] Procedure Name Priority Date/Time Associated Diagnosis Comments URINALYSIS WITH REFLEX MICROSCOPIC Routine 06/14/2025 10:53 AM EDT Screening for diabetes mellitus Avitaminosis D Routine general medical examination at a health care facility Screening for thyroid disorder Screening for lipoid disorders Anemia, unspecified Abnormal finding of blood chemistry, unspecified URINALYSIS WITH REFLEX MICROSCOPIC Routine 06/14/2025 10:53 AM EDT Screening for diabetes mellitus Avitaminosis D Routine general medical examination at a health care facility Screening for thyroid disorder Screening for lipoid disorders Anemia, unspecified Abnormal finding of blood chemistry, unspecified CBC WITH AUTO DIFFERENTIAL Routine 06/14/2025 10:43 AM EDT Screening for diabetes mellitus Avitaminosis D Routine general medical examination at a health care facility Screening for thyroid disorder Screening for lipoid disorders Anemia, unspecified Abnormal finding of blood chemistry, unspecified LIPID PANEL WITH REFLEX TO DIRECT LDL Routine 06/14/2025 10:43 AM EDT Screening for diabetes mellitus Avitaminosis D Routine general medical examination at a health care facility Screening for thyroid disorder Screening for lipoid disorders Anemia, unspecified Abnormal finding of blood chemistry, unspecified THYROID STIMULATING HORMONE Routine 06/14/2025 10:43 AM EDT Screening for diabetes mellitus Avitaminosis D Routine general medical examination at a health care facility Screening for thyroid disorder Screening for lipoid disorders Anemia, unspecified Abnormal finding of blood chemistry, unspecified CBC AND DIFFERENTIAL Routine 06/14/2025 10:43 AM EDT Screening for diabetes mellitus Avitaminosis D Routine general medical examination at a health care facility Screening for thyroid disorder Screening for lipoid disorders Anemia, unspecified Abnormal finding of blood chemistry, unspecified COMPREHENSIVE METABOLIC PANEL Routine 06/14/2025 10:43 AM EDT Screening for diabetes mellitus Avitaminosis D Routine general medical examination at a health care facility Screening for thyroid disorder Screening for lipoid disorders Anemia, unspecified Abnormal finding of blood chemistry, unspecified VITAMIN D 25 HYDROXY Routine 06/14/2025 10:43 AM EDT Screening for diabetes mellitus Avitaminosis D Routine general medical examination at a health care facility Screening for thyroid disorder Screening for lipoid disorders Anemia, unspecified Abnormal finding of blood chemistry, unspecified HEMOGLOBIN A1C Routine 06/14/2025 10:43 AM EDT Screening for diabetes mellitus Avitaminosis D Routine general medical examination at a health care facility Screening for thyroid disorder Screening for lipoid disorders Anemia, unspecified Abnormal finding of blood chemistry, unspecified BACTERIAL IDENTIFICATION AND SUSCEPTIBILITY, AEROBIC Routine 06/06/2025 12:00 AM EDT Urge incontinence MR BRAIN WO AND W CONTRAST Routine 04/29/2025 11:56 AM EDT Dizziness Memory loss MG MAMMO DIGITAL SCREENING W NOLAN BILAT Routine 03/27/2025 3:20 PM EDT Screening for malignant neoplasm of skin COLONOSCOPY Routine 09/23/2024 10:06 AM EST from Last 3 Months or Most Recently Relevant to Health Maintenance Results * (ABNORMAL) Urinalysis with reflex microscopic (06/14/2025 10:53 AM EDT) Specific [place] Urine 1.018 1.003 - 1.030 LAB URINALYSIS - AUTOMATED METHOD 06/14/2025 12:45 PM [facility] pH, Urine 5.0 5.0 - 8.0 pH LAB URINALYSIS - AUTOMATED METHOD 06/14/2025 12:45 PM [facility] Leukocytes, Urine Moderate(A) Negative LAB URINALYSIS - AUTOMATED METHOD 06/14/2025 12:45 PM [facility] Nitrite, Urine Negative Negative LAB URINALYSIS - AUTOMATED METHOD 06/14/2025 12:45 PM [facility] Protein, Urine Trace <=Trace mg/dL LAB URINALYSIS - AUTOMATED METHOD 06/14/2025 12:45 PM [facility] Glucose, Urine Negative Negative mg/dL LAB URINALYSIS - AUTOMATED METHOD 06/14/2025 12:45 PM [facility] Ketones, Urine Negative Negative mg/dL LAB URINALYSIS - AUTOMATED METHOD 06/14/2025 12:45 PM [facility] Urobilinogen , Urine 0.2 0.2 - 1.0 mg/dL LAB URINALYSIS - AUTOMATED METHOD 06/14/2025 12:45 PM EDT [facility] Bilirubin, Urine Negative Negative LAB URINALYSIS - AUTOMATED METHOD 06/14/2025 12:45 PM EDT [facility] Blood, Urine Small(A) Negative LAB URINALYSIS - AUTOMATED METHOD 06/14/2025 12:45 PM EDT [facility] RBC, Urine 14.7(H) 0 - 4 /HPF LAB URINALYSIS - AUTOMATED METHOD 06/14/2025 12:45 PM EDT [facility] WBC, Urine 46.8(H) 0 - 4 /HPF LAB URINALYSIS - AUTOMATED METHOD 06/14/2025 12:45 PM EDT [facility] Squamous Epithelial, Urine >100(H) 0 - 60 /LPF LAB URINALYSIS - AUTOMATED METHOD 06/14/2025 12:45 PM EDT [facility] Bacteria, Urine Negative Negative /HPF LAB URINALYSIS - AUTOMATED METHOD 06/14/2025 12:45 PM [facility] Hyaline Casts, Urine 1.6 0 - 3 /LPF LAB URINALYSIS - AUTOMATED METHOD 06/14/2025 12:45 PM [facility] Urine Urine specimen obtained by clean catch procedure / Unknown Non-blood Collection / Unknown 06/14/2025 10:53 AM EDT 06/14/2025 12:14 PM EDT us Moody SANTIAGO LAB URINE ORDERABLES Final Result [facility] [address] [place] [address], * Lipid panel with reflex to direct LDL (06/14/2025 10:43 AM EDT) Cholesterol 121 0 - 200 mg/dL LAB CHEMISTRY METHOD 06/14/2025 11:33 AM EDT [facility] Triglycerides 96 0 - 150 mg/dL LAB CHEMISTRY METHOD 06/14/2025 11:33 AM EDT [facility] HDL 66 >=40 mg/dL LAB CHEMISTRY METHOD 06/14/2025 11:33 AM EDT [facility] LDL Calculated 36 0 - 100 mg/dL LAB CHEMISTRY METHOD 06/14/2025 11:33 AM EDT [facility] Comment:Estimated LDL Calcul ated using equation: Total cholesterol - HDL cholesterol - (Triglycerides/5) VLDL Cholesterol Tate 19.2 mg/dL LAB CHEMISTRY METHOD 06/14/2025 11:33 AM EDT [facility] Non HDL Chol. (LDL+VLDL) 55 <145 mg/dL LAB CHEMISTRY METHOD 06/14/2025 11:33 AM EDT [facility] Chol/HDL Ratio 1.8 0.0 - 4.4 LAB CHEMISTRY METHOD 06/14/2025 11:33 AM T [facility] Blood Venous blood specimen / Unknown Venipuncture / Unknown 06/14/2025 10:43 AM EDT 06/14/2025 10:53 AM EDT Moody SANTIAGO LAB BLOOD ORDERABLES Final Result [facility] [address] [place] [address], * (ABNORMAL) CBC auto differential (06/14/2025 10:43 AM EDT) WBC 6.2 4.8 - 10.8 K/mcL LAB HEMETOLOGY METHOD 06/14/2025 11:06 AM EDT [facility] RBC 4.40 3.80 - 4.80 M/mcL LAB HEMETOLOGY METHOD 06/14/2025 11:06 AM T [facility] Hemoglobin 12.5 11.5 - 16.0 g/dL LAB HEMETOLOGY METHOD 06/14/2025 11:06 AM [facility] Hematocrit 39.5 35.0 - 47.0 % LAB HEMETOLOGY METHOD 06/14/2025 11:06 AM [facility] MCV 90.8 79.0 - 98.0 FL LAB HEMETOLOGY METHOD 06/14/2025 11:06 AM [facility] MCH 28.7 27.0 - 32.0 pcg LAB HEMETOLOGY METHOD 06/14/2025 11:06 AM [facility] MCHC 31.6(L) 32.0 - 37.0 g/dL LAB HEMETOLOGY METHOD 06/14/2025 11:06 AM [facility] RDW 13.1 11.0 - 15.0 % LAB HEMETOLOGY METHOD 06/14/2025 11:06 AM [facility] Platelets 249 130 - 400 K/mcL LAB HEMETOLOGY METHOD 06/14/2025 11:06 AM [facility] MPV 10.2 7.0 - 11.0 FL LAB HEMETOLOGY METHOD 06/14/2025 11:06 AM [facility] NRBC 0.0 <1.0 % LAB HEMETOLOGY METHOD 06/14/2025 11:06 AM [facility] NRBC Absolute 0.00 <0.10 K/mcL LAB HEMETOLOGY METHOD 06/14/2025 11:06 AM [facility] Neutrophils Relative 36.4 % LAB HEMETOLOGY METHOD 06/14/2025 11:06 AM [facility] Lymphocytes Relative 49.2 % LAB HEMETOLOGY METHOD 06/14/2025 11:06 AM [facility] Monocytes Relative 9.1 % LAB HEMETOLOGY METHOD 06/14/2025 11:06 AM [facility] Eosinophils Relative 4.7 % LAB HEMETOLOGY METHOD 06/14/2025 11:06 AM EDT [facility] Basophils Relative 0.3 % LAB HEMETOLOGY METHOD 06/14/2025 11:06 AM [facility] Immature Granulocytes Relative 0.3 % LAB HEMETOLOGY METHOD 06/14/2025 11:06 AM EDT [facility] Neutrophils Absolute 2.24 1.50 - 7.00 K/mcL LAB HEMETOLOGY METHOD 06/14/2025 11:06 AM EDT [facility] Lymphocytes Absolute 3.03 1.00 - 5.00 K/mcL LAB HEMETOLOGY METHOD 06/14/2025 11:06 AM [facility] Monocytes Absolute 0.56 0.20 - 1.00 K/mcL LAB HEMETOLOGY METHOD 06/14/2025 11:06 AM EDT [facility] Eosinophils Absolute 0.29 0.00 - 0.50 K/mcL LAB HEMETOLOGY METHOD 06/14/2025 11:06 AM T [facility] Basophils Absolute 0.02 0.00 - 0.20 K/mcL LAB HEMETOLOGY METHOD 06/14/2025 11:06 AM [facility] Immature Granulocytes Absolute 0.02 0.00 - 0.03 K/mcL LAB [facility] Blood Venous blood specimen / Unknown Venipuncture / Unknown 06/14/2025 10:43 AM EDT 06/14/2025 10:53 AM EDT us Moody SANTIAGO LAB BLOOD ORDERABLES Final Result [facility] [address] [place] [address], * Vitamin D 25 hydroxy (06/14/2025 10:43 AM EDT) Pathologist [facility] Vit D, 25-Hydroxy 38.2 30.0 - 80.0 ng/mL LAB CHEMISTRY METHOD 06/14/2025 12:11 PM EDT [facility] Blood Venous blood specimen / Unknown Venipuncture / Unknown 06/14/2025 10:43 AM EDT 06/14/2025 10:53 AM EDT Moody SANTIAGO LAB BLOOD ORDERABLES Final Result Performing Organization Address City/[facility]/ZIP Co de Phone Number [facility] [address] [place] [address], [place] [phone] * Thyroid stimulating hormone (06/14/2025 10:43 AM EDT) [facility] TSH 1.96 0.40 - 4.00 mcIU/mL LAB CHEMISTRY METHOD 06/14/2025 12:11 PM EDT [facility] Blood Venous blood specimen / Unknown Venipuncture / Unknown 06/14/2025 10:43 AM EDT 06/14/2025 10:53 AM EDT Moody SANTIAGO LAB BLOOD ORDERABLES Final Result Performing Organization Address City/[facility]/ZIP Co de Phone Number [facility] [address] [place] [address], [place] [phone] * (ABNORMAL) Hemoglobin A1c (06/14/2025 10:43 AM EDT) [facility] Hemoglobin A1C 6.5(H) <6.5 % LAB CHEMISTRY METHOD 06/14/2025 1:10 PM EDT [facility] Mean Bld Glu Estim. 140 mg/dL LAB CHEMISTRY METHOD 06/14/2025 1:10 PM EDT [facility] Blood Venous blood specimen / Unknown Venipuncture / Unknown 06/14/2025 10:43 AM EDT 06/14/2025 10:53 AM EDT Moody SANTIAGO LAB BLOOD ORDERABLES Final Result [facility] [address] [place] [address], [place] [phone] * (ABNORMAL) Comprehensive metabolic panel (06/14/2025 10:43 AM EDT) [facility] Sodium 137 133 - 145 mmol/L LAB CHEMISTRY METHOD 06/14/2025 11:33 AM [facility] Potassium 4.2 3.5 - 5.5 mmol/L LAB CHEMISTRY METHOD 06/14/2025 11:33 AM [facility] Chloride 104 96 - 110 mmol/L LAB CHEMISTRY METHOD 06/14/2025 11:33 AM [facility] CO2 29 21 - 32 mmol/L LAB CHEMISTRY METHOD 06/14/2025 11:33 AM [facility] Anion Gap 4 3 - 11 LAB CHEMISTRY METHOD 06/14/2025 11:33 AM [facility] Glucose 144(H) 70 - 100 mg/dL LAB CHEMISTRY METHOD 06/14/2025 11:33 AM [facility] BUN 17 5 - 25 mg/dL LAB CHEMISTRY METHOD 06/14/2025 11:33 AM [facility] Creatinine 0.60 0.50 - 1.10 mg/dL LAB CHEMISTRY METHOD 06/14/2025 11:33 AM [facility] eGFR 94 >=60 mL/min/1. 73m2 LAB CHEMISTRY METHOD 06/14/2025 11:33 AM [facility] Comment:Calculation based on the Chronic Kidney Disease Epidemiology Collaboration (CKD-EPI) equation refit without adjustment for race. BUN/Creatinine Ratio 28.3 LAB CHEMISTRY METHOD 06/14/2025 11:33 AM [facility] Calcium 9.4 8.5 - 10.5 mg/dL LAB CHEMISTRY METHOD 06/14/2025 11:33 AM EDT [facility] AST (SGOT) 23 10 - 42 unit/L LAB CHEMISTRY METHOD 06/14/2025 11:33 [facility] ALT (SGPT) 21 10 - 60 unit/L LAB CHEMISTRY METHOD 06/14/2025 11:33 AM T [facility] Alkaline Phosphatase 112 42 - 121 unit/L LAB CHEMISTRY METHOD 06/14/2025 11:33 AM [facility] Total Protein 7.3 6.0 - 8.0 g/dL LAB CHEMISTRY METHOD 06/14/2025 11:33 AM [facility] Albumin 3.7 3.2 - 5.0 g/dL LAB CHEMISTRY METHOD 06/14/2025 11:33 AM [facility] Total Bilirubin 0.8 0.0 - 1.4 mg/dL LAB CHEMISTRY METHOD 06/14/2025 11:33 AM [facility] Blood Venous blood specimen / Unknown Venipuncture / Unknown 06/14/2025 10:43 AM EDT 06/14/2025 10:53 AM EDT Moody SANTIAGO LAB BLOOD ORDERABLES Final Result [facility] [address] [place] [address], * (ABNORMAL) Baterial identification and susceptibility, aerobic (06/06/2025 12:00 AM EDT) Culture, Bacterial ID and Sensitivity Escherichia coli ESBL(A) ADRIÁN 06/09/2025 8:45 AM EDT [facility] Comment: THIS ORGANISM IS POSITIVE FOR EXTENDED SPECTRUM BETA-LACTAMASE (ESBL). EXTENDED SPECTRUM BETA-LACTAMASE PRODUCING ORGANISMS DEMONSTRATE DECREASED ACTIVITY WITH PENICILLINS, CEPHALOSPORINS AND AZTREONAM. Edited result: Previously reported as Escherichia coli on 06/08/2025 at 0842 EDT. Other Urine specimen from urethra / Unknown 06/06/2025 06/07/2025 10:02 AM EDT Narrative Organism Antibiotic Method Susceptibility Escherichia coli ESBL Amoxicillin/Clavulanate ADRIÁN >=32 ug/ml: Resistant Escherichia coli ESBL Ampicillin/Sulbactam ADRIÁN 16 ug/ml: Intermediate Escherichia coli ESBL Piperacillin/Tazobactam ADRIÁN <=4 ug/ml: Susceptible Escherichia coli ESBL Cefazolin (Urine) ADRIÁN >=32 ug/ml: Resistant Escherichia coli ESBL Cefoxitin ADRIÁN >=64 ug/ml: Resistant Escherichia coli ESBL Ceftazidime ADRIÁN >=32 ug/ml: Resistant Escherichia coli ESBL Ceftriaxone ADRIÁN 0.5 ug/ml: Susceptible Escherichia coli ESBL Cefepime ADRIÁN <=0.12 ug/ml: Susceptible Escherichia coli ESBL Meropenem ADRIÁN <=0.25 ug/ml: Susceptible Escherichia coli ESBL Amikacin ADRIÁN 2 ug/ml: Susceptible Escherichia coli ESBL Gentamicin ADRIÁN <=1 ug/ml: Susceptible Escherichia coli ESBL Ciprofloxacin ADRIÁN 0.12 ug/ml: Susceptible Escherichia coli ESBL Levofloxacin ADRIÁN 0.25 ug/ml: Susceptible Escherichia coli ESBL Nitrofurantoin ADRIÁN <=16 ug/ml: Susceptible Escherichia coli ESBL Trimethoprim/Sulfa methoxazol e ADRIÁN >=320 ug/ml: Resistant us Rut Chapman FEED GRINDER LAB MICROBIOLOGY - GENERA L ORDERABLES Final Result [facility]) [facility] [address] [place] [address], * MR Brain wo and w Contrast [...] Signed Date: 05/02/2025 20:53 ET Workstation ID: [id number] Transcribed By: Self Edit Transcribed Date: 05/02/2025 [...] and pontine white matter, similar compared to 202. -------- FINAL REPORT -------- Dictated By: AMI SERRANO Dictated Date: 05/02/2025 20:38 ET Assigned Physician: AMI SERRANO Reviewed and Electronically Signed By: AMI SERRANO Signed Date: 05/02/2025 20:53 ET Workstation ID: [id number] Transcribed By: Self Edit Transcribed Date: 05/02/2025 [...] year. Mammography location: [facility] [address], [address] -------- FINAL REPORT -------- Dictated By: Kristian Baez Dictated Date: 03/30/2025 08:59 ET Assigned Physician: Kristian Baez Reviewed and Electronically Signed By: Kristian Baez Signed Date: 03/30/2025 09:06 ET Workstation ID: [id number] Transcribed By: Self Edit Transcribed Date: 03/30/2025 08:59 ET Narrative 03/30/2025 9:06 AM EDT EXAM: SCREENING MAMMOGRAPHY, BILATERAL HISTORY: SCREENING. No additional history. COMPARISON: 10/01/17 TECHNIQUE: Synthesized CC and MLO projections of each breast. Tomosynthesis of each breast in the CC and MLO projections. ADDITIONAL IMAGING: None Computer-aided detection was employed with the [employer] AI 3-D. TISSUE DENSITY: The breasts are [...] None Computer-aided detection was employed with the [employer] AI 3-D. TISSUE DENSITY: The breasts are [...] year. Mammography location: [facility] at [address], [address] -------- FINAL REPORT -------- Dictated By: Kristian Baez Dictated Date: 03/30/2025 08:59 ET Assigned Physician: Kristian Baez Reviewed and Electronically Signed By: Kristian Baez Signed Date: 03/30/2025 09:06 ET Workstation ID: [id number] Transcribed By: Self Edit Transcribed Date: 03/30/2025 08:59 ET us Moody SANTIAGO IMG BI PROCEDURES Final Re sult * COLONOSCOPY (09/23/2024 10:06 AM EST) Anatomical Region Laterality Modality Endoscopy us Historical Provider GI~PROCEDURE ORDERABLES F inal Result from Last 3 Months or Most Recently Relevant to Health Maintenance Additional Health Concerns Infection Onset Date Last Indicated ESBL 06/06/2025 06/06/2025 Insurance [employer] ADVANTAGE Care Teams Plywood Patcher Relationship Specialty Start Date End Date Moody Norton PA [address] [place] [address] PCP - General Physician Triage Clinician 03/27/25
--- OUTSIDE RECORDS SUMMARY | 2025-06-16 16:04 | XMS_ITS | Encounter Summary ---
Author Organization Address [address] [place] [address] Care Team Providers Care Kitchen Hand Name Role Phone Errol Moody SANTIAGO Primary Care Provider [phone]- [phone] Encounter Details Date Type Department Care Team (Late st Contact Info) Description 02/10/2025 Lab Requisition [facility] - Main Lab [address] [facility] [place] [phone] Ankita Hoover MD [address] [facility] [address] [place] [address] Urinary tract infection, site not specified Social [...] Description 07/12/2025 3:10 PM EST Office Visit [facility] [address] [place] [phone] Radha Hurd, FERNIE [address] [place] [address] [address] [place] [phone] 12/08/2025 1:30 PM EDT Ancillary Procedure [facility] - [address] [place] [phone] documented as of this encounter Procedures Procedure Name Priority Date/Time Associated Diagnosis Comments BACTERIAL IDENTIFICATION AND SUSCEPTIBILITY, AEROBIC Routine 02/09/2025 12:00 AM EDT Urinary tract infection, site not specified documented in this encounter Results * Bacterial identification and susceptibility, aerobic (02/09/2025 12:00 AM EDT) Culture, Bacterial ID and Sensitivity Light Normal Urogenital ibrahima. 02/11/2025 9:32 AM EDT [facility] Other Urine specimen from urethra / Unknown 02/09/2025 02/10/2025 10:23 AM EDT Ankita Hoover MD LAB MICROBIOLOGY - G ENERAL ORDERABLES Final Result [facility] [address] [place] [address], documented in this encounter Visit Diagnoses Diagnosis Urinary tract infection, site not specified documented in this encounter Additional Health Concerns Infection Onset Date Last Indicated Resolved Time ESBL 06/06/2025 06/06/2025 documented as of this encounter Care Teams Kitchen Hand Relationship Specialty Start Date End Date Moody Norton PA [address] [place] [address] PCP - General Physician Mechanic Recovery 03/27/25 documented as of this encounter
--- OUTSIDE RECORDS SUMMARY | 2025-06-16 16:05 | XMS_ITS | Patient Health Record ---
Author Organization [facility] Address [address] [facility] [address] [place] [address] Care Team Providers Care Gear Shaver Set Up Operator Name Role Phone Pino MERCHANT, Hetal Primary Care Provider Ravi pérez Reason For Referral No Information Plan Of Treatment No Information Insurance Providers Payer Name Payer Address Payer Phone Subscriber Number Group Number Insured Name Patient Relationship to Insured Coverage Start Date Coverage End Date [employer] MED[employer] ADVANTAGE [facility] [address] [place] [address] CLINT TRAVIS Self - patient is the insured
--- OUTSIDE RECORDS SUMMARY | 2025-06-16 16:05 | XMS_ITS | Patient Health Record ---
Author Organization [facility] Address [address] [facility] [place] [address] Care Team Providers Care Cylindrical Mixer Name Role Phone Akil MERCHANT, [facility] Primary Care Provider UnavailThea Mccrary Unavailable [phone] Allergies Allergen (clinical drug ingredient) Drug/Non Drug Allergy documented on EMR Reaction Allergy Type Onset Date Status ibuprofen Advil Unknown Drug Allergy Active Aleve Unknown Drug Allergy Active Motrin Unknown Drug Allergy Active acetaminophen / oxycodone Percocet Unknown Drug Allergy Active lurasidone Latuda Unknown Drug Allergy Active Results Component Value Reference Range Notes HEMOGLOBIN A1C (GLYCOHEMOGLO BIN) Reviewed date:06/04/2025 06:12:47 PM Interpretation: Performing Lab: Notes/Report: HEMOGLOBIN A1C [...] 1 tablet Orally Once a day Active Table Rock Carbonate No t-Taking metFORMIN HCl Active LaMICtal [...] Polyneuropathy due to type 2 diabetes mellitus (820079357) Type 2 diabetes mellitus with diabetic polyneuropathy (E11.42) Active confirmed Problem Ulcer of toe of right foot (disorder) (561233429167329 01) Skin ulcer of toe of right foot, limited to breakdown of skin (L97.511) Active confirmed Problem Ulcer of toe of left foot (disorder) (394262389528683 02) Skin ulcer of toe of left foot, limited to breakdown of skin (L97.521) Active confirmed Nonapplicable Vital Signs Blood pressure diastolic 65 mm Hg 09/23/2024 Height 5ft 8in in 09/23/2024 Blood pressure systolic 117 mm Hg 09/23/2024 Weight 185 lbs 09/23/2024 BMI 28.13 kg/m2 09/23/2024 Procedures Procedure Date Ordered Date Performed Result Body Sit e 16520-RGRVAUL NAIL, 6 OR MORE 06/17/2024 N/A 31520-Hgkidoxp Plate 06/17/2024 N/A 57690-ZHBB SKIN LESIONS, OVER 4 06/17/2024 N/A 61321-QGLJLTZ NAIL, 6 OR MORE 09/23/2024 N/A 85282-HARI SKIN LESIONS, OVER 4 09/23/2024 N/A Encounters Encounter Location Date Provider Diagnosis [address] [address] 06/17/2024 Thea Bruno Type 2 diabetes mellitus with diabetic polyneuropathy E11.42 ; Onychomycosis B35.1 and Ingrown nail L60.[address] [address] 09/23/2024 Thea Bruno Type 2 diabetes mellitus with diabetic polyneuropathy E11.42 and Onychomycosis B35.1 [facility] [address] [place] [address] 06/04/2025 Theamandeep Carr [address] [address] 11/21/2024 Theamandeep Carr [address] [address] 12/14/2024 Thea Carr Assessments Encounter Date Diagnosis [...] Test Name Order Date *Wound Culture 03/08/2018 15900-FZFIZEJ NAIL, OR MORE 05/26/2023 26820-FVZBLVU NAIL, 6 OR MORE 09/04/2023 18780-TUBGZUY NAIL, 6 OR MORE 12/04/2023 56480-UWTZQLY NAIL, 6 OR MORE 03/18/2024 33984-JVFPVKN NAIL, 6 OR MORE 06/17/2024 32550-AGLZBXC NAIL, 6 OR MORE 09/23/2024 18315-Cnneulsf Plate 06/17/2024 91004-Vtpzrafo Plate 02/24/2023 90875-Kcpriqbg Plate 06/14/2019 32820-Gkjhqogo Plate 02/18/2022 51636-Cfasldhn Plate 03/08/2018 73811-Nqnanabh Plate 01/21/2017 08925-Xunfrirc Plate 09/30/2017 86919-Yafzywjn Plate 04/27/2015 07735-Pudfieca Plate 07/29/2016 64898-Yfrjhvfy Plate 05/05/2013 26282-Qdlpxmiv Plate 07/19/2013 51078-Txecjjmt Plate 09/27/2013 72644-Jspxqtcg Plate 12/06/2013 32105-Phxzhhmv Plate 03/16/2014 78489-Cstbbtwg Plate 05/23/2014 80778-Hufdbnwe Plate 08/08/2014 26706-Fmrkxzkk Plate 12/15/2014 53712-Njgsgqkf Plate 02/23/2015 52060-Yjiuxwmw Plate Each Additional 74821-Amxcozaj Plate Each Additional 46246-Uwxmjfyh Plate Each Additional 05/2014 36881-Qjsnqyqe Plate Each Additional 38607-Yiqvzdeo Plate Each Additional 69024-Zzliptpa Plate Each Additional 45558-Gzynptnj Plate Each Additional 17784-Ujccriwu Plate Each Additional 01950- Debride <25 sq cm 12/04/2023 88735- Debride <25 sq cm 04/29/2017 68995- Debride <25 sq cm 03/31/2018 18073- Debride <25 sq cm 04/28/2018 31144- Debride <25 sq cm 07/09/2018 73977 I&D ABSCESS- SIMPLE,SINGLE 023 70802 I&D ABSCESS- SIMPLE,SINGLE 018 21779-UTYI SKIN LESIONS, OVER 4 09/17/19 14146-RKPR SKIN LESIONS, OVER 4 12/11/19 53933-GYJN SKIN LESIONS, OVER 4 03/15/20 02668-MJGK SKIN LESIONS, OVER 4 10/26/19 68227-SAHI SKIN LESIONS, OVER 4 06/14/20 59853-QHNB SKIN LESIONS, OVER 4 02/17/20 12056-GYLM SKIN LESIONS, OVER 4 05/22/20 16289-OXGW SKIN LESIONS, OVER 4 05/20/20 85433-BHQB SKIN LESIONS, OVER 4 08/19/20 99903-XCSA SKIN LESIONS, OVER 4 11/16/19 40562-NPVI SKIN LESIONS, OVER 4 02/19/20 86105-FPDR SKIN LESIONS, OVER 4 08/21/20 26769-GFGX SKIN LESIONS, OVER 4 12/20/19 66350-BJMU SKIN LESIONS, OVER 4 03/26/20 20650-FSIM SKIN LESIONS, OVER 4 08/02/20 92178-BTUP SKIN LESIONS, OVER 4 11/26/19 78523-AOEN SKIN LESIONS, OVER 4 02/25/20 23 99788-ZJON SKIN LESIONS, OVER 4 09/04/19 71497-WLQR SKIN LESIONS, OVER 4 12/04/19 36156-XMFF SKIN LESIONS, OVER 4 03/18/20 12150-IHDV SKIN LESIONS, OVER 4 09/23/19 94141-PUYQ SKIN LESIONS, OVER 4 06/17/20 73767-FIDO SKIN LESIONS, OVER 4 05/26/20 23 92263-TTLE SKIN LESIONS, OVER 4 07/09/20 16118-CYJH SKIN LESIONS, OVER 4 03/31/20 05009-BFSS SKIN LESIONS, OVER 4 07/21/20 17 70742-PGZU SKIN LESIONS, OVER 4 04/29/20 17 26975-SNMH SKIN LESIONS, OVER 4 12/31/19 18 35945-GSGX SKIN LESIONS, OVER 4 09/30/19 18 41957-XRHC SKIN LESIONS, OVER 4 04/27/20 15 72207-OQQX SKIN LESIONS, OVER 4 08/02/20 15 95183-BJNT SKIN LESIONS, OVER 4 11/01/19 16 16350-ZSWD SKIN LESIONS, OVER 4 01/22/20 17 47478-LURN SKIN LESIONS, OVER 4 07/29/20 16 24764-DSYF SKIN LESIONS, OVER 4 03/11/20 16 36036-RMHD SKIN LESIONS, OVER 4 05/20/20 16 53307-GCZP SKIN LESIONS, OVER 4 09/27/19 14 14346-MPGI SKIN LESIONS, OVER 4 03/16/20 14 60341-KWHG SKIN LESIONS, OVER 4 12/07/19 14 51112-JJZL SKIN LESIONS, OVER 4 07/19/20 13 12068-SUPM SKIN LESIONS, OVER 4 05/23/20 14 19750-HNQI SKIN LESIONS, OVER 4 08/08/20 14 54288-DMOI SKIN LESIONS, OVER 4 12/16/19 15 54650-GVMU SKIN LESIONS, OVER 4 02/24/20 15 14360-IUOY SKIN LESIONS, 2 TO 4 05/05/20 13 Y3200-DIGQSVZY DYSTROPHIC NAILS ANY # N2219-EILYDJAU DYSTROPHIC NAILS ANY # K6155-QSCYCECG DYSTROPHIC NAILS ANY # H4834-SHJMHAVY DYSTROPHIC NAILS ANY # Y9341-KIHRWNDJ DYSTROPHIC NAILS ANY # N1498-TLAUSRBV DYSTROPHIC NAILS ANY # O9282-SOGUWDWG DYSTROPHIC NAILS ANY # Q9513-TWLACDUC DYSTROPHIC NAILS ANY # Q1477-BRNHJMFN DYSTROPHIC NAILS ANY # C6216-YIOFCCXM DYSTROPHIC NAILS ANY # N1040-AZRBVFXY DYSTROPHIC NAILS ANY # F1109-AWFTZBCS DYSTROPHIC NAILS ANY # Q6217-UMKNRBJW DYSTROPHIC NAILS ANY # A4566-HYXYKKOO DYSTROPHIC NAILS ANY # K1782-EETUVWRY DYSTROPHIC NAILS ANY # P7298-JIDUKWNB DYSTROPHIC NAILS ANY # J6093-DUKCVGMO DYSTROPHIC NAILS ANY # J3910-PXEDIFNN DYSTROPHIC NAILS ANY # R0454-UYKQSFYS DYSTROPHIC NAILS ANY # G9193-AYMUWHMN DYSTROPHIC NAILS ANY # V3442-SZIIQKCX DYSTROPHIC NAILS ANY # J4663-ECWYRQKH DYSTROPHIC NAILS ANY # F2141-XYWXCQFZ DYSTROPHIC NAILS ANY # R6810-UEQKZOFR DYSTROPHIC NAILS ANY # R1897-PQVQGXTM DYSTROPHIC NAILS ANY # D0803-RSVLZQCR DYSTROPHIC NAILS ANY # N4987-WXBQLMNV DYSTROPHIC NAILS ANY # M8401-XVCBFKDS DYSTROPHIC NAILS ANY # A3267-SBDWWVWR DYSTROPHIC NAILS ANY # P8588-KLBMATHC DYSTROPHIC NAILS ANY # G4205-OSNKJJWK DYSTROPHIC NAILS ANY # D2515-NMEIPNWR DYSTROPHIC NAILS ANY # Y5121-JMHCKKVF DYSTROPHIC NAILS ANY # T8992-MATUOXHF DYSTROPHIC NAILS ANY # M1637-ZHOJIHJZ DYSTROPHIC NAILS ANY # G0112-BCPCCGNZ DYSTROPHIC NAILS ANY # K4831-WMVXYTLB DYSTROPHIC NAILS ANY # C9892-MGHVWGFD DYSTROPHIC NAILS ANY # D9375-MACCXCME DYSTROPHIC NAILS ANY # Insurance Providers Payer Name Payer Address Payer Phone Subscriber Number Group Number Insured Name Patient Relationship to Insured Coverage Start Date Coverage End Date [employer] [place] Medicare [employer]vantage [facility] [address] [facility] [place] [id number] Anita Cheek Self - patient is the insured Medical (General) History Medical History History ICD Code cholesterol crohns disease depression type II diabetes diverticulosis high blood pressure measles mumps chicken pox Surgical History Surgery Date(Month/Year) gall bladder adrenalectomy Disk L4-5 S1 hysterectomy 2020 face surgery for cancer 08/16/2024
--- OUTSIDE RECORDS SUMMARY | 2025-06-16 16:05 | XMS_ITS | Encounter Summary ---
Author Organization [facility] Address [address] [place] [address] Care Team Providers Care Medical Billing Supervisor Name Role Phone Moody Norton Primary Care Provider +1- [phone] Encounter Details Date Type Department Care Team (Late Contact Info) Description 06/07/2025 Lab Requisition [facility] - Main Lab [address] [facility] [place] [address] Rut Chapman NP [address] [facility] [address] [place] [address] Urge incontinence Social History Tobacco Use Types Packs/Day Years Used Date Smoking Tobacco: Former Cigarettes Smokeless Tobacco: Never Alcohol Use Standard Drinks/Week [...] Encounters Date Type Department Care Team (Late Contact Info) Description 07/12/2025 3:10 PM EST Office Visit [facility] [address] [place] [phone] Radha Hurd NP [address] [place] [address] [address] [place] [phone] 12/08/2025 1:30 PM EDT Ancillary Procedure [facility] - [address] [place] [address] documented as of this encounter Procedures Procedure Name Priority Date/Time Associated Diagnosis Comments BACTERIAL IDENTIFICATION AND SUSCEPTIBILITY, AEROBIC Routine 06/06/2025 12:00 AM EDT Urge incontinence documented in this encounter Results * (ABNORMAL) Baterial identification and susceptibility, aerobic (06/06/2025 12:00 AM EDT) Pathologist [facility] Culture, Bacterial ID and Sensitivity Escherichia coli ESBL(A) ADRIÁN 06/09/2025 8:45 AM EDT [facility] ([facility]) [facility] Comment: THIS ORGANISM IS POSITIVE [...] ADRIÁN >=320 ug/ml: Resistant us Rut Chapman CERTIFIED VETERINARY TECHNICIAN LAB MICROBIOLOGY - GENERA L ORDERABLES Final Result [facility]) [facility] [address] [place] [address], documented in this encounter Visit Diagnoses Diagnosis Urge incontinence documented in this encounter Additional Health Concerns Infection Onset Date Last Indicated Resolved Time ESBL 06/06/2025 06/06/2025 documented as of this encounter Care Teams Medical Billing Supervisor Relationship Specialty Start Date End Date Moody Norton PA [address] [place] [address] PCP - General Physician Return Checker 03/27/25 documented as of this encounter
--- OUTSIDE RECORDS SUMMARY | 2025-06-16 16:06 | XMS_ITS | Patient Health Record ---
Author Organization [facility] [address] Address [address] [place] [address] Care Team Providers [employer] Name Role Phone KURTIS SHIELDS Unavailable [phone] SARITHAKILEY Garcia Unavailable [phone] SvrcekChelsi Unavailable [phone] SAJIGÓMEZ Unavailable [phone] Normoyle, Chikis Unavailable [phone] Allergies No Known Allergies Results Component Value Reference Range Notes EXTRA URINE SPECIMEN Reviewed date:01/19/2025 12:41:12 PM Interpretation: Performing Lab:NL2, [employer] [facility] [id number] [place], [place] [id number] Blas Marcos Notes/Report: FASTING: UNKNOWN COMMENT AN EXTRA SPECIMEN WAS RECEIVED WITH NO TEST REQUESTED. THE SPECIMEN WILL BE MAINTAINED IN STORAGE IN CASE ADDITIONAL TESTING IS NEEDED. PLEASE CALL THE CLIENT SERVICE DEPARTMENT FOR FURTHER ASSISTANCE. Comp. Metabolic Panel [id number] Reviewed date:10/28/2024 10:48:43 AM Interpretation: Performing Lab:Tiffanie Chau, [address] [facility], [place], Phone - [phone], Director - Carlos Alberto Notes/Report: Glucose 139 [...] (SGPT) 7 0-32 IU/L CBC With Differential/Platel et-[id number] Reviewed date:10/28/2024 10:48:52 AM Interpretation: Performing Lab:[facility] [place], [address] [facility], Phone - [phone], Director - MDJodry Notes/Report: WBC 7.2 3.4-10.8 x10E3/uL RBC 4.50 [...] Immature Grans (Abs) 0.0 0.0-0.1 x10E3/uL Hemoglobin [id number] Reviewed date:10/28/2024 10:48:17 AM Interpretation: Performing Lab:[facility] Chau, [address] [facility], [place], Phone - [phone], Director - Lyudmilay Notes/Report: Hemoglobin A1c 5.8 4.8-5.6 % . Prediabetes: 5.7 - 6.4 Diabetes: >6.4 Glycemic control for adults with diabetes: <7.0 URINALYSIS WITH REFLEX MICRO SCOPIC Reviewed date:06/14/2025 01:03:02 PM Interpretation: Performing Lab: Notes/Report: Specific Bomont Urine 1.018 1.003-1.030 pH, Urine 5.0 5.0-8.0 pH Leukocytes, Urine Moderate Negative Nitrite, Urine Negative Negative Protein, Urine Trace <=Trace mg/dL Glucose, Urine Negative Negative mg/dL Ketones, Urine Negative Negative mg/dL Urobilinogen, Urine 0.2 0.2-1.0 mg/dL Bilirubin, Urine Negative Negative Blood, Urine Small Negative RBC, Urine 14.7 0-4 /HPF WBC, Urine 46.8 0-4 /HPF Squamous Epithelial, Urine >100 0-60 /LPF Bacteria, Urine Negative Negative /HPF Hyaline Casts, Urine 1.6 0-3 /LPF CBC WITH AUTO DIFFERENTIAL Reviewed date:06/14/2025 12:05:25 PM Interpretation: Performing Lab: Notes/Report: WBC 6.2 4.8-10.8 K/mcL RBC 4.40 3.80-4.80 M/mcL Hemoglobin 12.5 11.5-16.0 g/dL Hematocrit 39.5 35.0-47.0 % MCV 90.8 79.0-98.0 FL MCH 28.7 27.0-32.0 pcg MCHC 31.6 32.0-37.0 g/dL RDW 13.1 11.0-15.0 % Platelets 249 130-400 K/mcL MPV 10.2 7.0-11.0 FL NRBC 0.0 <1.0 % NRBC Absolute 0.00 <0.10 K/mcL Neutrophils Relative 36.4 Lymphocytes Relative 49.2 Monocytes Relative 9.1 Eosinophils Relative 4.7 Basophils Relative 0.3 Immature Granulocytes Relative 0.3 Neutrophils Absolute 2.24 1.50-7.00 K/mcL Lymphocytes Absolute 3.03 1.00-5.00 K/mcL Monocytes Absolute 0.56 0.20-1.00 K/mcL Eosinophils Absolute 0.29 0.00-0.50 K/mcL Basophils Absolute 0.02 0.00-0.20 K/mcL Immature Granulocytes Absolute 0.02 0.00-0.03 K/mcL HEMOGLOBIN A1C Reviewed date:06/14/2025 01:20:03 PM Interpretation: Performing Lab: Notes/Report: Hemoglobin A1C 6.5 <6.5 % Mean Bld Glu Estim. 140 COMPREHENSIVE METABOLIC PANE L Reviewed date:06/14/2025 12:05:20 PM Interpretation: Performing Lab: Notes/Report: Sodium 137 133-145 mmol/L Potassium 4.2 3.5-5.5 mmol/L Chloride 104 96-110 mmol/L CO2 29 21-32 mmol/L Anion Gap 4 3-11 Glucose 144 70-100 mg/dL BUN 17 5-25 mg/dL Creatinine 0.60 0.50-1.10 mg/dL eGFR 94 >=60 mL/min/1.73m2 Calculation based on the Chronic Kidney Disease Epidemiology Collaboration (CKD-EPI) equation refit without adjustment for race. BUN/Creatinine Ratio 28.3 Calcium 9.4 8.5-10.5 mg/dL AST (SGOT) 23 10-42 unit/L ALT (SGPT) 21 10-60 unit/L Alkaline Phosphatase 112 42-121 unit/L Total Protein 7.3 6.0-8.0 g/dL Albumin 3.7 3.2-5.0 g/dL Total Bilirubin 0.8 0.0-1.4 mg/dL THYROID STIMULATING HORMONE Reviewed date:06/14/2025 12:18:12 PM Interpretation: Performing Lab: Notes/Report: TSH 1.96 0.40-4.00 mcIU/mL VITAMIN D 25 HYDROXY Reviewed date:06/14/2025 12:18:12 PM Interpretation: Performing Lab: Notes/Report: Vit D, 25-Hydroxy 38.2 30.0-80.0 ng/mL LIPID PANEL WITH REFLEX TO D IRECT LDL Reviewed date:06/14/2025 12:05:04 PM Interpretation: Performing Lab: Notes/Report: Cholesterol 121 0-200 mg/dL Triglycerides 96 0-150 mg/dL HDL 66 >=40 mg/dL LDL Calculated 36 0-100 mg/dL Estimated LDL Calculated using equation: Total cholesterol - HDL cholesterol - (Triglycerides/5) VLDL Cholesterol Tate 19.2 Non HDL Chol. (LDL+VLDL) 55 <145 mg/dL Chol/HDL Ratio 1.8 0.0-4.4 UA/M w/rflx Culture, Routine -[id number] Reviewed date:08/11/2024 08:02:40 AM Interpretation: Performing Lab:[facility] [place], [address] [facility] [address], [place], Phone - [phone], Director - Carlos Alberto Notes/Report: Specific Bomont 1.025 1.005-1.030 pH 5.5 5.0-7.5 Urine-Color Yellow [...] ibrahima 50,000-100,000 colony forming units per mL BACTERIAL IDENTIFICATION AND SUSCEPTIBILITY, AEROBIC Reviewed date:06/09/2025 05:05:20 PM Interpretation: Performing Lab: Notes/Report: Specimen Source: Other Collected: Jun 06, 2025 00:00:00 Organism: ESCHERICHIA COLI ESBL Antibiotics ADRIÁN Interpretation Amoxicillin+Clav Islt ADRIÁN 32 R Ampicillin+Sulbac Islt ADRIÁN 16 I Pip+Tazo Islt ADRIÁN 4 S ceFAZolin Susc Islt 32 R cefOXitin Islt ADRIÁN 64 R cefTAZidime Islt ADRIÁN 32 R cefTRIAXone Islt ADRIÁN 0.5 S Cefepime Islt ADRIÁN 0.12 S Meropenem Islt ADRIÁN 0.25 S Amikacin Islt ADRIÁN 2 S Gentamicin Islt ADRIÁN 1 S Ciprofloxacin Islt ADRIÁN 0.12 S levoFLOXacin Islt ADRIÁN 0.25 S Nitrofurantoin Islt ADRIÁN 16 S TMP SMX Islt ADRIÁN 320 R Culture, Bacterial ID and Sensitivity ESCHERICHIA COLI ESBL Escherichia coli ESBL THIS ORGANISM IS POSITIVE FOR EXTENDED SPECTRUM BETA-LACTAMASE (ESBL). EXTENDED SPECTRUM BETA-LACTAMASE PRODUCING ORGANISMS DEMONSTRATE DECREASED ACTIVITY WITH PENICILLINS, CEPHALOSPORINS AND AZTREONAM. Edited result: Previously reported as Escherichia coli on 06/08/2025 at 0842 EDT. Report Susceptibility Report VITAMIN B12 AND FOLATE Reviewed date:09/30/2024 08:56:16 AM Interpretation: Performing Lab: Notes/Report: Vitamin B-12 672 250-900 pcg/mL Folate 5.2 2.8-17.0 ng/ml BACTERIAL IDENTIFICATION AND SUSCEPTIBILITY, AEROBIC Reviewed date:02/14/2025 08:47:47 AM Interpretation: Performing Lab: Notes/Report: Culture, Bacterial ID and Sensitivity Light Normal Urogenital ibrahima. C-REACTIVE PROTEIN Reviewed date:09/30/2024 08:56:16 AM Interpretation: Performing Lab: Notes/Report: C-Reactive Protein <0.29 <=0.50 mg/dL VITAMIN D 1,25 DIHYDROXY Reviewed date:09/30/2024 08:56:16 [...] Vitamin D 25-hydroxy (VITD). Test performed at [facility], [address] , [place] [address] Cortney Rodriguez MD, PhD - Database Management Specialist [facility] Reviewed date:10/07/2024 08:31:25 AM Interpretation: Performing Lab: Notes/Report: Sodium 140 133-145 mmol/L Potassium 4.3 3.5-5.5 mmol/L Chloride 109 96-110 mmol/L CO2 26 21-32 mmol/L Anion Gap 5 3-11 Glucose 132 70-100 mg/dL BUN 10 5-25 mg/dL Creatinine 0.85 0.50-1.10 mg/dL eGFR 72 >=60 mL/min/1.73m2 Calculation based on the?Chronic Kidney Disease Epidemiology Collaboration [...] K/mcL Immature Granulocytes Absolute 0.02 0.00-0.03 K/mcL Basic Metabolic Panel [id number] Reviewed date:03/15/2025 09:20:22 AM Interpretation: Performing Lab:[facility] Chau, [address] [facility], Phone - [phone], Director - MDCookiey Notes/Report: Glucose 139 70-99 mg/dL BUN 13 8-27 mg/dL Creatinine 0.59 0.57-1.00 mg/dL eGFR 95 >59 mL/min/1.73 BUN/Creatinine Ratio 22 12-28 Sodium 140 134-144 mmol/L Potassium 4.8 3.5-5.2 mmol/L Chloride 101 96-106 mmol/L Carbon Dioxide, Total 22 20-29 mmol/L Calcium 9.5 8.7-10.3 mg/dL Comp. Metabolic Panel (14)-3 [id number] Reviewed date:08/08/2024 11:42:08 AM Interpretation: Performing Lab:Tiffanie Chau, [address] [place] [address], Phone - [phone], Director - MDCookiey Notes/Report: Glucose 125 70-99 mg/dL BUN 16 [...] IU/L ALT (SGPT) 8 0-32 IU/L Lipid Panel-[id number] Reviewed date:08/08/2024 07:56:08 AM Interpretation: Performing Lab:Tiffanie Chau, [address] [facility], Phone - [phone], Director - Lyudmilay Notes/Report: Cholesterol, Total 144 100-199 mg/dL Triglycerides 85 0-149 mg/dL HDL Cholesterol 72 >39 mg/dL VLDL Cholesterol Tate 16 5-40 mg/dL LDL Chol Calc (NIH) 56 0-99 mg/dL Vitamin D, 45-[id number] Reviewed date:08/08/2024 07:56:08 AM Interpretation: Performing Lab:[facility] [place], [address] [facility], [place], Phone - [phone], Director - Carlos Alberto Notes/Report: Vitamin D, 25-Hydroxy 41.6 30.0-100.0 ng/mL Vitamin D deficiency has been defined by the [place] of Medicine and an Endocrine Society practice guideline as a level of serum 25-OH vitamin D less than 20 ng/mL (1,2). The Endocrine Society went on to further define vitamin D insufficiency as a level between 21 and 29 ng/mL (2). 1. IOM ([place] of Medicine). 2010. Dietary reference intakes for calcium and D. [place]: The National Academies Press. 2. Angel MF, Rohith NEWMAN, Moriah BEE, et al. Evaluation, treatment, and prevention of vitamin D deficiency: an Endocrine Society clinical practice guideline. JCEM. 2010; 96(7):1911-30. CBC With Differential/Platel et-[id number] Reviewed date:08/08/2024 11:42:16 AM Interpretation: Performing Lab:[facility] [place], [address] [facility], [place], Phone - [phone], Director - Carlos Alberto Notes/Report: WBC 7.6 3.4-10.8 x10E3/uL RBC 4.52 [...] % Immature Grans (Abs) 0.0 0.0-0.1 x10E3/uL TSH-[id number] Reviewed date:08/08/2024 07:56:08 AM Interpretation: Performing Lab:[address], Phone - [phone], Director - Crisdry Notes/Report: TSH 1.100 0.450-4.500 uIU/mL Urinalysis, Complete-[id number] Reviewed date:08/08/2024 11:42:00 AM Interpretation: Performing Lab:[facility], [address] [place] [address], Phone - [phone], Director - Crisdrjosé miguel Notes/Report: Specific Bomont 1.028 1.005-1.030 pH 5.5 5.0-7.5 Urine-Color Yellow [...] seen /lpf Bacteria Few None seen/Few Hemoglobin [id number] Reviewed date:08/08/2024 11:41:54 AM Interpretation: Performing Lab:[address], Phone - [phone], Director - MDMilagrodry Notes/Report: Hemoglobin A1c 6.1 4.8-5.6 % . Prediabetes: 5.7 - 6.4 Diabetes: >6.4 Glycemic control for adults with diabetes: <7.0 PPC Urine Dip Reviewed date:02/01/2025 01:53:58 PM Interpretation:Abnormal Performing Lab: Notes/Report: Abnormal MR BRAIN WO AND W CONTRAST Reviewed date:05/03/2025 04:19:42 PM Interpretation: Performing Lab: Notes/Report: Note See Note [facility], a member of [employer] Patient Name: CLINT CHEEK Date of : 1950 Reason for Exam: Dizziness, memory loss Exam Date: 04/29/2025 [id number] EST Report Status: Final Ordering Provider: KURTIS [...] Signed Date: 025 20:53 ET Workstation ID: [id number] Transcribed By: Self Edit Transcribed Date: 05/02/2025 20:38 ET MG MAMMO DIGITAL SCREENING W JAVIER BILAT Reviewed date:03/30/2025 10:29:23 AM Interpretation: Performing Lab: Notes/Report: Note See Note [facility], a member of [employer] Patient Name: CLINT CHEEK Date of : 1950 Reason for Exam: screening mammogram Exam Date: 03/27/2025 [id number] EST Report Status: Final Ordering Provider: KURTIS SHIELDS PCP: KURTIS SHIELDS EXAM: SCREENING MAMMOGRAPHY, BILATERAL HISTORY: SCREENING. No additional history. COMPARISON: 10/01/17 TECHNIQUE: Synthesiz ed CC and MLO projections of each breast. Tomosynthesis of each breast in the CC and MLO projections. ADDITIONAL IMAGING: None Computer-aided detection was employed with the [employer] AI 3-D. TISSUE DENSITY: The breasts [...] [facility] [address], [address] -------- FINAL REPOR T -------- Dictated By: Kristian Wright Dictated Date: 03/30/2025 08:59 ET Assigned Physician: Kristian Baez Reviewed and Electronically Signed By: Kristian Baez Signed Date: 025 09:06 ET Workstation ID: [id number] Transcribed By: Self Edit Transcribed Date: 03/30/2025 08:59 ET CULTURE, URINE, ROUTINE Reviewed date:01/19/2025 12:41:07 PM Interpretation: Performing Lab:NL2, [facility] [id number] [facility] Blas Marcos Notes/Report: FASTING: UNKNOWN CULTURE, URINE, ROUTINE SEE NOTE CULTURE, URINE, ROUTINE Micro Number: [id number] Test Status: Final Specimen Source: Urine Specimen Quality: Inadequate Result: Test not performed. Submitted urine tube is incorrectly filled. Reason For Referral Reason s/p hospitalization sepsis from UTI. evaluate & treat Diagnosis 1 Chronic UTI (N39.0) Referral Organization [facility] [address] Referring Provider First Name GÓMEZ Referring Provider Last Name SAJI Referring Provider Speciality Internal edicine Referred Provider Specialty Urology Clinical Notes SiddharthTonie prabhakar 12/30 04:26:06 PM > faxed pt info to urology of [facility]. p) [phone] f) [phone], Jose Alberto Sotelo Rehan 02/09/2025 02:20:59 PM > Spoke with Tonya, was seen today February 09 Referral Priority Routine Reason Evaluate & Treat Diagnosis 1 Anxiety (F41.9) Diagnosis 2 Bipolar disorder wit h depression (F31.9) Diagnosis 3 Polypharmacy (Z79.89 9) Referral Organization [facility] [address] Referring Provider First Name KURTIS Referring Provider Last Name ALYSON Referring Provider Speciality Internal edicine Referred Provider Specialty Psychiatry General Notes Angeli Car 2024 01:47:14 PM > Family care con, [phone], [phone] Clinical Notes Angeli Car 2024 03:10:39 PM > patient has packet will call us if referral is needed Referral Priority Routine Medications Medication SIG (Take, Route, Frequency, Duration) Notes Start Date End Date Status Humira 40 mg SC Active Gabapentin 100 MG 1 capsule at bedtime Orally Once a day; Duration: 30 days 06/15/2025 Active Meclizine HCl 12.5 MG TAKE 1 TABLET BY M OUTH EVERY 12 HOURS NEEDED; Duration: 30 Active Nitrofurantoin Monohyd Macro 100 MG TAKE 1 CAPSULE BY MOUTH TWICE A DAY Oral; Duration: 7 Days Active Acetaminophen 500 MG 1 capsule as needed Orally every 6 hrs prn Active traZODone HCl 100 MG TAKE 1 TABLET BY MO UTH EVERY DAY AT BEDTIME NEEDED FOR 30 DAYS 90 DAYS; Duration: 90 Active Methenamine Hippurate 1 GM TAKE 1 TABLET BY MOUTH TWICE A DAY TAKE WITH VITAMIN C OR CRANBERRY PILL Oral; Duration: 90 Days Active Mirtazapine 30 MG TAKE 1 [...] Y MOUTH EVERY DAY; Duration: 90 Active oxyBUTYnin Chloride ER 10 MG 1 tablet Orally Once a day Active Trintellix 20 MG TAKE 1 TABLET BY GUERO TH EVERY DAY; Duration: 30 Active Social History Tobacco Use: Social History Observation Description Date Details (start date - stop date) Former Smoker NA - NA Tobacco Use/Smoking Question Answer Notes Are you a former smoker Alcohol Screen (Audit-C) Question Answer Notes Did you have a drink containing alcohol in the p ast year? 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 smoking 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 ETOH Use: declines Tob Use: declines Drug Use: declines Caffeine Use: coffee Smoke detectors in home: Yes Seatbelt use: Yes quit smoking 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 smoking 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 smoking 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 see HPI ETOH Use: declines Tob Use: declines Drug Use: declines Caffeine Use: coffee Smoke detectors in home: Yes Seatbelt use: Yes quit smoking 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 smoking 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 smoking 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 smoking 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 Problems Problem Type SNOMED Code ICD Code Onset Dates Problem Status W/U Status Risk Notes Problem Vitamin D deficiency (08013883) Vitamin D deficiency, unspecified (E55.9) Active confirmed Problem Metabolic encephalopathy (24628089) Metabolic encephalopathy (G93.41) Active confirmed Problem Essential hypertension (06540761) Essential (primary) hypertension (I10) Active confirmed Problem Shortness of breath (913118599) Shortness of breath (R06.02) Active confirmed Problem Dysuria (76000475) Dysuria (R30.0) Active confirmed Problem Transient alteration of awareness (5825806949) Transient alteration of awareness (R40.4) Active confirmed Problem Diabetes mellitus screening (757306973) Encounter for screening for diabetes mellitus (Z13.1) Active confirmed Problem Lipid screening (990371901) Encounter for screening for lipoid disorders (Z13.220) Active confirmed Problem Endocrine/metabol ic screening (419825703) Encounter for screening for other suspected endocrine disorder (Z13.29) Active confirmed Problem Prediabetes (463526826) Prediabetes (R73.03) Active confirmed Problem Unsteady gait (21463531) Unsteady gait (R26.81) Active confirmed Problem Acquired hypothyroidism (943135827) Acquired hypothyroidism (E03.9) Active confirmed Problem Anxiety (87435651) Anxiety (F41.9) Active confirmed Problem Adult health examination (290132296) Adult general medical exam (Z00.00) Active confirmed Problem Dizziness (698345753) Dizziness (R42) Active confirmed Problem Annual health maintenance examination (36935299) Annual physical exam (Z00.00) Active confirmed Problem Vitamin D deficiency (67948071) Vitamin D deficiency (E55.9) Active confirmed Problem Chronic sinusitis (16610835) Chronic sinusitis, unspecified location (J32.9) Active confirmed Problem Obese class I (402136740076598) BMI 33.0-33.9,adult (Z68.33) Active confirmed Problem Alkaline phosphatase raised (139819956) Elevated alkaline phosphatase level (R74.8) Active confirmed Problem Body mass index 30.00 to 34.99 (377417948787882) BMI 34.0-34.9,adult (Z68.34) Active confirmed Problem Basal cell carcinoma of face (567109943) Basal cell carcinoma (BCC) of skin of other part of face (C44.319) Active confirmed Problem Deviated nasal septum (933719757) Deviated septum (J34.2) Active confirmed Problem Chronic cough (15558918) Chronic cough (R05.3) Active confirmed Problem Abnormal gait (53797439) Balance disorder (R26.89) Active confirmed Problem Bipolar disorder (13275748) Bipolar disorder with depression (F31.9) Active confirmed Problem Amnesia (01738017) Memory changes (R41.3) Active confirmed Problem MRI Scan Abnormal (899662409) Abnormal MRI (R93.89) Active confirmed Problem Dilatation of Aorta (56411438) Aortic dilatation (I77.819) Active confirmed Problem Lesion of skin of face (014628687343) Lesion of skin of face (L98.9) Active confirmed Problem Word finding difficulty (372786669) Word finding difficulty (R47.89) Active confirmed Problem Urinary tract infectious disease (43837536) Chronic UTI (N39.0) Active confirmed Problem Ectasia of thoracic aorta (961464295244592) Aortic root dilation (I77.810) Active confirmed Problem Chronic insomnia (547312702) Chronic insomnia (F51.04) Active confirmed Vital Signs Heart Rate 89 /min 06/15/2025 Temperature 98.6 degrees Fahrenheit 01/17/2025 Oximetry 97 % 06/15/2025 Blood pressure diastolic 82 mm Hg 06/15/2025 Height 67 in 06/15/2025 Blood pressure systolic 124 mm Hg 06/15/2025 Weight 216.3 lbs 06/15/2025 BMI 33.87 kg/m2 06/15/2025 Encounters Encounter Location Date Provider Diagnosis [facility] [address] [place] [address] 08/09/2024 KURTIS SHIELDS Anxiety F41.9 ; Basa l cell carcinoma (BCC) of skin of other part of face C44.319 ; Aortic root dilation I77.810 ; Seborrhea capitis L21.0 ; Sinus congestion R09.81 ; Dysuria R30.0 ; Prediabetes R73.03 and Elevated alkaline phosphatase level R74.8 [facility] [address] [place] [address] 11/02/2024 KURTIS SHIELDS Anxiety F41.9 ; Basa l cell carcinoma (BCC) of skin of other part of face C44.319 ; Aortic root dilation I77.810 ; Seborrhea capitis L21.0 ; Sinus congestion R09.81 ; Dysuria R30.0 ; Prediabetes R73.03 and Elevated alkaline phosphatase level R74.[address] [facility] [address] [place] [address] 01/11/2025 KURTIS SHIELDS Basal cell carcinoma (BCC) of skin of other part of face C44.319 ; Metabolic encephalopathy G93.41 ; Anxiety F41.9 ; Aortic root dilation I77.810 ; Seborrhea capitis L21.0 ; Sinus congestion R09.81 ; Dysuria R30.0 ; Prediabetes R73.03 ; Elevated alkaline phosphatase level R74.8 and Encounter for examination of blood pressure without abnormal findings Z01.30 [facility] [address] [place] [address] 01/17/2025 GÓMEZ SAJI Urinary frequency R3 5.0 ; Chills R68.83 ; Acute UTI N39.0 and Encounter for examination of blood pressure without abnormal findings Z01.[address] 02/01/2025 Chikis Normoyle Incontinence in fema le R32 ; Recurrent UTI (urinary tract infection) N39.0 ; Encounter for examination of blood pressure without abnormal findings Z01.30 and Chronic insomnia F51.[address] [address] 03/15/2025 KURTIS SHIELDS Basal cell carcinoma (BCC) [...] Memory changes R41.3 and BMI 34.0-34.9,adult Z68.[address] [address] 06/15/2025 KURTIS SHIELDS Basal cell carcinoma (BCC) of skin of other part of face C44.319 ; Memory changes R41.3 ; Aortic root dilation I77.810 ; Dizziness R42 ; Encounter for examination of blood pressure without abnormal findings Z01.30 ; Family hx-stroke Z82.3 ; BMI 33.0-33.9,adult Z68.33 and Right shoulder pain, unspecified chronicity M25.511 [facility] [address] [address] 07/06/2024 KURTIS SHIELDS [facility] [address] [facility] [address] [place] [address] 08/12/2024 KURTIS SHIELDS [facility] [address] [place] [address] 01/05/2025 KURTIS SHIELDS [facility] [address] [facility] [address] [place] [address] 01/10/2025 KURTIS SHIELDS [facility] [address] [place] [address] 01/16/2025 KURTIS SHIELDS [facility] [address] [place] [address] 01/17/2025 GÓMEZ SAJI Dysuria R30.[address] [facility] [address] [place] [address] 01/17/2025 KURTIS SHIELDS Dysuria R30.[address] [address] [place] [address] 01/18/2025 GÓMEZ SAJI [facility] [address] [place] [address] 01/31/2025 KURTIS SHIELDS [facility] [address] [place] [address] 02/02/2025 Chikis Normoyle [facility] [address] [address] 02/03/2025 KURTIS SHIELDS [facility] [address] [place] [address] 02/13/2025 KURTIS SHIELDS [facility] [address] [place] [address] 02/21/2025 KURTIS SHIELDS [facility] [address] [place] [address] 03/08/2025 KURTIS SHIELDS [facility] [address] [place] [address] 03/23/2025 Chelsi Svrcek [facility] [address] [place] [address] 03/23/2025 KURTIS SHIELDS [facility] [address] [place] [address] 03/30/2025 KURTIS SHIELDS [facility] [address] [place] [address] 04/11/2025 KURTIS SHIELDS [facility] [address] [facility] [address] [place] [address] 04/27/2025 KURTIS SHIELDS [facility] [address] [place] [address] 05/03/2025 KURTIS SHIELDS [facility] [address] [place] [address] 08/12/2024 KILEY MELARA Assessments Encounter Date Diagnosis (ICD Code) Assessment Notes Treatment Notes Treatment Clinical Notes Section Notes 08/09/2024 Anxiety (ICD-10 - F41.9) # Abnormal [...] unchanged results. # HTN: Reports that the air intelligence officer discontinued all antihypertesnive medciations. Blood pressure stable. # Bipolar: Recently seen by DO China Kaiser at [facility]. Going to increase mirtazapine to 30 mg +7.5 mg tablets for a total of 37.5 mg. Discontinued alprazolam. Discussed psychotherapy.Trial increasing trazodone for sleep to 100 mg but patient did not tolerate well. Will discontinue trazodone and Trialed hydroxyzine 50 mg with some improvement, will increase to 50 to 100 mg as needed.. Avoid alprazolam secondary to beers list.Refer to psychiatrist at [facility]. Provided with phone number. # [...] Dictation was accomplished with the use of [employer] voice recognition software, prone to medical misidentifications [...] unchanged results. # HTN: Reports that the air intelligence officer discontinued all antihypertesnive medciations. Blood pressure stable. # Bipolar: Recently seen by DO China Kaiser at [facility]. Going to increase mirtazapine to 30 mg +7.5 mg tablets for a total of 37.5 mg. Discontinued alprazolam. Discussed psychotherapy.Trial increasing trazodone for sleep to 100 mg but patient did not tolerate well. Will discontinue trazodone and Trialed hydroxyzine 50 mg with some improvement, will increase to 50 to 100 mg as needed.. Avoid alprazolam secondary to beers list.Refer to psychiatrist at [facility]. Provided with phone number.Patient states [...] Dictation was accomplished with the use of [employer] voice recognition software, prone to medical misidentifications and grammatical errors. This is unintentional and the practitioner does try to identify and correct these, but some could still be present. Please do not hesitate to contact practitioner for clarification. 01/11/2025 Metabolic encephalopathy (ICD-10 - G93.41) # Hospitalized at [facility] in [place] January 01, 2025 discharged January 05, 2025. [...] Recently seen by DO China Kaiser at [facility]. Going to increase mirtazapine to 30 mg +7.5 mg tablets for a total of 37.5 mg. Discontinued alprazolam. Discussed psychotherapy.Trial increasing trazodone for sleep to 100 mg but patient did not tolerate well. Will discontinue trazodone and Trialed hydroxyzine 50 mg with some improvement, will increase to 50 to 100 mg as needed.. Avoid alprazolam secondary to beers list.Refer to psychiatrist at [facility]. Provided with phone number.Patient states [...] Dictation was accomplished with the use of [employer] voice recognition software, prone to medical misidentifications and grammatical errors. This is unintentional and the practitioner does try to identify and correct these, but some could still be present. Please do not hesitate to contact practitioner for clarification. 01/11/2025 Basal cell carcinoma (BCC) of skin of other part of face (ICD-10 - C44.319) # Hospitalized at [facility] in [place] January 01, 2025 discharged January 05, 2025. [...] Recently seen by DO China Kaiser at [facility]. Going to increase mirtazapine to 30 mg +7.5 mg tablets for a total of 37.5 mg. Discontinued alprazolam. Discussed psychotherapy.Trial increasing trazodone for sleep to 100 mg but patient did not tolerate well. Will discontinue trazodone and Trialed hydroxyzine 50 mg with some improvement, will increase to 50 to 100 mg as needed.. Avoid alprazolam secondary to beers list.Refer to psychiatrist at [facility]. Provided with phone number.Patient states [...] Dictation was accomplished with the use of [employer] voice recognition software, prone to medical misidentifications [...] frequent urination. Patient recently was admitted to [facility] for concern of sepsis secondary to [...] Dictation was accomplished with the use of [employer] voice recognition software, which is prone to [...] frequent urination. Patient recently was admitted to [facility] for concern of sepsis secondary to [...] Dictation was accomplished with the use of [employer] voice recognition software, which is prone to [...] Dictation was accomplished with the use of [employer] voice recognition software, which is prone to [...] Dictation was accomplished with the use of [employer] voice recognition software, which is prone to medical misidentifications and grammatical errors. This are unintentional and the practitioner does try to identify and correct these, but some could still be present. Please do not hesitate to contact practitioner for clarification. 01/17/2025 Dysuria (ICD-10 - R30.0) 01/17/2025 Dysuria (ICD-10 - R30.0) 03/15/2025 Adult general medical exam (ICD-10 - Z00.00) # Hospitalized at [facility] in [place] January 01, 2025 discharged January 05, 2025. [...] Recently seen by DO China Kaiser at [facility]. Going to increase mirtazapine to 30 mg +7.5 mg tablets for a total of 37.5 mg. Discontinued alprazolam. Discussed psychotherapy.Trial increasing trazodone for sleep to 100 mg but patient did not tolerate well. Will discontinue trazodone and Trialed hydroxyzine 50 mg with some improvement, will increase to 50 to 100 mg as needed.. Avoid alprazolam secondary to beers list.Refer to psychiatrist at [facility]. Provided with phone number.Patient states [...] log exercise and discussed fitness Apps like [employer] which can help keep log off calories [...] Dictation was accomplished with the use of [employer] voice recognition software, prone to medical misidentifications and grammatical errors. This is unintentional and the practitioner does try to identify and correct these, but some could still be present. Please do not hesitate to contact practitioner for clarification. 03/15/2025 Basal cell carcinoma (BCC) of skin of other part of face (ICD-10 - C44.319) # Hospitalized at [facility] in [place] January 01, 2025 discharged January 05, 2025. [...] Recently seen by DO China Kaiser at [facility]. Going to increase mirtazapine to 30 mg +7.5 mg tablets for a total of 37.5 mg. Discontinued alprazolam. Discussed psychotherapy.Trial increasing trazodone for sleep to 100 mg but patient did not tolerate well. Will discontinue trazodone and Trialed hydroxyzine 50 mg with some improvement, will increase to 50 to 100 mg as needed.. Avoid alprazolam secondary to beers list.Refer to psychiatrist at [facility]. Provided with phone number.Patient states [...] log exercise and discussed fitness Apps like [employer] which can help keep log off calories [...] Dictation was accomplished with the use of [employer] voice recognition software, prone to medical misidentifications and grammatical errors. This is unintentional and the practitioner does try to identify and correct these, but some could still be present. Please do not hesitate to contact practitioner for clarification. 06/15/2025 Basal cell carcinoma (BCC) of skin [...] history of CVA. Following with neurology at [facility], getting scans of her brain vasculature [...] 2025. # Dizziness: Much better since discontinuing losartan/Benzodiazep [...] was discharged with at home PT/OT, and [place] nursing twice weekly, and home health aide. [...] thinners patient is going to discuss with cardiology/neurology . # Heart murmur: Echocardiogram demonstrates dilation of the aortic root, otherwise normal output. Lower extremities are without edema or rubor. Recent echocardiogram 2023 showing unchanged results.Cardiology ordered echocardiogram May 2025 # Bipolar: Recently seen by DO China Kaiser at [facility]. Going to increase mirtazapine to 30 mg +7.5 mg tablets for a total of 37.5 mg. Discontinued alprazolam. Discussed psychotherapy.Trial increasing trazodone for sleep to 100 mg but patient did not tolerate well. Will discontinue trazodone and Trialed hydroxyzine 50 mg with some improvement, will increase to 50 to 100 mg as needed.. Avoid alprazolam secondary to beers list.Refer to psychiatrist at [facility]. Provided with phone number.Patient states [...] Dictation was accomplished with the use of [employer] voice recognition software, prone to medical misidentifications [...] history of CVA. Following with neurology at [facility], getting scans of her brain vasculature [...] 2025. # Dizziness: Much better since discontinuing losartan/Benzodiazep [...] was discharged with at home PT/OT, and [place] nursing twice weekly, and home health aide. [...] thinners patient is going to discuss with cardiology/neurology . # Heart murmur: Echocardiogram demonstrates dilation of the aortic root, otherwise normal output. Lower extremities are without edema or rubor. Recent echocardiogram 2023 showing unchanged results.Cardiology ordered echocardiogram May 2025 # Bipolar: Recently seen by DO China Kaiser at [facility]. Going to increase mirtazapine to 30 mg +7.5 mg tablets for a total of 37.5 mg. Discontinued alprazolam. Discussed psychotherapy.Trial increasing trazodone for sleep to 100 mg but patient did not tolerate well. Will discontinue trazodone and Trialed hydroxyzine 50 mg with some improvement, will increase to 50 to 100 mg as needed.. Avoid alprazolam secondary to beers list.Refer to psychiatrist at [facility]. Provided with phone number.Patient states [...] Dictation was accomplished with the use of [employer] voice recognition software, prone to medical misidentifications [...] history of CVA. Following with neurology at [facility], getting scans of her brain vasculature [...] 2025. # Dizziness: Much better since discontinuing losartan/Benzodiazep [...] was discharged with at home PT/OT, and [place] nursing twice weekly, and home health aide. [...] thinners patient is going to discuss with cardiology/neurology . # Heart murmur: Echocardiogram demonstrates dilation of the aortic root, otherwise normal output. Lower extremities are without edema or rubor. Recent echocardiogram 2023 showing unchanged results.Cardiology ordered echocardiogram May 2025 # Bipolar: Recently seen by DO China Kaiser at [facility]. Going to increase mirtazapine to 30 mg [...] Dictation was accomplished with the use of [employer] voice recognition software, prone to medical misidentifications and grammatical errors. This is unintentional and the practitioner does try to identify and correct these, but some could still be present. Please do not hesitate to contact practitioner for clarification. 03/15/2025 Aortic root dilation (ICD-10 - I77.810) # Hospitalized at [facility] in [place] January 01, 2025 discharged January 05, 2025. [...] Recently seen by DO China Kaiser at [facility]. Going to increase mirtazapine to 30 mg +7.5 mg tablets for a total of 37.5 mg. Discontinued alprazolam. Discussed psychotherapy.Trial increasing trazodone for sleep to 100 mg but patient did not tolerate well. Will discontinue trazodone and Trialed hydroxyzine 50 mg with some improvement, will increase to 50 to 100 mg as needed.. Avoid alprazolam secondary to beers list.Refer to psychiatrist at [facility]. Provided with phone number.Patient states [...] log exercise and discussed fitness Apps like [employer] which can help keep log off calories [...] Dictation was accomplished with the use of [employer] voice recognition software, prone to medical misidentifications [...] Dictation was accomplished with the use of [employer] voice recognition software, which is prone to [...] frequent urination. Patient recently was admitted to [facility] for concern of sepsis secondary to [...] Dictation was accomplished with the use of [employer] voice recognition software, which is prone to medical misidentifications and grammatical errors. This are unintentional and the practitioner does try to identify and correct these, but some could still be present. Please do not hesitate to contact practitioner for clarification. 01/11/2025 Anxiety (ICD-10 - F41.9) # Hospitalized at [facility] in [place] January 01, 2025 discharged January 05, 2025. [...] Recently seen by DO China Kaiser at [facility]. Going to increase mirtazapine to 30 mg +7.5 mg tablets for a total of 37.5 mg. Discontinued alprazolam. Discussed psychotherapy.Trial increasing trazodone for sleep to 100 mg but patient did not tolerate well. Will discontinue trazodone and Trialed hydroxyzine 50 mg with some improvement, will increase to 50 to 100 mg as needed.. Avoid alprazolam secondary to beers list.Refer to psychiatrist at [facility]. Provided with phone number.Patient states [...] Dictation was accomplished with the use of [employer] voice recognition software, prone to medical misidentifications [...] unchanged results. # HTN: Reports that the air intelligence officer discontinued all antihypertesnive medciations. Blood pressure stable. # Bipolar: Recently seen by DO China Kaiser at [facility]. Going to increase mirtazapine to 30 mg +7.5 mg tablets for a total of 37.5 mg. Discontinued alprazolam. Discussed psychotherapy.Trial increasing trazodone for sleep to 100 mg but patient did not tolerate well. Will discontinue trazodone and Trialed hydroxyzine 50 mg with some improvement, will increase to 50 to 100 mg as needed.. Avoid alprazolam secondary to beers list.Refer to psychiatrist at [facility]. Provided with phone number.Patient states [...] Dictation was accomplished with the use of [employer] voice recognition software, prone to medical misidentifications [...] unchanged results. # HTN: Reports that the air intelligence officer discontinued all antihypertesnive medciations. Blood pressure stable. # Bipolar: Recently seen by DO China Kaiser at [facility]. Going to increase mirtazapine to 30 mg +7.5 mg tablets for a total of 37.5 mg. Discontinued alprazolam. Discussed psychotherapy.Trial increasing trazodone for sleep to 100 mg but patient did not tolerate well. Will discontinue trazodone and Trialed hydroxyzine 50 mg with some improvement, will increase to 50 to 100 mg as needed.. Avoid alprazolam secondary to beers list.Refer to psychiatrist at [facility]. Provided with phone number. # [...] Dictation was accomplished with the use of [employer] voice recognition software, prone to medical misidentifications [...] unchanged results. # HTN: Reports that the air intelligence officer discontinued all antihypertesnive medciations. Blood pressure stable. # Bipolar: Recently seen by DO China Kaiser at [facility]. Going to increase mirtazapine to 30 mg +7.5 mg tablets for a total of 37.5 mg. Discontinued alprazolam. Discussed psychotherapy.Trial increasing trazodone for sleep to 100 mg but patient did not tolerate well. Will discontinue trazodone and Trialed hydroxyzine 50 mg with some improvement, will increase to 50 to 100 mg as needed.. Avoid alprazolam secondary to beers list.Refer to psychiatrist at [facility]. Provided with phone number. # [...] Dictation was accomplished with the use of [employer] voice recognition software, prone to medical misidentifications [...] unchanged results. # HTN: Reports that the air intelligence officer discontinued all antihypertesnive medciations. Blood pressure stable. # Bipolar: Recently seen by DO China Kaiser at [facility]. Going to increase mirtazapine to 30 mg +7.5 mg tablets for a total of 37.5 mg. Discontinued alprazolam. Discussed psychotherapy.Trial increasing trazodone for sleep to 100 mg but patient did not tolerate well. Will discontinue trazodone and Trialed hydroxyzine 50 mg with some improvement, will increase to 50 to 100 mg as needed.. Avoid alprazolam secondary to beers list.Refer to psychiatrist at [facility]. Provided with phone number. # [...] Dictation was accomplished with the use of [employer] voice recognition software, prone to medical misidentifications [...] unchanged results. # HTN: Reports that the air intelligence officer discontinued all antihypertesnive medciations. Blood pressure stable. # Bipolar: Recently seen by DO China Kaiser at [facility]. Going to increase mirtazapine to 30 mg +7.5 mg tablets for a total of 37.5 mg. Discontinued alprazolam. Discussed psychotherapy.Trial increasing trazodone for sleep to 100 mg but patient did not tolerate well. Will discontinue trazodone and Trialed hydroxyzine 50 mg with some improvement, will increase to 50 to 100 mg as needed.. Avoid alprazolam secondary to beers list.Refer to psychiatrist at [facility]. Provided with phone number.Patient states [...] Dictation was accomplished with the use of [employer] voice recognition software, prone to medical misidentifications and grammatical errors. This is unintentional and the practitioner does try to identify and correct these, but some could still be present. Please do not hesitate to contact practitioner for clarification. 01/11/2025 Aortic root dilation (ICD-10 - I77.810) # Hospitalized at [facility] in [place] January 01, 2025 discharged January 05, 2025. [...] Recently seen by DO China Kaiser at [facility]. Going to increase mirtazapine to 30 mg +7.5 mg tablets for a total of 37.5 mg. Discontinued alprazolam. Discussed psychotherapy.Trial increasing trazodone for sleep to 100 mg but patient did not tolerate well. Will discontinue trazodone and Trialed hydroxyzine 50 mg with some improvement, will increase to 50 to 100 mg as needed.. Avoid alprazolam secondary to beers list.Refer to psychiatrist at [facility]. Provided with phone number.Patient states [...] Dictation was accomplished with the use of [employer] voice recognition software, prone to medical misidentifications [...] frequent urination. Patient recently was admitted to [facility] for concern of sepsis secondary to [...] Dictation was accomplished with the use of [employer] voice recognition software, which is prone to [...] Dictation was accomplished with the use of [employer] voice recognition software, which is prone to medical misidentifications and grammatical errors. This are unintentional and the practitioner does try to identify and correct these, but some could still be present. Please do not hesitate to contact practitioner for clarification. 03/15/2025 Encounter for examination of blood pressure without abnormal findings (ICD-10 - Z01.30) # Hospitalized at [facility] in [place] January 01, 2025 discharged January 05, 2025. [...] Recently seen by DO China Kaiser at [facility]. Going to increase mirtazapine to 30 mg +7.5 mg tablets for a total of 37.5 mg. Discontinued alprazolam. Discussed psychotherapy.Trial increasing trazodone for sleep to 100 mg but patient did not tolerate well. Will discontinue trazodone and Trialed hydroxyzine 50 mg with some improvement, will increase to 50 to 100 mg as needed.. Avoid alprazolam secondary to beers list.Refer to psychiatrist at [facility]. Provided with phone number.Patient states [...] log exercise and discussed fitness Apps like [employer] which can help keep log off calories [...] Dictation was accomplished with the use of [employer] voice recognition software, prone to medical misidentifications [...] history of CVA. Following with neurology at [facility], getting scans of her brain vasculature [...] 2025. # Dizziness: Much better since discontinuing losartan/Benzodiazep [...] thinners patient is going to discuss with cardiology/neurology . # Heart murmur: Echocardiogram demonstrates dilation of the aortic root, otherwise normal output. Lower extremities are without edema or rubor. Recent echocardiogram 2023 showing unchanged results.Cardiology ordered echocardiogram May 2025 # Bipolar: Recently seen by DO China Kaiser at [facility]. Going to increase mirtazapine to 30 mg +7.5 mg tablets for a total of 37.5 mg. Discontinued alprazolam. Discussed psychotherapy.Trial increasing trazodone for sleep to 100 mg but patient did not tolerate well. Will discontinue trazodone and Trialed hydroxyzine 50 mg with some improvement, will increase to 50 to 100 mg as needed.. Avoid alprazolam secondary to beers list.Refer to psychiatrist at [facility]. Provided with phone number.Patient states [...] Dictation was accomplished with the use of [employer] voice recognition software, prone to medical misidentifications [...] history of CVA. Following with neurology at [facility], getting scans of her brain vasculature [...] 2025. # Dizziness: Much better since discontinuing losartan/Benzodiazep [...] was discharged with at home PT/OT, and [place] nursing twice weekly, and home health aide. [...] thinners patient is going to discuss with cardiology/neurology . # Heart murmur: Echocardiogram demonstrates dilation of the aortic root, otherwise normal output. Lower extremities are without edema or rubor. Recent echocardiogram 2023 showing unchanged results.Cardiology ordered echocardiogram May 2025 # Bipolar: Recently seen by DO China Kaiser at [facility]. Going to increase mirtazapine to 30 mg +7.5 mg tablets for a total of 37.5 mg. Discontinued alprazolam. Discussed psychotherapy.Trial increasing trazodone for sleep to 100 mg but patient did not tolerate well. Will discontinue trazodone and Trialed hydroxyzine 50 mg with some improvement, will increase to 50 to 100 mg as needed.. Avoid alprazolam secondary to beers list.Refer to psychiatrist at [facility]. Provided with phone number.Patient states [...] Dictation was accomplished with the use of [employer] voice recognition software, prone to medical misidentifications and grammatical errors. This is unintentional and the practitioner does try to identify and correct these, but some could still be present. Please do not hesitate to contact practitioner for clarification. 03/15/2025 Encounter for screening for depression (ICD-10 - Z13.31) # Hospitalized at [facility] in [place] January 01, 2025 discharged January 05, 2025. [...] Recently seen by DO China Kaiser at [facility]. Going to increase mirtazapine to 30 mg +7.5 mg tablets for a total of 37.5 mg. Discontinued alprazolam. Discussed psychotherapy.Trial increasing trazodone for sleep to 100 mg but patient did not tolerate well. Will discontinue trazodone and Trialed hydroxyzine 50 mg with some improvement, will increase to 50 to 100 mg as needed.. Avoid alprazolam secondary to beers list.Refer to psychiatrist at [facility]. Provided with phone number.Patient states [...] log exercise and discussed fitness Apps like [employer] which can help keep log off calories [...] Dictation was accomplished with the use of [employer] voice recognition software, prone to medical misidentifications and grammatical errors. This is unintentional and the practitioner does try to identify and correct these, but some could still be present. Please do not hesitate to contact practitioner for clarification. 01/11/2025 Seborrhea capitis (ICD-10 - L21.0) # Hospitalized at [facility] in [place] January 01, 2025 discharged January 05, 2025. [...] Recently seen by DO China Kaiser at [facility]. Going to increase mirtazapine to 30 mg +7.5 mg tablets for a total of 37.5 mg. Discontinued alprazolam. Discussed psychotherapy.Trial increasing trazodone for sleep to 100 mg but patient did not tolerate well. Will discontinue trazodone and Trialed hydroxyzine 50 mg with some improvement, will increase to 50 to 100 mg as needed.. Avoid alprazolam secondary to beers list.Refer to psychiatrist at [facility]. Provided with phone number.Patient states [...] Dictation was accomplished with the use of [employer] voice recognition software, prone to medical misidentifications [...] 500 mg daily. A1c has improved November 17 25-5.8, glucose 138 # Alkaline phosphatase mildly elevated [...] and using a shower chair. Saw cardiology 8/7/23, Reviewed note, they discontinue losartan and dizziness [...] unchanged results. # HTN: Reports that the air intelligence officer discontinued all antihypertesnive medciations. Blood pressure stable. # Bipolar: Recently seen by DO China Kaiser at [facility]. Going to increase mirtazapine to 30 mg +7.5 mg tablets for a total of 37.5 mg. Discontinued alprazolam. Discussed psychotherapy.Trial increasing trazodone for sleep to 100 mg but patient did not tolerate well. Will discontinue trazodone and Trialed hydroxyzine 50 mg with some improvement, will increase to 50 to 100 mg as needed.. Avoid alprazolam secondary to beers list.Refer to psychiatrist at [facility]. Provided with phone number.Patient states [...] Dictation was accomplished with the use of [employer] voice recognition software, prone to medical misidentifications [...] unchanged results. # HTN: Reports that the air intelligence officer discontinued all antihypertesnive medciations. Blood pressure stable. # Bipolar: Recently seen by DO China Kaiser at [facility]. Going to increase mirtazapine to 30 mg +7.5 mg tablets for a total of 37.5 mg. Discontinued alprazolam. Discussed psychotherapy.Trial increasing trazodone for sleep to 100 mg but patient did not tolerate well. Will discontinue trazodone and Trialed hydroxyzine 50 mg with some improvement, will increase to 50 to 100 mg as needed.. Avoid alprazolam secondary to beers list.Refer to psychiatrist at [facility]. Provided with phone number. # [...] Dictation was accomplished with the use of [employer] voice recognition software, prone to medical misidentifications [...] unchanged results. # HTN: Reports that the air intelligence officer discontinued all antihypertesnive medciations. Blood pressure stable. # Bipolar: Recently seen by DO China Kaiser at [facility]. Going to increase mirtazapine to 30 mg +7.5 mg tablets for a total of 37.5 mg. Discontinued alprazolam. Discussed psychotherapy.Trial increasing trazodone for sleep to 100 mg but patient did not tolerate well. Will discontinue trazodone and Trialed hydroxyzine 50 mg with some improvement, will increase to 50 to 100 mg as needed.. Avoid alprazolam secondary to beers list.Refer to psychiatrist at [facility]. Provided with phone number. # [...] Dictation was accomplished with the use of [employer] voice recognition software, prone to medical misidentifications [...] unchanged results. # HTN: Reports that the air intelligence officer discontinued all antihypertesnive medciations. Blood pressure stable. # Bipolar: Recently seen by DO China Kaiser at [facility]. Going to increase mirtazapine to 30 mg +7.5 mg tablets for a total of 37.5 mg. Discontinued alprazolam. Discussed psychotherapy.Trial increasing trazodone for sleep to 100 mg but patient did not tolerate well. Will discontinue trazodone and Trialed hydroxyzine 50 mg with some improvement, will increase to 50 to 100 mg as needed.. Avoid alprazolam secondary to beers list.Refer to psychiatrist at [facility]. Provided with phone number.Patient states [...] Dictation was accomplished with the use of [employer] voice recognition software, prone to medical misidentifications and grammatical errors. This is unintentional and the practitioner does try to identify and correct these, but some could still be present. Please do not hesitate to contact practitioner for clarification. 01/11/2025 Sinus congestion (ICD-10 - R09.81) # Hospitalized at [facility] in [place] January 01, 2025 discharged January 05, 2025. [...] Recently seen by DO China Kaiser at [facility]. Going to increase mirtazapine to 30 mg +7.5 mg tablets for a total of 37.5 mg. Discontinued alprazolam. Discussed psychotherapy.Trial increasing trazodone for sleep to 100 mg but patient did not tolerate well. Will discontinue trazodone and Trialed hydroxyzine 50 mg with some improvement, will increase to 50 to 100 mg as needed.. Avoid alprazolam secondary to beers list.Refer to psychiatrist at [facility]. Provided with phone number.Patient states [...] Dictation was accomplished with the use of [employer] voice recognition software, prone to medical misidentifications and grammatical errors. This is unintentional and the practitioner does try to identify and correct these, but some could still be present. Please do not hesitate to contact practitioner for clarification. 03/15/2025 Encounter for screening for other disorder (ICD-10 - Z13.89) # Hospitalized at [facility] in [place] January 01, 2025 discharged January 05, 2025. [...] Recently seen by DO China Kaiser at [facility]. Going to increase mirtazapine to 30 mg +7.5 mg tablets for a total of 37.5 mg. Discontinued alprazolam. Discussed psychotherapy.Trial increasing trazodone for sleep to 100 mg but patient did not tolerate well. Will discontinue trazodone and Trialed hydroxyzine 50 mg with some improvement, will increase to 50 to 100 mg as needed.. Avoid alprazolam secondary to beers list.Refer to psychiatrist at [facility]. Provided with phone number.Patient states [...] log exercise and discussed fitness Apps like [employer] which can help keep log off calories [...] Dictation was accomplished with the use of [employer] voice recognition software, prone to medical misidentifications [...] history of CVA. Following with neurology at [facility], getting scans of her brain vasculature [...] 2025. # Dizziness: Much better since discontinuing losartan/Benzodiazep [...] thinners patient is going to discuss with cardiology/neurology . # Heart murmur: Echocardiogram demonstrates dilation of the aortic root, otherwise normal output. Lower extremities are without edema or rubor. Recent echocardiogram 2023 showing unchanged results.Cardiology ordered echocardiogram May 2025 # Bipolar: Recently seen by DO China Kaiser at [facility]. Going to increase mirtazapine to 30 mg +7.5 mg tablets for a total of 37.5 mg. Discontinued alprazolam. Discussed psychotherapy.Trial increasing trazodone for sleep to 100 mg but patient did not tolerate well. Will discontinue trazodone and Trialed hydroxyzine 50 mg with some improvement, will increase to 50 to 100 mg as needed.. Avoid alprazolam secondary to beers list.Refer to psychiatrist at [facility]. Provided with phone number.Patient states [...] Dictation was accomplished with the use of [employer] voice recognition software, prone to medical misidentifications and grammatical errors. This is unintentional and the practitioner does try to identify and correct these, but some could still be present. Please do not hesitate to contact practitioner for clarification. 03/15/2025 Other specified counseling (ICD-10 - Z71.89) # Hospitalized at [facility] in [place] January 01, 2025 discharged January 05, 2025. [...] Recently seen by DO China Kaiser at [facility]. Going to increase mirtazapine to 30 mg +7.5 mg tablets for a total of 37.5 mg. Discontinued alprazolam. Discussed psychotherapy.Trial increasing trazodone for sleep to 100 mg but patient did not tolerate well. Will discontinue trazodone and Trialed hydroxyzine 50 mg with some improvement, will increase to 50 to 100 mg as needed.. Avoid alprazolam secondary to beers list.Refer to psychiatrist at [facility]. Provided with phone number.Patient states [...] log exercise and discussed fitness Apps like [employer] which can help keep log off calories [...] Dictation was accomplished with the use of [employer] voice recognition software, prone to medical misidentifications and grammatical errors. This is unintentional and the practitioner does try to identify and correct these, but some could still be present. Please do not hesitate to contact practitioner for clarification. 06/15/2025 BMI 33.0-33.9,adult (ICD-10 - Z68.33) # Patient having right [...] history of CVA. Following with neurology at [facility], getting scans of her brain vasculature [...] 2025. # Dizziness: Much better since discontinuing losartan/Benzodiazep [...] thinners patient is going to discuss with cardiology/neurology . # Heart murmur: Echocardiogram demonstrates dilation of the aortic root, otherwise normal output. Lower extremities are without edema or rubor. Recent echocardiogram 2023 showing unchanged results.Cardiology ordered echocardiogram May 2025 # Bipolar: Recently seen by DO China Kaiser at [facility]. Going to increase mirtazapine to 30 mg +7.5 mg tablets for a total of 37.5 mg. Discontinued alprazolam. Discussed psychotherapy.Trial increasing trazodone for sleep to 100 mg but patient did not tolerate well. Will discontinue trazodone and Trialed hydroxyzine 50 mg with some improvement, will increase to 50 to 100 mg as needed.. Avoid alprazolam secondary to beers list.Refer to psychiatrist at [facility]. Provided with phone number.Patient states [...] Dictation was accomplished with the use of [employer] voice recognition software, prone to medical misidentifications and grammatical errors. This is unintentional and the practitioner does try to identify and correct these, but some could still be present. Please do not hesitate to contact practitioner for clarification. 01/11/2025 Dysuria (ICD-10 - R30.0) # Hospitalized at [facility] in [place] January 01, 2025 discharged January 05, 2025. [...] Recently seen by DO China Kaiser at [facility]. Going to increase mirtazapine to 30 mg +7.5 mg tablets for a total of 37.5 mg. Discontinued alprazolam. Discussed psychotherapy.Trial increasing trazodone for sleep to 100 mg but patient did not tolerate well. Will discontinue trazodone and Trialed hydroxyzine 50 mg with some improvement, will increase to 50 to 100 mg as needed.. Avoid alprazolam secondary to beers list.Refer to psychiatrist at [facility] counseling [facility]. Provided with phone number.Patient states that [...] Dictation was accomplished with the use of [employer] voice recognition software, prone to medical misidentifications [...] unchanged results. # HTN: Reports that the air intelligence officer discontinued all antihypertesnive medciations. Blood pressure stable. # Bipolar: Recently seen by DO China Kaiser at [facility]. Going to increase mirtazapine to 30 mg +7.5 mg tablets for a total of 37.5 mg. Discontinued alprazolam. Discussed psychotherapy.Trial increasing trazodone for sleep to 100 mg but patient did not tolerate well. Will discontinue trazodone and Trialed hydroxyzine 50 mg with some improvement, will increase to 50 to 100 mg as needed.. Avoid alprazolam secondary to beers list.Refer to psychiatrist at [facility]. Provided with phone number. # [...] Dictation was accomplished with the use of [employer] voice recognition software, prone to medical misidentifications [...] unchanged results. # HTN: Reports that the air intelligence officer discontinued all antihypertesnive medciations. Blood pressure stable. # Bipolar: Recently seen by DO China Kaiser at [facility]. Going to increase mirtazapine to 30 mg +7.5 mg tablets for a total of 37.5 mg. Discontinued alprazolam. Discussed psychotherapy.Trial increasing trazodone for sleep to 100 mg but patient did not tolerate well. Will discontinue trazodone and Trialed hydroxyzine 50 mg with some improvement, will increase to 50 to 100 mg as needed.. Avoid alprazolam secondary to beers list.Refer to psychiatrist at [facility]. Provided with phone number.Patient states that [...] Dictation was accomplished with the use of [employer] voice recognition software, prone to medical misidentifications [...] unchanged results. # HTN: Reports that the air intelligence officer discontinued all antihypertesnive medciations. Blood pressure stable. # Bipolar: Recently seen by DO China Kaiser at [facility]. Going to increase mirtazapine to 30 mg +7.5 mg tablets for a total of 37.5 mg. Discontinued alprazolam. Discussed psychotherapy.Trial increasing trazodone for sleep to 100 mg but patient did not tolerate well. Will discontinue trazodone and Trialed hydroxyzine 50 mg with some improvement, will increase to 50 to 100 mg as needed.. Avoid alprazolam secondary to beers list.Refer to psychiatrist at [facility]. Provided with phone number.Patient states [...] Dictation was accomplished with the use of [employer] voice recognition software, prone to medical misidentifications [...] unchanged results. # HTN: Reports that the air intelligence officer discontinued all antihypertesnive medciations. Blood pressure stable. # Bipolar: Recently seen by DO China Kaiser at [facility]. Going to increase mirtazapine to 30 mg +7.5 mg tablets for a total of 37.5 mg. Discontinued alprazolam. Discussed psychotherapy.Trial increasing trazodone for sleep to 100 mg but patient did not tolerate well. Will discontinue trazodone and Trialed hydroxyzine 50 mg with some improvement, will increase to 50 to 100 mg as needed.. Avoid alprazolam secondary to beers list.Refer to psychiatrist at [facility]. Provided with phone number. # [...] Dictation was accomplished with the use of [employer] voice recognition software, prone to medical misidentifications [...] history of CVA. Following with neurology at [facility], getting scans of her brain vasculature [...] 2025. # Dizziness: Much better since discontinuing losartan/Benzodiazep [...] thinners patient is going to discuss with cardiology/neurology . # Heart murmur: Echocardiogram demonstrates dilation of the aortic root, otherwise normal output. Lower extremities are without edema or rubor. Recent echocardiogram 2023 showing unchanged results.Cardiology ordered echocardiogram May 2025 # Bipolar: Recently seen by DO China Kaiser at [facility]. Going to increase mirtazapine to 30 mg +7.5 mg tablets for a total of 37.5 mg. Discontinued alprazolam. Discussed psychotherapy.Trial increasing trazodone for sleep to 100 mg but patient did not tolerate well. Will discontinue trazodone and Trialed hydroxyzine 50 mg with some improvement, will increase to 50 to 100 mg as needed.. Avoid alprazolam secondary to beers list.Refer to psychiatrist at [facility] counseling [facility]. Provided with phone number.Patient states that [...] Dictation was accomplished with the use of [employer] voice recognition software, prone to medical misidentifications and grammatical errors. This is unintentional and the practitioner does try to identify and correct these, but some could still be present. Please do not hesitate to contact practitioner for clarification. 03/15/2025 Dizziness (ICD-10 - R42) # Hospitalized at [facility] in [place] January 01, 2025 discharged January 05, 2025. [...] Recently seen by DO China Kaiser at [facility]. Going to increase mirtazapine to 30 mg +7.5 mg tablets for a total of 37.5 mg. Discontinued alprazolam. Discussed psychotherapy.Trial increasing trazodone for sleep to 100 mg but patient did not tolerate well. Will discontinue trazodone and Trialed hydroxyzine 50 mg with some improvement, will increase to 50 to 100 mg as needed.. Avoid alprazolam secondary to beers list.Refer to psychiatrist at [facility]. Provided with phone number.Patient states [...] log exercise and discussed fitness Apps like [employer] which can help keep log off calories [...] Dictation was accomplished with the use of [employer] voice recognition software, prone to medical misidentifications and grammatical errors. This is unintentional and the practitioner does try to identify and correct these, but some could still be present. Please do not hesitate to contact practitioner for clarification. 01/11/2025 Prediabetes (ICD-10 - R73.03) # Hospitalized at [facility] in [place] January 01, 2025 discharged January 05, 2025. [...] Recently seen by DO China Kaiser at [facility]. Going to increase mirtazapine to 30 mg +7.5 mg tablets for a total of 37.5 mg. Discontinued alprazolam. Discussed psychotherapy.Trial increasing trazodone for sleep to 100 mg but patient did not tolerate well. Will discontinue trazodone and Trialed hydroxyzine 50 mg with some improvement, will increase to 50 to 100 mg as needed.. Avoid alprazolam secondary to beers list.Refer to psychiatrist at [facility]. Provided with phone number.Patient states [...] Dictation was accomplished with the use of [employer] voice recognition software, prone to medical misidentifications and grammatical errors. This is unintentional and the practitioner does try to identify and correct these, but some could still be present. Please do not hesitate to contact practitioner for clarification. 03/15/2025 Memory changes (ICD-10 - R41.3) # Hospitalized at [facility] in [place] January 01, 2025 discharged January 05, 2025. [...] prior to the surgery. Following with Dr. Brarios.Doing well per surgery, pleased with progress, Healing [...] Recently seen by DO China Kaiser at [facility]. Going to increase mirtazapine to 30 mg +7.5 mg tablets for a total of 37.5 mg. Discontinued alprazolam. Discussed psychotherapy.Trial increasing trazodone for sleep to 100 mg but patient did not tolerate well. Will discontinue trazodone and Trialed hydroxyzine 50 mg with some improvement, will increase to 50 to 100 mg as needed.. Avoid alprazolam secondary to beers list.Refer to psychiatrist at [facility]. Provided with phone number.Patient states [...] log exercise and discussed fitness Apps like [employer] which can help keep log off calories [...] Dictation was accomplished with the use of [employer] voice recognition software, prone to medical misidentifications and grammatical errors. This is unintentional and the practitioner does try to identify and correct these, but some could still be present. Please do not hesitate to contact practitioner for clarification. 01/11/2025 Elevated alkaline phosphatase level (ICD-10 - R74.8) # Hospitalized at [facility] in [place] January 01, 2025 discharged January 05, 2025. [...] Recently seen by DO China Kaiser at [facility]. Going to increase mirtazapine to 30 mg +7.5 mg tablets for a total of 37.5 mg. Discontinued alprazolam. Discussed psychotherapy.Trial increasing trazodone for sleep to 100 mg but patient did not tolerate well. Will discontinue trazodone and Trialed hydroxyzine 50 mg with some improvement, will increase to 50 to 100 mg as needed.. Avoid alprazolam secondary to beers list.Refer to psychiatrist at [facility]. Provided with phone number.Patient states [...] Dictation was accomplished with the use of [employer] voice recognition software, prone to medical misidentifications [...] unchanged results. # HTN: Reports that the air intelligence officer discontinued all antihypertesnive medciations. Blood pressure stable. # Bipolar: Recently seen by DO China Kaiser at [facility]. Going to increase mirtazapine to 30 mg +7.5 mg tablets for a total of 37.5 mg. Discontinued alprazolam. Discussed psychotherapy.Trial increasing trazodone for sleep to 100 mg but patient did not tolerate well. Will discontinue trazodone and Trialed hydroxyzine 50 mg with some improvement, will increase to 50 to 100 mg as needed.. Avoid alprazolam secondary to beers list.Refer to psychiatrist at [facility]. Provided with phone number.Patient states [...] Dictation was accomplished with the use of [employer] voice recognition software, prone to medical misidentifications and grammatical errors. This is unintentional and the practitioner does try to identify and correct these, but some could still be present. Please do not hesitate to contact practitioner for clarification. 01/11/2025 Encounter for examination of blood pressure without abnormal findings (ICD-10 - Z01.30) # Hospitalized at [facility] in [place] January 01, 2025 discharged January 05, 2025. [...] was discharged with at home PT/OT, and [place] nursing twice weekly, and home health aide. [...] Recently seen by DO China Kaiser at [facility]. Going to increase mirtazapine to 30 mg +7.5 mg tablets for a total of 37.5 mg. Discontinued alprazolam. Discussed psychotherapy.Trial increasing trazodone for sleep to 100 mg but patient did not tolerate well. Will discontinue trazodone and Trialed hydroxyzine 50 mg with some improvement, will increase to 50 to 100 mg as needed.. Avoid alprazolam secondary to beers list.Refer to psychiatrist at [facility]. Provided with phone [...] Dictation was accomplished with the use of [employer] voice recognition software, prone to medical misidentifications and grammatical errors. This is unintentional and the practitioner does try to identify and correct these, but some could still be present. Please do not hesitate to contact practitioner for clarification. 03/15/2025 BMI 34.0-34.9,adult (ICD-10 - Z68.34) # Hospitalized at [facility] in [place] January 01, 2025 discharged January 05, 2025. [...] was discharged with at home PT/OT, and [place] nursing twice weekly, and home health aide. [...] Recently seen by DO China Kaiser at [facility]. Going to increase mirtazapine to 30 mg +7.5 mg tablets for a total of 37.5 mg. Discontinued alprazolam. Discussed psychotherapy.Trial increasing trazodone for sleep to 100 mg but patient did not tolerate well. Will discontinue trazodone and Trialed hydroxyzine 50 mg with some improvement, will increase to 50 to 100 mg as needed.. Avoid alprazolam secondary to beers list.Refer to psychiatrist at [facility]. Provided with phone number.Patient states [...] log exercise and discussed fitness Apps like [employer] which can help keep log off calories [...] Dictation was accomplished with the use of [employer] voice recognition software, prone to medical misidentifications [...] EKG 08/21/2022 CT Maxillofacial w/o Contrast 12/30/2023 XR Shoulder 2+ Views RT 06/15/2025 LIPID PANEL, STANDARD 03/15/2025 LIPID PANEL, STANDARD 06/09/2024 LIPID PANEL, STANDARD 10/27/2023 LIPID PANEL, STANDARD 08/05/2022 COMPREHENSIVE METABOLIC PANEL 08/05/2022 COMPREHENSIVE METABOLIC PANEL 06/09/2024 COMPREHENSIVE METABOLIC PANEL 10/27/2023 COMPREHENSIVE METABOLIC PANEL 08/09/2024 COMPREHENSIVE METABOLIC PANEL 03/15/2025 BASIC METABOLIC PANEL 02/01/2025 CBC (INCLUDES DIFF/PLT) 08/09/2024 CBC (INCLUDES DIFF/PLT) 03/15/2025 CBC (INCLUDES DIFF/PLT) 10/27/2023 CBC (INCLUDES DIFF/PLT) 06/09/2024 CBC (INCLUDES DIFF/PLT) 08/05/2022 URINALYSIS, COMPLETE 08/05/2022 URINALYSIS, COMPLETE 10/27/2023 URINALYSIS, COMPLETE 03/15/2025 URINALYSIS, COMPLETE 06/09/2024 URINALYSIS, COMPLETE W/REFLEX TO CULTURE 08/09/2024 URINALYSIS, COMPLETE W/REFLEX TO CULTURE 01/17/2025 HEMOGLOBIN A1c 08/09/2024 HEMOGLOBIN A1c 03/15/2025 HEMOGLOBIN A1c 06/09/2024 HEMOGLOBIN A1c 08/05/2022 T4, FREE 08/05/2022 TSH 08/05/2022 TSH 06/09/2024 TSH 03/15/2025 VITAMIN D,25-OH,TOTAL,IA 06/09/2024 VITAMIN D,25-OH,TOTAL,IA 08/05/2022 US Renal and Bladder 02/01/2025 Vitamin D, [id number] 03/15/2025 Next Appt Details Provider Name:KURTIS SHIELDS, 08/15/2025 01:00:00 PM, [address], [place], [address], Insurance Providers Payer Name Payer Address Payer Phone Subscriber Number Group Number Insured Name Patient Relationship to Insured Coverage Start Date Coverage End Date [employer] Ad[employer]age [address] [place] [phone] [id number] Clint Cheek Self - patient is the [...] surgery October 2024 Hospitalization History Reason Date(Month/Year) [facility] December 2024
== END 2025-06-16 13:27 | disposition home or self-care (01) ==
LOC: HO.CT 13:26
PROVIDERS: Visit Provider Registered Nurse
DX: M25.511 Pain in right shoulder (principal); R42 Dizziness and giddiness; I67.89 Other cerebrovascular disease; Z86.73 Personal history of transient ischemic attack (TIA), and cerebral infarction without residual deficits
CPT/HCPCS: 70496; 70498; 73030; 82565; 93242; Q9967

== ENCOUNTER → 2025-06-16 14:15 | Outpatient (BNV) | payer MEDICARE, SELFPAY | PROVIDERS: Visit Provider Radiology Diagnostic Radiology | DX: R42 Dizziness and giddiness (principal); I65.01 Occlusion and stenosis of right vertebral artery; M25.511 Pain in right shoulder | CPT/HCPCS: 70496; 70498; 73030 ==

== ENCOUNTER → 2025-06-16 14:26 | Outpatient (BNV) | payer MEDICARE, SELFPAY | PROVIDERS: Visit Provider Internal Medicine | DX: I49.3 Ventricular premature depolarization (principal); I49.49 Other premature depolarization | CPT/HCPCS: 93248 ==